=== PATIENT | female | born 1945 | race Caucasian/White ===

== ENCOUNTER 2017-07-16 16:47 | Inpatient (IN) | payer OTHER ==
[2017-07-16 17:22] LABS: Absolute Lymphocytes (CBC) 2.7 K/uL (0.7-4.9); Basophils % 0.7 % (0-1.3); Eosinophils % 1.6 % (0-4.4); Hematocrit 31.4 % (36.0-45.0); Lymphocytes % 20.8 % (15.3-44.8); MCH 28.9 pg (27.0-35.0); MCV 90.3 fL (80-100); MPV 7.4 fL (7.6-11.3); Monocytes % 7.5 % (3.3-12.3); RBC Red Blood Cell Count 3.47 M/uL (3.86-4.86)
[2017-07-16 17:35] LABS: Magnesium 1.7 mg/dL (1.8-2.5)
[2017-07-16] MEDS ORDERED: NA CHLORIDE 0.9% 1,000 ML ONE ×2 (18:00→22:27)
[2017-07-16 18:15] LABS: Thyroid Stimulating Hormone 12.31 uIU/mL (0.34-5.60)
[2017-07-16] MEDS ORDERED: FENTANYL CITR 100 MCG/2 ML ONE (18:49)
[2017-07-16] MEDS ORDERED: MAGNESIUM SULFATE 1 gm IVPB 1 GM/100 ML BAG IV ONE (20:19)
--- NOTE | 2017-07-16 21:29 | ER ---
Nurse's Notes [facility] Name: Valentina Raphael Age: 72 yrs Sex: Female : 1945 Arrival Date: 07/16/2017 Time: 16:56 Bed 28 Private MD: Diagnosis: Dehydration;Orthostatic hypotension;Hypercalcemia;Hypothyroidism, unspecified Presentation: 07/16 17:00 Presenting complaint: EMS states: pt stood up and fell backwards after getting up and tl3 feeling dizzy. Transition of care: patient was not received from another setting of care. Onset of symptoms was July 16, 2017. Care prior to arrival: None. 17:00 Method Of Arrival: EMS: [facility] tl3 17:00 Acuity: ZEYNEP 3 tl3 Triage Assessment: 17:00 General: Appears uncomfortable, slender, well groomed, well developed, Behavior is tl3 calm, cooperative, appropriate for age. Pain: Complains of pain in back. Musculoskeletal: pt able to move slowly, but has frequent muscle spasms in back. Historical: - Home Meds: 17:32 ibuprofen 600 mg Oral tab 1 tab every 6 hours for Pain [Active]; trazodone 50 mg Oral tl3 tab 2 tabs once a day [Active]; amitriptyline 25 mg Oral tab 1 tab once daily [Active]; levothyroxine 50 mcg tab 1 tab once daily [Active]; cyclobenzaprine 5 mg Oral tab 1 tab daily [Active]; pravastatin 20 mg Oral tab 1 tab once daily [Active]; stool softener [Active]; - Immunization history:: Adult Immunizations up to date. - Social history:: Smoking status: Patient/guardian denies using tobacco, never smoked. Screenin:59 Abuse screen: Denies threats or abuse. Nutritional screening: No deficits noted. tl3 Tuberculosis screening: No symptoms or risk factors identified. Fall Risk None identified. Assessment: 17:59 General: Appears uncomfortable, slender, well groomed, well developed, Behavior is tl3 calm, cooperative, appropriate for age. Pain: Complains of pain in back. Neuro: Level of Consciousness is awake, alert, obeys commands, Oriented to person, place, time, situation, Appropriate for age. Cardiovascular: Heart tones S1 S2 present Capillary refill < 3 seconds in bilateral fingers. Respiratory: Airway is patent Breath sounds are clear bilaterally. GI: No signs and/or symptoms were reported involving the gastrointestinal system. GI: Bowel sounds present X 4 quads. Reports lower abdominal pain, upper abdominal pain, intermittent pain and swelling to abdomen. : No signs and/or symptoms were reported regarding the genitourinary system. EENT: No signs and/or symptoms were reported regarding the EENT system. Derm: No signs and/or symptoms reported regarding the dermatologic system. Musculoskeletal: No signs and/or symptoms reported regarding the musculoskeletal system. 19:21 Reassessment: Patient appears in no apparent distress at this time. No changes from tl3 previously documented assessment. Patient and/or family updated on plan of care and expected duration. Pain level reassessed. Patient is alert, oriented x 3, equal unlabored respirations, skin warm/dry/pink. pt resting quietly, IV infusing without difficulty. 20:30 Reassessment: No changes from previously documented assessment. Patient and/or family tl3 updated on plan of care and expected duration. Pain level reassessed. Patient is alert, oriented x 3, equal unlabored respirations, skin warm/dry/pink. family at bedside. Vital Signs: 17:00 BP 135 / 89 Supine; Pulse 104; Resp 16; Pulse Ox 98% on R/A; tl3 17:00 BP 121 / 96 Sitting; Pulse 104; tl3 17:00 BP 86 / 40 Standing; Pulse 56; tl3 18:18 BP 189 / 107; Pulse 96; Resp 18; Pulse Ox 98% on R/A; tl3 18:40 BP 205 / 102 Supine; Pulse 80; Resp 18; Pulse Ox 96% ; tl3 18:40 BP 176 / 114 Sitting; Pulse 91; Resp 16; Pulse Ox 97% ; tl3 18:40 BP 193 / 119 Standing; Pulse 93; Resp 16; Pulse Ox 100% ; tl3 19:21 BP 177 / 77; Pulse 99; Resp 18; Pulse Ox 98% ; tl3 19:24 Pain 8/10; tl3 21:57 BP 177 / 79; Pulse 115; Resp 18; Pulse Ox 100% ; tl3 ED Course: 16:56 Patient arrived in ED. aj 16:56 Drake Quiñones PA is PHCP. jr8 16:56 Sameer Brewer MD is Attending Physician. jr8 17:00 Arm band placed on right wrist. tl3 17:25 Tiffany Melchor, RN is Primary Nurse. tl3 17:27 Triage completed. tl3 17:59 No apparent distress. Awaiting lab results. tl3 17:59 Patient has correct armband on for positive identification. Bed in low position. Bed in tl3 low position. Call light in reach. Side rails up X2. Pulse ox on. NIBP on. 17:59 No provider procedures requiring assistance completed. Inserted saline lock: 22 gauge tl3 in left ,using aseptic technique. to top of left foot. 21:24 Pth,Intact Sent. tl3 21:28 Chris Moore MD is Hospitalizing Provider. jr8 23:30 Patient admitted, IV remains in place. tl3 07/17 02:28 XRAY Chest (1 view) Sent. tl3 Administered Medications: 04 18:04 Drug: NS 0.9% 1000 ml {Note: left foot.} Route: IV; Rate: 1000 ml; Site: Other; tl3 Delivery: Primary tubing; 19:00 Follow up: IV Status: Completed infusion; IV Intake: 1000ml tl3 18:38 Drug: fentaNYL (PF) 50 mcg Route: IVP; Infused Over: 3 mins; Site: Other; tl3 19:24 Follow up: Pain 8/ Adult tl3 19:24 Follow up: Response: No adverse reaction tl3 20:05 Drug: Magnesium Sulfate 1 grams Route: IVPB; Infused Over: 1 hrs; Site: Other; tl3 Delivery: Primary tubing; 21:23 Follow up: IV Status: Completed infusion; IV Intake: 100ml tl3 22:06 Drug: NS 0.9% 1000 ml Route: IV; Rate: 125 ml/hr; Site: Other; Delivery: Primary tubing;tl3 22:06 Drug: fentaNYL (PF) 50 mcg Route: IVP; Site: Other; tl3 23:15 Follow up: Response: No adverse reaction; Pain is decreased tl3 Intake: 19:00 IV: 1000ml; Total: 1000ml. tl3 21:23 IV: 100ml; Total: 1100ml. tl3 Outcome: 21:29 Decision to Hospitalize by Provider. jr8 23:30 Admitted to Tele accompanied by tech, via stretcher, with chart, Report called to sonam Smith RN 23:30 Condition: stable 07/17 00:15 Demonstrated understanding of reason for admit tl3 00:45 Patient left the ED. tl3 Signatures: Linda Engel RN RN Drake Fay PA PA jr8 Tiffany Melchor RN RN tl3 Corrections: (The following items were deleted from the chart) 07/16 21:58 21:57 Reassessment: Patient appears in no apparent distress at this time. No changes tl3 from previously documented assessment. Patient and/or family updated on plan of care and expected duration. Pain level reassessed. Patient is alert, oriented x 3, equal unlabored respirations, skin warm/dry/pink. Drake at bedside for suturing tl3
--- NOTE | 2017-07-16 21:29 | EDPHYS ---
Physician Documentation [facility] Name: Valentina Raphael Age: 72 yrs Sex: Female : 1945 Arrival Date: 07/16/2017 Time: 16:56 Bed 28 Private MD: ED Physician Sameer Brewer HPI: 07/16 17:07 This 72 yrs old Female presents to ER via Unassigned with complaints of jr8 dizziness. 17:08 The patient presents with dizziness, feeling faint, lightheadedness. Onset: The jr8 symptoms/episode began/occurred acutely, 2 week(s) ago, and became worse and became persistent. Modifying factors: The symptoms are alleviated by lying down, the symptoms are aggravated by standing up. Associated signs and symptoms: The patient has no apparent associated signs or symptoms. Severity of symptoms: At their worst the symptoms were moderate in the emergency department the symptoms are unchanged. Patient's baseline: Neuro: alert and fully oriented, Motor: no deficits, Ambulation: walks without assistance, Speech: normal. The patient has not experienced similar symptoms in the past. The patient has not recently seen a physician. Denies recent change in medications. Denies n/v. Two singe isolated bouts of mild diarrhea. Just finished Bactrim for urinary tract infections . Historical: - Home Meds: 17:32 ibuprofen 600 mg Oral tab 1 tab every 6 hours for Pain [Active]; trazodone 50 mg Oral tl3 tab 2 tabs once a day [Active]; amitriptyline 25 mg Oral tab 1 tab once daily [Active]; levothyroxine 50 mcg tab 1 tab once daily [Active]; cyclobenzaprine 5 mg Oral tab 1 tab daily [Active]; pravastatin 20 mg Oral tab 1 tab once daily [Active]; stool softener [Active]; - Immunization history:: Adult Immunizations up to date. - Social history:: Smoking status: Patient/guardian denies using tobacco, never smoked. ROS: 17:08 Eyes: Negative for injury, pain, redness, and discharge, ENT: Negative for injury, jr8 pain, and discharge, Neck: Negative for injury, pain, and swelling, Cardiovascular: Negative for chest pain, palpitations, and edema, Respiratory: Negative for shortness of breath, cough, wheezing, and pleuritic chest pain, Abdomen/GI: Negative for abdominal pain, nausea, vomiting, diarrhea, and constipation, Back: Negative for injury and pain, MS/Extremity: Negative for injury and deformity, Skin: Negative for injury, rash, and discoloration. 17:08 Neuro: Positive for dizziness, near syncope, Negative for altered mental status, headache, loss of consciousness, numbness, seizure activity, speech changes, syncope, tingling, tinnitus, tremor, visual changes, weakness. Exam: 17:08 Eyes: Pupils equal round and reactive to light, extra-ocular motions intact. Lids and jr8 lashes normal. Conjunctiva and sclera are non-icteric and not injected. Cornea within normal limits. Periorbital areas with no swelling, redness, or edema. ENT: Nares patent. No nasal discharge, no septal abnormalities noted. Tympanic membranes are normal and external auditory canals are clear. Oropharynx with no redness, swelling, or masses, exudates, or evidence of obstruction, uvula midline. Mucous membranes moist. Neck: Trachea midline, no thyromegaly or masses palpated, and no cervical lymphadenopathy. Supple, full range of motion without nuchal rigidity, or vertebral point tenderness. No Meningismus. Cardiovascular: Regular rate and rhythm with a normal S1 and S2. No gallops, murmurs, or rubs. Normal PMI, no JVD. No pulse deficits. Respiratory: Lungs have equal breath sounds bilaterally, clear to auscultation and percussion. No rales, rhonchi or wheezes noted. No increased work of breathing, no retractions or nasal flaring. Abdomen/GI: Soft, non-tender, with normal bowel sounds. No distension or tympany. No guarding or rebound. No evidence of tenderness throughout. Back: No spinal tenderness. No costovertebral tenderness. Full range of motion. Skin: Warm, dry with normal turgor. Normal color with no rashes, no lesions, and no evidence of cellulitis. MS/ Extremity: Pulses equal, no cyanosis. Neurovascular intact. Full, normal range of motion. Neuro: Awake and alert, GCS 15, oriented to person, place, time, and situation. Cranial nerves II-XII grossly intact. Motor strength 5/5 in all extremities. Sensory grossly intact. Cerebellar exam normal. Normal gait. Vital Signs: 17:00 BP 135 / 89 Supine; Pulse 104; Resp 16; Pulse Ox 98% on R/A; tl3 17:00 BP 121 / 96 Sitting; Pulse 104; tl3 17:00 BP 86 / 40 Standing; Pulse 56; tl3 18:18 BP 189 / 107; Pulse 96; Resp 18; Pulse Ox 98% on R/A; tl3 18:40 BP 205 / 102 Supine; Pulse 80; Resp 18; Pulse Ox 96% ; tl3 18:40 BP 176 / 114 Sitting; Pulse 91; Resp 16; Pulse Ox 97% ; tl3 18:40 BP 193 / 119 Standing; Pulse 93; Resp 16; Pulse Ox 100% ; tl3 19:21 BP 177 / 77; Pulse 99; Resp 18; Pulse Ox 98% ; tl3 19:24 Pain 8/10; tl3 21:57 BP 177 / 79; Pulse 115; Resp 18; Pulse Ox 100% ; tl3 MDM: 16:56 Patient medically screened. [facility] 21:28 Data reviewed: vital signs, nurses notes, lab test result(s), EKG, radiologic studies, [facility] plain films, and as a result, I will admit patient. Data interpreted: Pulse oximetry: on room air is 98 %. Interpretation: normal. Counseling: I had a detailed discussion with the patient and/or guardian regarding: the historical points, exam findings, and any diagnostic results supporting the discharge/admit diagnosis, lab results, radiology results, the need for further work-up and treatment in the hospital. Physician consultation: Chris Moore MD was called at 21:28, was contacted at 21:28, regarding admission, to the medical/surgical unit. consult, patient's condition, and will see patient. 07/16 16:56 Order name: CBC with Diff; Complete Time: 17:28 07/16 16:56 Order name: Basic Metabolic Panel; Complete Time: 18:17 07/16 16:56 Order name: TSH; Complete Time: 18:17 07/16 16:56 Order name: T4 Free; Complete Time: 18:17 07/16 16:57 Order name: Magnesium; Complete Time: 18:17 07/16 19:20 Order name: Pth,Intact 07/16 16:57 Order name: EKG; Complete Time: 16:57 07/16 21:31 Order name: XRAY Chest (1 view) [facility] 07/16 23:34 Order name: Troponin I; Complete Time: 23:35 [facility] 07/16 16:56 Order name: Orthostatics; Complete Time: 16:57 [facility] 07/16 16:57 Order name: IV; Complete Time: 21:24 [facility] 07/16 16:57 Order name: EKG - Nurse/Tech; Complete Time: 17:28 [facility] Administered Medications: 18:04 Drug: NS 0.9% 1000 ml {Note: left foot.} Route: IV; Rate: 1000 ml; Site: Other; tl3 Delivery: Primary tubing; 19:00 Follow up: IV Status: Completed infusion; IV Intake: 1000ml tl3 18:38 Drug: fentaNYL (PF) 50 mcg Route: IVP; Infused Over: 3 mins; Site: Other; tl3 19:24 Follow up: Pain 11/24 Adult tl3 19:24 Follow up: Response: No adverse reaction tl3 20:05 Drug: Magnesium Sulfate 1 grams Route: IVPB; Infused Over: 1 hrs; Site: Other; tl3 Delivery: Primary tubing; 21:23 Follow up: IV Status: Completed infusion; IV Intake: 100ml tl3 22:06 Drug: NS 0.9% 1000 ml Route: IV; Rate: 125 ml/hr; Site: Other; Delivery: Primary tubing;tl3 22:06 Drug: fentaNYL (PF) 50 mcg Route: IVP; Site: Other; tl3 23:15 Follow up: Response: No adverse reaction; Pain is decreased tl3 Disposition: 07/16/17 21:29 Hospitalization ordered by Chris Moore for Observation. Preliminary diagnosis are Dehydration, Orthostatic hypotension, Hypercalcemia, Hypothyroidism, unspecified. - Bed requested for Telemetry/MedSurg (observation). - Status is Observation. tl3 - Condition is Stable. - Problem is new. - Symptoms have improved. UTI on Admission? No Addendum: 08/19/2017 19:42 Co-signature as Attending Physician, Sameer Brewer MD I agree with the assessment and k dr plan of care. Signatures: Dispatcher [employer] [facility] Adele Snowden RN RN kl Rittger, Kevin, MD MD [facility] Drake Quiñones PA PA [facility] Tiffany Melchor RN RN tl3 Corrections: (The following items were deleted from the chart) 07/16 22:30 21:29 Hospitalization Ordered by Chris Moore MD for Observation. Preliminary kl diagnosis is Dehydration; Orthostatic hypotension; Hypercalcemia; Hypothyroidism, unspecified. Bed requested for Telemetry/MedSurg (observation). Status is Observation. Condition is Stable. Problem is new. Symptoms have improved. UTI on Admission? No. jr8 07/17 00:45 07/16 22:30 07/16/2017 21:29 Hospitalization Ordered by Chris Moore MD for tl3 Observation. Preliminary diagnosis is Dehydration; Orthostatic hypotension; Hypercalcemia; Hypothyroidism, unspecified. Bed requested for Telemetry/MedSurg (observation). Status is Observation. Condition is Stable. Problem is new. Symptoms have improved. UTI on Admission? No. kl
[2017-07-16] MEDS ORDERED: ACETAMINOPHEN 500 MG TAB PO PRN (21:53)
[2017-07-16] MEDS ORDERED: ONDANSETRON 4 MG/2 ML VIAL IV PRN (21:53)
[2017-07-16] MEDS: NA CHLORIDE 0.9% 1,000 ML IV SCH (22:00)
[2017-07-17 02:24] LABS: Absolute Monocytes 0.7 K/uL (0.1-1.3); Absolute Neutrophil 8.2 K/uL (1.8-8.0); Basophils % 0.5 % (0-1.3); Eosinophils % 0.6 % (0-4.4); Hematocrit 28.3 % (36.0-45.0); MCH 30.4 pg (27.0-35.0); MCV 89.3 fL (80-100); MPV 7.1 fL (7.6-11.3); Monocytes % 6.4 % (3.3-12.3); RBC Red Blood Cell Count 3.17 M/uL (3.86-4.86)
[2017-07-17] MEDS: MORPHINE 2 MG/ML SYR IV PRN ×3 (02:51→17:14)
[2017-07-17] MEDS ORDERED: METOPROLOL TARTRATE 5 MG/5 ML INJ IV STA ×2 (02:51→07:53)
[2017-07-17] MEDS ORDERED: HYDRALAZINE HCL 20 MG/ML VIAL IV PRN (02:51)
[2017-07-17 03:16] LABS: Albumin 3.5 g/dL (3.2-5.5); Bilirubin Total 0.4 mg/dL (0.3-1.2); Potassium 4.3 mEq/L (3.6-5.0); Protein, Total 6.5 g/dL (6.0-8.3)
[2017-07-17] MEDS ORDERED: DEXAMETHASONE 10 MG/ML VIAL IV ONE (06:30)
[2017-07-17 06:32] LABS: Absolute Monocytes 0.7 K/uL (0.1-1.3); Absolute Neutrophil 6.8 K/uL (1.8-8.0); Basophils % 0.5 % (0-1.3); Eosinophils % 0.9 % (0-4.4); Hematocrit 28.8 % (36.0-45.0); Lymphocytes % 20.4 % (15.3-44.8); MCH 29.8 pg (27.0-35.0); MCV 89.7 fL (80-100); MPV 7.6 fL (7.6-11.3); Monocytes % 7.5 % (3.3-12.3); RBC Red Blood Cell Count 3.21 M/uL (3.86-4.86)
[2017-07-17] MEDS: NA CHLORIDE 0.9% 1,000 ML IV SCH ×3 (06:40→17:12)
[2017-07-17] MEDS: LEVOTHYROXINE SOD 0.05 MG TABLET PO SCH (06:41)
[2017-07-17] MEDS ORDERED: DEXAMETHASONE 4 MG/ML VIAL ONE (06:54)
--- NOTE | 2017-07-17 07:08 | EKG ---
Test Date: 2017-07-16 Test Time: 17:09:08 Microstrategy Developer: [employer] MEASUREMENT RESULTS: Intervals: Rate: 102 SC: 166 QRSD: 82 QT: 334 QTc: 435 [place]: P: 75 SC: 166 QRS: 61 T: 86 INTERPRETIVE STATEMENTS: Sinus tachycardia Otherwise normal ECG Compared to ECG 05/31/2017 17:10:11 Sinus rhythm no longer present Left ventricular hypertrophy no longer present Electronically Signed On 07-17-17 07:07:32 CDT by Clement Orozco
[2017-07-17 07:10] LABS: Albumin 3.4 g/dL (3.2-5.5); Bilirubin Total 0.3 mg/dL (0.3-1.2); Magnesium 1.7 mg/dL (1.8-2.5); Potassium 4.3 mEq/L (3.6-5.0); Protein, Total 6.3 g/dL (6.0-8.3); Thyroid Stimulating Hormone 2.29 uIU/mL (0.34-5.60)
--- NOTE | 2017-07-17 07:34 | RAD REPORT ---
EXAM DESCRIPTION: RAD - Chest Single View - 07/16/2017 10:52 pm CLINICAL HISTORY: Dyspnea COMPARISON: May 31 TECHNIQUE: AP portable chest image was obtained 2239 hours . FINDINGS: No mass, consolidation or failure finding. Trachea is midline. Lung markings are similar t o the prior study. No new mediastinal or hilar finding. Heart and vasculature are normal. No measurab le pleural effusion and no pneumothorax. No gross bony abnormality seen. No acute aortic findings robb pected. Neurostimulator device has been removed since prior imaging. IMPRESSION: No acute cardiopulmonary process. No suspicious change from prior imaging.
[2017-07-17] MEDS ORDERED: TRAZODONE 50 MG TABLET PO PRN (07:53)
[2017-07-17] MEDS ORDERED: CYCLOBENZAPRINE 10 MG TAB PO PRN (07:53)
--- NOTE | 2017-07-17 07:59 | P.HP ---
Certification for Inpatient Patient admitted to: Observation With expected LOS: <2 Midnights Patient will require the following post-hospital care: None Practitioner: I am a practitioner with admitting privileges, knowledge of patient current condition, hospital course, and medical plan of care. Services: Services provided to patient in accordance with Admission requirements found in Title 42 Section 412.3 of the Code of Federal Regulations Patient History Date of Service: 07/16/17 Reason for admission: Syncope History of Present Illness: Patient is a 72-year-old female who has a history of chronic back pain. She states she has had a couple procedures were they have placed concrete in her vertebrae. I believe she has had kyphoplasties. I am not sure why she has had recurrent issues with this. According the patient, she was in her normal state of health until yesterday when she started feeling dizzy. She suddenly became lightheaded. Patient passed out. She is not sure exactly how long she was down. She came into the emergency room for further evaluation. In the emergency room she has had multiple testing which reveal she had some electrolyte abnormalities as well is a leukocytosis. She had hyponatremia along with hypercalcemia. She has been taking supplemental calcium with vitamin-D. Will need to stop this. Patient was also orthostatic in the emergency room. Will hydrate her as she has some renal insufficiency and will recheck her labs in the morning. Will also do x-rays of her spine she is complaining of back pain. For her syncope workup, will also order echocardiogram and carotid Doppler. Physical therapy evaluation in the morning as well. We will manage her chronic pain with her home medications. Allergies No Known Allergies Allergy (Verified 07/17/17 04:21) Home Medications: Docusate Sodium [Stool Softener] 100 mg PO DAILY 10/05/16 Levothyroxine [Synthroid] 50 mcg PO [id number] 10/05/16 Pravastatin Sodium [Pravachol] 20 mg PO BEDTIME 10/05/16 Amitriptyline [Elavil] 25 mg PO BEDTIME 07/17/17 Cyclobenzaprine HCl [Flexeril] 5 mg PO BID PRN 07/17/17 Loratadine [Claritin] 10 mg PO DAILY 07/17/17 Trazodone [Desyrel] 50 mg PO PRN PRN 07/17/17 - Past Medical/Surgical History Has patient received pneumonia vaccine in the past: No Diabetic: No -: pneumothorax -: colostomy -: spinal meningitis -: GERD -: Hysterectomy -: back sx x4 -: colostomy - Family History Father Medical History: Cancer Notes: cancer of the liver - Social History Smoking Status: Never smoker Alcohol use: No CD- Drugs: No Caffeine use: No Place of Residence: Home Review of Systems 10-point ROS is otherwise unremarkable Physical Examination - Vital Signs Temperature: 98.6 F Blood Pressure: 173/81 Pulse: 92 Respirations: 14 Pulse Ox (%): 97 - Physical Exam General: Alert, In no apparent distress, Oriented x3 HEENT: Atraumatic, PERRLA, Mucous membr. moist/pink, EOMI, Sclerae nonicteric Neck: Supple, 2+ carotid pulse no bruit, No LAD, Without JVD or thyroid abnormality Respiratory: Clear to auscultation bilaterally, Normal air movement Cardiovascular: Regular rate/rhythm, Normal S1 S2, Systolic murmur Gastrointestinal: Normal bowel sounds, Soft and benign, Non-distended, No tenderness Musculoskeletal: No clubbing, No swelling, Tenderness (Of the spine) Integumentary: No rashes, Tenderness/swelling Neurological: Normal gait, Normal speech, Normal tone, Sensation intact, Cranial nerves 3-12 intact, Normal affect, Abnormal strength Lymphatics: No axilla or inguinal lymphadenopathy - Studies Laboratory Data (last 24 hrs) 07/16/17 17:15: Sodium 128 L, Potassium 5.0, BUN 28 H, Creatinine 1.36 H, Glucose 111, Magnesium 1.7 L D 07/16/17 17:15: WBC 12.9 H, Hgb 10.0 L, Hct 31.4 L, Plt Count 396 Assessment & Plan - Problems (Diagnosis) (1) Syncope Current Visit: Yes Status: Acute (2) Chronic pain syndrome Current Visit: Yes Status: Acute (3) History of kyphoplasty Current Visit: Yes Status: Acute (4) History of colostomy reversal Current Visit: Yes Status: Acute (5) Orthostatic hypotension Current Visit: Yes Status: Acute (6) Malignant hypertension Current Visit: Yes Status: Acute - Plan Plan: 1. Carotid Doppler and echocardiogram 2. IV hydration 3. Recheck orthostatics in the morning 4. Spine x-ray per patient's request 5. Medication for chronic pain 6. Recheck calcium level in sodium level in the morning 7. GI and DVT prophylaxis - Advance Directives Does patient have a Living Will: No Does patient have a Durable POA for Healthcare: Yes - Code Status/Comfort Care Code Status Assessed: Yes Code Status: Full Code Critical Care: No Time Spent Managing PTS Care (In Minutes): 50
[2017-07-17] MEDS ORDERED: PNEUMOCOCCAL VACCINE 0.5 ML IMVAC ONE (08:00)
[2017-07-17] MEDS ORDERED: TRAMADOL HCL 50 MG TAB PO PRN (08:01)
--- NOTE | 2017-07-17 08:04 | RAD REPORT ---
EXAM DESCRIPTION: RAD - C Spine Ap/Lat - 07/17/2017 7:24 am CLINICAL HISTORY: Neck pain, back pain COMPARISON: None. FINDINGS: Cervical bodies are normal in height and alignment. No fracture or acute bony process seen . No disc space narrowing. Bones do appear osteopenic for age. Degenerative changes seen at the dens anterior arch C1 level. Facet joint degenerative change is mild. There is no prevertebral soft tissue thickening or other suspicious soft tissue finding. Dense carotid bulb calcifications are present left greater than right. IMPRESSION: Osteopenic and mild degenerative changes. No acute finding.
--- NOTE | 2017-07-17 08:14 | RAD REPORT ---
EXAM DESCRIPTION: RAD - Thoracic Spine Ap/Lat - 07/17/2017 7:25 am CLINICAL HISTORY: Back pain, history of spinal fusions COMPARISON: Two-view chest examination May 26, 2017, thoracic spine examination January 2017 FINDINGS: AP & lateral views of the thoracic spine were obtained. T7 60% compression fracture deform ity. Sclerotic changes are present within this vertebral body. Finding has not changed since May 26 chest film. Partial compression of the T12 body is noted with height loss and concavity to the sup erior endplate. Posterior wall height does appear to be preserved. This may have progressed slightly from the chest examination. Remaining thoracic vertebrae are normal in height. Vertebroplasty changes are present in the L1 body. No paraspinal masses are identified. No significant disc space narrowing. Neurostimulator device has been removed since the May [address] film IMPRESSION: Compression fracture of T7 not appearing significantly different from a May 26 chest examination. T12 compression fracture may have progressed minimally since the available comparison. No other new thoracic vertebral finding. No paraspinal mass. Patient's neurostimulator device has been removed since prior imaging. MR imaging is now all likely p ossible for this patient if there is concern for an occult thoracic process.
--- NOTE | 2017-07-17 08:17 | RAD REPORT ---
EXAM DESCRIPTION: RAD - Lumbar Spine 3 Views - 07/17/2017 7:25 am CLINICAL HISTORY: Back pain, history of multiple spinal fractures COMPARISON: May 06 FINDINGS: A three-view lumbar spine examination was performed. Underlying osteopenic changes are pre sent. The L1 and L5 compression fractures seen on the April examination have now been treated with vertebroplasty procedure. Height of L5 appears stable. Bone cement is more anteriorly positioned in L 1. There is questionable further loss in height of the L1. Patient was unable to be optimally positioned for the examination. This puts clothing or bedding kimberly fact over the posterior wall and posterior elements. Concave contour to the superior endplate L4 has developed since the April lumbar spine examination. Anterior and posterior wall heights are preserved. Minimal concavity to the superior endplate L2 not ed. Posterior wall height is preserved. No new or progressive disc space narrowing since prior imagin g. No paraspinal soft tissue mass. No pars defects identified. IMPRESSION: Since April imaging the partial compression of L1 has been treated with vertebroplasty . There appears to have been some progression in the compression fracture since the prior imaging. It is unknown if the progression of the L1 compression occurred prior to or subsequent to the vertebrop lasty procedure. Vertebroplasty treated L5 body shows no change in height since April imaging. Partial compression of the L2 and L4 bodies seen as concavity to the superior endplates. Peripheral v ertebral body wall height appears preserved. Underlying degenerative and osteopenic change. Bending or clothing artifact precludes accurate assess ment of the posterior elements.
[2017-07-17] MEDS: FLUOXETINE 20 MG CAP PO SCH (08:18)
[2017-07-17] MEDS: GABAPENTIN 300 MG CAP PO SCH ×4 (08:18→21:47)
[2017-07-17] MEDS: DOCUSATE NA 100 MG CAP PO SCH (08:18)
--- NOTE | 2017-07-17 08:18 | RAD REPORT ---
EXAM DESCRIPTION: FLAVIA - SUSSY - 07/17/2017 7:39 am CLINICAL HISTORY: Syncope COMPARISON: None. TECHNIQUE: Real-time sonographic evaluation of both carotid systems was performed. Doppler interroga tion was performed with waveform tracing bilaterally. FINDINGS: Normal high resistance waveforms are noted in both external carotid arteries. The common c arotid arteries and internal carotid arteries show normal low resistance waveforms. Bilateral carotid bulb calcified and noncalcified plaquing changes are present. On visual inspection this does not significantly narrow a vessel lumen. Peak systolic and end diastolic velocity values an d the ICA/CCA ratios are in the non-hemodynamically significant range. Antegrade flow seen in both vertebral arteries. Velocity values and ratios were recorded and are retained in the patient's imaging records. IMPRESSION: Bilateral carotid bulb plaquing changes. No hemodynamically significant stenosis.
[2017-07-17] MEDS ORDERED: CARVEDILOL 12.5 MG TAB PO SCH (09:00)
--- NOTE | 2017-07-17 10:31 | P.PN ---
Subjective Date of Service: 07/17/17 Primary Care Provider: Gillian Stock NP; Pain management-Dr. Rushing Chief Complaint: Syncope Subjective: Other (Patient still with back pain but stable with medication. Still somewhat dizzy when standing.) Physical Examination - Vital Signs Temperature: 98.6 F Blood Pressure: 122/58 Pulse: 99 Respirations: 14 Pulse Ox (%): 97 - Physical Exam General: Alert, In no apparent distress, Oriented x3, Cooperative HEENT: Atraumatic Neck: Supple Respiratory: Clear to auscultation bilaterally, Normal air movement Cardiovascular: Normal pulses, Regular rate/rhythm Gastrointestinal: Normal bowel sounds, Soft and benign, Non-distended Musculoskeletal: No warmth, Tenderness (Pain to the thoracic and lumbar region with palpation.) Integumentary: No tenderness/swelling, No erythema, No warmth, No cyanosis Neurological: Normal speech, Normal strength at 5/5 x4 extr, Normal tone, Normal affect Other Physical/Emotional Findings: Patient had positive orthostatics changes this morning with physical therapy. - Studies Laboratory Data (last 24 hrs) 07/16/17 17:15: Sodium 128 L, Potassium 5.0, BUN 28 H, Creatinine 1.36 H, Glucose 111, Magnesium 1.7 L D 07/16/17 17:15: WBC 12.9 H, Hgb 10.0 L, Hct 31.4 L, Plt Count 396 Medications List Reviewed: Yes Assessment & Plan - Problems (Diagnosis) (1) Hypertension Current Visit: Yes Status: Chronic Plan: Patient had positive orthostatics changes this morning with physical therapy. Will need to adjust blood pressure medication. Patient likely dehydrated. Will continue with IV fluids. Will correct sodium and potassium. Encourage oral intake. Will monitor and adjust appropriately. Patient not safe to go home at this time. Will continue to work with physical therapy over the next day. Will check MRI of the thoracic/lumbar spine. Qualifiers: Hypertension type: essential hypertension Qualified Code(s): I10 - Essential (primary) hypertension (2) History of vertebroplasty Current Visit: Yes Status: Chronic Plan: Patient with history of vertebroplasty in the past. Patient seen by pain management. Will check MRI of the thoracic and lumbar region to further assess. Will continue to work with physical therapy. Anticipate home in the next 1-2 days as the patient is still unsafe to go home with positive orthostatics changes. Patient high risk for fall and worsening back problem. (3) Compression fracture of thoracic spine, non-traumatic Current Visit: Yes Status: Chronic Plan: Patient with T7 compression fracture. No significant change since last evaluation. T12 showed mild increase compression injury. Will check MRI of the thoracic spine to further evaluate. Will continue to work with physical therapy. Patient still high risk for fall due to positive orthostatics changes. Will continue with IV fluid hydration. Will monitor and adjust appropriately. Anticipate possible discharge in the next 1-2 days. Patient is seen by pain management as an outpatient. Pain management will need to further address and treat. Qualifiers: Encounter type: subsequent encounter Thoracic vertebra fracture level: T7 Fracture healing: with routine healing Qualified Code(s): M48.54XD - Collapsed vertebra, not elsewhere classified, thoracic region, subsequent encounter for fracture with routine healing (4) Compression fx, lumbar spine Current Visit: Yes Status: Chronic Plan: Patient with multiple compression fractures to the L1, L2 and L4. Will continue with above plan of care. Will check MRI to further evaluate. Continue to work with physical therapy. Patient seen by pain management as an outpatient. Patient may require further evaluation and treatment by pain management. Qualifiers: Encounter type: subsequent encounter Lumbar vertebra fracture level: L1 (5) Chronic pain syndrome Onset Date: 07/17/17 Current Visit: Yes Status: Chronic Plan: Will continue with pain control medication. Patient is seen by pain management. Patient had stimulator in the past. She reports the pain management plans to put in a new stimulator. (6) Orthostatic hypotension Onset Date: 07/17/17 Current Visit: Yes Status: Acute Plan: Patient with orthostatic hypotension likely from dehydration. Will continue with IV fluid hydration. Will monitor closely. May need to hold her blood pressure medication until blood pressure is more stable. (7) Syncope Onset Date: 07/17/17 Current Visit: Yes Status: Acute Plan: This is likely from orthostatics changes. Will continue with above plan of care. Qualifiers: Syncope type: unspecified Qualified Code(s): R55 - Syncope and collapse Discharge Plan: Home Plan to discharge in: 24 Hours Time Spent Managing Pts Care (In Minutes): 55
--- NOTE | 2017-07-17 12:56 | ECHO ---
HEIGHT: 5 ft 3 in WEIGHT: 119 lb 3.2 oz DATE OF STUDY: 07/17/[address]: Chris Moore MD 2-DIMENSIONAL: YES M.MODE: YES DOPPLER: YES COLOR FLOW: YES TDS: PORTABLE: DEFINITY: BUBBLE STUDY: DIAGNOSIS: SYNCOPE CARDIAC HISTORY: CATHERIZATION: NO SURGERY: NO PROSTHETIC VALVE: NO PACEMAKER: NO MEASUREMENTS (cm) DIASTOLIC (NORMALS) SYSTOLIC (NORMALS) IVSd 1.0 (0.6-1.2) LA Diam 3.2 (1.9-4.0) LVEF 71% LVIDd 4.3 (3.5-5.7) LVIDs 2.6 (2.0-3.5) %FS 40% LVPWd 1.1 (0.6-1.2) Ao Diam 2.7 (2.0-3.7) 2 DIMENSIONAL ASSESSMENT: RIGHT ATRIUM: NORMAL LEFT ATRIUM: NORMAL RIGHT VENTRICLE: NORMAL LEFT VENTRICLE: NORMAL TRICUSPID VALVE: NORMAL MITRAL VALVE: NORMAL PULMONIC VALVE: NORMAL AORTIC VALVE: NORMAL PERICARDIAL EFFUSION: NONE AORTIC ROOT: NORMAL LEFT VENTRICULAR WALL MOTION: NORMAL DOPPLER/COLOR FLOW: MILD MITRAL AND TRICUSPID REGURGITATION. NORMAL RIGHT VENTRICULAR SYSTOLIC PRESSURE. COMMENTS: NORMAL 2-DIMENSIONAL ECHOCARDIOGRAM. MILD MITRAL AND TRICUSPID REGURGITATION. TECHNOLOGIST: ARTURO LEONG
[2017-07-17] MEDS: HYDROCODONE/APAP 10/325 TAB PO PRN (15:34)
[2017-07-17] MEDS: ENOXAPARIN 40 MG/0.4 ML SQ SCH (17:12)
[2017-07-17] MEDS ORDERED: MAGNESIUM SULFATE 1 gm IVPB 1 GM/100 ML BAG IV ONE (17:42)
[2017-07-17] MEDS: CARVEDILOL 25 MG TAB PO SCH (18:41)
[2017-07-17] MEDS ORDERED: LORazepam 2 MG/ML VIAL IV ONE (20:19)
[2017-07-17] MEDS ORDERED: LISINOPRIL 20 MG TAB PO SCH (21:00)
--- NOTE | 2017-07-17 21:38 | RAD REPORT ---
EXAM DESCRIPTION: MRI - Thoracic Spine Wo Contr - 07/17/2017 9:20 pm CLINICAL HISTORY: History of fall with severe back pain. COMPARISON: Plain radiograph 07/17/2017 and more remote studies. FINDINGS: MR thoracic and MRI lumbar spine was performed without contrast. Increased T2/IR signal is present with diminished T1 signal abnormality within the T7 and T10 vertebr al bodies. The findings are compatible with acute or subacute osteoporotic wedge compression fracture s. The T7 fracture is more severe with evidence of significant vertebral body height loss estimated at 8 0%. A posterior disc bulges also present at T7-8 related to this resulting in mild central canal narr owing. The T10 fracture is mild to moderate in severity with estimated vertebral body height loss of 20-25%. No canal compromise seen at this level. No thoracic cord signal abnormality. Chronic compression deformities are present in the T12, L1, L3 and L5 vertebral bodies. The L1, L3 an d L4 vertebral bodies demonstrate vertebroplasty cement in place. Central canal stenosis to 6-7 mm is noted at L2-3 mild central canal stenosis to 9 mm is present L3-4. No cauda equina abnormality is seen. No significant paraspinal fluid collections. IMPRESSION: Acute to subacute compression fractures as detailed affecting T7 and T10 level. Several chronic compression fractures are present as described. 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
[2017-07-17] MEDS: AMITRIPTYLINE 25 MG TAB PO SCH (21:47)
[2017-07-17] MEDS: ATORVASTATIN 10 MG TAB PO SCH (21:47)
[2017-07-18] MEDS: LEVOTHYROXINE SOD 0.05 MG TABLET PO SCH (05:26)
[2017-07-18] MEDS: NA CHLORIDE 0.9% 1,000 ML IV SCH ×3 (05:26→20:13)
[2017-07-18 06:33] LABS: Absolute Lymphocytes (CBC) 1.9 K/uL (0.7-4.9); Absolute Monocytes 0.7 K/uL (0.1-1.3); Absolute Neutrophil 3.6 K/uL (1.8-8.0); Basophils % 0.7 % (0-1.3); Eosinophils % 2.7 % (0-4.4); Lymphocytes % 30.4 % (15.3-44.8); MCH 29.8 pg (27.0-35.0); MCV 90.4 fL (80-100); Monocytes % 10.4 % (3.3-12.3); RBC Red Blood Cell Count 2.54 M/uL (3.86-4.86)
[2017-07-18 06:35] VITALS: BMI 21.6
[2017-07-18] MEDS: MORPHINE 2 MG/ML SYR IV PRN ×3 (06:40→22:42)
[2017-07-18 06:43] LABS: BUN Blood Urea Nitrogen 10 mg/dL (6-20); Bicarbonate 21 mEq/L (21-31); Glomerular Filtration Rate > 90 mL/min (=/>90); Glucose Level 97 mg/dL (65-120); Potassium 3.9 mEq/L (3.6-5.0); Sodium Level 135 mEq/L (135-145)
[2017-07-18 08:08] LABS: Hematocrit 23.7 % (36.0-45.0)
[2017-07-18] MEDS: CARVEDILOL 25 MG TAB PO SCH ×2 (08:31→20:13)
[2017-07-18] MEDS: GABAPENTIN 300 MG CAP PO SCH ×4 (08:31→20:14)
[2017-07-18] MEDS: FLUOXETINE 20 MG CAP PO SCH (08:31)
[2017-07-18] MEDS: DOCUSATE NA 100 MG CAP PO SCH (08:32)
[2017-07-18 08:36] LABS: Ferritin 51.7 ng/ml (11.0-306.8)
[2017-07-18] MEDS ORDERED: POTASSIUM CL SA 10 MEQ TAB PO ONE (09:00)
[2017-07-18] MEDS: HYDROCODONE/APAP 10/325 TAB PO PRN (13:56)
[2017-07-18] MEDS: ENOXAPARIN 40 MG/0.4 ML SQ SCH (16:18)
[2017-07-18 16:37] LABS: Hematocrit 22.8 % (36.0-45.0)
--- NOTE | 2017-07-18 17:05 | P.PN ---
Subjective Date of Service: 07/18/17 Primary Care Provider: Gillian Stock NP; Pain management-Dr. Rushing Chief Complaint: Syncope Subjective: Doing well (no more diarrhea. Pain improved.) Physical Examination - Vital Signs Temperature: 99.0 F Blood Pressure: 159/87 Pulse: 87 Respirations: 17 Pulse Ox (%): 93 - Physical Exam General: Alert, In no apparent distress, Cooperative HEENT: Atraumatic Neck: Supple Respiratory: Clear to auscultation bilaterally, Normal air movement Cardiovascular: Normal pulses, Regular rate/rhythm Gastrointestinal: Normal bowel sounds, Soft and benign, Non-distended Musculoskeletal: No erythema, No tenderness, No warmth Integumentary: No tenderness/swelling, No erythema, No warmth, No cyanosis Neurological: Normal speech, Normal strength at 5/5 x4 extr, Normal tone, Normal affect Lymphatics: No axilla or inguinal lymphadenopathy - Studies Medications List Reviewed: Yes Assessment & Plan - Problems (Diagnosis) (1) Hypertension Current Visit: Yes Status: Chronic Plan: Will continue to have patient work with physical therapy. Patient hemoglobin has dropped. Suspect GI bleed. Patient with positive guaiacs. Will consult GI to further evaluate. Patient may require EGD. Will monitor hemoglobin. Patient may require transfusion if hemoglobin drops below 7. Qualifiers: Hypertension type: essential hypertension Qualified Code(s): I10 - Essential (primary) hypertension (2) History of vertebroplasty Current Visit: Yes Status: Chronic Plan: MRI reviewed. Compression fractures noted. Spinal stenosis also noted. Will continue to have patient work with physical therapy. Patient will need a follow up with pain management as an outpatient. (3) Compression fracture of thoracic spine, non-traumatic Current Visit: Yes Status: Chronic Plan: Continue as above. Qualifiers: Encounter type: subsequent encounter Thoracic vertebra fracture level: T7 Fracture healing: with routine healing Qualified Code(s): M48.54XD - Collapsed vertebra, not elsewhere classified, thoracic region, subsequent encounter for fracture with routine healing (4) Compression fx, lumbar spine Current Visit: Yes Status: Chronic Plan: Patient with multiple compression fractures to the L1, L2 and L4. Will continue with above plan of care. Qualifiers: Encounter type: subsequent encounter Lumbar vertebra fracture level: L1 (5) Chronic pain syndrome Onset Date: 07/17/17 Current Visit: Yes Status: Chronic Plan: Will continue with pain control medication. Patient is seen by pain management. Patient had stimulator in the past. She reports the pain management plans to put in a new stimulator. (6) Orthostatic hypotension Onset Date: 07/17/17 Current Visit: Yes Status: Acute Plan: Will continue with IV fluids. Will monitor blood pressure. Continue as above. (7) Syncope Onset Date: 07/17/17 Current Visit: Yes Status: Acute Plan: This may be related to underlying anemia. GI consulted. Continue with above plan of care. Qualifiers: Syncope type: unspecified Qualified Code(s): R55 - Syncope and collapse (8) Anemia Current Visit: Yes Status: Acute Plan: Anemia noted. Guaiac also positive. GI consulted. Will monitor hemoglobin. Patient may need transfusion if hemoglobin below 7.0. Will discuss with GI about the possibility of EGD. Qualifiers: Anemia type: other cause (9) GI bleed Current Visit: Yes Status: Suspected Plan: Suspect upper GI bleed. Will discuss with GI about the possibility for EGD. Discharge Plan: Home Plan to discharge in: 48 Hours Time Spent Managing Pts Care (In Minutes): 55
[2017-07-18] MEDS: ATORVASTATIN 10 MG TAB PO SCH (20:14)
[2017-07-18] MEDS: AMITRIPTYLINE 25 MG TAB PO SCH (20:14)
[2017-07-18 22:51] LABS: Hematocrit 24.3 % (36.0-45.0)
[2017-07-19] MEDS: MORPHINE 2 MG/ML SYR IV PRN ×3 (02:36→11:47)
[2017-07-19] MEDS: LEVOTHYROXINE SOD 0.05 MG TABLET PO SCH (05:45)
[2017-07-19] MEDS: NA CHLORIDE 0.9% 1,000 ML IV SCH ×3 (05:50→11:50)
[2017-07-19 06:13] LABS: Absolute Lymphocytes (CBC) 1.6 K/uL (0.7-4.9); Absolute Monocytes 0.5 K/uL (0.1-1.3); Absolute Neutrophil 4.8 K/uL (1.8-8.0); Basophils % 0.6 % (0-1.3); Eosinophils % 1.5 % (0-4.4); Hematocrit 26.7 % (36.0-45.0); Lymphocytes % 23.2 % (15.3-44.8); MCH 29.7 pg (27.0-35.0); MCV 90.9 fL (80-100); MPV 7.1 fL (7.6-11.3); Monocytes % 7.5 % (3.3-12.3); RBC Red Blood Cell Count 2.93 M/uL (3.86-4.86)
[2017-07-19 06:24] LABS: BUN Blood Urea Nitrogen 7 mg/dL (6-20); Bicarbonate 20 mEq/L (21-31); Glomerular Filtration Rate > 90 mL/min (=/>90); Glucose Level 95 mg/dL (65-120); Potassium 3.7 mEq/L (3.6-5.0); Sodium Level 135 mEq/L (135-145)
[2017-07-19] MEDS ORDERED: KCL 20 MEQ/100 mL IVPB 20 MEQ/100 ML BAG IV SCH (08:00)
[2017-07-19] MEDS: DOCUSATE NA 100 MG CAP PO SCH (08:27)
[2017-07-19] MEDS: CARVEDILOL 25 MG TAB PO SCH (08:35)
[2017-07-19] MEDS ORDERED: LIDOCAINE 1% MPF 5 ML VIAL ONE (10:58)
[2017-07-19] MEDS ORDERED: PROPOFOL 200 MG/20 ML VIAL IV ONE (10:58)
--- NOTE | 2017-07-19 11:03 | ENDO RPT ---
[address], [address] EGD PROCEDURE REPORT EXAM DATE: 07/19/2017 PATIENT NAME: Valentina Raphael MR#: [id number] BIRTHDATE: 1945 ATTENDING: Tom [address] STATUS: inpatient - [facility] SPINDLE TESTER: Ximena Mckeon and Ileana Noland RN INDICATIONS: The patient is a 72 yr old Female here for an EGD due to anemia PROCEDURE PERFORMED: EGD with biopsy MEDICATIONS: Per Anesthesia. TOPICAL ANESTHETIC: none CONSENT: The patient understands the risks and benefits of the procedure and understands that these risks include, but are not limited to: sedation, allergic reaction, infection, perforation and/or bleeding. Alternative means of evaluation and treatment include, among others: physical exam, x-rays, and/or surgical intervention. The patient elects to proceed with this endoscopic procedure. DESCRIPTION OF PROCEDURE: During intra-op preparation period all mechanical medical equipment was checked for proper function. Hand hygiene and appropriate measures for infection prevention was taken. Procedure, possible complications, and alternatives including but not limited to the possibility of bleeding, perforation, tear, infection, sepsis, need for surgery, need for blood transfusion, and anesthesia related complications were explained to the patient. After the risks, benefits and alternatives of the procedure were thoroughly explained, Informed consent was verified, confirmed and timeout was successfully executed by the treatment team. The patient was placed in the left lateral position. The patient was anesthetized with topical anesthesia. Through the anesthetized oropharyngeal area, the scope was passed without any difficulty. The [id number] ([id number]) endoscope was introduced through the mouth and advanced to the bulb of duodenum. Retroflexed views revealed a large hiatal hernia. The gastroscope was then slowly withdrawn and removed. Multiple ulcers were found in the lower esophagus. Spasm was found at the gastroesophageal junction. A large hiatal hernia was found Duodenitis was found in the bulb of the duodenum. A stricture was found in the bulb of the duodenum. An ulcer was found in the bulb of the duodenum. ADVERSE EVENTS: There were no complications. IMPRESSIONS: 1. Multiple (2) shallow 6-8 mm clean-based ulcerations in the lower esophagus 2. Spasm at the gastroesophageal junction 3. Large hiatal hernia (5 cm, GEJ at 32 cm, DI at 37 cm from the gums) 4. Duodenitis in the bulb of the duodenum 5. Severe stricture in the apexa of bulb of the duodenum 6. 1 cm clean-based ulcer in the bulb of the duodenum RECOMMENDATIONS: 1. await biopsy results 2. acid suppression therapy REPEAT EXAM: Tom Johnson Dr eSigned: Tom Johnson Dr 07/19/2017 11:02 AM cc: Luis Alberto Wagoner CPT CODES: ICD9 CODES: PATIENT NAME: Valentina Raphael MR#: [id number]
[2017-07-19] MEDS ORDERED: SODIUM CHLORIDE 0.9% 10ML INJ IV PRN (11:23)
[2017-07-19] MEDS: GABAPENTIN 300 MG CAP PO SCH ×2 (11:51→12:06)
[2017-07-19] MEDS: FLUOXETINE 20 MG CAP PO SCH (11:51)
[2017-07-19 12:13] VITALS: TEMP 98.2
--- NOTE | 2017-07-19 12:22 | P.DS ---
Admission Date: 07/17/17 Discharge Date: 07/19/17 Primary Care Provider: Gillian Stock NP; Pain management-Dr. Rushing Disposition: ROUTINE DISCHARGE Discharge Condition: GOOD Reason for Admission: Syncope Consultations: GI-Dr. Johnson Procedures: EGD: Multiple-to shallow 6-8 mm clean based ulcerations in the lower esophagus noted. Spasm at the GE junction noted. Large hiatal hernia noted. Duodenitis in the bulb of the duodenum. Severe stricture in the apex of the bulb of the duodenum noted. 1 cm clean based ulcer in the bulb of of the duodenum noted. - Problems (1) Hypertension Current Visit: Yes Status: Chronic Qualifiers: Hypertension type: essential hypertension Qualified Code(s): I10 - Essential (primary) hypertension (2) History of vertebroplasty Current Visit: Yes Status: Chronic (3) Compression fracture of thoracic spine, non-traumatic Current Visit: Yes Status: Chronic Qualifiers: Encounter type: subsequent encounter Thoracic vertebra fracture level: T7 Fracture healing: with routine healing Qualified Code(s): M48.54XD - Collapsed vertebra, not elsewhere classified, thoracic region, subsequent encounter for fracture with routine healing (4) Compression fx, lumbar spine Current Visit: Yes Status: Chronic Qualifiers: Encounter type: subsequent encounter Lumbar vertebra fracture level: L1 (5) Chronic pain syndrome Onset Date: 07/17/17 Current Visit: Yes Status: Chronic (6) Orthostatic hypotension Onset Date: 07/17/17 Current Visit: Yes Status: Acute (7) Syncope Onset Date: 07/17/17 Current Visit: Yes Status: Acute Qualifiers: Syncope type: unspecified Qualified Code(s): R55 - Syncope and collapse (8) Anemia Current Visit: Yes Status: Acute Qualifiers: Anemia type: other cause (9) GI bleed Current Visit: Yes Status: Suspected Qualifiers: GI bleed type/associated pathology: duodenal ulcer Qualified Code(s): K26.4 - Chronic or unspecified duodenal ulcer with hemorrhage (10) Duodenal ulcer Current Visit: Yes Status: Acute (11) Duodenitis Current Visit: Yes Status: Acute (12) Hiatal hernia Current Visit: Yes Status: Acute (13) Duodenal stricture Current Visit: Yes Status: Acute Brief History of Present Illness: 72-year-old female presented to emergency room with syncopal episode. Patient with history of chronic pain. Patient was admitted for further evaluation and treatment. Patient appeared slightly dehydrated. She was also found to be anemic. She was also complaining of back pain. Hospital Course: Patient presented with syncope. This was likely multifactorial-dehydration and anemia. She was hydrated with IV fluids. She was found to have anemia. She was evaluated by GI. Patient did not require blood transfusion. Patient found to have duodenitis, duodenal ulcer with stricture and hiatal hernia. Patient was placed on Protonix twice daily. No melena or rectal bleeding was noted. Her syncope resolved. Echocardiogram and carotid Doppler were unremarkable. At discharge she was found to be B12 deficient. At discharge, GI recommends to continue with Protonix 40 mg 1 pill twice daily. Patient will continue with B12 supplementation along with multi vitamin daily. This may be followed as outpatient. Recommendation is to recheck CBC in 1-2 weeks to monitor progress for her Anemia. Recommendation is for the patient to follow up with GI in 2-4 weeks to monitor progress. Patient may require repeat EGD with dilation in the future. She may require outpatient transfusion if needed. Patient with hypertension. Medication adjusted in her stay. Coreg was increased to 25 mg one pill BID. She will continue with Lisinopril 20 mg one pill BID. Recommendation is to maintain blood pressures less 150/80. Further adjustment can be done by her PCP. Patient has hyperlipidemia. She will continue with her medication. Patient has hypothyroidism. She will continue with her medication. Patient has chronic pain with compression fractures to the lumbar and thoracic spine. This was assessed in detail with MRI. She will continue with her pain medication. Patient is seen by pain management. Patient will continue with pain management in the future. Vital Signs/Physical Exam: Temp Pulse Resp BP Pulse Ox 98.2 F 82 16 194/96 H 98 07/19/17 12:00 07/19/17 12:00 07/19/17 12:00 07/19/17 12:07/19/17 12:00 General: Alert, In no apparent distress, Oriented x3, Cooperative HEENT: Atraumatic Neck: Supple Respiratory: Clear to auscultation bilaterally, Normal air movement Cardiovascular: Normal pulses, Regular rate/rhythm Gastrointestinal: Normal bowel sounds, Soft and benign, Non-distended, No masses , No rebound, No guarding Musculoskeletal: No tenderness, No warmth, Other (Pain to the back that is chronic) Integumentary: No tenderness/swelling, No erythema, No warmth, No cyanosis Neurological: Normal speech, Normal strength at 5/5 x4 extr, Normal tone, Normal affect Laboratory Data at Discharge: WBC 7.1 K/uL (4.3-10.9) 07/19/17 05:26 Hgb 8.7 g/dL (12.0-15.0) L 07/19/17 05:26 Hct 26.7 % (36.0-45.0) L 07/19/17 05:26 Plt Count 340 K/uL (152-406) D 07/19/17 05:26 Sodium 135 mEq/L (135-145) 07/19/17 05:26 Potassium 3.7 mEq/L (3.6-5.0) 07/19/17 05:26 BUN 7 mg/dL (6-20) 07/19/17 05:26 Creatinine 0.56 mg/dL (0.44-1.00) 07/19/17 05:26 Glucose 95 mg/dL (65-120) 07/19/17 05:26 Magnesium 2.0 mg/dL (1.8-2.5) 07/19/17 05:26 Total Bilirubin 0.3 mg/dL (0.3-1.2) 07/17/17 05:26 AST 21 IU/L (10-42) 07/17/17 05:26 ALT 10 IU/L (10-60) 07/17/17 05:26 Alkaline Phosphatase 44 IU/L (42-121) 07/17/17 05:26 Troponin I < 0.03 ng/mL (<0.03) 07/17/17 02:05 Home Medications: Docusate Sodium [Stool Softener] 100 mg PO DAILY 10/05/16 Levothyroxine [Synthroid] 50 mcg PO [id number] 10/05/16 Pravastatin Sodium [Pravachol] 20 mg PO BEDTIME 10/05/16 Amitriptyline [Elavil] 25 mg PO BEDTIME 07/17/17 Carvedilol [Coreg] 12.5 mg PO BID 07/17/17 Cyclobenzaprine HCl [Flexeril] 5 mg PO BID PRN 07/17/17 Lisinopril [Prinivil] 20 mg PO BID 07/17/17 Loratadine [Claritin] 10 mg PO DAILY 07/17/17 Trazodone [Desyrel] 50 mg PO PRN PRN 07/17/17 Patient Discharge Instructions: 1. Patient will need a follow up with a PCP in 1 week to follow up this hospitalization. 2. Patient presented with syncope likely related to dehydration, anemia. Anemia was evaluated by GI. Patient found to have duodenitis, duodenal ulcer with stricture and hiatal hernia. Patient did not require transfusion. Syncopal episode may have been related to this. Echocardiogram and carotid Doppler were unremarkable. She was also found to be B12 deficient. At discharge, GI recommends to start Protonix 40 mg 1 pill twice daily. Patient will continue with B12 supplementation along with multi vitamin one pill daily. Recommendation is to recheck CBC in 1-2 weeks to monitor progress. Recommendation is for the patient to follow up with GI in 2- 4 weeks to monitor progress and further address. Patient may require repeat EGD with dilation in the future. B12 may be followed up by her PCP. 3. Patient with hypertension. Medication was adjusted. She will continue with Lisinopril 20 mg one pill twice daily. Coreg was increased to 25 mg one pill twice daily. Recommendation is to maintain blood pressures less 150/80. Further adjustment can be done by her PCP. 4. Patient has hyperlipidemia. She will continue with her medication. 5. Patient has hypothyroidism. She will continue with her medication. 6. Patient has chronic pain with compression fractures to the lumbar and thoracic spine. MRI was done in the hospital showing compression fractures. Patient is seen by pain management. Patient will continue with her pain medication and follow up with pain management in the future to further address. Diet: AHA Activity: Fall precautions Time spent managing pt's care (in minutes): 55
[2017-07-19 14:21] VITALS: O2SAT 100
[2017-07-19] MEDS ORDERED: LISINOPRIL 20 MG TAB PO SCH ×2 (14:40→21:00)
[2017-07-19 14:42] VITALS: BP 182/90
[2017-07-19] MEDS: HYDROCODONE/APAP 10/325 TAB PO PRN (14:42)
[2017-07-19] MEDS ORDERED: PANTOPRAZOLE 40 MG INJ IVP SCH (21:00)
[2017-07-20] MEDS ORDERED: MULTIVITAMIN TAB PO SCH (09:00)
[2017-07-20] MEDS ORDERED: CYANOCOBALAMIN 1,000 MCG TAB PO SCH (09:00)
--- NOTE | 2017-07-23 16:54 | CON ---
Date of Consultation: 07/18/2017 Reason For Consultation: Anemia, probably iron deficiency anemia, syncope. History Of Present Illness: The patient is a 72-year-old white female with history of chronic back p ain, peptic ulcer disease, colostomy reversal 2012, hypertension, hypothyroid, hyperlipidemia, back s urgeries. The patient is brought to the hospital due to a syncopal episode, history of chronic back pain. She had a procedure kyphoplasty. She become dizzy yesterday, suddenly became light headed and passed out. She was brought to the emergency room for further evaluation. Hemoglobin is n oted to be 9.6 and then drifted down to 7.6. She noticed some hematochezia recently, that has been m inimal. She has been heme-positive stool in the hospital. Her iron numbers apparently have been low with the apparent iron deficiency anemia noted. She had a colonoscopy, EGD in 2012, which was negat genevieve by her report. She does report peptic ulcer disease in 2002 with EGD at that time. Past Medical History: Significant for colostomy reversal after 3 months in 2012, peptic ulcer diseas e, gastric reflux disease, pneumothorax, spinal meningitis, hypertension, hypothyroidism, hyperlipide celestino, back surgery x4 and hysterectomy. Allergies: NKDA. Home Medications: Include Colace, Synthroid, pravastatin, Elavil, Flexeril, Claritin, and trazodone. Social History: She is , 3 children. No tobacco. No alcohol. Lives with sister. Family History: Father of pancreatic cancer. Mother of stroke. Review of Systems: The patient also reports anemia with recent minimal hematochezia, heme-positive stool in hospital, sy ncope prior to admission. No chest pain or shortness of breath. She did have some diarrhea that was foul smelling 3 days before admission but it seems that the diarrhea stopped since in the hospital. She denies any melena, hematemesis, coffee-grounds emesis, hemoptysis, hematuria, dysuria, polydipsi a, chest pain, short of breath or seizures. She has had syncope. No depression or anxiety noted. Physical Examination: Vital Signs: The patient is 5 feet 3 inches, 121 pounds. BMI of 21 kg/m2. She has a temperature of 98.6, pulse 70, respirations 16, blood pressure 109/55, O2 saturation 92%. Blood pressure was 189/82 . General: She is a well-nourished, well-developed elderly female, lying in bed, in no acute distress. HEENT: Normocephalic, atraumatic. Anicteric. Pupils equal, round, and reactive to light. Extraocu lar movements are intact. Oropharynx is clear. Neck: Supple. No masses. Respirations: Clear to auscultation bilaterally. Cardiac: Regular rate and rhythm. Gastrointestinal: Positive bowel sounds. Soft, nontender, nondis tended. No hepatosplenomegaly. Extremities: No clubbing or cyanosis. No edema. 2+ pulses. Neuro: Alert and oriented x3. Grossly nonfocal. 5/5 motor strength to light touch. Laboratory Data: The patient on admission, hemoglobin of 10.0 and went down to 7.6 today with a whit e count of 6.4, hematocrit 23, MCV of 90, platelet count 283, polys of 56%, lymphocytes 30%, monocyte s 10%, and eosinophils 3%. The patient has a sodium 135, potassium 3.9, chloride 108, bicarb 21, BUN of 10, creatinine of 0.6, glucose 97, calcium 8.2, magnesium 2.0. Iron saturation 9.4%, ferritin no rmal at 52, total bilirubin 2.3, AST of 21, ALT of 10, alkaline phosphatase 44, troponin less than 0. 03. Total protein 6.3, albumin 3.4, globulin 2.9. Vitamin B12 normal at 179. TSH 2.3, cortisol 9.6 . Chest x-ray negative. Impression: 1.Anemia with hemoglobin of 9.6 down to 7.9 with iron deficiency anemia. Iron saturation 9.4% with minimal hematochezia. Recent heme-positive stool in hospital. Colonoscopy and EGD in 2013 was negat genevieve. Peptic ulcer in 2002 with EGD then. 2.Syncope before admission, possibly due to gastrointestinal bleed. 3.Diarrhea foul smelling 3 days before admission. 4.History of colostomy for 3 months, reversed in 2013, peptic ulcer disease, gastric ulcer disease. 5.Spinal meningitis. 6.Hypertension. 7.Hyperlipidemia. 8.Hypothyroidism. 9.Back surgery x4. 10.Hysterectomy. Recommendation: 1.Await stool studies. 2.EGD colonoscopy. 3.Serial H and H and transfuse p.r.n. 4.H2 damon therapy. JP/TISHA Voice ID: [id number] Report ID: [id number]
== END 2017-07-19 15:26 | disposition home or self-care (01) | DRG 811 ==
LOC: ER 16:47 → ERHOLD 21:30 → 4TH 22:52 → OBSVTOIN 07-17 15:06
PROVIDERS: ADMIT Hospitalist; ATTEND Family Medicine
PROC: 0DB68ZX Excision of Stomach, Via Natural or Artificial Opening Endoscopic, Diagnostic (ICD-10-PCS; principal; 2017-07-19 11:30)
DX: D64.9 Anemia, unspecified (principal); K26.4 Chronic or unspecified duodenal ulcer with hemorrhage; K22.10 Ulcer of esophagus without bleeding; K31.5 Obstruction of duodenum; I95.1 Orthostatic hypotension; E86.0 Dehydration; K21.9 Gastro-esophageal reflux disease without esophagitis; G89.4 Chronic pain syndrome; I10 Essential (primary) hypertension; M48.54XD Collapsed vertebra, not elsewhere classified, thoracic region, subsequent encounter for fracture with routine healing; K44.9 Diaphragmatic hernia without obstruction or gangrene; K29.80 Duodenitis without bleeding; K26.9 Duodenal ulcer, unspecified as acute or chronic, without hemorrhage or perforation; E53.8 Deficiency of other specified B group vitamins
CPT/HCPCS: 36415; 71045; 72040; 72070; 72100; 72146; 72148; 80048; 80053; 82274; 82533; 82607; 82728; 83540; 83735; 83970; 84439; 84443; 84466; 84484; 85014; 85018; 85025; 87493; 88305; 88312; 93005; 93306; 93880; 96361; 96365; 96375; 97163; 99285; G0378; J0360; J1100; J1650; J2270; J3010; J3475; J7030

== ENCOUNTER 2017-09-28 18:01 | Inpatient (IN) | payer OTHER ==
[2017-09-28 20:25] LABS: Urine Bacteria 20-50 /HPF (<20)
[2017-09-28 20:26] LABS: Urine Blood TRACE (NEG); Urine Glucose NEGATIVE (NEG); Urine Protein TRACE (NEG); Urine Specific Gravity 1.025 (1.005-1.030)
[2017-09-28 20:26] LABS: Urine Culture Reflex Order REFLEXED
[2017-09-28 20:41] LABS: Potassium 4.4 mEq/L (3.6-5.0)
[2017-09-28 20:47] LABS: Albumin 4.2 g/dL (3.2-5.5); Bilirubin Direct 0.1 mg/dL (0-0.2); Bilirubin Total 1.1 mg/dL (0.3-1.2); Protein, Total 8.1 g/dL (6.0-8.3)
--- NOTE | 2017-09-28 20:47 | ER ---
Nurse's Notes [facility] Name: Valentina Raphael Age: 72 yrs Sex: Female : 1945 Arrival Date: 09/28/2017 Time: 18:04 Bed 25 Private MD: Diagnosis: Abdominal tenderness;Vomiting;Cystitis;Weakness;Volume depletion;Unspecified kidney failure;Hypo-osmolality and hyponatremia Presentation: 09/28 18:46 Presenting complaint: Patient states: vomiting, abdominal pain for the past week. aj1 Transition of care: patient was not received from another setting of care. Onset of symptoms was September 21, 2017. Risk Assessment: Do you want to hurt yourself or someone else? Patient reports no desire to harm self or others. Initial Sepsis Screen: Does the patient meet any 2 criteria? No. Patient's initial sepsis screen is negative. Does the patient have a suspected source of infection? No. Patient's initial sepsis screen is negative. Care prior to arrival: None. 18:46 Method Of Arrival: Wheelchair aj1 18:46 Acuity: ZEYNEP 3 aj1 Triage Assessment: 18:52 General: Appears in no apparent distress. uncomfortable, Behavior is calm, cooperative, aj1 appropriate for age. Pain: Complains of pain in right upper quadrant and left upper quadrant Pain does not radiate. Pain currently is 8 out of 10 on a pain scale. Quality of pain is described as aching, throbbing. GI: Reports upper abdominal pain, nausea, vomiting. Historical: - Allergies: 18:52 No Known Allergies; aj1 - Home Meds: 18:52 amitriptyline 25 mg Oral tab 1 tab once daily [Active]; cyclobenzaprine 5 mg Oral tab 1 aj1 tab daily [Active]; ibuprofen 600 mg Oral tab 1 tab every 6 hours for Pain [Active]; levothyroxine 50 mcg tab 1 tab once daily [Active]; pravastatin 20 mg Oral tab 1 tab once daily [Active]; stool softener [Active]; trazodone 50 mg Oral tab 2 tabs once a day [Active]; - PMHx: 18:52 spinal menengitis; Hypothyroidism; Hyperlipidemia; Hypertension; aj1 - PSHx: 18:52 multiple back surgeries; Hysterectomy; aj1 - Immunization history:: Adult Immunizations up to date. - Social history:: Smoking status: Patient/guardian denies using tobacco. - Ebola Screening: : Patient denies travel to an Ebola-affected area in the 21 days before illness onset. Screenin:58 Abuse screen: Denies threats or abuse. Nutritional screening: No deficits noted. rk2 Tuberculosis screening: No symptoms or risk factors identified. Fall Risk Ambulatory Aid- Gait- Weak (10 pts.). Assessment: 19:59 General: Appears in no apparent distress. uncomfortable, slender. General: Behavior is rk2 calm, cooperative. Neuro: Level of Consciousness is alert, obeys commands, Oriented to person, place, time, situation. Cardiovascular: Capillary refill < 3 seconds. Respiratory: Airway is patent Respiratory effort is even, unlabored, Respiratory pattern is regular, symmetrical. GI: Abdomen is flat, Reports upper abdominal pain. Derm: Skin is pink, warm \T\ dry. 21:00 Reassessment: Patient appears in no apparent distress at this time. No changes from 2 previously documented assessment. Patient and/or family updated on plan of care and expected duration. Pain level reassessed. Patient is alert, oriented x 3, equal unlabored respirations, skin warm/dry/pink. 22:00 Reassessment: Patient appears in no apparent distress at this time. No changes from 2 previously documented assessment. Patient and/or family updated on plan of care and expected duration. Pain level reassessed. Patient is alert, oriented x 3, equal unlabored respirations, skin warm/dry/pink. 22:50 Reassessment: Pt. taken to CT. rk2 Vital Signs: 18:52 BP 116 / 85; Pulse 113; Resp 20; Temp 97.5(O); Pulse Ox 98% on R/A; Weight 53.98 kg aj1 (R); Height 5 ft. 3 in. (160.02 cm); Pain 8/10; 21:00 BP 145 / 83; Pulse 90; Resp 18; Pulse Ox 98% on R/A; rk2 21:45 BP 171 / 88; Pulse 83; Resp 17; Pulse Ox 97% on R/A; rk2 18:52 Body Mass Index 21.08 (53.98 kg, 160.02 cm) aj ED Course: 18:04 Patient arrived in ED. mr 18:49 Triage completed. aj1 18:52 Arm band placed on. aj1 19:18 [place], Melanie, TAHIR is Primary Nurse. rk2 19:26 Benny Montoya MD is Attending Physician. la 19:57 Urine Microscopic Only Sent. rk2 19:58 Patient has correct armband on for positive identification. Bed in low position. Call rk2 light in reach. 20:10 Initial lab(s) drawn, by ED staff, sent to lab. Inserted saline lock: 18 gauge in left bb EJ, using aseptic technique. ,using aseptic technique. by Dr Montoya Blood collected. 20:44 X-ray completed. Portable x-ray completed in exam room. Patient tolerated procedure bb2 well. 20:44 XRAY Chest (1 view) In Process Unspecified. EDMS 20:44 Seth Friend MD is Hospitalizing Provider. la 21:38 BNP Sent. rk2 22:[address] via stretcher. vm2 22:54 CT completed. Patient tolerated procedure well. Patient moved back from CT. vm2 22:58 CT Abd/Pelvis - Without Cont: oral only Sent. rk2 22:58 Urine Sodium Random Sent. rk2 22:58 Urine Osmolality Sent. rk2 22:58 Osmolality, Serum Sent. rk2 23:12 No provider procedures requiring assistance completed. Patient admitted, IV remains in rk2 place. Administered Medications: 21:04 Drug: Rocephin - (cefTRIAXone) 1 grams Route: IVPB; Infused Over: 30 mins; Site: Other; rk2 21:47 Follow up: Response: No adverse reaction; IV Status: Completed infusion rk2 21:05 Drug: ProTONIX 40 mg Route: IVP; Site: Other; rk2 21:48 Follow up: Response: No adverse reaction rk2 21:05 Drug: Zofran 4 mg Route: IVP; Site: Other; rk2 21:47 Follow up: Response: No adverse reaction rk2 21:05 Drug: fentaNYL (PF) 25 mcg Route: IVP; Site: Other; rk2 21:47 Follow up: Response: No adverse reaction rk2 21:06 Drug: NS 0.9% 1000 ml Route: IV; Rate: 1 bolus; Site: Other; rk2 22:00 Follow up: Response: No adverse reaction; IV Status: Completed infusion rk2 21:06 Drug: NS 0.9% 1000 ml Route: IV; Rate: 125 ml/hr; Site: Other; rk2 23:11 Follow up: Response: No adverse reaction; IV Status: Completed infusion rk2 Outcome: 20:47 Decision to Hospitalize by Provider. la 23:12 Admitted to Tele rk2 23:12 Admitted to Tele accompanied by tech, via stretcher. 23:12 Condition: good 23:12 Condition: good 23:12 Instructed on the need for admit. 23:13 Patient left the ED. rk2 Signatures: Dispatcher [employer] EDTea Perez RN RN ajBenny Ramirez MD MD cha Rivera, Maria mr Ballard, Brenda, RN RN bb Jessica Mendoza [facility] Avis Willard 2 Melanie Anaya RN RN rk2 Corrections: (The following items were deleted from the chart) 21:46 21:45 BP 171 / ???; Pulse 88bpm; Resp 17bpm; Pulse Ox 97% RA; rk2 rk2
--- NOTE | 2017-09-28 20:47 | EDPHYS ---
Physician Documentation [facility] Name: Valentina Raphael Age: 72 yrs Sex: Female : 1945 Arrival Date: 09/28/2017 Time: 18:04 Bed 25 Private MD: ED Physician Benny Montoya HPI: 09/28 20:36 This 72 yrs old Female presents to ER via Wheelchair with complaints of la Vomiting. 20:36 The patient presents to the emergency department with nausea, vomiting, abdominal pain, la of the right upper quadrant, left upper quadrant, right lower quadrant and left lower quadrant. Onset: The symptoms/episode began/occurred 3 week(s) ago. Possible causes: unknown. The symptoms are aggravated by movement, food , The symptoms are alleviated by nothing. remaining still. Associated signs and symptoms: Pertinent positives: abdominal pain, nausea, vomiting. Severity of symptoms: At their worst the symptoms were moderate in the emergency department the symptoms are unchanged. The patient has not experienced similar symptoms in the past. Historical: - Allergies: 18:52 No Known Allergies; aj1 - Home Meds: 18:52 amitriptyline 25 mg Oral tab 1 tab once daily [Active]; cyclobenzaprine 5 mg Oral tab 1 aj1 tab daily [Active]; ibuprofen 600 mg Oral tab 1 tab every 6 hours for Pain [Active]; levothyroxine 50 mcg tab 1 tab once daily [Active]; pravastatin 20 mg Oral tab 1 tab once daily [Active]; stool softener [Active]; trazodone 50 mg Oral tab 2 tabs once a day [Active]; - PMHx: 18:52 spinal menengitis; Hypothyroidism; Hyperlipidemia; Hypertension; aj1 - PSHx: 18:52 multiple back surgeries; Hysterectomy; aj1 - Immunization history:: Adult Immunizations up to date. - Social history:: Smoking status: Patient/guardian denies using tobacco. - Ebola Screening: : Patient denies travel to an Ebola-affected area in the 21 days before illness onset. ROS: 20:37 Constitutional: Negative for fever, chills, and weight loss, Eyes: Negative for injury, la pain, redness, and discharge, ENT: Negative for injury, pain, and discharge, Neck: Negative for injury, pain, and swelling, Cardiovascular: Negative for chest pain, palpitations, and edema, Respiratory: Negative for shortness of breath, cough, wheezing, and pleuritic chest pain, Back: Negative for injury and pain, : Negative for injury, bleeding, discharge, and swelling, MS/Extremity: Negative for injury and deformity, Skin: Negative for injury, rash, and discoloration, Psych: Negative for depression, anxiety, suicide ideation, homicidal ideation, and hallucinations, Allergy/Immunology: Negative for hives, rash, and allergies, Endocrine: Negative for neck swelling, polydipsia, polyuria, polyphagia, and marked weight changes. 20:37 Abdomen/GI: Positive for abdominal pain, nausea, vomiting, abdominal cramps, abdominal distension, of the right upper quadrant, left upper quadrant, right lower quadrant and left lower quadrant. Exam: 20:37 Constitutional: This is a well developed, well nourished patient who is awake, alert, la and in no acute distress. Head/Face: Normocephalic, atraumatic. Eyes: Pupils equal round and reactive to light, extra-ocular motions intact. Lids and lashes normal. Conjunctiva and sclera are non-icteric and not injected. Cornea within normal limits. Periorbital areas with no swelling, redness, or edema. ENT: Nares patent. No nasal discharge, no septal abnormalities noted. Tympanic membranes are normal and external auditory canals are clear. Oropharynx with no redness, swelling, or masses, exudates, or evidence of obstruction, uvula midline. Mucous membranes moist. Neck: Trachea midline, no thyromegaly or masses palpated, and no cervical lymphadenopathy. Supple, full range of motion without nuchal rigidity, or vertebral point tenderness. No Meningismus. Chest/axilla: Normal chest wall appearance and motion. Nontender with no deformity. No lesions are appreciated. Respiratory: Lungs have equal breath sounds bilaterally, clear to auscultation and percussion. No rales, rhonchi or wheezes noted. No increased work of breathing, no retractions or nasal flaring. Back: No spinal tenderness. No costovertebral tenderness. Full range of motion. Female : Normal external genitalia. Skin: Warm, dry with normal turgor. Normal color with no rashes, no lesions, and no evidence of cellulitis. MS/ Extremity: Pulses equal, no cyanosis. Neurovascular intact. Full, normal range of motion. Neuro: Awake and alert, GCS 15, oriented to person, place, time, and situation. Cranial nerves II-XII grossly intact. Motor strength 5/5 in all extremities. Sensory grossly intact. Cerebellar exam normal. Normal gait. Psych: Awake, alert, with orientation to person, place and time. Behavior, mood, and affect are within normal limits. 20:37 Cardiovascular: Rate: normal, Rhythm: regular, Heart sounds: normal, JVD: is not appreciated. 20:37 Respiratory: the patient does not display signs of respiratory distress, Respirations: normal, Breath sounds: are clear throughout. 20:37 Abdomen/GI: Inspection: abdomen appears normal, Bowel sounds: active, Palpation: mild abdominal tenderness, in all quadrants, Liver: no appreciated palpable abnormalities, Hernia: not appreciated. Vital Signs: 18:52 BP 116 / 85; Pulse 113; Resp 20; Temp 97.5(O); Pulse Ox 98% on R/A; Weight 53.98 kg 1 (R); Height 5 ft. 3 in. (160.02 cm); Pain 8/10; 21:00 BP 145 / 83; Pulse 90; Resp 18; Pulse Ox 98% on R/A; rk2 21:45 BP 171 / 88; Pulse 83; Resp 17; Pulse Ox 97% on R/A; rk2 18:52 Body Mass Index 21.08 (53.98 kg, 160.02 cm) [facility] MDM: 19:26 Patient medically screened. [facility] [place] 20:37 Data reviewed: vital signs, nurses notes, lab test result(s), EKG, radiologic studies, [facility] [place] CT scan, plain films. 09/28 19:40 Order name: Amylase, Serum; Complete Time: 20:59 [facility] 09/28 19:40 Order name: Basic Metabolic Panel; Complete Time: 20:59 [facility] 09/28 19:40 Order name: CBC with Diff; Complete Time: 21:54 [facility] 09/28 19:40 Order name: Creatinine for Radiology; Complete Time: 20:59 [facility] 09/28 19:40 Order name: Hepatic Function; Complete Time: 20:59 [facility] 09/28 19:40 Order name: Lipase; Complete Time: 20:59 [facility] 09/28 19:40 Order name: Urine Microscopic Only; Complete Time: 20:31 [facility] 09/28 19:42 Order name: Urine Dipstick--Ancillary (enter results); Complete Time: 20:31 [facility] 09/28 20:28 Order name: Urine Culture [facility] 09/28 20:31 Order name: BNP [facility] [place] 09/28 20:31 Order name: Ckmb; Complete Time: 21:54 [facility] [place] 09/28 20:31 Order name: CPK; Complete Time: 21:54 [facility] [place] 09/28 20:31 Order name: Magnesium; Complete Time: 21:54 [facility] [place] 09/28 20:31 Order name: PT-INR; Complete Time: 21:54 [facility] [place] 09/28 20:31 Order name: Ptt, Activated; Complete Time: 21:54 [facility] [place] 09/28 20:31 Order name: Troponin (emerg Dept Use Only); Complete Time: 21:54 [facility] [place] 09/28 20:31 Order name: XRAY Chest (1 view) [facility] 09/28 20:31 Order name: CT Abd/Pelvis - Without Cont: oral only [facility] [place] 09/28 20:32 Order name: BNP B-Type Natriuretic Peptide; Complete Time: 21:54 [facility] 09/28 20:36 Order name: Urine Culture [facility] 09/28 21:01 Order name: Osmolality, Serum [facility] 09/28 21:01 Order name: Urine Osmolality [facility] 09/28 21:01 Order name: Urine Sodium Random [facility] 09/28 22:47 Order name: UR NA RANDOM [facility] 09/28 19:40 Order name: IV Saline Lock; Complete Time: 20:30 [facility] 09/28 19:40 Order name: Labs collected and sent; Complete Time: 20:30 [facility] 09/28 19:40 Order name: Urine Dipstick-Ancillary (obtain specimen); Complete Time: 19:57 [facility] 09/28 20:31 Order name: EKG; Complete Time: 20:32 [facility] [place] 09/28 20:31 Order name: Cardiac monitoring; Complete Time: 21:37 [facility] 09/28 20:31 Order name: EKG - Nurse/Tech; Complete Time: 21:38 [facility] [place] 09/28 20:31 Order name: O2 Per Protocol; Complete Time: 21:06 [facility] [place] 09/28 20:31 Order name: O2 Sat Monitoring; Complete Time: 21:06 [facility] [place] 09/28 20:51 Order name: CONS Physician Consult ED[facility] Administered Medications: 21:04 Drug: Rocephin - (cefTRIAXone) 1 grams Route: IVPB; Infused Over: 30 mins; Site: Other; rk2 21:47 Follow up: Response: No adverse reaction; IV Status: Completed infusion rk2 21:05 Drug: ProTONIX 40 mg Route: IVP; Site: Other; rk2 21:48 Follow up: Response: No adverse reaction rk2 21:05 Drug: Zofran 4 mg Route: IVP; Site: Other; rk2 21:47 Follow up: Response: No adverse reaction rk2 21:05 Drug: fentaNYL (PF) 25 mcg Route: IVP; Site: Other; rk2 21:47 Follow up: Response: No adverse reaction rk2 21:06 Drug: NS 0.9% 1000 ml Route: IV; Rate: 1 bolus; Site: Other; rk2 22:00 Follow up: Response: No adverse reaction; IV Status: Completed infusion rk2 21:06 Drug: NS 0.9% 1000 ml Route: IV; Rate: 125 ml/hr; Site: Other; rk2 23:11 Follow up: Response: No adverse reaction; IV Status: Completed infusion rk2 Disposition: 09/28/17 20:47 Hospitalization ordered by Seth Friend for Inpatient Admission. Preliminary diagnosis are Abdominal tenderness, Vomiting, Cystitis, Weakness, Volume depletion, Unspecified kidney failure, Hypo-osmolality and hyponatremia. - Bed requested for Telemetry/MedSurg (Inpatient). - Status is Inpatient Admission. rk2 - Condition is Stable. - Problem is new. - Symptoms have improved. UTI on Admission? Yes Signatures: Dispatcher [employer] [facility] Tea Dubois RN RN aj1 Adele Snowden RN RN kl Anderson, Corey, MD MD cha Kidder, Rhonda, RN RN rk2 Corrections: (The following items were deleted from the chart) 20:51 20:47 Hospitalization Ordered by Seth Friend MD for Inpatient Admission. Preliminary la diagnosis is Abdominal tenderness; Vomiting; Cystitis; Weakness. Bed requested for Telemetry/MedSurg (Inpatient). Status is Inpatient Admission. Condition is Stable. Problem is new. Symptoms have improved. UTI on Admission? Yes. la 21:00 20:51 09/28/2017 20:47 Hospitalization Ordered by Seth Friend MD for Inpatient la Admission. Preliminary diagnosis is Abdominal tenderness; Vomiting; Cystitis; Weakness; Volume depletion; Unspecified kidney failure. Bed requested for Telemetry/MedSurg (Inpatient). Status is Inpatient Admission. Condition is Stable. Problem is new. Symptoms have improved. UTI on Admission? Yes. [facility] 21:50 21:00 09/28/2017 20:47 Hospitalization Ordered by Seth Friend MD for Inpatient kl Admission. Preliminary diagnosis is Abdominal tenderness; Vomiting; Cystitis; Weakness; Volume depletion; Unspecified kidney failure; Hypo-osmolality and hyponatremia. Bed requested for Telemetry/MedSurg (Inpatient). Status is Inpatient Admission. Condition is Stable. Problem is new. Symptoms have improved. UTI on Admission? Yes. [facility] 23:13 21:50 09/28/2017 20:47 Hospitalization Ordered by Seth Friend MD for Inpatient rk2 Admission. Preliminary diagnosis is Abdominal tenderness; Vomiting; Cystitis; Weakness; Volume depletion; Unspecified kidney failure; Hypo-osmolality and hyponatremia. Bed requested for Telemetry/MedSurg (Inpatient). Status is Inpatient Admission. Condition is Stable. Problem is new. Symptoms have improved. UTI on Admission? Yes. kl
[2017-09-28] MEDS ORDERED: FENTANYL CITR 100 MCG/2 ML ONE (20:53)
[2017-09-28] MEDS ORDERED: PANTOPRAZOLE 40 MG INJ ONE (20:54)
[2017-09-28] MEDS ORDERED: CEFTRIAXONE/SWI 1gm 1 GM/10 ML SYR ONE (20:54)
[2017-09-28] MEDS ORDERED: NA CHLORIDE 0.9% 2,000 ML ONE (20:54)
[2017-09-28] MEDS ORDERED: ONDANSETRON 4 MG/2 ML VIAL ONE (20:54)
[2017-09-28 21:08] LABS: Absolute Lymphocytes (CBC) 1.8 K/uL (0.7-4.9); Absolute Monocytes 0.8 K/uL (0.1-1.3); Absolute Neutrophil 10.4 K/uL (1.8-8.0); Basophils % 0.2 % (0-1.3); Eosinophils % 1.4 % (0-4.4); Hematocrit 38.9 % (36.0-45.0); Lymphocytes % 13.4 % (15.3-44.8); MCH 30.2 pg (27.0-35.0); MCV 90.7 fL (80-100); MPV 7.6 fL (7.6-11.3); RBC Red Blood Cell Count 4.29 M/uL (3.86-4.86)
[2017-09-28 21:25] LABS: Magnesium 2.4 mg/dL (1.8-2.5); Protime INR 1.09
[2017-09-28 21:48] LABS: CKMB Creatine Kinase MB 12.4 ng/ml (0.3-4.0)
--- NOTE | 2017-09-28 21:58 | P.HP ---
Certification for Inpatient Patient admitted to: Inpatient With expected LOS: >2 Midnights Practitioner: I am a practitioner with admitting privileges, knowledge of patient current condition, hospital course, and medical plan of care. Services: Services provided to patient in accordance with Admission requirements found in Title 42 Section 412.3 of the Code of Federal Regulations Patient History Date of Service: 09/28/17 Reason for admission: intractable N/V, dehydration History of Present Illness: Ms Raphael is a 72 years old woman with history of HTN, dyslipidemia, Hypothyroidism, reversal colostomy, spinal stimulator placement, EGD done in [facility] for clean-base duodenal ulcer, hiatal hernia and multiple duodenal strictures. She was recently diagnosed with UTI, about 1 week ago she was started on oral antibiotics. Then she has had recurrent nausea and vomiting for the last week. She was not able to tolerate food or significant amount of fluids. Gradually become weak. She was also complaining of diffuse abdominal pain, mostly on upper abdomen, 7/10 of intensity. No fever, chills, chest pain or SOB associated. She denied diarrhea as well. Last bowel movement was about 2 days ago. Lab work remakable for hyponatremia and increasing creatinine consistent with volume depletion. Trop I is mildly elevated, no EKG ST-T abnormalities noted. Allergies No Known Allergies Allergy (Verified 07/17/17 04:21) Home Medications: Docusate Sodium [Stool Softener] 100 mg PO DAILY 10/05/16 Levothyroxine [Synthroid*] 50 mcg PO [id number] 10/05/16 Pravastatin Sodium [Pravachol] 20 mg PO BEDTIME 10/05/16 Amitriptyline [Elavil*] 25 mg PO BEDTIME 07/17/17 Cyclobenzaprine HCl [Flexeril] 5 mg PO BID PRN 07/17/17 Lisinopril [Prinivil*] 20 mg PO BID 07/17/17 Loratadine [Claritin*] 10 mg PO DAILY 07/17/17 Trazodone [Desyrel*] 50 mg PO PRN PRN 07/17/17 Carvedilol [Coreg*] 25 mg PO BID #60 tab 07/19/17 Cyanocobalamin [Vitamin B-12*] 1,000 mcg PO DAILY #90 tab 07/19/17 Multivit,Ther Iron,Ca,FA & Min [Centrum Tablet*] 1 tab PO DAILY #90 tab Pantoprazole [Protonix Tab] 40 mg PO BID #60 tab 07/19/17 - Past Medical/Surgical History Diabetic: No -: pneumothorax -: colostomy -: spinal meningitis -: GERD -: Hysterectomy -: back sx x4 -: colostomy - Family History Father -: Cancer Notes: cancer of the liver - Social History Smoking Status: Never smoker Alcohol use: No CD- Drugs: No Caffeine use: No Place of Residence: Home Review of Systems 10-point ROS is otherwise unremarkable Physical Examination - Physical Exam General: Alert, In no apparent distress HEENT: Atraumatic, PERRLA, Mucous membr. moist/pink, EOMI, Sclerae nonicteric Neck: Supple, 2+ carotid pulse no bruit, No LAD, Without JVD or thyroid abnormality Respiratory: Clear to auscultation bilaterally, Normal air movement Cardiovascular: Regular rate/rhythm, Normal S1 S2 Gastrointestinal: Hypoactive, Tenderness (upper abdomen tender to palpation.) Musculoskeletal: No tenderness Integumentary: No rashes Neurological: Normal speech, Normal strength at 5/5 x4 extr, Normal tone, Normal affect Lymphatics: No axilla or inguinal lymphadenopathy - Studies Laboratory Data (last 24 hrs) 09/28/17 20:10: PT 12.9 H, INR 1.09, APTT 27.0 09/28/17 20:10: Magnesium 2.4 09/28/17 20:10: B-Natriuretic Peptide 114 H 09/28/17 20:10: Creatinine 1.76 H 09/28/17 20:10: WBC 13.2 H, Hgb 12.9, Hct 38.9, Plt Count 397 09/28/17 20:10: Sodium 125 L, Potassium 4.4, BUN 52 H, Creatinine 1.73 H, Glucose 85, Total Bilirubin 1.1, AST 29, ALT 16, Alkaline Phosphatase 75, Amylase 102 H, Lipase 41 Assessment and Plan - Problems (Diagnosis) (1) Acute renal injury Current Visit: Yes Status: Acute (2) Hyponatremia Current Visit: Yes Status: Acute (3) Nausea and vomiting Current Visit: Yes Status: Acute Qualifiers: Vomiting type: psychogenic vomiting Qualified Code(s): F50.89 - Other specified eating disorder (4) Dehydration Current Visit: Yes Status: Acute (5) Duodenal stricture Current Visit: No Status: Acute (6) History of colostomy reversal Current Visit: No Status: Acute (7) History of kyphoplasty Current Visit: No Status: Acute (8) Hypertension Current Visit: No Status: Chronic Qualifiers: Hypertension type: essential hypertension Qualified Code(s): I10 - Essential (primary) hypertension - Plan The patient will be admitted to the hospital due to acute renal injury and hyponatremia secondary to volume depletion due to intractable nausea and vomiting associated with abdominal pain. No clear etiology yet. Still pending a CT abd/pelvis. WBC slighly elevated, no fever. Will continue with aggressive volume repletion and symptomatic medication. - Advance Directives Does patient have a Living Will: No Does patient have a Durable POA for Healthcare: Yes - Code Status/Comfort Care Code Status Assessed: Yes Code Status: Full Code
--- NOTE | 2017-09-28 22:00 | RAD REPORT ---
EXAM DESCRIPTION: Nahomy Single View09/28/2017 8:46 pm CLINICAL HISTORY: abd pain COMPARISON: July 2017 FINDINGS: The lungs appear clear of acute infiltrate. The heart is normal size. A small to moderate hiatal hernia is present. A neurostimulator device is in place IMPRESSION: No acute abnormalities displayed
[2017-09-28] MEDS ORDERED: SODIUM CHLORIDE 0.9% 10ML INJ IV PRN (22:35)
[2017-09-28] MEDS: NA CHLORIDE 0.9% 1,000 ML IV SCH (22:35)
[2017-09-28] MEDS ORDERED: HYDRALAZINE HCL 20 MG/ML VIAL IV PRN (23:36)
[2017-09-29] MEDS: ACETAMINOPHEN 500 MG TAB PO PRN (00:09)
[2017-09-29] MEDS ORDERED: FENTANYL CITR 100 MCG/2 ML IV PRN (01:05)
[2017-09-29] MEDS ORDERED: ACETAMINOPHEN 650MG/RECT SUPP PR PRN (01:05)
[2017-09-29] MEDS: METRONIDAZOLE 500mg IVPB 500 MG/100 ML BAG IV SCH ×3 (01:53→17:49)
[2017-09-29 02:26] VITALS: BMI 21.0
[2017-09-29] MEDS: NA CHLORIDE 0.9% 1,000 ML IV SCH ×3 (05:45→20:10)
[2017-09-29 05:49] LABS: Albumin 3.6 g/dL (3.2-5.5); Bilirubin Total 1.1 mg/dL (0.3-1.2); Potassium 4.3 mEq/L (3.6-5.0); Protein, Total 6.8 g/dL (6.0-8.3)
[2017-09-29 05:54] LABS: Absolute Lymphocytes (CBC) 1.6 K/uL (0.7-4.9); Absolute Neutrophil 10.4 K/uL (1.8-8.0); Basophils % 0.3 % (0-1.3); Eosinophils % 1.4 % (0-4.4); Hematocrit 33.9 % (36.0-45.0); Lymphocytes % 12.3 % (15.3-44.8); MCH 31.1 pg (27.0-35.0); MCV 89.7 fL (80-100); MPV 8.1 fL (7.6-11.3); Monocytes % 7.8 % (3.3-12.3); RBC Red Blood Cell Count 3.77 M/uL (3.86-4.86)
--- NOTE | 2017-09-29 06:14 | EKG ---
Test Date: 2017-09-28 Test Time: 21:33:29 Runner Out: SEBASTIÁN MEASUREMENT RESULTS: Intervals: Rate: 84 CA: 138 QRSD: 76 QT: 426 QTc: 503 [place]: P: 58 CA: 138 QRS: 50 T: 90 INTERPRETIVE STATEMENTS: Excessive 60 cycle artifact Normal sinus rhythm Normal ECG Compared to ECG 07/16/2017 17:09:08 Sinus tachycardia no longer present Electronically Signed On 09-29-17 06:13:41 CDT by Clement Orozco
[2017-09-29] MEDS: ONDANSETRON 4 MG/2 ML VIAL IV PRN (07:45)
--- NOTE | 2017-09-29 08:22 | RAD REPORT ---
EXAM DESCRIPTION: CT - Abdomen Pelvis Wo Contrast - 09/29/2017 5:13 am CLINICAL HISTORY: Abdominal pain with vomiting COMPARISON: 2015 TECHNIQUE: Computed axial tomography of the abdomen and pelvis was obtained. IV was not requested. O ral contrast was given. Coronal reconstructions performed.A preliminary report was generated by raudel pascual and reviewed prior to this dictation All CT scans are performed using dose optimization technique as appropriate and may include automated exposure control or mA/KV adjustment according to patient size. FINDINGS: The evaluation of solid organs and vessels is limited secondary to the lack of contrast a dministration. The liver, spleen, pancreas, adrenals and kidneys appear grossly normal. A moderate hiatal hernia is present which contains oral contrast. The stomach is distended. The jejun um is moderately dilated. Most of the ileum is decompressed. Free air is not seen. A neurostimulator device is in place IMPRESSION: Mechanical small bowel obstruction
[2017-09-29] MEDS ORDERED: CEFTRIAXONE 1 GM/NS 50 ML 1 GM/50 ML BAG IV SCH (09:00)
[2017-09-29] MEDS ORDERED: CEFTRIAXONE/SWI 1gm 1 GM/10 ML SYR IV SCH (09:00)
[2017-09-29] MEDS ORDERED: CIPROFLOXACIN 400mg IV 200 ML IV SCH (09:00)
[2017-09-29] MEDS: PANTOPRAZOLE 40 MG INJ IVP SCH (09:22)
[2017-09-29] MEDS: ENOXAPARIN 30 MG/0.3 ML SQ SCH (09:22)
[2017-09-29] MEDS: CIPROFLOXACIN 400mg IV 400 MG/200 ML BAG IV SCH (09:22)
--- NOTE | 2017-09-29 10:05 | RAD REPORT ---
EXAM DESCRIPTION: RAD - Abdomen 1 View (KUB) - 09/29/2017 8:03 am CLINICAL HISTORY: Device placement nasogastric tube placement FINDINGS: A nasogastric tube is not visualized within the abdomen or very lower chest. Chest x-ray is recommended for localization Paul from the second floor was notified
[2017-09-29] MEDS ORDERED: CARVEDILOL 25 MG TAB PO PRN (13:00)
--- NOTE | 2017-09-29 13:00 | P.PN ---
Subjective Date of Service: 09/29/17 Chief Complaint: intractable N/V, dehydration Pt seen and examined at bedside. Chart reviewed. Case DW with Surgery. Currently Pt has no c/o overnight. nausea is improved after zofran. No BM or flatulence noted. Review of Systems General: As per HPI Physical Examination - Vital Signs Temperature: 96.5 F Blood Pressure: 169/84 Pulse: 97 Respirations: 18 Pulse Ox (%): 98 - Physical Exam General: Alert, In no apparent distress HEENT: Atraumatic Neck: Supple, Other (NG tube in place ) Respiratory: Clear to auscultation bilaterally, Normal air movement Cardiovascular: Regular rate/rhythm, Normal S1 S2 Gastrointestinal: Normal bowel sounds, Tenderness Musculoskeletal: No tenderness Integumentary: No rashes Neurological: Normal speech, Normal tone, Normal affect Lymphatics: No axilla or inguinal lymphadenopathy - Studies Laboratory Data (last 24 hrs) 09/28/17 20:10: PT 12.9 H, INR 1.09, APTT 27.0 09/28/17 20:10: Magnesium 2.4 09/28/17 20:10: B-Natriuretic Peptide 114 H 09/28/17 20:10: Creatinine 1.76 H 09/28/17 20:10: WBC 13.2 H, Hgb 12.9, Hct 38.9, Plt Count 397 09/28/17 20:10: Sodium 125 L, Potassium 4.4, BUN 52 H, Creatinine 1.73 H, Glucose 85, Total Bilirubin 1.1, AST 29, ALT 16, Alkaline Phosphatase 75, Amylase 102 H, Lipase 41 Medications List Reviewed: Yes Assessment & Plan - Problems (Diagnosis) (1) SBO (small bowel obstruction) Current Visit: Yes Status: Acute Plan: mechanical SBO due to surgery in the past -NPO, IV fluids and NG tube for now -Surgery Consulted. Awaiting Reccs (2) Nausea and vomiting Onset Date: 09/29/17 Current Visit: Yes Status: Acute Plan: N/V with Electrolyte disturbance. -IV zofran for now -NPO for now -NG tube in place -IV fluids for Electrolyte replacement Qualifiers: Vomiting type: psychogenic vomiting Qualified Code(s): F50.89 - Other specified eating disorder (3) Hypertension Onset Date: 09/29/17 Current Visit: Yes Status: Chronic Qualifiers: Hypertension type: essential hypertension Qualified Code(s): I10 - Essential (primary) hypertension (4) History of colostomy reversal Current Visit: No Status: Chronic (5) History of kyphoplasty Current Visit: No Status: Chronic (6) History of vertebroplasty Current Visit: No Status: Chronic (7) Chronic pain syndrome Onset Date: 07/17/17 Current Visit: No Status: Chronic Discharge Plan: Home Plan to discharge in: 48 Hours - Code Status/Comfort Care Code Status Assessed: Yes Critical Care: No
--- NOTE | 2017-09-29 14:13 | P.CNS ---
Date of Consult: 09/29/17 PC: This 72-year-old female presents emergency room with severe abdominal pain nausea vomiting for diagnosis and treatment. HPC: Patient has been experiencing some upper abdominal pain for the last few days. Pain increased in intensity. Started having nausea and vomiting. Recently started on antibiotic for a possible urinary tract infection. PMH: History of hypertension, PSHx: Previous colostomy with colostomy takedown as well as a hysterectomy in the past SOC: No known allergies SYS REVIEW: States he has been in relatively good health until just recently. Good exercise tolerance, no chest pain. Was diagnosed with an ulcer O/E awake alert uncomfortable at the moment, NG tube in left nostril HEENT: Negative Chest: Chest movement equal bilateral ABD: Mildly distended, no guarding or rebound LOCO: Intact DATA: Elevated white cell count, CT scan suggests possible small bowel mechanical obstruction. NG tube is not in the stomach at the moment. IMPRESSION: Possible small-bowel obstruction, on IV fluids and NG tube at the moment. PLAN: Patient does not require surgical intervention right now. Will continue with nasogastric tube in IV fluids. Nasogastric tube needs to be repositioned. Chest x-ray confirming position has been ordered. Will follow with you.
[2017-09-29] MEDS: MORPHINE 4 MG/ML SYR IV PRN ×2 (14:14→20:11)
[2017-09-29] MEDS ORDERED: DIAZEPAM 5 MG TABLET PO ONE (15:00)
--- NOTE | 2017-09-29 15:04 | RAD REPORT ---
EXAM DESCRIPTION: RAD - Abdomen 1 View (KUB) - 09/29/2017 2:19 pm CLINICAL HISTORY: Device placement nasogastric tube placement FINDINGS: The tip of a nasogastric tube lies within the proximal stomach.
[2017-09-29] MEDS: LISINOPRIL 20 MG TAB PO SCH (20:11)
[2017-09-29] MEDS: AMITRIPTYLINE 25 MG TAB PO SCH (20:11)
[2017-09-29 23:41] VITALS: O2SAT 100
[2017-09-30] MEDS: PHENOL 1.4% ORAL SPRAY 180ML MM PRN ×3 (00:20→20:29)
[2017-09-30] MEDS: METRONIDAZOLE 500mg IVPB 500 MG/100 ML BAG IV SCH ×3 (00:21→17:22)
[2017-09-30] MEDS: MORPHINE 4 MG/ML SYR IV PRN ×2 (00:21→05:06)
[2017-09-30] MEDS: ONDANSETRON 4 MG/2 ML VIAL IV PRN ×2 (05:29→23:33)
[2017-09-30] MEDS ORDERED: MINERAL OIL 30 ML UCUP FT ONE (06:00)
[2017-09-30] MEDS ORDERED: LEVOTHYROXINE SOD 0.05 MG TABLET PO SCH (06:00)
[2017-09-30] MEDS: LISINOPRIL 20 MG TAB PO SCH ×2 (09:07→20:30)
[2017-09-30] MEDS: CIPROFLOXACIN 400mg IV 400 MG/200 ML BAG IV SCH (09:09)
[2017-09-30] MEDS: PANTOPRAZOLE 40 MG INJ IVP SCH (09:09)
[2017-09-30] MEDS: ENOXAPARIN 30 MG/0.3 ML SQ SCH (09:09)
[2017-09-30] MEDS: NA CHLORIDE 0.9% 1,000 ML IV SCH ×3 (09:09→23:00)
[2017-09-30 10:18] LABS: Absolute Lymphocytes (CBC) 0.9 K/uL (0.7-4.9); Absolute Monocytes 0.5 K/uL (0.1-1.3); Absolute Neutrophil 4.2 K/uL (1.8-8.0); Basophils % 0.6 % (0-1.3); Eosinophils % 1.9 % (0-4.4); Hematocrit 31.7 % (36.0-45.0); Lymphocytes % 15.7 % (15.3-44.8); MCH 31.1 pg (27.0-35.0); MCV 91.5 fL (80-100); MPV 6.9 fL (7.6-11.3); Monocytes % 8.2 % (3.3-12.3); RBC Red Blood Cell Count 3.46 M/uL (3.86-4.86)
[2017-09-30 10:36] LABS: ALT/SGPT 11 IU/L (10-60); AST/SGOT 20 IU/L (10-42); Albumin 3.4 g/dL (3.2-5.5); Alkaline Phosphatase 55 IU/L (42-121); BUN Blood Urea Nitrogen 15 mg/dL (6-20); Bicarbonate 16 mEq/L (21-31); Bilirubin Total 0.6 mg/dL (0.3-1.2); Glucose Level 84 mg/dL (65-120); Potassium 3.8 mEq/L (3.6-5.0); Protein, Total 6.2 g/dL (6.0-8.3); Sodium Level 133 mEq/L (135-145)
[2017-09-30 10:48] LABS: Blood Morphology Comment NOT SEEN (NOT SEEN); Platelet Estimate ADEQ
[2017-09-30] MEDS: ACETAMINOPHEN 500 MG TAB PO PRN (11:19)
--- NOTE | 2017-09-30 11:45 | P.PN ---
Subjective Date of Service: 09/30/17 Chief Complaint: intractable N/V, dehydration Pt seen and examined at bedside. Chart reviewed. Case DW with Surgery. Currently Pt has no c/o overnight. nausea is improved after zofran. No BM or flatulence noted. NG tube draining bilious liquid. Review of Systems General: As per HPI Physical Examination - Vital Signs Temperature: 97.6 F Blood Pressure: 130/64 Pulse: 88 Respirations: 18 Pulse Ox (%): 100 - Physical Exam General: Alert, In no apparent distress HEENT: Atraumatic, PERRLA, EOMI Neck: Supple, JVD not distended, Other (NG tube in place ) Respiratory: Clear to auscultation bilaterally, Normal air movement Cardiovascular: Regular rate/rhythm, Normal S1 S2 Gastrointestinal: Normal bowel sounds, Soft and benign, Non-distended, Tenderness Musculoskeletal: No tenderness Integumentary: No rashes Neurological: Normal speech, Normal tone, Normal affect Lymphatics: No axilla or inguinal lymphadenopathy - Studies Medications List Reviewed: Yes Assessment & Plan - Problems (Diagnosis) (1) SBO (small bowel obstruction) Current Visit: Yes Status: Acute Plan: mechanical SBO due to surgery in the past -NPO, IV fluids and NG tube for now -Surgery Consulted. Reccs Appreciated (2) Nausea and vomiting Onset Date: 09/29/17 Current Visit: Yes Status: Acute Plan: N/V with Electrolyte disturbance. -IV zofran for now -NPO for now -NG tube in place -IV fluids for Electrolyte replacement Qualifiers: Vomiting type: psychogenic vomiting Qualified Code(s): F50.89 - Other specified eating disorder (3) Hypertension Onset Date: 09/29/17 Current Visit: Yes Status: Chronic Qualifiers: Hypertension type: essential hypertension Qualified Code(s): I10 - Essential (primary) hypertension (4) History of colostomy reversal Current Visit: No Status: Chronic (5) History of kyphoplasty Current Visit: No Status: Chronic (6) History of vertebroplasty Current Visit: No Status: Chronic (7) Chronic pain syndrome Onset Date: 07/17/17 Current Visit: No Status: Chronic Discharge Plan: Home Plan to discharge in: 24 Hours - Code Status/Comfort Care Code Status Assessed: Yes Critical Care: No
[2017-09-30] MEDS: AMITRIPTYLINE 25 MG TAB PO SCH (20:30)
[2017-09-30] MEDS ORDERED: MINERAL OIL 30 ML UCUP PO ONE (22:07)
--- NOTE | 2017-09-30 22:07 | P.PN ---
Date of Service: 09/30/17 S: Patient did well today. Abdominal pain appears to have subsided. Has had 3 -4 bowel movements. O: Minimal out through nasogastric tube today, abdomen is soft, nontender, no masses palpable. A: Obstruction appears to be resolving P: I will give her some mineral oil tonight as well as some Valium p.o.. Most likely will Dc the NG tube in a.m.. We will then start clear liquids, advanced as tolerated.
[2017-09-30] MEDS ORDERED: DIAZEPAM 5 MG TABLET PO PRN ×2 (22:08→23:40)
--- NOTE | 2017-09-30 22:09 | P.PN ---
Date of Service: 09/30/17
[2017-09-30] MEDS ORDERED: CIPROFLOXACIN 400mg IV 400 MG/200 ML BAG IV SCH (23:00)
[2017-09-30] MEDS ORDERED: ONDANSETRON 4 MG/2 ML VIAL IV PRN (23:28)
[2017-09-30] MEDS ORDERED: ACETAMINOPHEN 500 MG TAB PO PRN (23:31)
[2017-09-30] MEDS ORDERED: CARVEDILOL 25 MG TAB PO PRN (23:36)
[2017-09-30] MEDS ORDERED: HYDRALAZINE HCL 20 MG/ML VIAL IV PRN (23:41)
[2017-09-30] MEDS ORDERED: MORPHINE 4 MG/ML SYR IV PRN (23:43)
[2017-09-30] MEDS ORDERED: SODIUM CHLORIDE 0.9% 10ML INJ IV PRN (23:45)
[2017-09-30] MEDS ORDERED: PHENOL 1.4% ORAL SPRAY 180ML MM PRN (23:46)
[2017-10-01] MEDS: METRONIDAZOLE 500mg IVPB 500 MG/100 ML BAG IV SCH ×3 (00:15→16:59)
[2017-10-01] MEDS: LEVOTHYROXINE SOD 0.05 MG TABLET PO SCH (07:15)
[2017-10-01] MEDS: NA CHLORIDE 0.9% 1,000 ML IV SCH ×2 (08:48→18:03)
[2017-10-01] MEDS: CIPROFLOXACIN 400mg IV 400 MG/200 ML BAG IV SCH (08:48)
[2017-10-01] MEDS: ENOXAPARIN 30 MG/0.3 ML SQ SCH (08:49)
[2017-10-01] MEDS: LISINOPRIL 20 MG TAB PO SCH ×2 (08:49→20:37)
[2017-10-01] MEDS: PANTOPRAZOLE 40 MG INJ IVP SCH (08:50)
--- NOTE | 2017-10-01 11:15 | P.PN ---
Subjective Date of Service: 10/01/17 Chief Complaint: intractable N/V, dehydration Pt seen and examined at bedside. Chart reviewed. Case DW with Surgery. Currently Pt has no c/o overnight. nausea is improved after zofran. No BM or flatulence noted. NG tube draining bilious liquid 350ml over last 24hrs Review of Systems General: As per HPI Physical Examination - Vital Signs Temperature: 98.2 F Blood Pressure: 170/77 Pulse: 88 Respirations: 18 Pulse Ox (%): 100 - Physical Exam General: Alert, In no apparent distress HEENT: Atraumatic, PERRLA, EOMI Neck: Supple, JVD not distended Respiratory: Clear to auscultation bilaterally, Normal air movement Cardiovascular: Regular rate/rhythm, Normal S1 S2 Gastrointestinal: Normal bowel sounds, No tenderness Musculoskeletal: No tenderness Integumentary: No rashes Neurological: Normal speech, Normal tone, Normal affect Lymphatics: No axilla or inguinal lymphadenopathy - Studies Microbiology Data (last 24 hrs): 09/28/17 19:37 Clean Catch Urine Sidney Count - Final BETWEEN 10,000 & 100,000 CFU/ML 09/28/17 19:37 Clean Catch Urine - Final Medications List Reviewed: Yes Assessment & Plan - Problems (Diagnosis) (1) SBO (small bowel obstruction) Current Visit: Yes Status: Acute Plan: mechanical SBO due to surgery in the past -NPO, IV fluids and NG tube for now -Surgery Consulted. Reccs Appreciated -possible clamping of NG tube today if outpt low (2) Nausea and vomiting Onset Date: 09/29/17 Current Visit: Yes Status: Resolved Plan: N/V with Electrolyte disturbance. Resolved -IV zofran for now -NPO for now -NG tube in place -IV fluids for Electrolyte replacement Qualifiers: Vomiting type: psychogenic vomiting Qualified Code(s): F50.89 - Other specified eating disorder (3) Hypertension Onset Date: 09/29/17 Current Visit: Yes Status: Chronic Qualifiers: Hypertension type: essential hypertension Qualified Code(s): I10 - Essential (primary) hypertension (4) History of colostomy reversal Current Visit: No Status: Chronic (5) History of kyphoplasty Current Visit: No Status: Chronic (6) History of vertebroplasty Current Visit: No Status: Chronic (7) Chronic pain syndrome Onset Date: 07/17/17 Current Visit: No Status: Chronic Discharge Plan: Home Plan to discharge in: 24 Hours - Code Status/Comfort Care Code Status Assessed: Yes Critical Care: No
[2017-10-01] MEDS ORDERED: AMITRIPTYLINE 25 MG TAB PO SCH (21:00)
[2017-10-02] MEDS: METRONIDAZOLE 500mg IVPB 500 MG/100 ML BAG IV SCH ×3 (00:21→17:00)
[2017-10-02] MEDS: NA CHLORIDE 0.9% 1,000 ML IV SCH (04:29)
[2017-10-02 05:08] LABS: Glucose Level 110 mg/dL (65-120)
[2017-10-02 05:35] LABS: BUN Blood Urea Nitrogen < 5 mg/dL (6-20); Bicarbonate 18 mEq/L (21-31); Sodium Level 136 mEq/L (135-145)
[2017-10-02 05:36] LABS: Potassium 2.9 mEq/L (3.6-5.0)
[2017-10-02] MEDS: LEVOTHYROXINE SOD 0.05 MG TABLET PO SCH (05:57)
[2017-10-02] MEDS: CIPROFLOXACIN 400mg IV 400 MG/200 ML BAG IV SCH (09:34)
[2017-10-02] MEDS: KCL 20 MEQ/100 mL IVPB 20 MEQ/100 ML BAG IV SCH ×3 (09:34→12:00)
[2017-10-02] MEDS: PANTOPRAZOLE 40 MG INJ IVP SCH (09:36)
[2017-10-02] MEDS: LISINOPRIL 20 MG TAB PO SCH (09:36)
[2017-10-02] MEDS: ENOXAPARIN 30 MG/0.3 ML SQ SCH (09:36)
--- NOTE | 2017-10-02 14:10 | P.DS ---
Admission Date: 09/28/17 Discharge Date: 10/02/17 Disposition: ROUTINE DISCHARGE Discharge Condition: GOOD Reason for Admission: intractable N/V, dehydration Consultations: Dr Forrester - Problems (1) SBO (small bowel obstruction) Current Visit: Yes Status: Acute (2) Nausea and vomiting Onset Date: 09/29/17 Current Visit: Yes Status: Resolved Qualifiers: Vomiting type: psychogenic vomiting Qualified Code(s): F50.89 - Other specified eating disorder (3) Hypertension Onset Date: 09/29/17 Current Visit: Yes Status: Chronic Qualifiers: Hypertension type: essential hypertension Qualified Code(s): I10 - Essential (primary) hypertension (4) History of colostomy reversal Current Visit: No Status: Chronic (5) History of kyphoplasty Current Visit: No Status: Chronic (6) History of vertebroplasty Current Visit: No Status: Chronic (7) Chronic pain syndrome Onset Date: 07/17/17 Current Visit: No Status: Chronic Brief History of Present Illness: Ms Raphael is a 72 years old woman with history of HTN, dyslipidemia, Hypothyroidism, reversal colostomy, spinal stimulator placement, EGD done in [facility] for clean-base duodenal ulcer, hiatal hernia and multiple duodenal strictures. She was recently diagnosed with UTI, about 1 week ago she was started on oral antibiotics. Then she has had recurrent nausea and vomiting for the last week. She was not able to tolerate food or significant amount of fluids. Gradually become weak. She was also complaining of diffuse abdominal pain, mostly on upper abdomen, 7/10 of intensity. No fever, chills, chest pain or SOB associated. She denied diarrhea as well. Last bowel movement was about 2 days ago. Lab work remakable for hyponatremia and increasing creatinine consistent with volume depletion. Trop I is mildly elevated, no EKG ST-T abnormalities noted. Hospital Course: Overall during the hospital stay patient remained stable Patient who was admitted to the hospital for small bowel obstruction. Patient was experiencing intractable nausea vomiting and abdominal pain. Patient was initially placed on NG tube and IV fluids. Pt had marked improvement in the symptoms. NG tube was removed and pt had CLD. Pt tolerated diet well and thus was discharged home under stable condition. Vital Signs/Physical Exam: Temp Pulse Resp BP Pulse Ox 99.4 F 102 H 24 H 177/91 H 100 10/02/17 12:00 10/02/17 12:00 10/02/17 12:00 10/02/17 12:00 10/02/17 12:00 General: Alert, In no apparent distress HEENT: Atraumatic, PERRLA, EOMI Neck: Supple, JVD not distended Respiratory: Clear to auscultation bilaterally, Normal air movement Cardiovascular: Regular rate/rhythm, Normal S1 S2 Gastrointestinal: Normal bowel sounds, No tenderness Musculoskeletal: No tenderness Integumentary: No rashes Neurological: Normal speech, Normal tone, Normal affect Lymphatics: No axilla or inguinal lymphadenopathy Laboratory Data at Discharge: WBC 5.7 K/uL (4.3-10.9) D 09/30/17 10:07 Hgb 10.7 g/dL (12.0-15.0) L 09/30/17 10:07 Hct 31.7 % (36.0-45.0) L 09/30/17 10:07 Plt Count 271 K/uL (152-406) 09/30/17 10:07 PT 12.9 SECONDS (9.5-12.5) H 09/28/17 20:10 INR 1.09 09/28/17 20:10 APTT 27.0 SECONDS (24.3-36.9) 09/28/17 20:10 Sodium 136 mEq/L (135-145) 10/02/17 04:34 Potassium 2.9 mEq/L (3.6-5.0) L* 10/02/17 04:34 BUN < 5 mg/dL (6-20) L 10/02/17 04:34 Creatinine 0.56 mg/dL (0.44-1.00) 10/02/17 04:34 Glucose 110 mg/dL (65-120) 10/02/17 04:34 Magnesium 2.4 mg/dL (1.8-2.5) 09/28/17 20:10 Total Bilirubin 0.6 mg/dL (0.3-1.2) 09/30/17 10:07 AST 20 IU/L (10-42) 09/30/17 10:07 ALT 11 IU/L (10-60) 09/30/17 10:07 Alkaline Phosphatase 55 IU/L (42-121) 09/30/17 10:07 Troponin I 0.03 ng/mL (<0.03) 09/29/17 14:38 B-Natriuretic Peptide 114 pg/ml (<=100) H 09/28/17 20:10 Amylase 102 U/L (28-100) H 09/28/17 20:10 Lipase 41 U/L (22-51) 09/28/17 20:10 Home Medications: Docusate Sodium [Stool Softener] 100 mg PO DAILY 10/05/16 Levothyroxine [Synthroid*] 50 mcg PO [id number] 10/05/16 Pravastatin Sodium [Pravachol] 1 tab PO BEDTIME 10/05/16 Amitriptyline [Elavil*] 1 mg PO BEDTIME 07/17/17 Cyclobenzaprine HCl [Flexeril] 1 tab PO BID PRN 07/17/17 Lisinopril [Prinivil*] 1 tab PO BID 07/17/17 Trazodone [Desyrel*] 2 tab PO BEDTIME 07/17/17 Cyanocobalamin [Vitamin B-12*] 1,000 mcg PO DAILY #90 tab 07/19/17 Multivit,Ther Iron,Ca,FA & Min [Centrum Tablet*] 1 tab PO DAILY #90 tab Carvedilol [Coreg*] 25 mg PO BID PRN 09/28/17 Pantoprazole [Protonix Tab*] 1 tab PO BID 09/28/17 Diet: Regular Activity: Ad carla Followup: Michael Forrester MD [ACTIVE - CAN ADMIT] - (can follow up if needed ) KAT DOMINGUEZ [OUTSIDE PHYSICIAN] - 1-2 Weeks
[2017-10-02] MEDS ORDERED: POTASSIUM CL SA 10 MEQ TAB PO ONE (15:00)
[2017-10-02 16:22] VITALS: BP 179/86; TEMP 98.2
== END 2017-10-02 18:16 | disposition home or self-care (01) | DRG 389 ==
LOC: ER 18:01 → ERHOLD 20:49 → 2ND 21:58 → UNDODISIN 09-30 20:37
PROVIDERS: ADMIT Internal Medicine; ATTEND Family Medicine
DX: K56.609 Unspecified intestinal obstruction, unspecified as to partial versus complete obstruction (principal); E87.1 Hypo-osmolality and hyponatremia; N17.9 Acute kidney failure, unspecified; I10 Essential (primary) hypertension; G89.4 Chronic pain syndrome; E86.0 Dehydration; E78.5 Hyperlipidemia, unspecified; E03.9 Hypothyroidism, unspecified; Z87.11 Personal history of peptic ulcer disease; Z98.890 Other specified postprocedural states
CPT/HCPCS: 36415; 71045; 74018; 74176; 80048; 80053; 80076; 81003; 81015; 82150; 82550; 82553; 83690; 83735; 83880; 83930; 83935; 84300; 84484; 85025; 85610; 85730; 87086; 87088; 93005; 96361; 96365; 96375; 99285; C9113; J0360; J0696; J0744; J1650; J2405; J3010; J7030

== ENCOUNTER 2018-10-17 19:51 | Inpatient (IN) | payer OTHER ==
--- OUTSIDE RECORDS SUMMARY | 2018-10-17 19:55 | XMS REPORT | Continuity of Care Document ---
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 [facility] HTN (Confirmed) Resolved Problem 02/16/2016 [facility] Hypothyroidism Resolved Problem 02/16/2016 [facility] Medications Medication Details Route Status Patient Ordering Order Source Instructions Provider Date Thyroxine 50 microgram, 1 No Longer [facility] tab, Route: PO, Active 2015 Medical Drug form: TAB, Center Daily, Dosing Weight 56.818, kg, Start date: 02/14/16 9:00:00 CDT, Duration: 30 day, Stop date: 03/14/16 9:00:00 CSTNotes: Take 1 hour before or 2 hours after meal; Enteral feeds may interefere with the absorption of this medication.(Jesus e as:Levothroid, Synthroid) Amitriptyline 25 mg, 1 tab, Inactive [facility] Route: PO, Drug 2015 Medical form: TAB, Center Bedtime, Dosing Weight 56.818, kg, Start date: 02/13/16 21:00:00 CDT, Duration: 30 day, Stop date: 03/13/16 21:00:00 CSTNotes: (Same as: Elavil) carvedilol 12.5 mg, 1 tab, Inactive [facility] Route: PO, Drug 2015 Medical form: TAB, BID, Center Dosing Weight 56.818, kg, Start date: 02/13/16 17:00:00 CDT, Duration: 30 day, Stop date: 03/14/16 9:00:00 CSTNotes: Give with food. (Same As: Coreg) Acetaminophen 1 tab, PO, Q6H, Active 02/12[facility] [place] 300 MG / PRN Pain, X 5 2016 Medical Codeine day, # 20 tab, Center Phosphate 30 MG 0 Refill(s) Oral Tablet [Tylenol with Codeine #3] tramadol 100 mg=2 tab, No Longer [place] hydrochloride PO, Q6Hnow, X 2 Active 2016 Medical 50 MG Oral day, # 16 tab, Center Tablet 0 Refill(s) naproxen 500 mg 500 mg=1 tab, Active [place] oral tablet PO, [id number], X 2016 Medical 5 day, # 10 Center tab, 0 Refill(s) methocarbamol 1,000 mg=2 tab, Active [place] 500 mg oral PO, Q8H, PRN 2016 Medical tablet Muscle Spasms, Center X 7 day, # 42 tab, 0 Refill(s) gabapentin 300 300 mg=1 cap, Active [place] MG Oral Capsule PO, Q8Hnow, # 2016 Medical 42 cap, 0 Center Refill(s) Docusate Sodium 100 mg=1 cap, Active [place] 100 MG Oral PO, BID, # 14 2016 Medical Capsule cap, 0 Center Refill(s) amitriptyline 25 mg, PO, Active [place] 25 mg oral Bedtime, 0 2016 Medical tablet Refill(s) [place] carvedilol 12.5 12.5 mg=1 tab, Active [place] mg oral tablet PO, BID, 0 2016 Medical Refill(s) [place] Non-Formulary See Inactive [facility] Home Medication Instructions, 2016 [facility] COLESTEROL [place] SODIUM 1 TAB BY MOUTH EVERYDAY, Refill(s) 0 amitriptyline 25 mg=1 tab, Inactive [place] 25 mg oral PO, Bedtime, # 2016 Medical tablet 30 tab, 1 Center Refill(s) levothyroxine 75 microgram=1 Inactive [place] 75 mcg (0.075 tab, PO, Daily, 2016 Medical mg) oral tablet # 30 tab, 0 Center Refill(s) levothyroxine 50 microgram=1 Active [place] 50 mcg (0.05 tab, PO, Daily, 2016 Medical mg) oral tablet # 30 tab, 0 Center Refill(s) Amlodipine 5 mg, 1 tab, Inactive [facility] Route: PO, Drug 2016 Medical form: TAB, Center Daily, Dosing Weight 56.818, kg, Start date: 02/13/16 9:00:00 CDT, Duration: 30 day, Stop date: 03/13/16 9:00:00 CSTNotes: (Same as: Norvasc) Lopressor 50 mg, 1 tab, Inactive [place] Route: PO, Drug 2015 Medical form: TAB, Center Q12H, Dosing Weight 56.818, kg, Start date: 02/13/16 9:00:00 CDT, Duration: 30 day, Stop date: 03/13/16 21:00:00 CSTNotes: (Same as: Lopressor) Streptococcus 0.5 mL, Route: Inactive [place] pneumoniae IM, Drug Form: 2016 Medical serotype 1 INJ, Daily, Center capsular Start date: antigen 02/13/16 diphtheria 9:00:00 CDT, [id number] protein Duration: 1 conjugate doses or times, vaccine / Stop date: Streptococcus 02/13/16 pneumoniae 9:00:00 serotype 14 CDTNotes: capsular Lightly roll antigen vial (DO NOT diphtheria SHAKE) before [id number] protein administration. conjugate (Same as: vaccine / Prevnar 13) Streptococcus pneumoniae serotype 18C capsular antigen d Hydralazine 25 mg, Route: No Longer [place] Hydrochloride PO, Drug form: Active 2016 Medical 25 MG Oral TAB, Q8H, Center Tablet Dosing Weight 56.818, kg, Start date: 02/13/16 0:00:00 CDT, Duration: 30 day, Stop date: 03/13/16 16:00:00 MEDICAL TECHNOLOGIST GENERALIST sennosides, MCC 17.2 mg, 2 tab, No Longer [place] Route: PO, Drug Active 2015 Medical Form: TAB, Center Dosing Weight 56.818, kg, Bedtime, Start date: 02/12/16 21:00:00 CDT, Duration: 30 day, Stop date: 03/12/16 21:00:00 CSTNotes: (Same as: Senokot) Docusate 100 mg, 1 cap, No Longer [place] Route: PO, Drug Active 2015 Medical form: CAP, BID, Center Dosing Weight 56.818, kg, Start date: 02/12/16 9:00:00 CDT, Duration: 30 day, Stop date: 03/12/16 17:00:00 CSTNotes: (Same as: Colace) (Do Not Crush) potassium 20 mEq, 1 tab, Inactive [place] chloride Route: PO, Drug 2015 Medical form: ERTAB, Center ONCE, Dosing Weight 56.818, kg, Start date: 02/12/16 7:55:00 CDT, Stop date: 02/12/16 7:55:00 CDTNotes: (Same as: K-Dur 20) "Do Not Crush" With food and full glass of water Ativan 1 mg, 0.5 mL, Inactive [place] Route: IVP, 2015 Medical Drug form: INJ, Center PRN, Dosing Weight 56.818, kg, PRN Anxiety, for 2 doses while in MRI, Start date: 02/12/16 7:38:00 CDT, Duration: 2 doses or times, Stop date: 02/13/16 0:00:00 CDTNotes: (Same as: Ativan) Tramadol 100 mg, 2 tab, No Longer [place] Route: PO, Drug Active 2015 Medical form: TAB, Center Q6Hnow, Dosing Weight 56.818, kg, Start date: 02/12/16 7:00:00 CDT, Duration: 30 day, Stop date: 03/13/16 1:00:00 CSTNotes: Not to exceed 400mg/day. (Same As: Ultram) gabapentin 300 mg, 1 cap, No Longer [place] Route: PO, Drug Active 2015 Medical form: CAP, Center Q8Hnow, Dosing Weight 56.818, kg, Start date: 02/12/16 7:00:00 CDT, Duration: 30 day, Stop date: 03/12/16 23:00:00 CSTNotes: (Same as: Neurontin) Acetaminophen 1,000 mg, 100 No Longer [place] mL, Route: Active 2015 Medical IVPB, Drug Center form: INJ, Q6Hnow, Dosing Weight 56.818, kg, Start date: 02/12/16 7:00:00 CDT, Duration: 30 day, Stop date: 03/13/16 1:00:00 CSTNotes: Infuse over 15 minutes Do not exceed 4gm/day of acetaminophen MEDICATION WASTE Product Size: 1000 mg Product Wasted: ___ mg Naproxen 500 mg, 1 tab, No Longer [place] Route: PO, Drug Active 2015 Medical form: TAB, Center [id number], Dosing Weight 56.818, kg, Start date: 02/12/16 7:00:00 CDT, Duration: 30 day, Stop date: 03/12/16 19:00:00 CSTNotes: (Same as: Naprosyn) Take with food. Enoxaparin 30 mg, 0.3 mL, Inactive [place] Route: SUB-Q, 2015 Medical Drug form: INJ, Center [id number], Dosing Weight 56.818, kg, Start date: 02/12/16 7:00:00 CDT, Duration: 30 day, Stop date: 03/12/16 19:00:00 CSTNotes: (Same as: Lovenox) Hydralazine 20 mg, 1 mL, No Longer [place] Route: IVP, Active 2015 Medical Drug form: INJ, Center Q4H, Dosing Weight 56.818, kg, PRN Other -See Comment, SBP> 160 mmHg, Start date: 02/12/16 6:55:00 CDT, Duration: 30 day, Stop date: 03/13/16 6:54:00 MEDICAL TECHNOLOGIST GENERALIST, BPNotes: (Same as: Apresoline) Push over 5 minutes potassium 40 mEq, 2 tab, Inactive [place] chloride Route: PO, Drug 2015 Medical form: ERTAB, Center ONCE, Dosing Weight 56.818, kg, Start date: 02/12/16 6:47:00 CDT, Stop date: 02/12/16 6:47:00 CDTNotes: (Same as: K-Dur 20) "Do Not Crush" With food and full glass of water Oxycodone 5 mg, 1 tab, No Longer [place] Hydrochloride 5 Route: PO, Drug Active 2016 Medical MG Oral Tablet form: TAB, Q4H, Center Dosing Weight 56.818, kg, PRN Pain Score 4-6, Start date: 02/12/16 6:02:00 CDT, Duration: 30 day, Stop date: 03/13/16 6:01:00 CSTNotes: (Same as: Roxicodone) Ondansetron 4 mg, 2 mL, No Longer [facility] Route: IVP, Active 2015 Medical Drug form: INJ, Center Q8H, Dosing Weight 56.818, kg, PRN Nausea & Vomiting, Start date: 02/12/16 6:02:00 CDT, Duration: 30 day, Stop date: 03/13/16 6:01:00 CSTNotes: (Same as: Zofran) MEDICATION WASTE Product Size: 4 mg Product Wasted: ___ mg Methocarbamol 1,000 mg, 2 No Longer [facility] tab, Route: PO, Active 2015 Medical Drug form: TAB, Center Q8H, Dosing Weight 56.818, kg, PRN Muscle Spasms, Start date: 02/12/16 6:02:00 CDT, Duration: 30 day, Stop date: 03/13/16 6:01:00 CSTNotes: (Same as:Robaxin) Acetaminophen 1 tab, Route: Inactive [facility] 325 MG / PO, Drug Form: 2015 Medical Hydrocodone TAB, Dosing Center Bitartrate 5 MG Weight 56.818, Oral Tablet kg, ONCE, STAT, Start date: 02/12/16 5:53:00 CDT, Stop date: 02/12/16 5:53:00 CDT Fentanyl 25 microgram, Inactive [facility] Route: IVP, 2015 Medical ONCE, Dosing Center Weight 56.818, kg, Priority: STAT, Start date: 02/12/16 5:49:00 CDT, Stop date: 02/12/16 5:49:00 CDT Morphine 4 mg, Route: Inactive [facility] IVP, ONCE, 2016 Medical Dosing Weight Center 56.818, kg, Priority: STAT, Start date: 02/12/16 3:55:00 CDT, Stop date: 02/12/16 3:55:00 CDT Allergies, Adverse Reactions, Alerts No Known Medication Allergies Immunizations Immunization Date Given Site Status Last Comments Source Updated pneumococcal 02/13/2016 Right dino [facility] 13-valent vaccine deltoid [facility] Center Results Order Name Results Value Reference Date Interpretation Comments Source Range ELECTROLYTES AGAP 15.6 10.0 - 02/12 [facility] 20.0 [facility] ELECTROLYTES eGFR 88 02/12 Result Comment: The Medical eGFR is Center calculated using the CKD-EPI formula. In most young, healthy individuals the eGFR will be >90 mL/min/1.73m2 . The eGFR declines with age. An eGFR of 60-89 may be normal in some populations, particularly the elderly, for whom the CKD-EPI formula has not been extensively validated. Use of the eGFR is not recommended in the following populations:< br/>
Odalys viduals with unstable creatinine concentration s, including patients and those with serious co-morbid conditions.<b r/>
Patie nts with extremes in muscle mass or diet.

The data above are obtained from the National Kidney Disease Education Program (NKDEP) which additionally recommends that when the eGFR is used in patients with extremes of body mass index for purposes of drug dosing, the eGFR should be multiplied by the estimated BMI. ELECTROLYTES Calcium Lvl 9.2 8.5 - 10.5 02/12 [facility] ELECTROLYTES CO2 22 24 - 32 02/12 2015 [facility] ELECTROLYTES Chloride Lvl 100 95 - 109 02/12 [facility] ELECTROLYTES Potassium Lvl 3.6 3.5 - 5.1 02/12 [facility] ELECTROLYTES Sodium Lvl 134 135 - 145 02/12 [facility] ELECTROLYTES Creatinine 0.67 0.50 - 02/12 [facility] Lvl 1. [facility] ELECTROLYTES BUN 15 7 - 22 02/12 [facility] ELECTROLYTES Glucose Lvl 108 70 - 99 02/12 [facility] HEMATOLOGY RDW 13.5 11.5 - 02/12 [facility] 14.5 [facility] HEMATOLOGY MPV 7.1 7.4 - 10.4 02/12 [facility] HEMATOLOGY Platelet 239 133 - 450 02/12 [facility] HEMATOLOGY Hgb 10.9 12.0 - 02/12 [facility] 16.0 [facility] HEMATOLOGY RBC 3.52 4.20 - 02/12 [facility] 5.40 [facility] HEMATOLOGY WBC 5.4 3.7 - 10.4 02/12 [facility] HEMATOLOGY Hct 32.3 36.0 - 02/12 [place] 48.0 [facility] HEMATOLOGY MCH 31.0 27.0 - 02/12 31.0 [facility] HEMATOLOGY MCV 91.7 80.0 - 02/12 98.0 [facility] HEMATOLOGY MCHC 33.8 32.0 - 02/12 [place] 36.0 [facility] ELECTROLYTES AGAP 15.4 10.0 - 02/11 [facility] 20.0 [facility] ELECTROLYTES eGFR 72 02/11 [facility] Comment: The [facility] eGFR is Center calculated using the CKD-EPI formula. In most young, healthy individuals the eGFR will be >90 mL/min/1.73m2 . The eGFR declines with age. An eGFR of 60-89 may be normal in some populations, particularly the elderly, for whom the CKD-EPI formula has not been extensively validated. Use of the eGFR is not recommended in the following populations:< br/>
Odalys viduals with unstable creatinine concentration s, including patients and those with serious co-morbid conditions.<b r/>
Patie nts with extremes in muscle mass or diet.

The data above are obtained from the National Kidney Disease Education Program (NKDEP) which additionally recommends that when the eGFR is used in patients with extremes of body mass index for purposes of drug dosing, the eGFR should be multiplied by the estimated BMI. ELECTROLYTES Glucose Lvl 99 70 - 99 02/11 [facility] ELECTROLYTES Sodium Lvl 134 135 - 145 02/11 [facility] ELECTROLYTES Creatinine 0.82 0.50 - 02/11 [facility] Lvl 1.40 [facility] ELECTROLYTES BUN 17 7 - 22 02/11 2015 [facility] ELECTROLYTES Chloride Lvl 99 95 - 109 02/11 2015 [facility] ELECTROLYTES Potassium Lvl 3.4 3.5 - 5.1 02/11 [facility] ELECTROLYTES Calcium Lvl 8.4 8.5 - 10.5 02/11 [facility] ELECTROLYTES CO2 23 24 - 32 02/11 [facility] HEMATOLOGY Max Amplitude 74 52 - 71 02/11 [facility] HEMATOLOGY G-value Rapid 14.3 5.0 - 11.6 02/11 [facility] HEMATOLOGY Estimated % 0.4 0.0 - 7.5 02/11 [facility] Lysis [facility] HEMATOLOGY K-time Rapid 0.8 0.6 - 2.3 02/11 [facility] HEMATOLOGY Angle Rapid 81 64 - 80 02/11 [facility] HEMATOLOGY ACT (TEG) 97 86 - 118 02/11 [facility] HEMATOLOGY [place] 0.4 02/11 [facility] HEMATOLOGY R-time Rapid 0.5 0.4 - 0.7 02/11 [facility] HEMATOLOGY PTT 31.5 22.9 - 02/11 [place] 35.8 /2015 [facility] HEMATOLOGY PT 13.9 12.0 - 02/11 [place] 14.7 [facility] HEMATOLOGY INR 1.05 0.85 - 02/11 [place] 1.17 [facility] HEMATOLOGY Hgb 10.9 12.0 - 02/11 [place] 16.0 [facility] HEMATOLOGY RBC 3.51 4.20 - 02/11 [place] 5.40 [facility] HEMATOLOGY Hct 32.1 36.0 - 02/11 [place] 48.0 [facility] HEMATOLOGY MCHC 33.9 32.0 - 02/11 [place] 36.0 /2015 [facility] HEMATOLOGY MCH 31.0 27.0 - 02/11 [place] 31.0 [facility] HEMATOLOGY MCV 91.4 80.0 - 02/11 [place] 98.0 /2015 [facility] HEMATOLOGY WBC 8.3 3.7 - 10.4 02/11 [facility] HEMATOLOGY MPV 7.0 7.4 - 10.4 02/11 [facility] HEMATOLOGY Platelet 264 133 - 450 02/11 [facility] HEMATOLOGY RDW 13.4 11.5 - 02/11 [place] 14.5 [facility] HEMATOLOGY Basophils # 0.1 0.0 - 0.2 02/11 [facility] HEMATOLOGY Lymphocytes 24.5 20.0 - 02/11 [place] 40.0 2016 [facility] HEMATOLOGY Segs 63.6 45.0 - 02/11 [place] 75.0 /2016 [facility] HEMATOLOGY Monocytes 9.2 2.0 - 12.0 02/11 [facility] HEMATOLOGY Lymphocytes # 2.0 1.0 - 5.5 02/11 [facility]2015 [facility] HEMATOLOGY Segs-Bands # 5.3 1.5 - 8.1 02/11 [facility]2015 [facility] HEMATOLOGY Eosinophils 1.9 0.0 - 4.0 02/11 [facility]2015 [facility] HEMATOLOGY Basophils 0.8 0.0 - 1.0 02/11 [facility]2015 [facility] HEMATOLOGY Eosinophils # 0.2 0.0 - 0.5 02/11 [facility]2015 [facility] HEMATOLOGY Monocytes # 0.8 0.0 - 0.8 02/[address] Pathology Reports No Data Provided for This Section Diagnostic Reports Report Value Date Source Spine lumbar 2 or 3 EXAM: XR LUMBAR SPINE 2 VIEWS 02/12/2016 [facility] views DX DATE: 02/12/2016 at 1720 hours Center INDICATION: Fracture, upright radiographs in TLSO brace COMPARISON: Lumbar spine MRI of 02/12/2016 TECHNIQUE: AP and lateral radiographs of the lumbar spine FINDINGS: 5 lumbar type, non-rib bearing vertebral bodies are present. An L3 compression fracture is again identified with approximately 30-40% central vertebral body height loss, without significant an terior vertebral body height loss, not significantly changed from the MR examination of the same day. Fracture extends to the posterior cortex without measurable retropulsion radiographically. Posterior element fusion at L4-5 is not evident radiographically. IMPRESSION: No significant interval change in height or alignment of the L3 compression fracture upright in brace. Spine lumbar wo EXAM: MRI LUMBAR SPINE WITHOUT CONTRAST 02/12/2016 [facility] contrast MRI DATE: 02/04/2016 at 0812 hours. Center INDICATION: Fracture COMPARISON: Contemporaneous CT lumbar spine. TECHNIQUE: Sagittal T1, sagittal T2, sagittal STIR, axial T1, and axial T2- weighted images of the lumbar spine are obtained without contrast. Suboptimal quality Images were obtained due to artifacts generated from at persistent patient motion. DISCUSSION: Normal lumbar segmentation is assumed with the lowest fully formed intervertebral disc space labeled as L5-S1 for the purpose of this examination. The curvature of lumbar spine and alignment of the vertebrae appear normal. There is compression fracture of the L3 vertebral body with 40% reduction in the mid vertebral height. Focal disruption of the superior endplate is seen. Some endplate marrow edematous changes are noted . Small left-sided epidural hemorrhage extending up to the mid L2 vertebral level is noted with no evidence of canal comprise or cauda equina compression. Posterior element fusion is noted at L4-L5. The conus medullaris terminates at the L1 vertebral level. It has a normal contour and normal signal characteristics. No intradural pathology is identified. Disc spaces, spinal canal and neural foramina are as follows: T11-T12 to L1-L2 : Normal disc signal with preservation of disc height. No evidence of spinal canal stenosis. No significant facet hypertrophy. No significant neural foramina stenosis. L2-L3: Normal disc signal with preservation of disc height. Mild canal narrowing noted due to bilateral ligamentum flavum thickening. No neural foraminal compromise. No cauda equina compression. The facet joints appear normal. L3-L4: Normal disc signal with preservation of disc height. Right canal narrowing noted due to bilateral ligamentum flavum thickening. No neural foraminal comprise. No cauda equina compression. Facet joints are normal. L4-L5: Disc desiccation and reduction in disc height. Focal intradiscal calcification noted. Posterior interfacetal effusion seen. No evidence of canal or neural foraminal comprise. No evidence of sp inal canal stenosis. No significant facet hypertrophy. No significant neural foramina stenosis. L5-S1: Disc desiccation with preservation of disc height. Right subarticular zone protrusion indenting the descending right S1 nerve root. No evidence of spinal canal stenosis of neural foraminal comprise. Bilateral facet joint arthropathy. Both SI joints appear unremarkable. No significant abnormality within the visualized paraspinous musculature. There is no evidence of hydronephrosis bilaterally. IMPRESSION: 1. Compression fracture of the L3 vertebral body with 40% reduction in the mid vertebral height, likely insufficiency. 2. Mild left-sided epidural hemorrhage at L2-L3 with no cauda equina compression. 3. Mild secondary canal stenosis at L2-L3 and L3-L4 level due to bilateral ligamentum flavum thickening. 4. Interfacetal fusion at L4-L5. Spine thoracic wo EXAM: CT THORACIC SPINE WITHOUT CONTRAST 02/12/2016 [facility] contrast CT DATE: 02/12/2016 0524 hours CDT Center INDICATION: Fracture ADDITIONAL INFORMATION: 'Transfer from [facility] for L3 fx.' COMPARISON: None TECHNIQUE: Volumetric acquisition of the thoracic spine without contrast. Axial, sagittal and coronal reconstructions. IV contrast: None. DLP: 657 mGy-cm FINDINGS: No fracture, malalignment or other acute bony abnormality is identified. Vertebral body heights and disc spaces are overall maintained. There is diffuse osteopenia. There is biapical scarring of the lungs. Coronary artery and aortic atherosclerotic calcifications partially visualized. Small hiatal hernia. IMPRESSION: 1. No acute abnormality is identified. Spine cervical wo EXAM: CT CERVICAL SPINE WITHOUT CONTRAST 02/12/2016 [facility] contrast CT DATE: 02/12/2016 0523 hours CDT Center INDICATION: Fracture ADDITIONAL INFORMATION: 'Transfer from [facility] for L3 fx.' COMPARISON: None TECHNIQUE: Volumetric acquisition of the cervical spine without contrast. Axial, sagittal and coronal reconstructions. IV contrast: None. DLP: 443 mGy-cm DISCUSSION: The spine is imaged from the skull base to the level of T2. The cervical spine is well aligned. No acute fracture or malalignment is identified. Mild multilevel degenerative changes with small anterior osteophytes and a small posterior discoligamentous complex calcification at C6-C7. Bilateral carotid bulb calcifications are noted. Opacification of the right sphenoid sinus with surrounding sclerosis, suggesting chronic etiology. There is biapical parenchymal scarring. IMPRESSION: No acute abnormality of the cervical spine. Spine-Outside Consult EXAM: CT LUMBAR SPINE WITHOUT CONTRAST, SECOND READ [facility] CT DATE: 02/12/2016 4:02 AM CDT Exam performed 02/11/2016 at 2341 hours. Center INDICATION: Pain ADDITIONAL INFORMATION: 'Transfer from [facility] for L3 fx.' COMPARISON: None TECHNIQUE: SECOND READ from [facility]. Volumetric acquisition of the lumbar spine without contrast. Axial, sagittal and coronal reconstructions. IV contrast: None. DLP: 1587 mGy-cm DISCUSSION: The spine is imaged from the sacrum to the level of T12. The spine is well aligned. There is an L3 vertebral body compression fracture with approximately 30% height loss in the mid vertebr al body in comparison to the adjacent vertebral bodies. No significant retropulsion or spinal canal narrowing at this level. No additional fracture is identified. Diffuse osteopenia. Multilevel degenerative changes of the spine most prominent at L4-L5. There is fusion of the L4-L5 facet joints. The soft tissues are unremarkable. There are scattered aortic artery calcifications. IMPRESSION: 1. L3 vertebral body compression fracture with approximately 30% height loss in the mid vertebral body. No retropulsion or spinal canal narrowing. Consultation Notes No Data Provided for This Section Discharge Summaries No Data Provided for This Section History and Physicals No Data Provided for This Section Vital Signs Vital Sign Value Date Comments Source Heart Rate 77 02/13/2016 [facility] Diastolic (mm Hg) 56 02/13/2016 [facility] Systolic (mm Hg) 114 02/13/2016 [facility] Respitory Rate 26 02/13/2016 [facility] Temperature Oral (F) 97.1 F 02/13/2016 [facility] Systolic (mm Hg) 109 02/13/2016 [facility] Diastolic (mm Hg) 60 02/13/2016 [facility] Systolic (mm Hg) 157 02/13/2016 [facility] Diastolic (mm Hg) 74 02/13/2016 [facility] Temperature Oral (F) 97.1 F 02/13/2016 [facility] Heart Rate 98 02/13/2016 [facility] Respitory Rate 20 02/13/2016 [facility] Respitory Rate 18 02/13/2016 [facility] Temperature Oral (F) 97.6 F 02/13/2016 [facility] Heart Rate 92 02/13/2016 [facility] Height 160.02 cm 02/12/2016 [facility] BMI Calculated 22.19 02/12/2016 [facility] Weight 56.818 02/12/2016 [facility] Encounters Location Location Encounter Encounter Reason Attending ADM DC Status Source Details Type Number For Provider Date Date Visit [facility] [id number] [place] 02/11 02/12 [facility] [place] /2015 [facility] Procedures Procedure Code Date Perfomer Comments Source Laminectomy [id number] [facility] Ostomy monitoring [id number] [facility] Assessment and Plan Assessment and Plan Date Source Extracted from:Title: ORS Spine Progress Note 02/13/2016 [facility] Author: Maxim Walker MD Date: 02/13/16 ORS Spine Progress Note S: Patient is doing better today. She denies any new numbness or weakness. She has her TLSO and is doing better with it. O: Vitals Tmp(F) Tmp(C) Ttype BP MAP Pulse RR SpO2 FIO2 ETCO2 02/12 04:39 ---- ---- ---- 171/90 --- --- -- --- -- - --- 02/12 04:34 97.6 36.44 oral 179/86 124 92 18 96 --- --- 02/11 23:21 96.6 35.89 oral 174/82 121 100 18 96 -- - --- 02/11 20:08 96.5 35.83 oral 146/73 102 104 18 97 -- - --- 02/11 18:14 ---- ---- ---- 151/72 --- --- -- --- -- - --- 24 Hr Tmax: 97.6F (36.44c) at 02/12 04:34 24 Hr Tmin: 96.1F (35.61c) at 15:16 36 Hr Tmax: 97.6F (36.44c) at 02/12 04:34 36 Hr Tmin: 96.1F (35.61c) at 15:16 Vital Signs are the last 5 in the past 48 hours. Weights are the last 5 in 60 days, plus initial. Gen: awake, alert, follow commands Motor C5 C6 C7 C8 T1 L2 L3 L4 L5 S1 R 5/5 5/5 5/5 5/5 5/5 4/5 5/5 5/5 5/5 5/5 L 5/5 5/5 5/5 5/5 5/5 4/5 5/5 3/5 4/5 3/5 SENSORY: SILT BUE C5-T1 and BLE L2-S1 Patient reports decreased sensation L2--> S1 on the LLE but she does have sensation to light touch. Assessment: 70 yo F with an L3 compression fx. Plan: - Ok for patient to be out of bed with TLSO - UR Xrays stable - MRI - minimal amout of bleeding around fx, no compression of nerve roots - T and C spine Ct negative - diet per primary - hold chemical dvt ppx for 48 hours - Patient clear for discharge when cleared by PT - FU with Dr. Fang in 3 weeks after discharge. - ORS spine will continue to follow. Please page [phone] with any question or call [phone] for emergencies. Brian Walker, PGY3 pager [phone] Extracted from:Title: Hospitalist History and Physical Author: Erica Norris MD Date: 02/12/16 Assessment/Plan 70 yo female with PMH of HTN, HLD, hypothyroidism presented with c/o pain in the lower back after she was helping to lift a person found to have L 3 compression fracture 1.Compression fracture of L3 lumbar vertebra - evaluated by ORS spine - awaiting final recs after CT spine is done - Likely conservative mgmt with brace - pain meds ordered 2.Hypertension - BP better controlled after pain was managed 3.Hyperlipidemia - on statin at home 4.Hypothyroidism - On Synthroid, dose not available at this time 5.Hypokalemia - will supplement - poor intake 6.Anemia - normocytic anemia, no s/o active bleeding - monitor H/H Orders: acetaminophen, 1,000 mg, Route: IVPB, Q6Hnow, Dosing Weight 56.818, kg, Start date: 02/12/16 7:00:00 CDT, Duration: 30 day, Stop date: 03/13/16 1:00:00 [employer]ICAL [employer]CHNOLOGIST GENERALIST docusate, 100 mg, Route: PO, BID, Dosing Weight 56.818, kg, Start date: 9:00:00 CDT, Duration: 30 day, Stop date: 03/12/16 17:00:00 MEDICAL TECHNOLOGIST GENERALIST enoxaparin, 30 mg, Route: SUB-Q, Drug form: INJ, [id number], Dosing Weight 56.818, kg, Start date: 02/12/16 7:00:00 CDT, Duration: 30 day, Stop date: 03/12 19:00:00 MEDICAL TECHNOLOGIST GENERALIST gabapentin, 300 mg, Route: PO, Q8Hnow, Dosing Weight 56.818, kg, Start date : 02/12/16 7:00:00 CDT, Duration: 30 day, Stop date: 03/12/16 23:00:00 MEDICAL TECHNOLOGIST GENERALIST methocarbamol, 1,000 mg, Route: PO, Drug form: TAB, Q8H, Dosing Weight 56.818, kg, PRN Muscle Spasms, Start date: 02/12/16 6:02:00 CDT, Duration: 30 day, Stop date: 03/13/16 6:01:00 MEDICAL TECHNOLOGIST GENERALIST naproxen, 500 mg, Route: PO, [id number], Dosing Weight 56.818, kg, Start date: 02/12/16 7:00:00 CDT, Duration: 30 day, Stop date: 03/12/16 19:00:00 MEDICAL TECHNOLOGIST GENERALIST ondansetron, 4 mg, Route: IVP, Q8H, Dosing Weight 56.818, kg, PRN Nausea and Vomiting, Start date: 02/12/16 6:02:00 CDT, Duration: 30 day, Stop date: 6:01:00 MEDICAL TECHNOLOGIST GENERALIST oxyCODONE 5 mg immediate release, 5 mg, Route: PO, Drug form: TAB, Q4H, Dosing Weight 56.818, kg, PRN Pain Score 4-6, Start date: 02/12/16 6:02:00 CDT, Duration: 30 day, Stop date: 03/13/16 6:01:00 MEDICAL TECHNOLOGIST GENERALIST oxyCODONE 5 mg immediate release, 10 mg, Route: PO, Drug form: TAB, Q4H, Dosing Weight 56.818, kg, PRN Pain Score 7-10, Start date: 02/12/16 6:02:00 CDT , Duration: 30 day, Stop date: 03/13/16 6:01:00 MEDICAL TECHNOLOGIST GENERALIST senna, 2 tab, Route: PO, Dosing Weight 56.818, kg, Bedtime, Start date: 21:00:00 CDT, Duration: 30 day, Stop date: 03/12/16 21:00:00 MEDICAL TECHNOLOGIST GENERALIST tramadol, 100 mg, Route: PO, Drug form: TAB, Q6Hnow, Dosing Weight 56.818, kg, Start date: 02/12/16 7:00:00 CDT, Duration: 30 day, Stop date: 03/13/16 1:00 :00 MEDICAL TECHNOLOGIST GENERALIST Bedding Order Up ad carla CDM Acute Pain/Anxiolytic Orders CDM Admission Acute Care Direct Admit Diet Adult Regular Graduated Compression Stockings Notify MD Notify MD Notify MD Patient Education AC4 Provide Education AC4 Resuscitation (Code) Status SCD Application Vital Signs Prophylaxis Lovenox Disposition Pending Ortho recs - patient does not remember the dose of her medications, frustrated because of the pain - please obtain home meds. [facility] is primary. Please page Dr. Hercules at [phone] questions Plan of Care No Data Provided for This Section Social History Social History Date Source Social History TypeResponse 02/12/2016 [facility] Smoking Status Never smoker; Ready to change: No; Concerns about tobacco use in household: No ; Exposure to Tobacco Smoke None; Cigarette Smoking Last 365 Days No; Reg Smoking Cessation Counseling No Family History No Data Provided for This Section Advance Directives No Data Provided for This Section Functional Status No Data Provided for This Section
--- OUTSIDE RECORDS SUMMARY | 2018-10-17 19:55 | XMS REPORT | Summary of Care ---
:1945 Author Organization [facility] Address [address] [place] [id number] Encounter HQ Kd_clarence(FIN) [phone] Date(s): 02/12/16 - 02/13/[address] Professional Services provided by [facility] [address]- Discharge Disposition: Home or Self Care Attending Physician: Chandler Hercules MD Admitting Physician: Chandler Hercules MD Referring Physician: Carlos Borges MD Vital Signs Most recent to oldest 1 2 3 [Reference Range]: Height 160.02 cm (02/12/16 3:23 AM) Temperature Oral [96.4-99.1 97.1 DegF 97.1 DegF 97.6 DegF DegF] (02/13/16 1:02 PM) (02/13/16 7:52 AM) (02/13/16 4:34 AM) Blood Pressure [90-140/60-90 109/60 mmHg 157/74 mmHg mmHg] (02/13/16 1:02 PM) *HI* (02/13/16 7:52 AM) Systolic Blood Pressure 114 mmHg [90-140 mmHg] (02/13/16 2:47 PM) Diastolic Blood Pressure 56 mmHg [60-90 mmHg] *LOW* (02/13/16 2:47 PM) Respiratory Rate [14-20 26 BRMIN 20 BRMIN 18 BRMIN BRMIN] *HI* (02/13/16 7:52 AM) (02/13/16 4:34 AM) (02/13/16 1:02 PM) Peripheral Pulse Rate 77 bpm 98 bpm 92 bpm [60-100 bpm] (02/13/16 2:47 PM) (02/13/16 7:52 AM) (02/13/16 4:34 AM) Weight 56.818 kg (02/12/16 3:23 AM) Body Mass Index 22.19 m2 (02/12/16 3:23 AM) Problem List Condition Effective Dates Status Health Status Informant HDL deficiency(Confirmed) Resolved HTN (hypertension)(Confirmed) Resolved Hypothyroidism(Confirmed) Resolved Allergies, Adverse Reactions, Alerts Substance Reaction Severity Status NKDA Active Medications acetaminophen 1,000 mg, 100 mL, Route: IVPB, Drug form: INJ, Q6Hnow, Dosing Weight 56.818, kg , Start date: 02/12/16 7:00:00 CDT, Duration: 30 day, Stop date: 03/13/16 1:00: 00 ANALYTICAL RESEARCH CHEMIST Notes: Infuse over 15 minutesDo not exceed 4gm/day of acetaminophen MEDICATION WASTE ProductSize: 1000 mgProduct Wasted: ___ mg Start Date: 02/12/16 Stop Date: 02/13/16 Status: Discontinuedacetaminophen-hydrocodone 325 mg-5 mg oral tablet 1 tab, Route: PO, Drug Form: TAB, Dosing Weight 56.818, kg, ONCE, STAT, Start date: 02/12/16 5:53:00CDT, Stop date: 02/12/16 5:53:00 CDT Start Date: 02/12/16 Stop Date: 02/12/16 Status: Completedamitriptyline 25 mg, 1 tab, Route: PO, Drug form: TAB, Bedtime, Dosing Weight 56.818, kg, Start date: 02/13/16 21:00:00 CDT, Duration: 30 day, Stop date: 03/13/16 21:00: 00 ANALYTICAL RESEARCH CHEMIST Notes: (Same as: Elavil) Start Date: 02/13/16 Stop Date: 02/13/16 Status: Canceledamitriptyline 25 mg oral tablet 25 mg, PO, Bedtime, 0 Refill(s) Start Date: 02/13/16 Status: Orderedamitriptyline 25 mg oral tablet 25 mg=1 tab, PO, Bedtime, # 30 tab, 1 Refill(s) Start Date: 02/13/16 Stop Date: 02/13/16 Status: DiscontinuedamLODIPine 5 mg, 1 tab, Route: PO, Drug form: TAB, Daily, Dosing Weight 56.818, kg, Start date: 02/13/16 9:00:00 CDT, Duration: 30 day, Stop date: 03/13/16 9:00:00 ANALYTICAL RESEARCH CHEMIST Notes: (Same as: Norvasc) Start Date: 02/13/16 Stop Date: 02/13/16 Status: DiscontinuedAtivan 1 mg, 0.5 mL, Route: IVP, Drug form: INJ, PRN, Dosing Weight 56.818, kg, PRN Anxiety, for 2 doses while in MRI, Start date: 02/12/16 7:38:00 CDT, Duration: 2 doses or times, Stop date: 02/13/16 0:00:00CDT Notes: (Same as: Ativan) Start Date: 02/12/16 Stop Date: 02/12/16 Status: Completedcarvedilol 12.5 mg, 1 tab, Route: PO, Drug form: TAB, BID, Dosing Weight 56.818, kg, Start date: 02/13/16 17:00:00 CDT, Duration: 30 day, Stop date: 03/14/16 9:00:00 ANALYTICAL RESEARCH CHEMIST Notes: Give with food. (Same As: Coreg) Start Date: 02/13/16 Stop Date: 02/13/16 Status: Canceledcarvedilol 12.5 mg oral tablet 12.5 mg=1 tab, PO, BID, 0 Refill(s) Start Date: 02/13/16 Status: Ordereddocusate 100 mg, 1 cap, Route: PO, Drug form: CAP, BID, Dosing Weight 56.818, kg, Start date: 02/12/16 9:00:00 CDT, Duration: 30 day, Stop date: 03/12/16 17:00:00 ANALYTICAL RESEARCH CHEMIST Notes: (Same as: Colace) (Do Not Crush) Start Date: 02/12/16 Stop Date: 02/13/16 Status: Discontinueddocusate sodium 100 mg oral capsule 100 mg=1 cap, PO, BID, # 14 cap, 0 Refill(s) Start Date: 02/13/16 Stop Date: 02/20/16 Status: Orderedenoxaparin 30 mg, 0.3 mL, Route: SUB-Q, Drug form: INJ, [id number], Dosing Weight 56.818, kg , Start date: 02/12/16 7:00:00 CDT, Duration: 30 day, Stop date: 03/12/16 19:00: 00 ANALYTICAL RESEARCH CHEMIST Notes: (Same as: Lovenox) Start Date: 02/12/16 Stop Date: 02/12/16 Status: DiscontinuedfentaNYL 25 microgram, Route: IVP, ONCE, Dosing Weight 56.818, kg, Priority: STAT, Start date: 02/12/16 5:49:00 CDT, Stop date: 02/12/16 5:49:00 CDT Start Date: 02/12/16 Stop Date: 02/12/16 Status: Discontinuedgabapentin 300 mg, 1 cap, Route: PO, Drug form: CAP, Q8Hnow, Dosing Weight 56.818, kg, Start date: 02/12/16 7:00:00 CDT, Duration: 30 day, Stop date: 03/12/16 23:00: 00 ANALYTICAL RESEARCH CHEMIST Notes: (Same as: Neurontin) Start Date: 02/12/16 Stop Date: 02/13/16 Status: Discontinuedgabapentin 300 mg oral capsule 300 mg=1 cap, PO, Q8Hnow, # 42 cap, 0 Refill(s) Start Date: 02/13/16 Stop Date: 02/27/16 Status: OrderedhydrALAZINE 20 mg, 1 mL, Route: IVP, Drug form: INJ, Q4H, Dosing Weight 56.818, kg, PRN Other -See Comment, SBP> 160 mmHg, Start date: 02/12/16 6:55:00 CDT, Duration: 30 day, Stop date: 03/13/16 6:54:00 ANALYTICAL RESEARCH CHEMIST, BP Notes: (Same as: Apresoline)Push over 5 minutes Start Date: 02/12/16 Stop Date: 02/13/16 Status: DiscontinuedhydrALAZINE 25 mg oral tablet 25 mg, Route: PO, Drug form: TAB, Q8H, Dosing Weight 56.818, kg, Start date: 0:00:00 CDT, Duration: 30 day, Stop date: 03/13/16 16:00:00 ANALYTICAL RESEARCH CHEMIST Start Date: 02/13/16 Stop Date: 02/12/16 Status: Canceledlevothyroxine 50 microgram, 1 tab, Route: PO, Drug form: TAB, Daily, Dosing Weight 56.818, kg , Start date: 02/14/16 9:00:00 CDT, Duration: 30 day, Stop date: 03/14/16 9:00: 00 ANALYTICAL RESEARCH CHEMIST Notes: Take 1 hour before or 2 hours after meal; Enteral feeds may interefere with the absorption ofthis medication.(Same as:Levothroid, Synthroid) Start Date: 02/14/16 Stop Date: 02/13/16 Status: Canceledlevothyroxine 50 mcg (0.05 mg) oral tablet 50 microgram=1 tab, PO, Daily, # 30 tab, 0 Refill(s) Start Date: 02/13/16 Status: Orderedlevothyroxine 75 mcg (0.075 mg) oral tablet 75 microgram=1 tab, PO, Daily, # 30 tab, 0 Refill(s) Start Date: 02/13/16 Stop Date: 02/13/16 Status: DeletedLopressor 50 mg, 1 tab, Route: PO, Drug form: TAB, Q12H, Dosing Weight 56.818, kg, Start date: 02/13/16 9:00:00 CDT, Duration: 30 day, Stop date: 03/13/16 21:00:00 ANALYTICAL RESEARCH CHEMIST Notes: (Same as: Lopressor) Start Date: 02/13/16 Stop Date: 02/13/16 Status: DiscontinuedLopressor 25 mg, 1 tab, Route: PO, Drug form: TAB, Q12H, Dosing Weight 56.818, kg, Start date: 02/13/16 9:00:00 CDT, Duration: 30 day, Stop date: 03/13/16 21:00:00 ANALYTICAL RESEARCH CHEMIST Notes: (Same as: Lopressor) Start Date: 02/13/16 Stop Date: 02/13/16 Status: Canceledmethocarbamol 1,000 mg, 2 tab, Route: PO, Drug form: TAB, Q8H, Dosing Weight 56.818, kg, PRN Muscle Spasms, Start date: 02/12/16 6:02:00 CDT, Duration: 30 day, Stop date: 6:01:00 ANALYTICAL RESEARCH CHEMIST Notes: (Same as:Robaxin) Start Date: 02/12/16 Stop Date: 02/13/16 Status: Discontinuedmethocarbamol 500 mg oral tablet 1,000 mg=2 tab, PO, Q8H, PRN Muscle Spasms, X 7 day, # 42 tab, 0 Refill(s) Start Date: 02/13/16 Stop Date: 02/20/16 Status: Orderedmorphine Sulfate 4 mg, Route: IVP, ONCE, Dosing Weight 56.818, kg, Priority: STAT, Start date: 3:55:00 CDT, Stop date: 02/12/16 3:55:00 CDT Start Date: 02/12/16 Stop Date: 02/12/16 Status: Completednaproxen 500 mg, 1 tab, Route: PO, Drug form: TAB, [id number], Dosing Weight 56.818, kg, Start date: 02/12/16 7:00:00 CDT, Duration: 30 day, Stop date: 03/12/16 19:00: 00 ANALYTICAL RESEARCH CHEMIST Notes: (Same as: Naprosyn) Take with food. Start Date: 02/12/16 Stop Date: 02/13/16 Status: Discontinuednaproxen 500 mg oral tablet 500 mg=1 tab, PO, [id number], X 5 day, # 10 tab, 0 Refill(s) Start Date: 02/13/16 Stop Date: 02/18/16 Status: OrderedNon-Formulary Home Medication See Instructions, COLESTEROL SODIUM 1 TAB BY MOUTH EVERYDAY, Refill(s) 0 Start Date: 02/13/16 Stop Date: 02/13/16 Status: Discontinuedondansetron 4 mg, 2 mL, Route: IVP, Drug form: INJ, Q8H, Dosing Weight 56.818, kg, PRN Nausea & Vomiting, Start date: 02/12/16 6:02:00 CDT, Duration: 30 day, Stop date: 03/13/16 6:01:00 ANALYTICAL RESEARCH CHEMIST Notes: (Same as: Carley) MEDICATION WASTE Product Size: 4 mgProduct Wasted: ___ mg Start Date: 02/12/16 Stop Date: 02/13/16 Status: DiscontinuedoxyCODONE 5 mg immediate release 5 mg, 1 tab, Route: PO, Drug form: TAB, Q4H, Dosing Weight 56.818, kg, PRN Pain Score 4-6, Start date: 02/12/16 6:02:00 CDT, Duration: 30 day, Stop date: 6:01:00 ANALYTICAL RESEARCH CHEMIST Notes: (Same as: Roxicodone) Start Date: 02/12/16 Stop Date: 02/13/16 Status: DiscontinuedoxyCODONE 5 mg immediate release 10 mg, 2 tab, Route: PO, Drug form: TAB, Q4H, Dosing Weight 56.818, kg, PRN Pain Score 7-10, Start date: 02/12/16 6:02:00 CDT, Duration: 30 day, Stop date: 03/13/16 6:01:00 ANALYTICAL RESEARCH CHEMIST Notes: (Same as: Roxicodone) Start Date: 02/12/16 Stop Date: 02/13/16 Status: Discontinuedpneumococcal 13-valent vaccine 0.5 mL, Route: IM, Drug Form: INJ, Daily, Start date: 02/13/16 9:00:00 CDT, Duration: 1 doses or times, Stop date: 02/13/16 9:00:00 CDT Notes: Lightly roll vial (DO NOT SHAKE) before administration. (Same as: Prevnar 13) Start Date: 02/13/16 Stop Date: 02/13/16 Status: Completedpotassium chloride 40 mEq, 2 tab, Route: PO, Drug form: ERTAB, ONCE, Dosing Weight 56.818, kg, Start date: 02/12/16 6:47:00 CDT, Stop date: 02/12/16 6:47:00 CDT Notes: (Same as: K-Dur 20)"Do Not Crush" With food and full glass of water Start Date: 02/12/16 Stop Date: 02/12/16 Status: Completedpotassium chloride 20 mEq, 1 tab, Route: PO, Drug form: ERTAB, ONCE, Dosing Weight 56.818, kg, Start date: 02/12/16 7:55:00 CDT, Stop date: 02/12/16 7:55:00 CDT Notes: (Same as: K-Dur 20)"Do Not Crush" With food and full glass of water Start Date: 02/12/16 Stop Date: 02/12/16 Status: Completedsenna 17.2 mg, 2 tab, Route: PO, Drug Form: TAB, Dosing Weight 56.818, kg, Bedtime, Start date: 02/12/16 21:00:00 CDT, Duration: 30 day, Stop date: 03/12/16 21:00: 00 ANALYTICAL RESEARCH CHEMIST Notes: (Same as: Senokot) Start Date: 02/12/16 Stop Date: 02/13/16 Status: Discontinuedtramadol 100 mg, 2 tab, Route: PO, Drug form: TAB, Q6Hnow, Dosing Weight 56.818, kg, Start date: 02/12/16 7:00:00 CDT, Duration: 30 day, Stop date: 03/13/16 1:00:00 ANALYTICAL RESEARCH CHEMIST Notes: Not to exceed 400mg/day. (Same As: Ultram) Start Date: 02/12/16 Stop Date: 02/13/16 Status: Discontinuedtramadol 50 mg oral tablet 100 mg=2 tab, PO, Q6Hnow, X 2 day, # 16 tab, 0 Refill(s) Start Date: 02/13/16 Stop Date: 02/15/16 Status: CompletedTylenol with Codeine #3 oral tablet 1 tab, PO, Q6H, PRN Pain, X 5 day, # 20 tab, 0 Refill(s) Start Date: 02/13/16 Stop Date: 02/18/16 Status: Ordered Results ELECTROLYTES Most recent to oldest [Reference Range]: 1 2 Sodium Lvl [135-145 mEq/L] 134 mEq/L 134 mEq/L *LOW* *LOW* (02/13/16 4:36 AM) (02/12/16 4:09 AM) Potassium Lvl [3.5-5.1 mEq/L] 3.6 mEq/L 3.4 mEq/L (02/13/16 4:36 AM) *LOW* (02/12/16 4:09 AM) Chloride Lvl [95-109 mEq/L] 100 mEq/L 99 mEq/L (02/13/16 4:36 AM) (02/12/16 4:09 AM) CO2 [24-32 mEq/L] 22 mEq/L 23 mEq/L *LOW* *LOW* (02/13/16 4:36 AM) (02/12/16 4:09 AM) AGAP [10.0-20.0 mEq/L] 15.6 mEq/L 15.4 mEq/L (02/13/16 4:36 AM) (02/12/16 4:09 AM) CHEM PANEL Most recent to oldest [Reference Range]: 1 2 Creatinine Lvl [0.50-1.40 mg/dL] 0.67 mg/dL 0.82 mg/dL (02/13/16 4:36 AM) (02/12/16 4:09 AM) eGFR 88 mL/min/1.73m2 1 72 mL/min/1.73m2 2 *NA* *NA* (02/13/16 4:36 AM) (02/12/16 4:09 AM) BUN [7-22 mg/dL] 15 mg/dL 17 mg/dL (02/13/16 4:36 AM) (02/12/16 4:09 AM) Glucose Lvl [70-99 mg/dL] 108 mg/dL 99 mg/dL *HI* (02/12/16 4:09 AM) (02/13/16 4:36 AM) Calcium Lvl [8.5-10.5 mg/dL] 9.2 mg/dL 8.4 mg/dL (02/13/16 4:36 AM) *LOW* (02/12/16 4:09 AM) 1Result Comment: The eGFR is calculated using the CKD-EPI formula. In most young , healthy individualsthe eGFR will be >90 mL/min/1.73m2. The eGFR declines with age. An eGFR of 60-89 may be normal in some populations, particularly the elderly, for whom the CKD-EPI formula has not been extensively validated. Use of the eGFR is not recommended in the following populations: Individuals with unstable creatinine concentrations, including patients and those with serious co-morbid conditions. Patients with extremes in muscle mass or diet. The data above are obtained from the National Kidney Disease Education Program ( NKDEP) which additionally recommends that when the eGFR is used in patients with extremes of body mass index for purposesof drug dosing, the eGFR should be multiplied by the estimated BMI.2Result Comment: The eGFR is calculated using the CKD-EPI formula. In most young, healthy individualsthe eGFR will be >90 mL/ min/1.73m2. The eGFR declines with age. An eGFR of 60-89 may be normal in some populations, particularly the elderly, for whom the CKD-EPI formula has not been extensively validated. Use of the eGFR is not recommended in the following populations: Individuals with unstable creatinine concentrations, including patients and those with serious co-morbid conditions. Patients with extremes in muscle mass or diet. The data above are obtained from the National Kidney Disease Education Program ( NKDEP) which additionally recommends that when the eGFR is used in patients with extremes of body mass index for purposesof drug dosing, the eGFR should be multiplied by the estimated BMI.HEMATOLOGY Most recent to oldest [Reference Range]: 1 2 WBC [3.7-10.4 K/CMM] 5.4 K/CMM 8.3 K/CMM (02/13/16 4:36 AM) (02/12/16 4:09 AM) RBC [4.20-5.40 M/CMM] 3.52 M/CMM 3.51 M/CMM *LOW* *LOW* (02/13/16 4:36 AM) (02/12/16 4:09 AM) Hgb [12.0-16.0 g/dL] 10.9 g/dL 10.9 g/dL *LOW* *LOW* (02/13/16 4:36 AM) (02/12/16 4:09 AM) Hct [36.0-48.0 %] 32.3 % 32.1 % *LOW* *LOW* (02/13/16 4:36 AM) (02/12/16 4:09 AM) MCV [80.0-98.0 fL] 91.7 fL 91.4 fL (02/13/16 4:36 AM) (02/12/16 4:09 AM) MCH [27.0-31.0 pg] 31.0 pg 31.0 pg (02/13/16 4:36 AM) (02/12/16 4:09 AM) MCHC [32.0-36.0 g/dL] 33.8 g/dL 33.9 g/dL (02/13/16 4:36 AM) (02/12/16 4:09 AM) RDW [11.5-14.5 %] 13.5 % 13.4 % (02/13/16 4:36 AM) (02/12/16 4:09 AM) Platelet [133-450 K/CMM] 239 K/CMM 264 K/CMM (02/13/16 4:36 AM) (02/12/16 4:09 AM) MPV [7.4-10.4 fL] 7.1 fL 7.0 fL *LOW* *LOW* (02/13/16 4:36 AM) (02/12/16 4:09 AM) Segs [45.0-75.0 %] 63.6 % (02/12/16 4:09 AM) Lymphocytes [20.0-40.0 %] 24.5 % (02/12/16 4:09 AM) Monocytes [2.0-12.0 %] 9.2 % (02/12/16 4:09 AM) Eosinophils [0.0-4.0 %] 1.9 % (02/12/16 4:09 AM) Basophils [0.0-1.0 %] 0.8 % (02/12/16 4:09 AM) Segs-Bands # [1.5-8.1 K/CMM] 5.3 K/CMM (02/12/16 4:09 AM) Lymphocytes # [1.0-5.5 K/CMM] 2.0 K/CMM (02/12/16 4:09 AM) Monocytes # [0.0-0.8 K/CMM] 0.8 K/CMM (02/12/16 4:09 AM) Eosinophils # [0.0-0.5 K/CMM] 0.2 K/CMM (02/12/16 4:09 AM) Basophils # [0.0-0.2 K/CMM] 0.1 K/CMM (02/12/16 4:09 AM) PT [12.0-14.7 seconds] 13.9 seconds (02/12/16 4:09 AM) INR [0.85-1.17] 1.05 (02/12/16 4:09 AM) PTT [22.9-35.8 seconds] 31.5 seconds (02/12/16 4:09 AM) ACT (TEG) Rapid [86-118 seconds] 97 seconds (02/12/16 4:09 AM) Split Point Rapid 0.4 minutes *NA* (02/12/16 4:09 AM) R-time Rapid [0.4-0.7 minutes] 0.5 minutes (02/12/16 4:09 AM) K-time Rapid [0.6-2.3 minutes] 0.8 minutes (02/12/16 4:09 AM) Angle Rapid [64-80 degrees] 81 degrees *HI* (02/12/16 4:09 AM) Max Amplitude Rapid [52-71 mm] 74 mm *HI* (02/12/16 4:09 AM) G-value Rapid [5.0-11.6 K d/sc] 14.3 K d/sc *HI* (02/12/16 4:09 AM) Estimated % Lysis Rapid [0.0-7.5 %] 0.4 % (02/12/16 4:09 AM) Immunizations Given and Recorded Vaccine Date Status Refusal Reason pneumococcal 13-valent vaccine 02/13/16 Given Procedures Procedure Date Related Diagnosis Body Site Laminectomy Ostomy monitoring Social History Social History Type Response Smoking Status Never smoker; Ready to change: No; Concerns about tobacco use in household: No; Exposure to Tobacco Smoke None; Cigarette Smoking Last 365 Days No; Reg Smoking Cessation Counseling No Assessment and Plan Extracted from: Title: ORS Spine Progress Note Author: Maxim Walker MD Date: ORS Spine Progress Note S: Patient is doing better today. She denies any new numbness or weakness. She has her TLSO and is doing better with it. O: Vitals Tmp(F) Tmp(C) Ttype BP MAP Pulse RR SpO2 FIO2 ETCO2 02/12 04:39 ---- ---- ---- 171/90 --- --- -- --- --- --- 02/12 04:34 97.6 36.44 oral 179/86 124 92 18 96 --- --- 02/11 23:21 96.6 35.89 oral 174/82 121 100 18 96 --- --- 02/11 20:08 96.5 35.83 oral 146/73 102 104 18 97 --- --- 02/11 18:14 ---- ---- ---- 151/72 --- --- -- --- --- --- 24 Hr Tmax: 97.6F (36.44c) at 02/12 04:34 24 Hr Tmin: 96.1F (35.61c) at 02/11 15:16 36 Hr Tmax: 97.6F (36.44c) at 02/12 04:34 36 Hr Tmin: 96.1F (35.61c) at 02/11 15:16 Vital Signs are the last 5 [...] spine will continue to follow. Please page [phone] with any question or call [phone] for emergencies. Brian Walker, PGY3 pager [phone] Extracted from: Title: Hospitalist History and Physical Author: Erica Norris [...] Duration: 30 day, Stop date: 03/13/16 1:00:00 ANALYTICAL RESEARCH CHEMIST docusate, 100 mg, Route: PO, BID, Dosing Weight 56.818, kg, Start date: 9:00:00 CDT, Duration: 30 day, Stop date: 03/12/16 17:00:00 ANALYTICAL RESEARCH CHEMIST enoxaparin, 30 mg, Route: SUB-Q, Drug form: INJ, [id number], Dosing Weight 56.818, kg, Start date: 02/12/16 7:00:00 CDT, Duration: 30 day, Stop date: 03/12 19:00:00 ANALYTICAL RESEARCH CHEMIST gabapentin, 300 mg, Route: PO, Q8Hnow, Dosing Weight 56.818, kg, Start date : 02/12/16 7:00:00 CDT, Duration: 30 day, Stop date: 03/12/16 23:00:00 ANALYTICAL RESEARCH CHEMIST methocarbamol, 1,000 mg, Route: PO, Drug form: TAB, Q8H, Dosing Weight 56.818, kg, PRN Muscle Spasms, Start date: 02/12/16 6:02:00 CDT, Duration: 30 day, Stop date: 03/13/16 6:01:00 ANALYTICAL RESEARCH CHEMIST naproxen, 500 mg, Route: PO, [id number], Dosing Weight 56.818, kg, Start date: 02/12/16 7:00:00 CDT, Duration: 30 day, Stop date: 03/12/16 19:00:00 ANALYTICAL RESEARCH CHEMIST ondansetron, 4 mg, Route: IVP, Q8H, Dosing Weight 56.818, kg, PRN Nausea & Vomiting, Start date: 02/12/16 6:02:00 CDT, Duration: 30 day, Stop date: 6:01:00 ANALYTICAL RESEARCH CHEMIST oxyCODONE 5 mg immediate release, 5 mg, Route: PO, Drug form: TAB, Q4H, Dosing Weight 56.818, kg, PRN Pain Score 4-6, Start date: 02/12/16 6:02:00 CDT, Duration: 30 day, Stop date: 03/13/16 6:01:00 ANALYTICAL RESEARCH CHEMIST oxyCODONE 5 mg immediate release, 10 mg, Route: PO, Drug form: TAB, Q4H, Dosing Weight 56.818, kg, PRN Pain Score 7-10, Start date: 02/12/16 6:02:00 CDT , Duration: 30 day, Stop date: 03/13/16 6:01:00 ANALYTICAL RESEARCH CHEMIST senna, 2 tab, Route: PO, Dosing Weight 56.818, kg, Bedtime, Start date: 21:00:00 CDT, Duration: 30 day, Stop date: 03/12/16 21:00:00 ANALYTICAL RESEARCH CHEMIST tramadol, 100 mg, Route: PO, Drug form: TAB, Q6Hnow, Dosing Weight 56.818, kg, Start date: 02/12/16 7:00:00 CDT, Duration: 30 day, Stop date: 03/13/16 1:00 :00 ANALYTICAL RESEARCH CHEMIST Bedding Order Up ad carla CDM Acute [...] is primary. Please page Dr. Hercules at [phone] questions
[2018-10-17] MEDS ORDERED: NA CHLORIDE 0.9% 1,000 ML ONE (21:27)
[2018-10-17] MEDS ORDERED: MORPHINE 4 MG/ML SYR ONE (21:27)
[2018-10-17] MEDS ORDERED: ONDANSETRON 4 MG/2 ML VIAL ONE (21:27)
[2018-10-17] MEDS ORDERED: FAMOTIDINE 20 MG/2 ML VIAL IV ONE (21:28)
[2018-10-17 22:05] LABS: Absolute Lymphocytes (CBC) 1.3 K/uL (0.7-4.9); Basophils % 0.2 % (0-1.3); Eosinophils % 0.1 % (0-4.4); Hematocrit 38.2 % (36.0-45.0); MPV 6.9 fL (7.6-11.3); Monocytes % 6.2 % (3.3-12.3); RBC Red Blood Cell Count 4.07 M/uL (3.86-4.86)
[2018-10-17 22:15] LABS: Albumin 4.1 g/dL (3.4-5.0); Bilirubin Direct 0.1 mg/dL (0-0.2); Bilirubin Total 0.5 mg/dL (0.2-1.0); Potassium 4.2 mmol/L (3.5-5.1); Protein, Total 8.3 g/dL (6.4-8.2)
[2018-10-18] MEDS ORDERED: ONDANSETRON 4 MG/2 ML VIAL ONE ×2 (00:16→01:46)
[2018-10-18] MEDS ORDERED: MORPHINE 4 MG/ML SYR ONE ×2 (00:16→01:45)
[2018-10-18] MEDS ORDERED: LIDOCAINE VISCOUS 2% SOLN 15 ML UDC ONE (01:45)
[2018-10-18] MEDS ORDERED: LORazepam 2 MG/ML VIAL ONE (02:53)
--- NOTE | 2018-10-18 03:18 | ER ---
Nurse's Notes [facility] Name: Valentina Raphael Age: 73 yrs Sex: Female : 1945 Arrival Date: 10/17/2018 Time: 19:55 Bed 8 Private MD: Diagnosis: Small bowel obstruction;Nausea and vomiting Presentation: 10/17 20:18 Presenting complaint: Patient states: Pt reports pain in the back and abdomen since ea this AM. Pt reports her BP was elevated before she got here. Transition of care: patient was not received from another setting of care. Onset of symptoms was October 17, 2018. Risk Assessment: Do you want to hurt yourself or someone else? Patient reports no desire to harm self or others. Initial Sepsis Screen: Does the patient meet any 2 criteria? No. Patient's initial sepsis screen is negative. Does the patient have a suspected source of infection? No. Patient's initial sepsis screen is negative. Care prior to arrival: None. 20:18 Method Of Arrival: Wheelchair ea 20:18 Acuity: ZEYNEP 3 ea Triage Assessment: 20:24 General: Appears uncomfortable, Behavior is restless. Pain: Complains of pain in ea abdomen. Neuro: Level of Consciousness is awake, alert, obeys commands, Oriented to person, place, time, situation. Cardiovascular: Patient's skin is warm and dry. Respiratory: Airway is patent Respiratory effort is even, unlabored, Respiratory pattern is regular, symmetrical. GI: Reports nausea, vomiting. 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 - Social history:: Smoking status: Patient/guardian denies using tobacco. - Ebola Screening: : No symptoms or risks identified at this time. Screenin:20 Abuse screen: Denies threats or abuse. Nutritional screening: No deficits noted. ea Tuberculosis screening: No symptoms or risk factors identified. Fall Risk None identified. Assessment: 21:29 General: Appears uncomfortable, Behavior is calm, cooperative. Pain: Complains of pain ea in right upper quadrant, left upper quadrant, right lower quadrant and left lower quadrant. Neuro: Level of Consciousness is awake, alert, obeys commands, Oriented to person, place, time, situation. Cardiovascular: Patient's skin is warm and dry. Respiratory: Airway is patent Respiratory effort is even, unlabored, Respiratory pattern is regular, symmetrical. GI: Abdomen is non-distended, Bowel sounds present X 4 quads. Derm: Skin is pale. 21:53 Reassessment: Patient and/or family updated on plan of care and expected duration. Pain ea level reassessed. Patient is alert, oriented x 3, equal unlabored respirations, skin warm/dry/pink. Pt reports pain has decreased Patient states symptoms have improved. 22:57 Reassessment: Patient and/or family updated on plan of care and expected duration. Pain ea level reassessed. Patient is alert, oriented x 3, equal unlabored respirations, skin warm/dry/pink. 23:35 Reassessment: Patient and/or family updated on plan of care and expected duration. Pain ea level reassessed. Patient is alert, oriented x 3, equal unlabored respirations, skin warm/dry/pink. Pt taken to CT. 23:49 Reassessment: Patient and/or family updated on plan of care and expected duration. Pain ea level reassessed. Patient is alert, oriented x 3, equal unlabored respirations, skin warm/dry/pink. Returned from CT. 10/18 00:08 Reassessment: Patient and/or family updated on plan of care and expected duration. Pain ea level reassessed. Patient is alert, oriented x 3, equal unlabored respirations, skin warm/dry/pink. Pt complaining of nausea and abdominal pain, provider notified, medication order obtained, medication administered, pt tolerated well. 00:34 Reassessment: Patient and/or family updated on plan of care and expected duration. Pain ea level reassessed. Patient is alert, oriented x 3, equal unlabored respirations, skin warm/dry/pink. Patient states symptoms have improved. 01:15 Reassessment: Patient and/or family updated on plan of care and expected duration. Pain ea level reassessed. Patient is alert, oriented x 3, equal unlabored respirations, skin warm/dry/pink. Unsuccessful attempt to place NG tube to left nostril x 2. Provider notified. 01:45 Reassessment: Unsuccessful attempt to place NG tube by provider pt refused NG tube ea placement. 02:35 Reassessment: Patient and/or family updated on plan of care and expected duration. Pain ea level reassessed. Patient is alert, oriented x 3, equal unlabored respirations, skin warm/dry/pink. 03:44 Reassessment: Patient and/or family updated on plan of care and expected duration. Pain ea level reassessed. Patient is alert, oriented x 3, equal unlabored respirations, skin warm/dry/pink. Awaiting on room assignment. 04:10 Reassessment: Patient and/or family updated on plan of care and expected duration. Pain ea level reassessed. Patient is alert, oriented x 3, equal unlabored respirations, skin warm/dry/pink. 05:07 Reassessment: Patient and/or family updated on plan of care and expected duration. Pain ea level reassessed. Patient is alert, oriented x 3, equal unlabored respirations, skin warm/dry/pink. Awaiting technical operations manager back from fourth floor. 05:16 Reassessment: Report called to receiving nurse on fourth floor. ea 05:48 Reassessment: Patient and/or family updated on plan of care and expected duration. Pain ea level reassessed. Patient is alert, oriented x 3, equal unlabored respirations, skin warm/dry/pink. Pt admitted to fourth floor, pt taken via wheelchair per tech. Pt tolerating well. Patient states symptoms have improved. Vital Signs: 10/17 20:25 BP 175 / 112; Pulse 65; Resp 19; Temp 97.5; Pulse Ox 95% on R/A; Weight 53.52 kg; ea Height 5 ft. 3 in. (160.02 cm); Pain 9/10; 21:30 BP 169 / 107; Pulse 110; Resp 18; Pulse Ox 95% on R/A; ea 22:58 BP 151 / 89; Pulse 99; Resp 19; Pulse Ox 95% ; ea 10/18 00:10 BP 159 / 113; Pulse 100; Resp 18; Pulse Ox 96% on R/A; ea 00:34 BP 147 / 99; Pulse 102; Resp 19; Pulse Ox 95% ; ea 02:52 BP 133 / 88; Pulse 99; Resp 18; Pulse Ox 93% on R/A; ea 03:30 BP 149 / 99; Pulse 113; Resp 18; Pulse Ox 95% ; ea 04:00 BP 131 / 78; Pulse 104; Resp 18; Temp 97.4; Pulse Ox 95% on 2 lpm NC; ea 05:08 BP 151 / 83; Pulse 99; Resp 18; Pulse Ox 100% on 2 lpm NC; ea 10/17 20:25 Body Mass Index 20.90 (53.52 kg, 160.02 cm) ea 04:00 pt O2 sats at 85% while sleeping, pt placed on O2 at 2L per NC ea ED Course: 10/17 19:55 Patient arrived in ED. es 20:05 Benny Rios PA is PHCP. cp 20:05 Eloy Shin MD is Attending Physician. cp 20:18 Janette Ontiveros RN is Primary Nurse. ea 20:20 Triage completed. ea 20:20 Arm band placed on right wrist. Patient placed in an exam room, on a stretcher, on ea pulse oximetry. 20:21 Patient has correct armband on for positive identification. Placed in gown. Bed in low ea position. 21:23 Inserted saline lock: 24 gauge in right forearm, using aseptic technique. ea 23:54 CT completed. Patient tolerated procedure well. Patient moved to CT via stretcher. Patient moved back from CT. 10/18 00:04 CT Stone Protocol In Process Unspecified. EDMS 01:20 NGT: attempted insertion of NG tube x 2 unsuccessful. Jorge Alberto ZELAYA notified. bb 03:12 NGT: inserted 12 Fr. via left nare. ea 03:16 Chris Moore MD is Hospitalizing Provider. cp 03:22 X-ray completed. Portable x-ray completed in exam room. Patient tolerated procedure mh1 well. 03:23 XRAY Chest (1 view) In Process Unspecified. EDMS 03:45 No provider procedures requiring assistance completed. Patient admitted, IV remains in ea place. Administered Medications: 10/17 21:20 Drug: Zofran 4 mg Route: IVP; Site: right forearm; ea 21:54 Follow up: Response: No adverse reaction; Nausea is decreased ea 21:23 Drug: morphine 4 mg Route: IVP; Site: right forearm; ea 21:55 Follow up: Response: No adverse reaction; Pain is decreased ea 21:24 Drug: Pepcid 20 mg Route: IVP; Site: right forearm; ea 21:54 Follow up: Response: No adverse reaction ea 21:24 Drug: NS 0.9% 500 ml Route: IV; Rate: 500 ml/hr; Site: right forearm; ea 10/18 00:00 Follow up: Response: No adverse reaction; IV Status: Completed infusion; IV Intake: ea 500ml 10/17 21:24 Drug: NS 0.9% 500 ml Route: IV; Rate: 100 ml/hr; Site: right forearm; ea 10/18 03:35 Follow up: Response: No adverse reaction; IV Status: Completed infusion; IV Intake: ea 500ml 00:07 Drug: Zofran 4 mg Route: IVP; Site: right forearm; ea 00:34 Follow up: Response: No adverse reaction; Marked relief of symptoms; Pain is decreased ea 00:08 Drug: morphine 4 mg Route: IVP; Site: right forearm; ea 00:35 Follow up: Response: No adverse reaction; Marked relief of symptoms; Pain is decreased ea 01:45 Drug: morphine 4 mg Route: IVP; Site: right forearm; ea 02:30 Follow up: Response: No adverse reaction; Pain is decreased ea 01:45 Drug: Zofran 2 mg Route: IVP; Site: right forearm; ea 02:30 Follow up: Response: No adverse reaction; Nausea is decreased ea 02:51 Drug: Ativan 0.5 mg Route: IVP; Site: right forearm; ea 03:11 Follow up: Response: No adverse reaction; Marked relief of symptoms ea Intake: 00:00 IV: 500ml; Total: 500ml. ea 03:35 IV: 500ml; Total: 1000ml. ea Outcome: 03:17 Decision to Hospitalize by Provider. cp 03:30 Instructed on the need for transfer, Demonstrated understanding of instructions. ea 05:15 Condition: stable ea 05:16 Admitted to Med/surg accompanied by tech, room 424, Report called to Receiving nurse ea on fourth floor 05:50 Patient left the ED. ea Signatures: Dispatcher [employer] Jacey Ogden Ervin Bailey [facility] Giovanna Rosa, RN RN Benny Banuelos PA PA cp Antunez, Elena, RN RN ea Corrections: (The following items were deleted from the chart) 05:12 05:08 BP 151 / 83; Pulse 99bpm; Resp 18bpm; Pulse Ox 100%; jase laguna
--- NOTE | 2018-10-18 03:18 | EDPHYS ---
[facility] Name: Valentina Raphael Age: 73 yrs Sex: Female : 1945 Arrival Date: 10/17/2018 Time: 19:55 Bed 8 Private MD: ED Physician Eloy Shin HPI: 10/17 20:36 This 73 yrs old Female presents to ER via Wheelchair with complaints of High cp Blood Pressure, Fever, Vomiting, Flank Pain. 20:40 The patient complains of pain in the left flank. cp 20:40 The pain radiates to the left low back and left mid back. Onset: The symptoms/episode cp began/occurred this morning. Associated signs and symptoms: Pertinent positives: fever, nausea, vomiting, Pertinent negatives: diarrhea, dizziness, dysuria, headache, pain radiating to the lower extremities. Severity of pain: in the emergency department the pain is unchanged despite home interventions. 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 - Social history:: Smoking status: Patient/guardian denies using tobacco. - Ebola Screening: : No symptoms or risks identified at this time. ROS: 21:00 Eyes: Negative for injury, pain, redness, and discharge. cp 21:00 Constitutional: Positive for poor PO intake, Negative for body aches, chills, fever. 21:00 ENT: Negative for drainage from ear(s), ear pain, sore throat, difficulty swallowing, difficulty handling secretions. 21:00 Cardiovascular: Negative for chest pain, edema, palpitations. 21:00 Respiratory: Negative for cough, shortness of breath, wheezing. 21:00 Abdomen/GI: Positive for nausea, vomiting, Negative for diarrhea, constipation, black/tarry stool, rectal bleeding. 21:00 Back: Positive for flank pain, on the left, Negative for injury or acute deformity, decreased range of motion. 21:00 : Negative for urinary symptoms. cp 21:00 Skin: Negative for cellulitis, rash. 21:00 Neuro: Negative for altered mental status, headache, weakness. 21:00 All other systems are negative. Exam: 21:05 Constitutional: The patient appears in no acute distress, alert, awake, cp non-diaphoretic, non-toxic, well developed, well nourished, uncomfortable. 21:05 Head/Face: Normocephalic, atraumatic. cp 21:05 Eyes: Periorbital structures: appear normal, Conjunctiva: normal, no exudate, no injection, Sclera: no appreciated abnormality, Lids and lashes: appear normal, bilaterally. 21:05 ENT: External ear(s): are unremarkable, Nose: is normal, Mouth: Lips: moist, Oral mucosa: pink and intact, moist, Posterior pharynx: is normal, airway is patent, no erythema, no exudate. 21:05 Chest/axilla: Inspection: normal, Palpation: is normal, no crepitus, no tenderness. 21:05 Cardiovascular: Rate: normal, Rhythm: regular, Edema: is not appreciated, JVD: is not appreciated. 21:05 Respiratory: the patient does not display signs of respiratory distress, Respirations: normal, no use of accessory muscles, no retractions, no splinting, no tachypnea, labored breathing, is not present, Breath sounds: are clear throughout, no decreased breath sounds, no stridor, no wheezing. 21:05 Abdomen/GI: Inspection: distension, that is mild, Bowel sounds: active, all quadrants, Palpation: soft, in all quadrants, moderate abdominal tenderness, in the anterior aspect of left lateral abdomen, left upper quadrant and left lower quadrant, rebound tenderness, is not appreciated. 21:05 Back: ROM is normal. 21:05 Neuro: Orientation: to person, place \T\ time. Mentation: is normal, Motor: moves all fours, strength is normal. Vital Signs: 20:25 BP 175 / 112; Pulse 65; Resp 19; Temp 97.5; Pulse Ox 95% on R/A; Weight 53.52 kg; ea Height 5 ft. 3 in. (160.02 cm); Pain 9/10; 21:30 BP 169 / 107; Pulse 110; Resp 18; Pulse Ox 95% on R/A; ea 22:58 BP 151 / 89; Pulse 99; Resp 19; Pulse Ox 95% ; ea 10/18 00:10 BP 159 / 113; Pulse 100; Resp 18; Pulse Ox 96% on R/A; ea 00:34 BP 147 / 99; Pulse 102; Resp 19; Pulse Ox 95% ; ea 02:52 BP 133 / 88; Pulse 99; Resp 18; Pulse Ox 93% on R/A; ea 03:30 BP 149 / 99; Pulse 113; Resp 18; Pulse Ox 95% ; ea 04:00 BP 131 / 78; Pulse 104; Resp 18; Temp 97.4; Pulse Ox 95% on 2 lpm NC; ea 05:08 BP 151 / 83; Pulse 99; Resp 18; Pulse Ox 100% on 2 lpm NC; ea 10/17 20:25 Body Mass Index 20.90 (53.52 kg, 160.02 cm) ea 04:00 pt O2 sats at 85% while sleeping, pt placed on O2 at 2L per NC ea MDM: 10/17 20:05 Patient medically screened. 10/18 00:45 Response to treatment: the patient's symptoms have mildly improved after treatment. 01:00 Data reviewed: vital signs, nurses notes, lab test result(s), radiologic studies, CT cp scan. 01:08 Physician consultation: Sudheer Begum MD was called at 00:55, regarding admission, to the medical/surgical unit. patient's condition, left message on voicemail. 01:39 Physician consultation: Sudheer Begum MD was called at 01:40, regarding admission, patient's condition, left message on voicemail. 02:00 Physician consultation: Chris Moore MD was contacted at 01:55, regarding admission, cp to the medical/surgical unit. patient's condition. 10/17 20:45 Order name: Basic Metabolic Panel cp 10/17 20:45 Order name: CBC with Diff cp 10/17 20:45 Order name: Creatinine for Radiology; Complete Time: 22:29 cp 10/17 20:45 Order name: Hepatic Function; Complete Time: 22:29 cp 10/17 20:45 Order name: Lipase; Complete Time: 22:29 cp 10/17 20:46 Order name: Basic Metabolic Panel; Complete Time: 22:29 EDCA 10/17 22:30 Interpretation: Normal except: NA 131; CL 95; BUN 21; CRE 1.34; GFR 39. cp 10/17 20:46 Order name: CBC with Automated Diff; Complete Time: 22:29 EDCA 10/17 22:33 Order name: CT Stone Protocol 10/18 03:13 Order name: XRAY Chest (1 view) 10/17 20:45 Order name: IV Saline Lock; Complete Time: 21:26 cp 10/17 20:45 Order name: Labs collected and sent; Complete Time: 21:26 10/18 00:46 Order name: NG Tube; Complete Time: 03:12 10/18 04:36 Order name: CONS Physician Consult EDCA 10/18 04:36 Order name: Physical Therapy Consult EDCA 10/18 04:36 Order name: NPO EDMS Administered Medications: 10/17 21:20 Drug: Zofran 4 mg Route: IVP; Site: right forearm; ea 21:54 Follow up: Response: No adverse reaction; Nausea is decreased ea 21:23 Drug: morphine 4 mg Route: IVP; Site: right forearm; ea 21:55 Follow up: Response: No adverse reaction; Pain is decreased ea 21:24 Drug: Pepcid 20 mg Route: IVP; Site: right forearm; ea 21:54 Follow up: Response: No adverse reaction ea 21:24 Drug: NS 0.9% 500 ml Route: IV; Rate: 500 ml/hr; Site: right forearm; ea 10/18 00:00 Follow up: Response: No adverse reaction; IV Status: Completed infusion; IV Intake: ea 500ml 10/17 21:24 Drug: NS 0.9% 500 ml Route: IV; Rate: 100 ml/hr; Site: right forearm; ea 10/18 03:35 Follow up: Response: No adverse reaction; IV Status: Completed infusion; IV Intake: ea 500ml 00:07 Drug: Zofran 4 mg Route: IVP; Site: right forearm; ea 00:34 Follow up: Response: No adverse reaction; Marked relief of symptoms; Pain is decreased ea 00:08 Drug: morphine 4 mg Route: IVP; Site: right forearm; ea 00:35 Follow up: Response: No adverse reaction; Marked relief of symptoms; Pain is decreased ea 01:45 Drug: morphine 4 mg Route: IVP; Site: right forearm; ea 02:30 Follow up: Response: No adverse reaction; Pain is decreased ea 01:45 Drug: Zofran 2 mg Route: IVP; Site: right forearm; ea 02:30 Follow up: Response: No adverse reaction; Nausea is decreased ea 02:51 Drug: Ativan 0.5 mg Route: IVP; Site: right forearm; ea 03:11 Follow up: Response: No adverse reaction; Marked relief of symptoms ea Disposition: 10/18/18 03:17 Hospitalization ordered by Chris Moore for Inpatient Admission. Preliminary diagnosis are Small bowel obstruction, Nausea and vomiting. - Bed requested for Telemetry/MedSurg (Inpatient). - Status is Inpatient Admission. ea - Condition is Stable. - Problem is new. - Symptoms have improved. UTI on Admission? No Addendum: 10/22/2018 19:26 Co-signature as Attending Physician, Eloy Shin MD. g s Signatures: Dispatcher [employer] EDMS Benny Rios PA PA cp Garcia, Cindy, RN RN cg Antunez, Elena, RN RN ea Starr, Gregory, MD MD gs Corrections: (The following items were deleted from the chart) 10/18 04:43 03:17 Hospitalization Ordered by Chris Moore MD for Inpatient Admission. Preliminary cg diagnosis is Small bowel obstruction; Nausea and vomiting. Bed requested for Telemetry/MedSurg (Inpatient). Status is Inpatient Admission. Condition is Stable. Problem is new. Symptoms have improved. UTI on Admission? No. cp 05:50 04:43 10/18/2018 03:17 Hospitalization Ordered by Chris Moore MD for Inpatient ea Admission. Preliminary diagnosis is Small bowel obstruction; Nausea and vomiting. Bed requested for Telemetry/MedSurg (Inpatient). Status is Inpatient Admission. Condition is Stable. Problem is new. Symptoms have improved. UTI on Admission? No. cg
[2018-10-18] MEDS ORDERED: ACETAMINOPHEN 500 MG TAB PO PRN (04:07)
[2018-10-18] MEDS ORDERED: ACETAMINOPHEN 650MG/RECT SUPP RECT PRN (04:07)
[2018-10-18] MEDS ORDERED: HYDROMORPHONE HCL 1 MG/ML INJ IV PRN (04:20)
[2018-10-18] MEDS ORDERED: CEFOXITIN SODIUM 1 GM/VIAL IVPB SCH (06:00)
[2018-10-18] MEDS: NA CHLORIDE 0.9% 1,000 ML IV SCH ×2 (06:34→16:55)
[2018-10-18] MEDS: ONDANSETRON 4 MG/2 ML VIAL IV PRN ×2 (07:07→20:42)
[2018-10-18] MEDS ORDERED: CARVEDILOL 25 MG TAB PO PRN (07:11)
[2018-10-18] MEDS: CEFOXITIN/SWI 1gm 1 GM/10 ML SYR IV SCH ×4 (08:03→23:09)
[2018-10-18] MEDS: ENOXAPARIN 30 MG/0.3 ML SQ SCH (08:03)
[2018-10-18] MEDS: DOCUSATE NA 100 MG CAP PO SCH (08:04)
[2018-10-18] MEDS ORDERED: PNEUMOCOCCAL VACCINE 0.5 ML IMVAC ONE (09:00)
--- NOTE | 2018-10-18 09:32 | RAD REPORT ---
EXAM DESCRIPTION: RAD - Chest Single View - 10/18/2018 3:26 am CLINICAL HISTORY: Device placement nasogastric tube placement IMPRESSION: A nasogastric tube is coiled within the stomach within a hiatal hernia within the lower chest
--- NOTE | 2018-10-18 11:57 | CON ---
Date of Consultation: 10/18/2018 Brief History Of Present Illness: The patient is a 73-year-old female with a history of mu ltiple abdominal surgeries, beginning approximately 5 years ago with an episode of C. diff colitis. She had 4-5 abdominal surgeries and had an open abdomen at that time, ultimately led to a colostomy c reation. She had taken down approximately 3-4 months following that and has had several episodes of bowel obstructions of similar type, all treated nonoperatively in the past. She now presents with 2- 3 days of abdominal pain, bloating, nausea, vomiting, and decreased bowel function. However, since a dmission, she states that she had significant improvement of her symptoms. She had an NG-tube placed , which she states accidentally got removed over the course in the evening. It was placed in the ER and she has had 3-4 bowel movements, loose, large, voluminous bowel movements since admission and fee ls significant improvement. She has no longer any abdominal distention by her report and minimal millie n at this time. Past Medical History: Significant for spinal meningitis, hypothyroidism, hypertension, hyperlipidemi a, pneumothorax, GERD, C. diff colitis. Past Surgical History: She has had a partial colectomy, colostomy creation, colostomy takedown, back surgery x4, hysterectomy, spinal pain, implant placed. Home Medications: Include Colace, Synthroid, Pravachol, Elavil, Flexeril, Prinivil, Claritin, Desyre l, Coreg, vitamin B12, multivitamin, Protonix. Social History: She denies smoking, alcohol, or recreational drug use. Allergies: NO KNOWN DRUG ALLERGIES. Review of Systems: Other than HPI, she complains of back pain, but this is a chronic condition. Physical Examination: Vital Signs: At time of my examination, her BMI is 21.3, blood pressure 108/72, pulse is 99, respira tory rate 16, temperature 97.4. General: She is awake, alert, and oriented. Psychiatric: She is appropriate, conversive. HEENT: She is normocephalic. Sclerae icteric. Mucous is moist. Oropharynx clear. Neck: Supple. No JVD. Chest: Normal expansion and excursion. Cardiovascular: Regular rate and rhythm. Pulmonary: Clear to auscultation bilaterally. Abdomen: Soft, nontender, nondistended. No rebound. No guarding. No focal peritonitis. Well-heal ed surgical scars were evident. Corroborated the above stated findings. Back examination: She has a pain pump implanted to the left of midline in her lower lumbar spine reg ion. Extremities: No clubbing, cyanosis, or edema. Skin: Warm and dry. Laboratory Data: Reveals a white blood count of 8.4, hemoglobin 12.6, hematocrit 38.2, platelet coun t 351, neutrophils are 77%. Her sodium 131, potassium 4.2, chloride 95, carbon dioxide 24, BUN 21, c reatinine 1.3, glucose is 103, total bilirubin 0.5, direct bilirubin 0.8, AST 15, ALT 16, alkaline ph osphatase 68, lipase 213. She had imaging performed, which included a CT of the abdomen and pelvis, officially read as findings consistent with small bowel obstruction with possible transition point in the right lower quadrant. Given the surgical sutures in the colon, adhesions may be the cause of ob struction. Assessment And Plan: This is a 73-year-old female who presents with a recurrent partial small bowel obstruction, now with symptomatic improvement. 1.IV fluid hydration. 2.Electrolyte correction. 3.Serial abdominal exams. 4.Continue medical management per Dr. Valentine. 5.Start clear liquids at this time. 6.I have explained the risks, benefits, and alternatives of the above stated plan. The patient agre es to proceed as indicated. 7.The patient needs a colonoscopy as an outpatient with Dr. Johnson who has been her endoscopist for upper GI issues. Thank you for this interesting consult. DAYA/TISHA Voice ID: [id number] Report ID: [id number]
[2018-10-18] MEDS: HYDROMORPHONE HCL 0.5 MG/0.5 ML INJ IV PRN ×2 (12:21→20:43)
[2018-10-18 16:44] LABS: Urine Appearance CLEAR; Urine Bilirubin NEGATIVE (NEG); Urine Blood NEGATIVE (NEG); Urine Color ORANGE; Urine Glucose NEGATIVE (NEG); Urine Protein NEGATIVE (NEG); Urine Specific Gravity 1.025 (1.005-1.030)
[2018-10-18 17:27] LABS: Urine RBC <5 /HPF (NONE SEEN)
[2018-10-18 17:28] LABS: Urine Bacteria <20 /HPF (<20); Urine Culture Reflex Order REFLEXED
[2018-10-18] MEDS ORDERED: AMITRIPTYLINE 25 MG TAB PO SCH ×2 (21:00)
[2018-10-19] MEDS: NA CHLORIDE 0.9% 1,000 ML IV SCH (02:39)
[2018-10-19] MEDS: HYDROMORPHONE HCL 0.5 MG/0.5 ML INJ IV PRN (05:00)
[2018-10-19] MEDS: CEFOXITIN/SWI 1gm 1 GM/10 ML SYR IV SCH (05:01)
[2018-10-19] MEDS ORDERED: LEVOTHYROXINE SOD 0.05 MG TABLET PO SCH (06:00)
[2018-10-19 06:02] VITALS: BMI 21.0
[2018-10-19 07:35] VITALS: BP 151/77; TEMP 97.4
[2018-10-19 07:43] VITALS: O2SAT 96
[2018-10-19] MEDS: DOCUSATE NA 100 MG CAP PO SCH (08:27)
[2018-10-19] MEDS: ENOXAPARIN 30 MG/0.3 ML SQ SCH (08:27)
--- NOTE | 2018-10-19 08:35 | RAD REPORT ---
EXAM DESCRIPTION: RAD - Abdomen Acute Series - 10/19/2018 8:13 am CLINICAL HISTORY: Abdominal pain FINDINGS: Lungs appear clear of acute infiltrate. Free air is not seen beneath the diaphragm Air-filled dilated loops of small bowel are not seen. However evaluation for small bowel dilatation i s limited as the CT scan demonstrated that the loops were fluid-filled. This makes detection on the x -ray difficult. Air is present throughout the colon. Cement has been placed into lumbar fractures. Neurostimulator device is in place
--- NOTE | 2018-10-19 08:43 | P.HP ---
Certification for Inpatient Patient admitted to: Inpatient With expected LOS: >2 Midnights Patient will require the following post-hospital care: None Practitioner: I am a practitioner with admitting privileges, knowledge of patient current condition, hospital course, and medical plan of care. Services: Services provided to patient in accordance with Admission requirements found in Title 42 Section 412.3 of the Code of Federal Regulations Patient History Date of Service: 10/18/18 Reason for admission: Small-bowel obstruction History of Present Illness: Patient is a 73-year-old female came to the hospital with a small-bowel obstruction. Patient's pain was mainly in the abdominal region. She has had numerous abdominal surgeries in since that time she states she gets partial small-bowel obstructions. Her doctors have related this to adhesions. She comes in once again with intractable nausea and vomiting and abdominal discomfort. CT scan revealed partial small-bowel obstruction. However, she was given a laxative and she has had 2 large bowel movements. She had an NG tube which is removed and will keep it out. Will repeat the abdominal films and get surgery consultation. A likely to need any surgery at this time but she may need further evaluation for her frequent small bowel obstructions. Will admit her to the hospital for inpatient hospitalization. Allergies No Known Allergies Allergy (Verified 07/17/17 04:21) Home Medications: Alendronate Sodium [Fosamax] 70 mg PO DAILY 10/18/18 Amitriptyline [Elavil*] 50 mg PO DAILY 10/18/18 Carvedilol [Coreg*] 12.5 mg PO BID 10/18/18 Cyclobenzaprine [Flexeril*] 5 mg PO BID 10/18/18 Docusate Sodium [Stool Softener] 250 mg PO PRN 10/18/18 Gabapentin 600 mg PO QID 10/18/18 Hydrocodone 10/APAP 325 [[place] 10/325*] 1 tab PO QIDP PRN 10/18/18 Lisinopril [Prinivil*] 20 mg PO BID 10/18/18 Morphine Sulfate [Morphine Sulfate ER] 15 mg PO PRN 10/18/18 Ranitidine HCl [Acid Cheesemaker] 150 mg PO PRN 10/18/18 Sertraline [Zoloft*] 100 mg PO DAILY 10/18/18 Trazodone HCl 100 mg PO BEDTIME 10/18/18 - Past Medical/Surgical History Has patient received pneumonia vaccine in the past: No Diabetic: No -: Pneumothorax -: Colostomy -: Spinal meningitis -: GERD -: Small Bowel Obstruction -: Hypertension -: Hyperlipidemia -: Chronic Back pain -: Hypothyroidism -: Hysterectomy -: back sx x4 -: Colostomy -: Colon resection - Family History Father Medical History: Cancer Notes: cancer of the liver Mother Medical History: Hypertension, Stroke - Social History Smoking Status: Never smoker Alcohol use: No CD- Drugs: No Caffeine use: No Place of Residence: Home Review of Systems 10-point ROS is otherwise unremarkable Physical Examination - Vital Signs Temperature: 97.4 F Blood Pressure: 151/77 Pulse: 83 Respirations: 14 Pulse Ox (%): 96 - Physical Exam General: Alert, In no apparent distress, Oriented x3 HEENT: Atraumatic, PERRLA, Mucous membr. moist/pink, EOMI, Sclerae nonicteric Neck: Supple, 2+ carotid pulse no bruit, No LAD, Without JVD or thyroid abnormality Respiratory: Clear to auscultation bilaterally, Normal air movement Cardiovascular: Regular rate/rhythm, Normal S1 S2, No murmurs Gastrointestinal: Normal bowel sounds, Soft and benign, Non-distended, No tenderness Musculoskeletal: No clubbing, No swelling, No tenderness Integumentary: No rashes Neurological: Normal gait, Normal speech, Normal strength at 5/5 x4 extr, Normal tone, Sensation intact, Cranial nerves 3-12 intact, Normal affect Lymphatics: No axilla or inguinal lymphadenopathy Assessment & Plan - Problems (Diagnosis) (1) Intractable nausea and vomiting Current Visit: Yes Status: Acute (2) Acute renal injury Onset Date: 09/29/17 Current Visit: No Status: Acute (3) SBO (small bowel obstruction) Current Visit: No Status: Acute (4) Chronic pain syndrome Onset Date: 07/17/17 Current Visit: No Status: Chronic (5) History of kyphoplasty Current Visit: No Status: Chronic (6) History of vertebroplasty Current Visit: No Status: Chronic - Plan 1. Continue with IV hydration 2. Continue with IV antibiotics 3. Continue with pain control 4. NPO 5. General surgery consultation; NGT will not be replaced(pt pulled out NGT) as pt had a large BM; repeat abd films to see if obstruction resolved 6. Serial H&H, and we will monitor CBC, BMP, LFTs and lipase along with electrolytes. 7. GI and DVT prophylaxis - Advance Directives Does patient have a Living Will: Yes Does patient have a Durable POA for Healthcare: No - Code Status/Comfort Care Code Status Assessed: Yes Code Status: Full Code Critical Care: No Time Spent Managing PTS Care (In Minutes): 50
--- NOTE | 2018-10-19 09:47 | RAD REPORT ---
EXAM DESCRIPTION: CT - Stone Protocol - 10/18/2018 2:26 am CLINICAL HISTORY: Flank pain. COMPARISON: 09/28/2017 TECHNIQUE: CT scan of the abdomen and pelvis was performed without IV contrast. This exam was perfor med according to our departmental dose-optimization program, which includes automated exposure contro l, adjustment of the mA and/or kV according to patient size and/or use of iterative reconstruction te chnique. FINDINGS: Mild scarring in the right middle lobe and lingula. No pleural or pericardial effusions. M oderate hiatal hernia. The liver, gallbladder, spleen, pancreas, adrenal glands, and kidneys are unremarkable without hydron ephrosis or urinary stones. There has been a prior hysterectomy. There are moderately dilated loops of small bowel measuring up to 4 cm with backflow obstruction of t he duodenum and stomach. There may be a transition point in the right lower quadrant, suggestive of s mall bowel obstruction. Surgical sutures are seen in the distal colon which may represent adhesion as the cause of obstruction. The distal small bowel is decompressed. The appendix is not well visualize d. No intraperitoneal free fluid or free air is seen. The aorta is normal caliber and contains atherosclerotic calcifications. Multiple old compression fra ctures throughout the thoracolumbar spine with prior kyphoplasty at L1, L3, and L5. No body wall melody ia is identified. IMPRESSION: Findings consistent with small bowel obstruction with a possible transition point in the right lower quadrant. Given the surgical sutures in the colon, adhesions may be the cause of obstruc tion. Electronically signed by: Duke Goff MD 10/18/2018 12:12 AM CDT Due to temporary technical issues with the PACS/Fluency reporting system, reports are being signed by the in house radiologist as a courtesy to ensure prompt reporting. The interpreting radiologist is f ully responsible for the content of the report.
--- NOTE | 2018-10-19 09:50 | P.PN ---
Subjective Date of Service: 10/19/18 (Hospitalist) Chief Complaint: Small-bowel obstruction Subjective: Improving (Patient is doing better admitted with possible small bowel obstruction is having some diarrhea complaining of migraine headaches) Review of Systems General: Weakness Gastrointestinal: Nausea, Diarrhea Physical Examination - Vital Signs Temperature: 97.4 F Blood Pressure: 151/77 Pulse: 83 Respirations: 14 Pulse Ox (%): 96 - Physical Exam General: Alert, Oriented x3 HEENT: Atraumatic Neck: Supple Respiratory: Clear to auscultation bilaterally Gastrointestinal: Normal bowel sounds, Soft and benign, Non-distended Assessment & Plan - Problems (Diagnosis) (1) SBO (small bowel obstruction) Current Visit: No Status: Acute Plan: Patient is 73 years of age admitted with small-bowel obstruction seen by general surgery now complaining of a migraine headache will order some labs today white count is normal treat migraine C. difficile pending continue with IV fluids will check with Dr. Lopez regarding IV antibiotics (2) Migraine Current Visit: Yes Status: Acute Plan: Patient complaining of migraine headaches Daniel p.r.n. Qualifiers: Migraine type: without aura Intractability: not intractable
[2018-10-19] MEDS ORDERED: NAPROXEN 250 MG TAB PO PRN (09:54)
[2018-10-19] MEDS ORDERED: ONDANSETRON 4 MG (ODT) TAB PO PRN (09:55)
--- NOTE | 2018-10-20 11:05 | P.DS ---
Admission Date: 10/18/18 Discharge Date: 10/20/18 Disposition: AMA-LEFT AGAINST MEDICAL ADVIC Reason for Admission: Small-bowel obstruction - Problems (1) SBO (small bowel obstruction) Status: Acute (2) Migraine Status: Acute Qualifiers: Migraine type: without aura Intractability: not intractable Brief History of Present Illness: Patient is 73 years of age admitted with small-bowel obstruction Hospital Course: Condition remains stable seen by a on general surgery on October 19 she became distressed Monday complaining of headaches was upset by the care provided in this hospital and left against medical advise Vital Signs/Physical Exam: Temp Pulse Resp BP Pulse Ox 97.4 F 83 14 151/77 H 96 10/19/18 09:56 10/19/18 09:56 10/19/18 09:56 10/19/18 09:56 10/19/18 09:56 Laboratory Data at Discharge: WBC 8.4 K/uL (4.3-10.9) 10/17/18 21:40 Hgb 12.6 g/dL (12.0-15.0) 10/17/18 21:40 Hct 38.2 % (36.0-45.0) 10/17/18 21:40 Plt Count 351 K/uL (152-406) 10/17/18 21:40 PT Cancelled 10/19/18 09:44 INR Cancelled 10/19/18 09:44 APTT Cancelled 10/19/18 09:44 Sodium 131 mmol/L (136-145) L 10/17/18 21:40 Potassium 4.2 mmol/L (3.5-5.1) 10/17/18 21:40 BUN 21 mg/dL (7-18) H 10/17/18 21:40 Creatinine 1.34 mg/dL (0.55-1.3) H 10/17/18 21:40 Glucose 103 mg/dL (74-106) 10/17/18 21:40 Phosphorus Cancelled 10/19/18 09:44 Magnesium Cancelled 10/19/18 09:44 Total Bilirubin 0.5 mg/dL (0.2-1.0) 10/17/18 21:40 AST 15 U/L (15-37) 10/17/18 21:40 ALT 16 U/L (12-78) 10/17/18 21:40 Alkaline Phosphatase 68 U/L (45-117) 10/17/18 21:40 Lipase 213 U/L (73-393) 10/17/18 21:40 Home Medications: Alendronate Sodium [Fosamax] 70 mg PO DAILY 10/18/18 Amitriptyline [Elavil*] 50 mg PO DAILY 10/18/18 Carvedilol [Coreg*] 12.5 mg PO BID 10/18/18 Cyclobenzaprine [Flexeril*] 5 mg PO BID 10/18/18 Docusate Sodium [Stool Softener] 250 mg PO PRN 10/18/18 Gabapentin 600 mg PO QID 10/18/18 Hydrocodone 10/APAP 325 [[place] 10/325*] 1 tab PO QIDP PRN 10/18/18 Lisinopril [Prinivil*] 20 mg PO BID 10/18/18 Morphine Sulfate [Morphine Sulfate ER] 15 mg PO PRN 10/18/18 Ranitidine HCl [Acid Trimming Department Blocker] 150 mg PO PRN 10/18/18 Sertraline [Zoloft*] 100 mg PO DAILY 10/18/18 Trazodone HCl 100 mg PO BEDTIME 10/18/18
== END 2018-10-19 12:00 | disposition left against medical advice (07) | DRG 389 ==
LOC: ER 19:51 → ERHOLD 10-18 05:00 → 4TH 10-18 05:21
PROVIDERS: ADMIT Hospitalist; ATTEND Hospitalist
DX: K56.609 Unspecified intestinal obstruction, unspecified as to partial versus complete obstruction (principal); N17.9 Acute kidney failure, unspecified; G43.909 Migraine, unspecified, not intractable, without status migrainosus; Z53.21 Procedure and treatment not carried out due to patient leaving prior to being seen by health care provider; K21.9 Gastro-esophageal reflux disease without esophagitis; I10 Essential (primary) hypertension; E78.5 Hyperlipidemia, unspecified; E03.9 Hypothyroidism, unspecified; G89.4 Chronic pain syndrome
CPT/HCPCS: 36415; 71045; 74022; 74176; 76377; 80048; 80076; 81001; 83690; 85025; 87086; 87088; 87493; 96361; 96374; 96375; 97116; 97163; 97530; 99285; J0694; J1170; J1650; J2405; J7030

== ENCOUNTER 2021-09-13 14:02 | Observation (INO) | payer OTHER ==
--- OUTSIDE RECORDS SUMMARY | 2021-09-13 14:05 | XMS REPORT | Continuity of Care Document ---
:1945 Author Organization [facility] t Address [address] [place] [address] Care Team Providers Name Role Phone Unavailable Unavailable Unavailable Payers Payer Name Policy Type Policy Number Effective Date Expiration Date S ource Problems This patient has no known problems. Allergies, Adverse Reactions, Alerts Allergy Allergy Status Severity Reaction(s) Onset Inactive Treating Comm ents Source Name Type Date Date Clinician No Known DA Active U 2019-0 [facility] 12[facility]14 [place] [facility] 00:[facility]: [facility] 00 are [place] No Known DA Active U 2019-0 [facility] 12-14 [facility] 00:00: [facility] 00 are [place] Medications This patient has no known medications. Procedures This patient has no known procedures. Encounters Start End Encounter Admission Attending Care Care Encounter Source Date/Time Date/Time Type Type Clinicians Facility Department ID 2019-12-15 Inpatient HCAMI SALLIE [id number] [facility] 01:02:00 [id number] [facility] are [place] Results Test Description Test Time Test Comments Results Result [facility] e Comments - CT ABD PELVIS 2019-12-15 Patient Name: W/CONT 05:16:00 MELISSA SIMPSON Unit No: [id number] EXAMS: CPT CODE: [id number] CT ABD PELVIS W/CONT [id number] Exam: CT abdomen and pelvis with contrast. Location: H 12 History: abd pain Technique: Enhanced spiral slices were taken from the domes of the diaphragm, through the pubic symphysis. Coronal reformations were performed. One or more of the following dose reduction techniques were used: Automated exposure control, adjustment of the mA and/or kV according to patient size, and/or utilization of iterative reconstruction technique. Findings: The liver is of normal, homogeneous density. No mass is seen. The intra-and extrahepatic biliary tree is normal. The hepatic and portal veins are patent. The gallbladder is unremarkable. No pericholecystic fluid or wall thickening is present. The pancreas is normal. The pancreatic duct is normal in caliber. The spleen and adrenal glands are normal in size and shape. The kidneys are unremarkable. No nephrolithiasis, perinephric fluid collections or hydronephrosis is seen. Postoperative changes are noted. The large and small intestine are normal in caliberwith abundant fecal material in the colon. The appendix is nonvisualized. No inflammatory change is identified. A large, fixed hiatal hernia is present. No lymphadenopathy is found in the abdomen or the pelvis. No free fluid is seen. Uterus has been removed. Atherosclerosis, spondylosis and osteoarthritis are noted. A spinal cord stimulator device is in place. lung bases are clear. No incidental findings are noted. Impression: 1. No acute abdominal findings. 2. Postoperative abdomen. 3. Status post hysterectomy. 4. Mild constipation. 5. Hiatal hernia. at 0516 Reported and signed by: Marcos Mendez MD [facility] [place] [address] : 1945 Age: 74 Sex: [place] [id number] Loc: [place].ERS Exam Date: 12/15/2019 Status: REG ER PH: FAX: PAGE 1 Signed Report (CONTINUED) Patient Name: MELISSA SIMPSON Unit No: [id number] EXAMS: CPT CODE: [id number] CT ABD PELVIS W/CONT [id number] <Continued> CC: Self Referred; Jr Romero MD Technologist: Felipe Chung CTDI: DLP: 799.3 Trscr Dt/Tm: 12/15/2019 (0516) by:Fernando Electronic Signature Date/Time: 12/15/2019 (0516)Orig Print D/T: S: 12/15/2019 (0519) Name: MELISSA SIMPSON [facility] [place] Phys: [place] [address] : 1945 Age: 74 Sex: [place] [id number] Loc: [place].ERS Exam Date: 12/15/2019 Status: REG ER PH: FAX: PAGE 2 Signed Report BASIC METABOLIC PANEL 2019-12-15 04:23:00 Test Item Value Reference Range Interpretation Comme nts SODIUM (test code = NA) 136 mmol/L 135-145 N POTASSIUM (test code = K) 4.2 mmol/L 3.5-5.1 N CHLORIDE (test code = CL) 103 mmol/L 98-107 N CARBON DIOXIDE (test code 27 mmol/L 21-32 N = CO2) ANION GAP (test code = 10.2 2.0-16.0 N GAP) GLUCOSE (test code = GLU) 93 mg/dL 65-99 N BLOOD UREA NITROGEN (test 16 mg/dL 4-23 N code = BUN) GLOMERULAR FILTRATION >=60 max estimate >60 T he estimated glomerular RATE (test code = GFR) ml/min filtr ation rate is computed usingp atient race, age (>18) , sex, and serum creatinin e. If anyof the needed data elements are missing the Laboratory cannot compute an estimation of t he glomerular filt ration rate. CREATININE (test code = 0.9 mg/dL 0.6-1.5 N CREAT) BUN/CREATININE RATIO 17.8 12.0-20.0 N (test code = BUN/CREA) CALCIUM (test code = CA) 11.0 mg/dL 8.5-10.1 H LIVER FUNCTION [id number] 04:23:00 Test Item Value Reference Range Interpretation Comments TOTAL PROTEIN 8.5 g/dL 6.4-8.2 H (test code = PROT) ALBUMIN (test code 4.5 g/dL 3.4-5.0 N = ALB) GLOBULIN (test 4.0 g/dL 2.3-3.5 H code = GLOB) BILIRUBIN TOTAL 0.5 mg/dL 0.2-1.2 N Use of this assay is not (test code = BILT) recommend ed for patients undergoingtreat ment with Eltrombopag due to the potential for falselyelevated results. BILIRUBIN DIRECT 0.1 mg/dL 0.0-0.3 N (test code = BILD) BILIRUBIN INDIRECT 0.4 mg/dL 0.0-0.8 N (test code = BILIND) SGOT/AST (test 22 U/L 15-37 N code = AST) SGPT/ALT (test 16 U/L 6-50 N code = ALT) ALKALINE 56 U/L 45-117 N PHOSPHATASE (test code = ALKP) [id number] 04:23:00 Test Item Value Reference Range Interpretation Comments LIPASE (test code = LIP) 69 U/L 73-393 L CBC W/AUTO [id number] 03:05:00 Test Item Value Reference Range Interpretation Comments WHITE BLOOD CELL (test code = 6.9 10 3/uL 4.5-11.0 N WBC) RED BLOOD CELL (test code = 3.96 10 6/uL 3.50-5.50 N RBC) HEMOGLOBIN (test code = HGB) 12.1 g/dL 12.0-16.0 N HEMATOCRIT (test code = HCT) 36.7 % 37.0-55.0 L MEAN CELL VOLUME (test code = 93 fL 81-102 N MCV) MEAN CELL HGB (test code = 30.6 pg 26.0-34.0 N MCH) MEAN CELL HGB CONCENTRATION 33.0 g/dL 31.0-37.0 N (test code = MCHC) RED CELL DISTRIBUTION WIDTH 12.4 % 11.5-14.5 N (test code = RDW) PLATELET COUNT (test code = 272 10 3/uL 150-400 N PLT) MEAN PLATELET VOLUME (test 8.8 fL 9.0-12.6 L code = MPV) NEUTROPHIL % (test code = NT%) 62.1 % 33.0-76.0 N IMMATURE GRANULOCYTE % (test 0.3 % 0.0-1.0 N code = IG%) LYMPHOCYTE % (test code = LY%) 27.9 % 14.0-56.4 N MONOCYTE % (test code = MO%) 8.4 % 0.0-12.9 N EOSINOPHIL % (test code = EO%) 0.4 % 0.0-7.0 N BASOPHIL % (test code = BA%) 0.9 % 0-2.0 N NUCLEATED RBC % (test code = 0.0 % 0-0.2 N NRBC%) NEUTROPHIL # (test code = NT#) 4.29 10 3/uL 1.5-7.0 N IMMATURE GRANULOCYTE # (test 0.020 x10 3/uL 0.000-0.100 N code = IG#) LYMPHOCYTE # (test code = LY#) 1.93 10 3/uL 1.50-4.00 N MONOCYTE # (test code = MO#) 0.58 10 3/uL 0.20-0.80 N EOSINOPHIL # (test code = EO#) 0.03 10 3/uL 0.0-0.5 N BASOPHIL # (test code = BA#) 0.06 10 3/uL 0.0-0.1 N
--- NOTE | 2021-09-13 14:50 | RAD REPORT ---
EXAM DESCRIPTION: CT - [id number] - 09/13/2021 2:34 pm CLINICAL HISTORY: syncope COMPARISON: No comparisons TECHNIQUE: Axial 5 mm thick images of the head were obtained. Axial 2 mm thick images of the cervical spine were obtained with sagittal and coronal reconstruction images generated and reviewed. All CT scans are performed using dose optimization technique as appropriate and may include automated exposure control or mA/KV adjustment according to patient size. FINDINGS: CT HEAD WITHOUT CONTRAST: No acute hemorrhage, hydrocephalus or extra-axial collection is identified.No areas of brain edema or midline shift. Chronic small vessel ischemic changes Opacified right sphenoid sinus which is likely chronic as there is adjacent periosteal thickeningThe calvarium is intact. CT CERVICAL SPINE WITHOUT CONTRAST: No fracture or subluxation.No prevertebral soft tissues swelling is identified. 5 mm right upper lobe pulmonary nodule. Other areas of subpleural thickening and scarring noted. IMPRESSION: No acute intracranial or cervical spine findings. 5 mm right upper lobe pulmonary nodule. If the patient is high risk for lung cancer, recommend 12 mon th follow-up chest CT. If not, 12 month follow-up chest CT is optional.
[2021-09-13 15:11] LABS: Absolute Lymphocytes (CBC) 1.1 K/uL (0.7-4.9); Hematocrit 37.3 % (36.0-45.0); Lymphocytes % 13.8 % (15.3-44.8); MPV 6.6 fL (7.6-11.3); RBC Red Blood Cell Count 4.12 M/uL (3.86-4.86)
[2021-09-13 15:25] LABS: Protime INR 1.09
[2021-09-13 15:29] LABS: Albumin 3.6 g/dL (3.4-5.0); Bilirubin Direct 0.1 mg/dL (0-0.2); Bilirubin Total 0.3 mg/dL (0.2-1.0); CKMB Creatine Kinase MB 1.2 ng/mL (1.0-3.6); Potassium 4.1 mmol/L (3.5-5.1); Protein, Total 7.8 g/dL (6.4-8.2)
[2021-09-13] MEDS ORDERED: LIDOCAINE 1% W/EPI 1:100,000 MDV 20 ML VIAL ONE (15:50)
[2021-09-13] MEDS ORDERED: Ringers Lactate 1,000 ML IV ONE (15:59)
--- NOTE | 2021-09-13 16:23 | EDPHYS ---
Physician Documentation [facility] Name: Valentina Raphael Age: 76 yrs Sex: Female : 1945 Arrival Date: 09/13/2021 Time: 14:07 Bed 8 Private MD: ED Physician Zhen Nieto HPI: 09/13 14:30 This 76 yrs old Female presents to ER via Wheelchair with complaints of Passed Out ms3 Prior To Arrival, Laceration - eyebrow. 14:30 The patient has experienced syncope, became unresponsive, collapsed. Onset: The ms3 symptoms/episode began/occurred acutely, just prior to arrival. Duration: This was a single episode. Context: occurred at home, Just prior to the episode the patient experienced nausea. Associated injury: Head/face: laceration, 3 cm(s). Associated signs and symptoms: The patient has no apparent associated signs or symptoms. Current symptoms: Forehead pain at laceration site. Historical: - Allergies: 14:15 No Known Allergies; ap3 - PMHx: 14:15 Hyperlipidemia; Hypertension; Hypothyroidism; spinal menengitis; ap3 - Immunization history:: Client reports receiving the 2nd dose of the Covid vaccine. - Social history:: Smoking status: Patient denies any tobacco usage or history of. - Immunization history: Last tetanus immunization: unknown. ROS: 14:30 Constitutional: Negative for fever, and chills. Neck: Negative for injury, pain, and ms3 swelling, Cardiovascular: Negative for chest pain, and palpitations. Respiratory: Negative for shortness of breath, cough, wheezing, and pleuritic chest pain, Abdomen/GI: Negative for abdominal pain, nausea, vomiting, diarrhea, and constipation, Back: Negative for injury and pain. 14:30 Skin: Positive for laceration(s). 14:30 All other systems are negative. Exam: 14:30 Constitutional: This is a well developed, well nourished patient who is awake, alert, ms3 and in no acute distress. Neck: Trachea midline, no cervical lymphadenopathy. Supple, full range of motion without nuchal rigidity, or vertebral point tenderness. No Meningismus. Chest/axilla: Normal chest wall appearance and motion. Nontender with no deformity. Cardiovascular: Regular rate and rhythm with a normal S1 and S2. No gallops, murmurs, or rubs. Normal PMI, no JVD. No pulse deficits. Respiratory: Lungs have equal breath sounds bilaterally, clear to auscultation and percussion. No rales, rhonchi or wheezes noted. No increased work of breathing, no retractions or nasal flaring. Abdomen/GI: Soft, non-tender, with normal bowel sounds. No distension or tympany. No guarding or rebound. No evidence of tenderness throughout. Back: No spinal tenderness. No costovertebral tenderness. Full range of motion. Psych: Awake, alert, with orientation to person, place and time. Behavior, mood, and affect are within normal limits. 14:30 Skin: injury, laceration(s), the wound is approximately 3 cm(s), of the middle aspect of right eyebrow. 15:12 ECG was reviewed by the Attending Physician. ms3 Vital Signs: 14:12 BP 98 / 61; Pulse 123; Resp 17; Temp 97.5; Pulse Ox 98% ; Weight 49.9 kg; Height 5 ft. ap3 3 in. (160.02 cm); Pain 8/10; 14:30 BP 117 / 71; Pulse 103; Resp 15; Pulse Ox 100% on R/A; jl7 15:15 BP 105 / 71; Pulse 73; Resp 15; Pulse Ox 100% ; jl7 16:00 BP 151 / 72; Pulse 92; Resp 15; Pulse Ox 100% ; jl7 18:00 BP 156 / 98; Pulse 100; Resp 15; Pulse Ox 100% ; jl7 18:47 BP 138 / 99; Pulse 101; Resp 15; Pulse Ox 100% ; jl7 14:12 Body Mass Index 19.49 (49.90 kg, 160.02 cm) ap3 Arnulfo Coma Score: 14:30 Eye Response: spontaneous(4). Verbal Response: oriented(5). Motor Response: obeys jl7 commands(6). Total: 15. 15:15 Eye Response: spontaneous(4). Verbal Response: oriented(5). Motor Response: obeys jl7 commands(6). Total: 15. 16:00 Eye Response: spontaneous(4). Verbal Response: oriented(5). Motor Response: obeys jl7 commands(6). Total: 15. 18:00 Eye Response: spontaneous(4). Verbal Response: oriented(5). Motor Response: obeys jl7 commands(6). Total: 15. 18:47 Eye Response: spontaneous(4). Verbal Response: oriented(5). Motor Response: obeys jl7 commands(6). Total: 15. Trauma Score (Adult): 14:30 Eye Response: spontaneous(1); Verbal Response: oriented(1); Motor Response: obeys jl7 commands(2); Systolic BP: > 89 mm Hg(4); Respiratory Rate: 10 to 29 per min(4); Arnulfo Score: 15; Trauma Score: 12 Laceration: 16:17 Wound Repair of 3cm ( 1.2in ) subcutaneous laceration to middle aspect of right ms3 eyebrow. Distal neuro/vascular/tendon intact. Anesthesia: Wound infiltrated with 3 mls of 1% lidocaine w/ Epi. Wound prep: Simple cleansing by me. Skin closed with 4 5-0 Prolene using simple sutures and sterile technique. Dressed with 4x4's. Patient tolerated well. MDM: 14:27 Patient medically screened. ms3 14:30 Differential Diagnosis: cardiac arrhythmia, vasovagal episode, Laceration. ms3 16:17 Data reviewed: vital signs, nurses notes, lab test result(s), EKG, radiologic studies. ms3 Data interpreted: marketing content specialist: rate is 75 beats/min, rhythm is normal sinus rhythm, with no ectopy, Interpretation: normal rate, normal rhythm. Test interpretation: by ED physician or midlevel provider: ECG. Counseling: I had a detailed discussion with the patient and/or guardian regarding: the historical points, exam findings, and any diagnostic results supporting the discharge/admit diagnosis, lab results, radiology results, the need for further work-up and treatment in the hospital. ED course: Discuss case with Dr Moore. He accepts patient as observation. All questions answered. Discussed need for admission with patient and she understands/ agrees with plan. Patient remains in stable condition.. 09/13 14: Order name: Basic Metabolic Panel; Complete Time: 15: ms3 09/13 14:28 Order name: CBC with Diff; Complete Time: 15:29 ms3 09/13 14:28 Order name: Ckmb; Complete Time: 15: ms3 09/13 14:28 Order name: Hepatic Function; Complete Time: 15: ms3 09/13 14:28 Order name: Lipase; Complete Time: 15:29 ms3 09/13 14:28 Order name: Magnesium; Complete Time: 15:29 ms3 09/13 14:28 Order name: Protime (+inr); Complete Time: 15:29 ms3 09/13 14:28 Order name: Ptt, Activated; Complete Time: 15:29 ms3 09/13 15:55 Order name: Troponin High Sensitivity; Complete Time: 16:22 ms3 09/13 16:27 Order name: SARS-COV-2 RT PCR (Document "Date of Onset" if Symptomatic) iw 09/13 16:48 Order name: CBC with Automated Diff EDMS 09/13 16:48 Order name: CBC with Automated Diff EDMS 09/13 16:48 Order name: Comprehensive Metabolic Panel EDMS 09/13 16:48 Order name: Comprehensive Metabolic Panel EDMS 09/13 14:28 Order name: CT Head C Spine; Complete Time: 15:13 ms3 09/13 14:28 Order name: EKG; Complete Time: 14:29 ms3 09/13 14:28 Order name: Cardiac monitoring; Complete Time: 15:22 ms3 09/13 16:48 Order name: Heart Healthy EDMS 09/13 16:48 Order name: Echo with Doppler EDMS 09/13 16:48 Order name: Echo with Doppler EDMS 09/13 16:48 Order name: Lipid Profile EDMS 09/13 16:48 Order name: Lipid Profile EDMS 09/13 16:48 Order name: Carotid Artery Bilateral EDMS 09/13 16:48 Order name: Carotid Artery Bilateral EDMS 09/13 14:28 Order name: EKG - Nurse/Tech; Complete Time: 15:23 ms3 09/13 14:28 Order name: IV Saline Lock; Complete Time: 15:04 ms3 09/13 14:28 Order name: Labs collected and sent; Complete Time: 15:04 ms3 09/13 14:28 Order name: NPO; Complete Time: 15:04 ms3 09/13 14:28 Order name: O2 Per Protocol; Complete Time: 15:04 ms3 09/13 14:28 Order name: O2 Sat Monitoring; Complete Time: 15:04 ms3 09/13 16:01 Order name: Gloves, Sterile; Complete Time: 16:02 jl7 09/13 16:01 Order name: Prolene, Sutures; Complete Time: 16:02 jl7 09/13 16:01 Order name: Setup Suture Tray; Complete Time: 16:02 7 EC:12 Rate is 103 beats/min. Rhythm is regular. QRS [place] is Normal. MS interval is normal. ms3 Clinical impression: Sinus tachycardia with non-specific ST and T wave abnormality. Interpreted by me. Administered Medications: 15:50 Drug: Lactated Ringers Solution 1000 ml Route: IV; Rate: 4000 ml/hr; Site: left [facility] antecubital; 16:30 Follow up: Response: No adverse reaction; IV Status: Completed infusion; IV Intake: jl7 1000ml 16:01 Drug: Lidocaine-Epinephrine -1%: (1:100,000) 1 application {Note: administered by Dr. pedrito Nieto.} Volume: 20 ml; Route: Infiltration; 17:42 Follow up: Response: No adverse reaction [facility] 17:41 Not Given (Patient Refused): Tylenol 650 mg PO once jl 17:42 Drug: ProTONIX (pantoprazole) 40 mg Route: IVP; Site: left antecubital; 7 17:42 Follow up: Response: No adverse reaction [facility] 20:32 Drug: hydrALAZINE 10 mg Route: IVP; Site: left antecubital; [facility] 20:49 Drug: morphine 2 mg Route: IVP; Infused Over: 4 mins; Site: left antecubital; ke1 Disposition Summary: 09/13/21 16:22 Hospitalization Ordered Hospitalization Status: Observation ms3 Provider: Chris Moore ms3 Location: Telemetry/MedSurg (observation) ms3 Condition: Stable ms3 Problem: new ms3 Symptoms: are unchanged ms3 Bed/Room Type: Standard ms3 Room Assignment: 208(09/13/21 19:26) Diagnosis - Syncope ms3 - Right eyebrow laceration ms3 - Muscle weakness (generalized) ms3 Forms: - Medication Reconciliation Form ms3 - SBAR form ms3 Signatures: Dispatcher [employer] Torie Barrientos RN RN cg Leal, Jahala, RN RN jl7 Linda Quinn RN RN ap3 Zhen Nieto DO DO ms3 Kamlesh Toussaint RN RN ke1 Brown, Kirsty, PA PA sb3 Corrections: (The following items were deleted from the chart) 19:26 16:22 ms3 cg
--- NOTE | 2021-09-13 16:23 | ER ---
Nurse's Notes [facility] Name: Valentina Raphael Age: 76 yrs Sex: Female : 1945 Arrival Date: 09/13/2021 Time: 14:07 Bed 8 Private MD: Diagnosis: Syncope;Right eyebrow laceration;Muscle weakness (generalized) Presentation: 09/13 14:12 Chief complaint: Patient states: she was at home, when the dog started barking. When ap3 she got up to investigate why the dog was barking, she feels like she stood too fast causing her to loose consciousness, fall, and hit her head on the door frame. Patient presents with a laceration on her right eyebrow. Coronavirus screen: At this time, the client does not indicate any symptoms associated with coronavirus-19. Ebola Screen: No symptoms or risks identified at this time. Initial Sepsis Screen: Does the patient meet any 2 criteria? HR > 90 bpm. Does the patient have a suspected source of infection? No. Patient's initial sepsis screen is negative. Risk Assessment: Do you want to hurt yourself or someone else? Patient reports no desire to harm self or others. Onset of symptoms was September 13, 2021. 14:12 Method Of Arrival: Wheelchair ap3 14:12 Acuity: ZEYNEP 4 ap3 14:30 Complicating Factors: There are no complicating factors for this patient. jl7 14:30 Care prior to arrival: None. Mechanism of Injury: Fall from standing position. Trauma jl7 event details: Injury occurred in the [facility], Injury occurred: at home. Injury occurred: September 13, 2021 Injury occurred at: 13:30. 14:35 Acuity: ZEYNEP 3 jl7 Triage Assessment: 14:16 General: Appears in no apparent distress. Behavior is calm, cooperative. Pain: ap3 Complains of pain in middle aspect of right eyebrow Pain radiates to head Pain began suddenly. Neuro: Level of Consciousness is awake, alert, obeys commands, Oriented to person, place, time, situation, Appropriate for age Speech is normal. Cardiovascular: Patient's skin is warm and dry. Respiratory: Airway is patent Respiratory effort is even, unlabored. Injury Description: Laceration sustained to middle aspect of right eyebrow is was sustained 1-2 hours ago. Historical: - Allergies: 14:15 No Known Allergies; ap3 - PMHx: 14:15 Hyperlipidemia; Hypertension; Hypothyroidism; spinal menengitis; ap3 - Immunization history:: Client reports receiving the 2nd dose of the Covid vaccine. - Social history:: Smoking status: Patient denies any tobacco usage or history of. - Immunization history: Last tetanus immunization: unknown. Screenin:17 Abuse screen: Denies threats or abuse. Nutritional screening: No deficits noted. ap3 Tuberculosis screening: No symptoms or risk factors identified. Fall Risk Fall in past 12 months (25 points). Primary Survey: 14:30 NO uncontrolled hemorrhage observed. Breathing/Chest: Spontaneous respiratory effort, jl7 equal unlabored respirations, breath sounds clear bilaterally, regular pattern, symmetrical chest rise and fall. Circulation: No external hemorrhage present. Regular and strong central pulse, skin warm/dry/normal color. Disability Client is alert. Exposure/Environment: There is no evidence of uncontrolled external bleeding. Obvious injury(ies) are noted at this time: Laceration to right eyebrow A warming method has been applied: A warm blanket has been provided to the patient. 15:00 Reassessment Alertness and Airway: Awake and alert. The airway is patent. Breathing: jl7 Spontaneous respiratory effort, equal unlabored respirations, breath sounds clear bilaterally, regular pattern with symmetrical chest rise and fall. Circulation: No external hemorrhage noted. Regular and strong central pulse, skin warm/dry/normal color. Disability: Alert. Assessment: 14:15 General: See triage. jl7 15:00 Reassessment: Patient appears in no apparent distress at this time. No changes from jl7 previously documented assessment. Patient and/or family updated on plan of care and expected duration. Pain level reassessed. Patient is alert, oriented x 3, equal unlabored respirations, skin warm/dry/pink. 16:00 Reassessment: Patient appears in no apparent distress at this time. No changes from jl7 previously documented assessment. Patient and/or family updated on plan of care and expected duration. Pain level reassessed. Patient is alert, oriented x 3, equal unlabored respirations, skin warm/dry/pink. 17:00 Reassessment: Patient appears in no apparent distress at this time. No changes from jl7 previously documented assessment. Patient and/or family updated on plan of care and expected duration. Pain level reassessed. Patient is alert, oriented x 3, equal unlabored respirations, skin warm/dry/pink. 18:00 Reassessment: Patient appears in no apparent distress at this time. No changes from jl7 previously documented assessment. Patient and/or family updated on plan of care and expected duration. Pain level reassessed. Patient is alert, oriented x 3, equal unlabored respirations, skin warm/dry/pink. Vital Signs: 14:12 BP 98 / 61; Pulse 123; Resp 17; Temp 97.5; Pulse Ox 98% ; Weight 49.9 kg; Height 5 ft. ap3 3 in. (160.02 cm); Pain 8/10; 14:30 BP 117 / 71; Pulse 103; Resp 15; Pulse Ox 100% on R/A; jl7 15:15 BP 105 / 71; Pulse 73; Resp 15; Pulse Ox 100% ; jl7 16:00 BP 151 / 72; Pulse 92; Resp 15; Pulse Ox 100% ; jl7 18:00 BP 156 / 98; Pulse 100; Resp 15; Pulse Ox 100% ; jl7 18:47 BP 138 / 99; Pulse 101; Resp 15; Pulse Ox 100% ; jl7 14:12 Body Mass Index 19.49 (49.90 kg, 160.02 cm) ap3 Arnulfo Coma Score: 14:30 Eye Response: spontaneous(4). Verbal Response: oriented(5). Motor Response: obeys jl7 commands(6). Total: 15. 15:15 Eye Response: spontaneous(4). Verbal Response: oriented(5). Motor Response: obeys jl7 commands(6). Total: 15. 16:00 Eye Response: spontaneous(4). Verbal Response: oriented(5). Motor Response: obeys jl7 commands(6). Total: 15. 18:00 Eye Response: spontaneous(4). Verbal Response: oriented(5). Motor Response: obeys jl7 commands(6). Total: 15. 18:47 Eye Response: spontaneous(4). Verbal Response: oriented(5). Motor Response: obeys jl7 commands(6). Total: 15. Trauma Score (Adult): 14:30 Eye Response: spontaneous(1); Verbal Response: oriented(1); Motor Response: obeys jl7 commands(2); Systolic BP: > 89 mm Hg(4); Respiratory Rate: 10 to 29 per min(4); Arnulfo Score: 15; Trauma Score: 12 ED Course: 14:07 Patient arrived in ED. as 14:15 Triage completed. ap3 14:17 Arm band placed on right wrist. ap3 14:22 Zhen Nieto DO is Attending Physician. ms3 14:30 Patient has correct armband on for positive identification. Bed in low position. Call jl7 light in reach. Side rails up X 1. 14:30 Client placed on continuous cardiac and pulse oximetry monitoring. NIBP monitoring jl7 applied. 14:30 Patient maintains SpO2 saturation greater than 95% on room air. Thermoregulation: warm jl7 blanket given to patient. 14:30 Patient admitted, IV remains in place. intact, No redness/swelling at site. jl7 14:34 CT Head C Spine In Process Unspecified. EDMS 14:35 Ton Steinberg RN is Primary Nurse. jl7 15:00 Initial lab(s) drawn, by me, sent to lab. EKG done, by ED staff, reviewed by Zhen Nieto DO. Inserted saline lock: 20 gauge in left antecubital area, using aseptic technique. Blood collected. 16:00 Assist provider with laceration repair on middle aspect of right eyebrow that was 2.5 jl7 cm. or less using sutures. Set up tray. Performed by Zhen Nieto DO Patient tolerated well. 16:21 Chris Moore MD is Hospitalizing Provider. ms3 19:22 Primary Nurse role handed off by Ton Steinberg RN mw2 20:15 Kamlesh Toussaint RN is Primary Nurse. ke1 Administered Medications: 15:50 Drug: Lactated Ringers Solution 1000 ml Route: IV; Rate: 4000 ml/hr; Site: left jl7 antecubital; 16:30 Follow up: Response: No adverse reaction; IV Status: Completed infusion; IV Intake: jl7 1000ml 16:01 Drug: Lidocaine-Epinephrine -1%: (1:100,000) 1 application {Note: administered by Dr. pedrito Nieto.} Volume: 20 ml; Route: Infiltration; 17:42 Follow up: Response: No adverse reaction jl7 17:41 Not Given (Patient Refused): Tylenol 650 mg PO once jl7 17:42 Drug: ProTONIX (pantoprazole) 40 mg Route: IVP; Site: left antecubital; jl7 17:42 Follow up: Response: No adverse reaction jl7 20:32 Drug: hydrALAZINE 10 mg Route: IVP; Site: left antecubital; ke1 20:49 Drug: morphine 2 mg Route: IVP; Infused Over: 4 mins; Site: left antecubital; ke1 Medication: 18:00 VIS not applicable for this client. jl7 Intake: 16:30 IV: 1000ml; Total: 1000ml. jl7 Outcome: 16:22 Decision to Hospitalize by Provider. ms3 21:26 Patient left the ED. lp1 Signatures: Dispatcher [employer] EDMS Tiffany Harris Laura, RN RN lp1 Ton Steinberg RN RN jl7 Linda Quinn RN RN ap3 Cosme Pacheco mw2 Zhen Nieto DO DO ms3 Kamlesh Toussaint RN RN ke1
[2021-09-13] MEDS ORDERED: ONDANSETRON 4 MG/2 ML VIAL IV PRN (16:44)
[2021-09-13] MEDS ORDERED: ACETAMINOPHEN 500 MG TAB PO PRN (16:44)
[2021-09-13] MEDS ORDERED: ACETAMINOPHEN 325 MG TABLET ONE (17:31)
[2021-09-13] MEDS ORDERED: PANTOPRAZOLE 40 MG INJ ONE (17:44)
--- NOTE | 2021-09-13 20:18 | P.HP ---
Certification for Inpatient Patient admitted to: Observation With expected LOS: >2 Midnights Patient will require the following post-hospital care: None Practitioner: I am a practitioner with admitting privileges, knowledge of patient current condition, hospital course, and medical plan of care. Services: Services provided to patient in accordance with Admission requirements found in Title 42 Section 412.3 of the Code of Federal Regulations Patient History Date of Service: 09/13/21 Reason for admission: Syncope History of Present Illness: Patient 76-year-old female who came to the hospital after syncopal event. Patient hit the corner of her wall in the bedroom. She suffered a laceration above the eyebrow. Patient came into the emergency room for further evaluation. Patient work-up has been unremarkable. She will be admitted for syncope work- up. Allergies No Known Allergies Allergy (Verified 07/17/17 04:21) Home Medications: Amitriptyline [Elavil*] 50 mg PO BEDTIME 10/18/18 Cyclobenzaprine [Flexeril*] 5 mg PO TID 10/18/18 Docusate Sodium [Stool Softener] 250 mg PO PRN 10/18/18 Hydrocodone 10/APAP 325 [[place] 10/325*] 1 tab PO QIDP PRN 10/18/18 Morphine Sulfate [Morphine Sulfate ER] 15 mg PO PRN 10/18/18 Trazodone HCl 100 mg PO BEDTIME 10/18/18 carvediloL [Coreg*] 12.5 mg PO BID 10/18/18 Cefdinir [Omnicef] 300 mg PO BID #14 capsule 09/14/21 Mupirocin Oint [Bactroban 2% Ointment] 8 appl TOP BID #1 tube 09/14/21 - Past Medical/Surgical History Diabetic: No -: Pneumothorax -: Colostomy -: Spinal meningitis -: GERD -: Small Bowel Obstruction -: Hypertension -: Hyperlipidemia -: Chronic Back pain -: Hypothyroidism -: Hysterectomy -: back sx x4 -: Colostomy -: Colon resection - Family History Father Medical History: Cancer Notes: cancer of the liver Mother Medical History: Hypertension, Stroke - Social History Smoking Status: Current every day smoker Alcohol use: No CD- Drugs: No Caffeine use: No Review of Systems 10-point ROS is otherwise unremarkable Physical Examination - Vital Signs Temperature: 98 F Blood Pressure: 140/70 Pulse: 88 Respirations: 18 Pulse Ox (%): 96 - Physical Exam General: Alert, In no apparent distress, Oriented x3 HEENT: Atraumatic, PERRLA, Mucous membr. moist/pink, EOMI, Sclerae nonicteric Neck: Supple, 2+ carotid pulse no bruit, No LAD, Without JVD or thyroid abnormality Respiratory: Clear to auscultation bilaterally, Normal air movement Cardiovascular: Regular rate/rhythm, Normal S1 S2 Gastrointestinal: Normal bowel sounds, No tenderness Musculoskeletal: No tenderness Integumentary: No rashes Neurological: Normal gait, Normal speech, Normal strength at 5/5 x4 extr, Normal tone, Sensation intact, Cranial nerves 3-12 intact, Normal affect Lymphatics: No axilla or inguinal lymphadenopathy - Studies Laboratory Data (last 24 hrs) 09/13/21 15:01: PT 12.0, INR 1.09, APTT 32.3 09/13/21 15:01: WBC 8.3, Hgb 12.2, Hct 37.3, Plt Count 325 09/13/21 15:01: Sodium 131 L, Potassium 4.1, BUN 15, Creatinine 1.26, Glucose 111 H, Magnesium 2.0, Total Bilirubin 0.3, AST 11 L, ALT 12, Alkaline Phosphatase 70, Lipase 48 L Assessment & Plan - Problems (Diagnosis) (1) Syncope Current Visit: Yes Status: Acute (2) Eyebrow laceration Current Visit: Yes Status: Acute (3) History of chronic back pain Current Visit: Yes Status: Acute (4) Hypertension Onset Date: 09/29/17 Current Visit: No Status: Chronic Qualifiers: Hypertension type: essential hypertension Qualified Code(s): I10 - Essential (primary) hypertension - Plan PLAN: 1. Echocardiogram and carotid Doppler 2. Monitor on telemetry 3. Bactroban to the eyebrow 4. Cardiology consultation as an outpatient 5. Neurology consultation as an outpatient 6. Remove sutures in 1 week 7. Outpatient follow-up for chronic back issues Discharge Plan: Home Plan to discharge in: 24 Hours - Advance Directives Does patient have a Living Will: Yes Does patient have a Durable POA for Healthcare: No - Code Status/Comfort Care Code Status Assessed: Yes Code Status: Full Code Critical Care: No Time Spent Managing PTS Care (In Minutes): 45
[2021-09-13] MEDS ORDERED: ACETAMINOPHEN 500 MG TAB ONE (20:35)
[2021-09-13] MEDS ORDERED: HYDRALAZINE HCL 20 MG/ML VIAL ONE (20:36)
[2021-09-13] MEDS ORDERED: MORPHINE 2 MG/ML SYR ONE (20:55)
[2021-09-13] MEDS: NA CHLORIDE 0.9% 1,000 ML IV SCH (21:52)
[2021-09-13 22:36] VITALS: BMI 19.5
[2021-09-13] MEDS ORDERED: TRAZODONE 50 MG TABLET PO SCH (23:23)
[2021-09-13] MEDS ORDERED: DOCUSATE SODIUM 250 MG PO SCH (23:30)
[2021-09-13] MEDS: HYDROCODONE/APAP 10/325 TAB PO PRN (23:42)
[2021-09-13] MEDS ORDERED: MORPHINE 15 MG IR TAB PO SCH (23:45)
[2021-09-14 02:30] LABS: Urine Appearance Clear (Clear); Urine Bilirubin Negative (Negative); Urine Blood Negative (Negative); Urine Color Yellow (Yellow); Urine Glucose Negative (Negative); Urine Protein Negative (Negative); Urine Urobilinogen 0.2 mg/dL (0.2-1.0); Urine pH 6.5 (5.0-7.0)
[2021-09-14 02:31] LABS: Urine Microscopic Reflex ORDER UMIC
[2021-09-14 03:36] LABS: Urine Bacteria >50 /HPF (<20); Urine RBC <5 /HPF (NONE SEEN)
[2021-09-14 03:37] LABS: Urine Mucus 1+ /HPF (NONE SEEN)
[2021-09-14 04:35] LABS: ALT/SGPT < 10 U/L (12-78); AST/SGOT 10 U/L (15-37); Albumin 2.9 g/dL (3.4-5.0); Alkaline Phosphatase 55 U/L (45-117); BUN Blood Urea Nitrogen 14 mg/dL (7-18); Bicarbonate 23 mmol/L (21-32); Bilirubin Total 0.2 mg/dL (0.2-1.0); Glomerular Filtration Rate 64 ml/min (=/>90); Glucose Level 101 mg/dL (74-106); HDL Cholesterol 48 mg/dL (40-60); LDL Cholesterol, Calculated 79 mg/dL (<130); Potassium 3.8 mmol/L (3.5-5.1); Protein, Total 6.3 g/dL (6.4-8.2); Sodium Level 133 mmol/L (136-145)
[2021-09-14 04:56] LABS: Absolute Lymphocytes (CBC) 1.6 K/uL (0.7-4.9); Hematocrit 32.7 % (36.0-45.0); Lymphocytes % 27.2 % (15.3-44.8)
[2021-09-14] MEDS: HYDROCODONE/APAP 10/325 TAB PO PRN (05:46)
[2021-09-14] MEDS ORDERED: DOCUSATE CALCIUM 240 MG CAP PO PRN (05:59)
[2021-09-14] MEDS ORDERED: MORPHINE *EXTENDED RELEASE* 15 MG TAB PO PRN (06:00)
[2021-09-14] MEDS: NA CHLORIDE 0.9% 1,000 ML IV SCH ×2 (06:20→08:56)
--- NOTE | 2021-09-14 07:51 | RAD REPORT ---
EXAM DESCRIPTION: - CP - 09/14/2021 5:41 am CLINICAL HISTORY: syncope COMPARISON: Head C Spine Mpr Wo Con dated 09/13/2021 TECHNIQUE: Real-time sonographic evaluation of both carotid systems was performed. Doppler interroga tion was performed with waveform tracing bilaterally. FINDINGS: Normal high resistance waveforms are noted in both external carotid arteries. The common c arotid arteries and internal carotid arteries show normal low resistance waveforms. Hard and soft plaque is present at the carotid bulbs bilaterally. Peak systolic and end diastolic aiden ocity values and the ICA/CCA ratios are in the non-hemodynamically significant range. Antegrade flow seen in both vertebral arteries. IMPRESSION: Hard and soft plaque at the carotid bulbs. No evidence of a hemodynamically significant stenosis.
[2021-09-14] MEDS ORDERED: carvediloL 12.5 MG TAB PO SCH (08:00)
[2021-09-14] MEDS: CYCLOBENZAPRINE 10 MG TAB PO SCH ×2 (08:56→15:01)
[2021-09-14 11:22] VITALS: O2SAT 100
--- NOTE | 2021-09-14 12:19 | EKG ---
Test Date: 2021-09-13 Test Time: 15:12:29 It Programmer: DICKSON MEASUREMENT RESULTS: Intervals: Rate: 103 OH: 150 QRSD: 76 QT: 336 QTc: 440 [place]: P: 76 OH: 150 QRS: 39 T: 94 INTERPRETIVE STATEMENTS: Sinus tachycardia Possible Left atrial enlargement Nonspecific ST and T wave abnormality Abnormal ECG Compared to ECG 09/28/2017 21:33:29 ST (T wave) deviation now present Sinus rhythm no longer present Electronically Signed On 09-14-21 12:16:40 CDT by Eduardo Alejandra
[2021-09-14 12:37] VITALS: BP 140/70; TEMP 98
--- NOTE | 2021-09-14 12:46 | P.DS ---
Discharge Date: 09/14/21 Disposition: ROUTINE DISCHARGE Discharge Condition: GOOD Reason for Admission: Syncope - Problems (1) Syncope Current Visit: Yes Status: Acute (2) Eyebrow laceration Current Visit: Yes Status: Acute (3) History of chronic back pain Current Visit: Yes Status: Acute (4) Hypertension Onset Date: 09/29/17 Current Visit: No Status: Chronic Qualifiers: Hypertension type: essential hypertension Qualified Code(s): I10 - Essential (primary) hypertension Brief History of Present Illness: Patient 76-year-old female who came to the hospital after syncopal event. Patient hit the corner of her wall in the bedroom. She suffered a laceration above the eyebrow. Patient came into the emergency room for further evaluation. Patient work-up has been unremarkable. She will be admitted for syncope work- up. Hospital Course: Patient is clinically doing well. Echocardiogram and carotid Doppler results were completed. At this time, patient is doing well and stable for discharge home. Vital Signs/Physical Exam: Temp Pulse Resp BP Pulse Ox 98 F 88 18 140/70 96 09/14/21 12:36 09/14/21 12:36 09/14/21 12:36 09/14/21 12:36 09/14/21 12:36 General: Alert, In no apparent distress, Oriented x3 HEENT: Atraumatic Neck: Supple, 2+ carotid pulse no bruit, JVD not distended, No Thyromegaly Respiratory: Clear to auscultation bilaterally, Normal air movement Cardiovascular: Regular rate/rhythm, No murmurs Gastrointestinal: Normal bowel sounds, Soft and benign, Non-distended, No tenderness, No rebound, No guarding Musculoskeletal: No clubbing Integumentary: No rashes Neurological: Normal gait, Normal speech, Normal strength at 5/5 x4 extr, Normal tone, Sensation intact, Cranial nerves 3-12 intact, Normal reflexes 2+ Laboratory Data at Discharge: WBC 5.9 K/uL (4.3-10.9) D 09/14/21 03:51 Hgb 10.6 g/dL (12.0-15.0) L 09/14/21 03:51 Hct 32.7 % (36.0-45.0) L 09/14/21 03:51 Plt Count 281 K/uL (152-406) 09/14/21 03:51 PT 12.0 SECONDS (9.5-12.5) 09/13/21 15:01 INR 1.09 09/13/21 15:01 APTT 32.3 SECONDS (24.3-36.9) 09/13/21 15:01 Sodium 133 mmol/L (136-145) L 09/14/21 03:51 Potassium 3.8 mmol/L (3.5-5.1) 09/14/21 03:51 BUN 14 mg/dL (7-18) 09/14/21 03:51 Creatinine 0.92 mg/dL (0.55-1.3) 09/14/21 03:51 Glucose 101 mg/dL (74-106) 09/14/21 03:51 Magnesium 2.0 mg/dL (1.8-2.4) 09/13/21 15:01 Total Bilirubin 0.2 mg/dL (0.2-1.0) 09/14/21 03:51 AST 10 U/L (15-37) L 09/14/21 03:51 ALT < 10 U/L (12-78) L 09/14/21 03:51 Alkaline Phosphatase 55 U/L (45-117) 09/14/21 03:51 Triglycerides 118 mg/dL (<150) 09/14/21 03:51 Cholesterol 151 mg/dL (<200) 09/14/21 03:51 HDL Cholesterol 48 mg/dL (40-60) 09/14/21 03:51 Cholesterol/HDL Ratio 3.15 09/14/21 03:51 Lipase 48 U/L (73-393) L 09/13/21 15:01 Home Medications: Amitriptyline [Elavil*] 50 mg PO BEDTIME 10/18/18 Cyclobenzaprine [Flexeril*] 5 mg PO TID 10/18/18 Docusate Sodium [Stool Softener] 250 mg PO PRN 10/18/18 Hydrocodone 10/APAP 325 [[place] 10/325*] 1 tab PO QIDP PRN 10/18/18 Morphine Sulfate [Morphine Sulfate ER] 15 mg PO PRN 10/18/18 Trazodone HCl 100 mg PO BEDTIME 10/18/18 carvediloL [Coreg*] 12.5 mg PO BID 10/18/18 Cefdinir [Omnicef] 300 mg PO BID #14 capsule 09/14/21 Mupirocin Oint [Bactroban 2% Ointment] 8 appl TOP BID #1 tube 09/14/21 New Medications: Mupirocin Oint [Bactroban 2% Ointment] 8 appl TOP BID #1 tube Cefdinir [Omnicef] 300 mg PO BID #14 capsule Physician Discharge Instructions: -DC IV and DC home -Follow-up with PCP in 1 to 2 weeks -Follow-up with Cardiology in 1 to 2 weeks -Please call Dr. Moore at [phone] if any questions regarding hospital stay -Please call nursing station at [phone] if any nursing or medication questions -Return to the emergency room if symptoms worsen Diet: AHA Activity: Fall precautions Followup: NONE,NONE [Primary Care Provider] - Time spent managing pt's care (in minutes): 35
--- NOTE | 2021-09-14 12:56 | ECHO ---
HEIGHT: 5 ft 3 in WEIGHT: 110 lb 0 oz DATE OF STUDY: 09/14/[address]: Chris Moore MD 2-DIMENSIONAL: YES M.MODE: YES DOPPLER: YES COLOR FLOW: YES TDS: PORTABLE: YES DEFINITY: BUBBLE STUDY: DIAGNOSIS: SYNCOPE CARDIAC HISTORY: CATHERIZATION: NO SURGERY: NO PROSTHETIC VALVE: NO PACEMAKER: NO MEASUREMENTS (cm) DIASTOLIC (NORMALS) SYSTOLIC (NORMALS) IVSd 1.0 (0.6-1.2) LA Diam 3.3 (1.9-4.0) LVEF 61% LVIDd 3.1 (3.5-5.7) LVIDs 2.1 (2.0-3.5) %FS 32% LVPWd 1.1 (0.6-1.2) Ao Diam 2.0 (2.0-3.7) 2 DIMENSIONAL ASSESSMENT: RIGHT ATRIUM: NORMAL LEFT ATRIUM: NORMAL RIGHT VENTRICLE: NORMAL LEFT VENTRICLE: NORMAL TRICUSPID VALVE: NORMAL MITRAL VALVE: MITRAL ANNULAR CALCIFICATION PULMONIC VALVE: NORMAL AORTIC VALVE: SCLEROSIS PERICARDIAL EFFUSION: NONE AORTIC ROOT: NORMAL LEFT VENTRICULAR WALL MOTION: NORMAL DOPPLER/COLOR FLOW: MILD TRICUSPID REGURGITATION. NORMAL RIGHT VENTRICULAR SYSTOLIC PRESSURE. COMMENTS: AORTIC SCLEROSIS - NO STENOSIS. MILD TRICUSPID REGURGITATION. NORMAL RIGHT VENTRICULAR SYSTOLIC PRESSURE. NORMAL LEFT VENTRICULAR SIZE AND FUNCTION. TECHNOLOGIST: SAM BARNETT
[2021-09-14] MEDS ORDERED: AMITRIPTYLINE 50 MG TAB PO SCH (21:00)
== END 2021-09-14 16:03 | disposition home or self-care (01) ==
LOC: ER 14:02 → ERHOLD 16:44 → 2ND 20:43
PROVIDERS: ADMIT Hospitalist; ATTEND Hospitalist
PROC: 0HQ1XZZ Repair Face Skin, External Approach (ICD-10-PCS; principal; 2021-09-13)
DX: R55 Syncope and collapse (principal); S01.111A Laceration without foreign body of right eyelid and periocular area, initial encounter; W19.XXXA Unspecified fall, initial encounter; Y92.009 Unspecified place in unspecified non-institutional (private) residence as the place of occurrence of the external cause; R53.1 Weakness; M54.9 Dorsalgia, unspecified; G89.29 Other chronic pain; I10 Essential (primary) hypertension; K21.9 Gastro-esophageal reflux disease without esophagitis; E78.5 Hyperlipidemia, unspecified; E03.9 Hypothyroidism, unspecified; F17.200 Nicotine dependence, unspecified, uncomplicated; Z20.822 Contact with and (suspected) exposure to COVID-19; Z79.899 Other long term (current) drug therapy; Z86.61 Personal history of infections of the central nervous system; Z90.710 Acquired absence of both cervix and uterus; Z90.49 Acquired absence of other specified parts of digestive tract; Z82.49 Family history of ischemic heart disease and other diseases of the circulatory system; Z80.0 Family history of malignant neoplasm of digestive organs; Z82.3 Family history of stroke
CPT/HCPCS: 12013; 96361; 93005; 93306; 87088; 85025 ×2; 87086; 80048; 36415; 83735; 85610; 80061; 80076; 85730; 87077 ×2; 87186 ×2; 84484; 82553; 83690; 80053; 70450; 72125; 93880; 96375; 96374; 99284; U0003; J0360; C9113; J2270; J7120; J7030 ×2; G0378 ×3; 81003; 81015

== ENCOUNTER 2021-09-20 13:06 | Emergency (ER) | payer OTHER ==
--- OUTSIDE RECORDS SUMMARY | 2021-09-20 13:08 | XMS REPORT | Continuity of Care Document ---
:1945 Author Organization [facility] t Address [address] [place] [address] Care Team Providers Name Role Phone Unavailable Unavailable Unavailable Payers Payer Name Policy Type Policy Number Effective Date Expiration Date S ource Problems This patient has no known problems. Allergies, Adverse Reactions, Alerts Allergy Allergy Status Severity Reaction(s) Onset Inactive Treating Comm ents Source Name Type Date Date Clinician No Known DA Active U 2019-0 [facility] 12[facility] [place] [facility] 00:[facility]: [facility] 00 are [place] No Known DA Active U 2019-0 [facility] 12[facility]14 [facility] 00:00: [facility] 00 are [place] Medications This patient has no known medications. Procedures This patient has no known procedures. Encounters Start End Encounter Admission Attending Care Care Encounter Source Date/Time Date/Time Type Type Clinicians Facility Department ID 2019-12-15 Inpatient HCAUT SALLIE [id number] [facility] 01:02:00 [id number] [facility] are [place] Results Test Description Test Time Test Comments Results Result [facility] e Comments - CT ABD PELVIS 2019-12-15 Patient Name: W/CONT 05:16:00 MELISSA SIMPSON Unit No: [id number] EXAMS: CPT CODE: [id number] CT ABD PELVIS W/CONT 08789 Exam: CT abdomen and pelvis with contrast. [...] by: Marcos Mendez MD Name: [facility] [place]: [place] [address] : 1945 Age: 74 [place]: [place] [address] Loc: [place].ERS Exam Date: 12/15/2019 Status: REG ER PH: FAX: PAGE 1 Signed Report (CONTINUED) Patient Name: MELISSA SIMPSON Unit No: [id number] EXAMS: CPT CODE: [id number] CT ABD PELVIS W/CONT [address] <Continued> CC: Self Referred; Jr Romero MD Technologist: Felipe Chung CTDI: DLP: 799.3 Trscr Dt/Tm: 12/15/2019 (0516) by:Fernando Electronic Signature Date/Time: 12/15/2019 (0516)Orig Print D/T: S: 12/15/2019 (0519) Name: MELISSA SIMPSON [facility] [place] Phys: [place] [address] : 1945 Age: 74 Sex: [place] [id number] Loc: [place].ERS Exam Date: 12/15/2019 Status: REG [...] CA) 11.0 mg/dL 8.5-10.1 H LIVER FUNCTION [id number] 04:23:00 Test Item Value Reference Range Interpretation [...] 45-117 N PHOSPHATASE (test code = ALKP) [id number] 04:23:00 Test Item Value Reference Range Interpretation Comments LIPASE (test code = LIP) 69 U/L 73-393 L CBC W/AUTO [id number] 03:05:00 Test Item Value Reference Range Interpretation [...]
--- NOTE | 2021-09-20 13:48 | EDPHYS ---
Physician Documentation [facility] Name: Valentina Raphael Age: 76 yrs Sex: Female : 1945 Arrival Date: 09/20/2021 Time: 13:08 Bed DIS1 Private MD: ED Physician Tom Estes HPI: 09/20 13:45 This 76 yrs old Female presents to ER via Ambulatory with complaints of Suture Removal. cp 13:45 The patient has sutures on the above right eye. cp 13:45 Previous treatment: The patient was initially treated on September 13, 2021, the care was cp rendered at [facility], Treatment type: The patient's original treatment included sutures, Outpatient prescription(s): The patient was given prescription(s) for oral antibiotic, Previous recheck: the patient has not been checked since the original treatment. Sutures/ric progress: The patient has no c/o's. The wound is well-healing with no redness, swelling, discharge, or dehiscence reported. facial laceration appears to be healing well. Historical: - Allergies: 13:30 No Known Allergies; ww - PMHx: 13:30 Hyperlipidemia; Hypertension; Hypothyroidism; spinal menengitis; ww - Immunization history:: Adult Immunizations up to date. - Social history:: Smoking status: Patient denies any tobacco usage or history of. ROS: 13:45 Skin: Positive for laceration(s), of the above right eye. cp Exam: 13:45 Constitutional: The patient appears in no acute distress, alert, awake, non-toxic, well cp developed, well nourished. 13:45 Head/face: Noted is a laceration(s), that is deep, that is linear, of the above right cp eye. 13:45 Skin: Wound recheck: Suture laceration closure: the wound is healing well, no drainage, no erythema, no swelling, wound edges still separable. Vital Signs: 13:29 BP 153 / 81; Pulse 97; Resp 18; Temp 97.2; Pulse Ox 99% ; Weight 49.44 kg; Height 5 ft. ww 3 in. (160.02 cm); Pain 0/10; 13:29 Body Mass Index 19.31 (49.44 kg, 160.02 cm) ww MDM: 13:44 Patient medically screened. cp 13:48 Data reviewed: vital signs, nurses notes. cp 13:48 ED course: will leave sutures in place and recommend recheck 5 days. cp Administered Medications: No medications were administered Disposition: 09/21 10:08 Co-signature as Attending Physician, Tom Estes MD. rn Disposition Summary: 09/20/21 13:48 Discharge Ordered Location: Home cp Problem: new cp Symptoms: have improved cp Condition: Stable cp Diagnosis - Encounter for attention to dressings, sutures and drains cp Followup: cp - With: Private Physician - When: 5 - 6 days - Reason: Staple/Suture removal Discharge Instructions: - Discharge Summary Sheet cp - Sutured Wound Care cp Forms: - Medication Reconciliation Form cp - Thank You Letter cp - Antibiotic Education cp - Prescription Opioid Use cp Signatures: Tom Estes MD MD rn Benny Rios PA PA cp Wood, Whitney, RN RN ww
--- NOTE | 2021-09-20 13:48 | ER ---
Nurse's Notes [facility] Name: Valentina Raphael Age: 76 yrs Sex: Female : 1945 Arrival Date: 09/20/2021 Time: 13:08 Bed DIS1 Private MD: Diagnosis: Encounter for attention to dressings, sutures and drains Presentation: 09/20 13:29 Chief complaint: Patient states: Suture removal of right forehead. Patient fell last ww week and hit her head. Coronavirus screen: Vaccine status: Patient reports receiving the 2nd dose of the covid vaccine. Client denies travel out of the [place] in the last 14 days. Ebola Screen: Patient denies travel to an Ebola-affected area in the 21 days before illness onset. Initial Sepsis Screen: Does the patient meet any 2 criteria? No. Patient's initial sepsis screen is negative. Does the patient have a suspected source of infection? No. Patient's initial sepsis screen is negative. Risk Assessment: Do you want to hurt yourself or someone else? Patient reports no desire to harm self or others. Onset of symptoms is unknown. 13:29 Method Of Arrival: Ambulatory ww 13:29 Acuity: ZEYNEP 5 ww Triage Assessment: 13:30 General: Appears in no apparent distress. Behavior is calm, cooperative. Pain: Denies ww pain. Neuro: Level of Consciousness is awake, alert, obeys commands, Oriented to person, place, time, situation, Speech is normal. Cardiovascular: Capillary refill < 3 seconds. Respiratory: Airway is patent Respiratory effort is even, unlabored, Respiratory pattern is regular, symmetrical. Historical: - Allergies: 13:30 No Known Allergies; ww - PMHx: 13:30 Hyperlipidemia; Hypertension; Hypothyroidism; spinal menengitis; ww - Immunization history:: Adult Immunizations up to date. - Social history:: Smoking status: Patient denies any tobacco usage or history of. Screenin:55 Abuse screen: Denies threats or abuse. Denies injuries from another. Nutritional ww screening: No deficits noted. Tuberculosis screening: No symptoms or risk factors identified. Fall Risk None identified. Vital Signs: 13:29 BP 153 / 81; Pulse 97; Resp 18; Temp 97.2; Pulse Ox 99% ; Weight 49.44 kg; Height 5 ft. ww 3 in. (160.02 cm); Pain 0/10; 13:29 Body Mass Index 19.31 (49.44 kg, 160.02 cm) ww ED Course: 13:08 Patient arrived in ED. as 13:15 Benny Rios PA is PHCP. cp 13:15 Tom Estes MD is Attending Physician. cp 13:30 Triage completed. ww 13:30 Arm band placed on. ww 13:55 No provider procedures requiring assistance completed. Patient did not have IV access ww during this emergency room visit. Administered Medications: No medications were administered Outcome: 13:48 Discharge ordered by . cp 13:55 Discharged to home ambulatory, with family. ww 13:55 Condition: stable 13:55 Discharge instructions given to patient, Instructed on discharge instructions, follow up and referral plans. wound care, Demonstrated understanding of instructions, follow-up care, wound care. 13:55 Patient left the ED. ww Signatures: Tiffany Harris as Benny Rios PA PA cp Suzie Mcmanus, RN RN ww
[2021-09-20 14:05] VITALS: BP 153/81; TEMP 97.2; O2SAT 99
== END 2021-09-20 13:55 | disposition home or self-care (01) ==
LOC: ER 13:06
DX: S01.81XD Laceration without foreign body of other part of head, subsequent encounter (principal)
CPT/HCPCS: 99281

== ENCOUNTER 2021-09-25 17:28 | Emergency (ER) | payer OTHER ==
--- OUTSIDE RECORDS SUMMARY | 2021-09-25 17:31 | XMS REPORT | Continuity of Care Document ---
:1945 Author Organization [facility] t Address [address] [place] [address] Care Team Providers Name Role Phone Unavailable Unavailable Unavailable Payers Payer Name Policy Type Policy Number Effective Date Expiration Date S ource Problems This patient has no known problems. Allergies, Adverse Reactions, Alerts Allergy Allergy Status Severity Reaction(s) Onset Inactive Treating Comm ents Source Name Type Date Date Clinician No Known DA Active U 2019-0 [facility] 12[facility]14 [place] s 00:00: [facility] 00 are [place] No Known DA Active U 2019-0 [facility] 12-14 [facility] 00:00: [facility] 00 are [place] Medications This patient has no known medications. Procedures This patient has no known procedures. Encounters Start End Encounter Admission Attending Care Care Encounter Source Date/Time Date/Time Type Type Clinicians Facility Department ID 2019-12-15 Inpatient HCAMA SALLIE [id number] [facility] 01:02:00 [id number] [facility] are [place] Results Test Description Test Time Test Comments Results Result [facility] e Comments - CT ABD PELVIS 2019-12-15 Patient Name: W/CONT 05:16:00 MELISSA SIMPSON Unit No: [id number] EXAMS: CPT CODE: [id number] CT ABD PELVIS W/CONT 37601 Exam: CT abdomen and pelvis with contrast. [...] by: Marcos Mendez MD [facility] [place]: [place] [address] : 1945 Age: 74 Sex: [place] [address] Loc: [place].ERS Exam Date: 12/15/2019 Status: REG ER PH: FAX: PAGE 1 Signed Report (CONTINUED) Patient Name: MELISSA SIMPSON Unit No: [id number] EXAMS: CPT CODE: [id number] CT ABD PELVIS W/CONT 94044 <Continued> CC: Self Referred; Jr Romero MD Technologist: Felipe Chung CTDI: DLP: 799.3 Trscr Dt/Tm: 12/15/2019 (0516) by:Fernando Electronic Signature Date/Time: 12/15/2019 (0516)Orig Print D/T: S: 12/15/2019 (0519) Name: MELISSA SIMPSON [facility] [place] Phys: [place] [address] : 1945 Age: 74 Sex: [place] [address] Loc: [place].ERS Exam Date: 12/15/2019 Status: REG [...] CA) 11.0 mg/dL 8.5-10.1 H LIVER FUNCTION [id number] 04:23:00 Test Item Value Reference Range Interpretation [...] 45-117 N PHOSPHATASE (test code = ALKP) [id number] 04:23:00 Test Item Value Reference Range Interpretation Comments LIPASE (test code = LIP) 69 U/L 73-393 L CBC W/AUTO [id number] 03:05:00 Test Item Value Reference Range Interpretation [...]
--- NOTE | 2021-09-25 17:45 | EDPHYS ---
Physician Documentation [facility] Name: Valentina Raphael Age: 76 yrs Sex: Female : 1945 Arrival Date: 09/25/2021 Time: 17:29 Bed Waiting Private MD: ED Physician Sameer Brewer HPI: 09/25 21:08 This 76 yrs old Female presents to ER via Ambulatory with complaints of Suture Removal. kb 21:08 The patient has sutures on the middle aspect of right eyebrow. Previous treatment: The kb patient was initially treated on September 13, 2021, the care was rendered at [facility]. Sutures/ric progress: The patient has no c/o's. The wound is well-healing with no redness, swelling, discharge, or dehiscence reported. The patient has not experienced similar symptoms in the past. The patient has not recently seen a physician. Historical: - Allergies: 17:38 No Known Allergies; jb4 - PMHx: 17:38 Hyperlipidemia; Hypertension; Hypothyroidism; spinal menengitis; jb4 ROS: 21:08 Constitutional: Negative for fever, chills, and weight loss. kb 21:08 Skin: Positive for of the middle aspect of right eyebrow, sutures in place. 21:08 All other systems are negative. Exam: 21:08 Constitutional: This is a well developed, well nourished patient who is awake, alert, kb and in no acute distress. Head/Face: Normocephalic, atraumatic. ENT: Moist Mucous membranes Respiratory: Respirations even and unlabored. No increased work of breathing. Talking in full sentences MS/ Extremity: Pulses equal, no cyanosis. Neurovascular intact. Full, normal range of motion. Neuro: Awake and alert, GCS 15, oriented to person, place, time, and situation. Moves all extremities. Normal gait. Psych: Awake, alert, with orientation to person, place and time. Behavior, mood, and affect are within normal limits. 21:08 Skin: Wound recheck: Suture laceration closure: the wound is healing well, the edges are well approximated, no evidence of dehiscence, no drainage, no erythema, no swelling. Vital Signs: 17:36 BP 189 / 89; Pulse 92; Resp 18; Temp 97.8(TE); Pulse Ox 96% ; Weight 49.44 kg (R); jb4 Height 5 ft. 3 in. (160.02 cm); Pain 0/10; 17:36 Body Mass Index 19.31 (49.44 kg, 160.02 cm) jb4 Procedures: 17:44 Suture/Staple removal: Removed 4 sutures, from middle aspect of right eyebrow, site kb appears well healed, dressed with steristrips. Patient tolerated well. MDM: 17:44 Patient medically screened. kb 17:44 Data reviewed: vital signs, nurses notes. Data interpreted: Pulse oximetry: on room air kb is 96 %. Interpretation: normal. Counseling: I had a detailed discussion with the patient and/or guardian regarding: the historical points, exam findings, and any diagnostic results supporting the discharge/admit diagnosis, the need for outpatient follow up, a family practitioner, to return to the emergency department if symptoms worsen or persist or if there are any questions or concerns that arise at home. Administered Medications: No medications were administered Disposition: 17:58 Co-signature as Attending Physician, Sameer Brewer MD I agree with the assessment and kdr plan of care. Disposition Summary: 09/25/21 17:45 Discharge Ordered Location: Home kb Condition: Stable kb Diagnosis - Encounter for removal of sutures kb Followup: kb - With: Emergency Department - When: As needed - Reason: Worsening of condition Followup: kb - With: Private Physician - When: 2 - 3 days - Reason: Recheck today's complaints, Continuance of care, Re-evaluation by your physician Discharge Instructions: - Discharge Summary Sheet kb - Suture Removal, Care After kb Forms: - Medication Reconciliation Form kb - Thank You Letter kb - Antibiotic Education kb - Prescription Opioid Use kb Signatures: Martha Diaz, RESIDENTIAL SALES REPRESENTATIVE-C DEANN-Sameer Hawkins MD MD [facility] Michael Ying, RN RN jb4
--- NOTE | 2021-09-25 17:45 | ER ---
Nurse's Notes [facility] Name: Valentina Raphael Age: 76 yrs Sex: Female : 1945 Arrival Date: 09/25/2021 Time: 17:29 Bed Waiting Private MD: Diagnosis: Encounter for removal of sutures Presentation: 09/25 17:36 Chief complaint: Patient states: I am here to have my sutures removed. Coronavirus jb4 screen: At this time, the client does not indicate any symptoms associated with coronavirus-19. Ebola Screen: No symptoms or risks identified at this time. Initial Sepsis Screen: Does the patient meet any 2 criteria? No. Patient's initial sepsis screen is negative. Does the patient have a suspected source of infection? No. Patient's initial sepsis screen is negative. Risk Assessment: Do you want to hurt yourself or someone else? Patient reports no desire to harm self or others. Onset of symptoms was September 25, 2021. Transition of care: patient was not received from another setting of care. 17:36 Method Of Arrival: Ambulatory jb4 17:36 Acuity: ZEYNEP 5 jb4 Historical: - Allergies: 17:38 No Known Allergies; jb4 - PMHx: 17:38 Hyperlipidemia; Hypertension; Hypothyroidism; spinal menengitis; jb4 Screenin:51 Abuse screen: Denies threats or abuse. Nutritional screening: No deficits noted. jb4 Tuberculosis screening: No symptoms or risk factors identified. Fall Risk None identified. Assessment: 17:51 General: Appears in no apparent distress. comfortable, Behavior is calm, cooperative, jb4 appropriate for age. Pain: Denies pain. Neuro: Szymanski Agitation-Sedation Scale (RASS): 0 - Alert and Calm Level of Consciousness is awake, alert, obeys commands, Oriented to person, place, time, situation. Cardiovascular: Patient's skin is warm and dry. Respiratory: Airway is patent Respiratory effort is even, unlabored, Respiratory pattern is regular, symmetrical. Derm: Skin is intact, Skin is pink, warm \T\ dry. Vital Signs: 17:36 BP 189 / 89; Pulse 92; Resp 18; Temp 97.8(TE); Pulse Ox 96% ; Weight 49.44 kg (R); jb4 Height 5 ft. 3 in. (160.02 cm); Pain 0/10; 17:36 Body Mass Index 19.31 (49.44 kg, 160.02 cm) jb4 ED Course: 17:29 Patient arrived in ED. jj6 17:34 Martha Diaz FNP-C is [facility]. kb 17:34 Sameer Brewer MD is Attending Physician. kb 17:38 Triage completed. jb4 17:51 Michael Ying, RN is Primary Nurse. jb4 17:51 Arm band placed on right wrist. jb4 17:51 Patient has correct armband on for positive identification. jb4 17:51 No provider procedures requiring assistance completed. Patient did not have IV access jb4 during this emergency room visit. Administered Medications: No medications were administered Medication: 17:51 VIS not applicable for this client. jb4 Outcome: 17:45 Discharge ordered by . kb 17:51 Discharged to home ambulatory. jb4 17:51 Condition: stable 17:51 Discharge instructions given to patient, Instructed on discharge instructions, follow up and referral plans. Demonstrated understanding of instructions, follow-up care. 17:53 Patient left the ED. jb4 Signatures: Martha Diaz FNP-C INSULATION BOARD CALENDER OPERATOR-Michael Poole, RN RN jb4 Chika Acevedo jj6 Corrections: (The following items were deleted from the chart) 17:38 17:36 Pulse 92bpm; Resp 18bpm; Pulse Ox 96%; Temp 97.8F Temporal; 49.44 kg Reported; jb4 Height 5 ft. 3 in.; BMI: 19.3; Pain 0/10; jb4
[2021-09-25 17:58] VITALS: BP 189/89; TEMP 97.8; O2SAT 96
== END 2021-09-25 17:53 | disposition home or self-care (01) ==
LOC: ER 17:28
DX: Z48.02 Encounter for removal of sutures (principal)
CPT/HCPCS: 99281

== ENCOUNTER 2022-09-10 00:10 | Emergency (ER) | payer OTHER ==
--- OUTSIDE RECORDS SUMMARY | 2022-09-10 01:32 | XMS REPORT | Continuity of Care Document ---
:1945 Author Organization [facility] t Address [address] [place] [address] Care Team Providers Name Role Phone Montrell MAURO, Julissa Cottrell Primary Care Physician [phone] Lewis ROLAND, Chika Patel Attending Clinician [phone] Sandro1 Angel ROLAND, Yuliana Attending Clinician Juaquin Calabrese MD Attending Clinician Kenneth ROLAND, Bull May Attending Clinician Chandler Hercules Attending Clinician JUAUQIN CALABRESE Admitting Clinician Unavailable Chandler Hercules Admitting Clinician Payers Payer Name Policy Type Policy Number Effective Date Expiration Date S ource Problems Condition Condition Condition Status Onset Resolution Last Treating Co mments Source Name Details Category Date Date Treatment Clinician Date Syncope, Syncope, Disease Active Metho di unspecifie unspecifie 6 st d syncope d syncope 00:00: [facility] type type 00 l Chronic Chronic Disease Active Methodi back pain back pain 09-28 00:00: Hospita 00 l Essential Essential Disease Active Met hodi hypertensi hypertensi 6-14 st on on 00:00: Hospita 00 l FX TO L3 FX TO L3 Diagnosis Active 2015-042016-02-12 Memoria Active 0 06:21:00 l 02/12/2016 00:00: Justin n [address] L3 L3 Diagnosis Active 2015-042016-02-18 Mem oria COMPRESSIO COMPRESSIO 0- 22:03:00 l N FX N FX 00:00: Finley Active 00 02/12/2016 [facility] High High Problem Resolve 2016-02-16 Ashok petr density density d 00:36:47 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) (disorder) Resolved Problem 02/16/2016 [facility] Hypertensi Hypertens Problem Resolve 2016-02-16 Memoria ve genevieve d 00:36:47 l disorder, disorder, Herm angelic systemic systemic arterial arterial (disorder) (disorder) Resolved Problem 02/16/2016 [facility] Hypothyroi Hypothyro Problem Resolve 2016-02-16 Memoria dism idism d 00:36:47 l (disorder) (disorder) He rmann Resolved Problem 02/16/2016 [facility] Allergies, Adverse Reactions, Alerts Allergy Allergy Status Severity Reaction(s) Onset Inactive Treating Comm ents Source Name Type Date Date Clinician No Known DA Active U 2019-0 [facility] 12[facility]14 [facility]: [facility] 00 [facility] [place] No Known DA Active U 2020-0 [facility] Allergie 12-14 [facility] 00:[facility]: [facility] 00 are [place] Social History Social Habit Start Date Stop Date Quantity Comments Source Gender identity [facility] History of Social 2021-10-01 2021-10-[address] function 00:00:00 00:00:00 Hospital Tobacco use and 2021-09-28 2021-09-28 Smokeless [facility] exposure 00:00:00 00:00:00 tobacco non-user Hospital Alcohol intake 2021-09-28 2021-09-28 Lifetime [facility] 00:00:00 00:00:00 non-drinker Hospital (finding) Sex Assigned At [birth year] [facility] 00:00:00 00:00:00 Hospital Smoking Status Start Date Stop Date Source Social History [facility] Medications Ordered Filled Start Stop Current Ordering Indication Dosage Frequency Signature Comments Components Source Medication Medication Date Date Medication? Clinician (SIG) Name Name HYDROcodone Yes 1{tbl} Q.25D Take 1 M ethodi -acetaminop 6-[address] hen (NORCO) 14:25: mouth 4 Hos hiro 10-325 mg 01 (four) l per tablet times a day. morPHINE Yes 1{tbl} QD Take 1 Metho di (MS CONTIN) 6-[address] 15 MG 12 hr 14:25: mouth Hospi ta tablet 01 nightly. l amitriptyli Yes 1{tbl} QD Take 1 Me thodi ne (ELAVIL) 6-[address] 50 MG 14:25: mouth Hospita tablet 01 nightly. l cyclobenzap Yes 1.5{tbl Q.5D Take 1.5 Methodi rine 6-18 } tablets by st (FLEXERIL) 14:25: mouth 2 Hosp lynn 5 mg tablet 01 (two) l times a day. aspirin/estela Yes 1{tbl} Q24H Take 1 Me thodi taminophen/ 6-[address] caffeine 14:25: mouth Hospita (EXCEDRIN 01 daily as l MIGRAINE needed ORAL) (migraine) . traZODone Yes 100mg QD Take 100 Met hodi (DESYREL) 6-[address] 100 MG 14:25: mouth Hospita tablet 01 nightly. l tramadol 2021- No 1{tbl} QD Take 1 Meth nidhi HCl 6-18 06-[address] (TRAMADOL 14:25: 00:00 mouth Hospit a ORAL) 01 :00 nightly. l METOPROLOL 2021-2021- No 1{tbl} Q.5D Take 1 Me thodi TARTRATE 6-18 06-[address] ORAL 14:25: 00:00 mouth 2 Hospita 01 :00 (two) l times a day. amLODIPine 2021- No 5mg QD Take 1 Meth nidhi (NORVASC) 5 6-17 07-18 tablet (5 st mg tablet 00:00: 04:59 mg total) Ho spita 00 :00 by mouth l daily for 30 days. rosuvastati 0 2021- No 5mg QD Take 1 Met hodi n (CRESTOR) 10-01-18 tablet (5 st 5 mg tablet 00:00: 04:59 mg total) Hospita 00 :00 by mouth l nightly for 30 days. Thyroxine 2015-04 No Notes: Memori a 0-30 Take 1 l 14:00: hour Finley 00 before or 2 hours after meal; Enteral feeds may interefere with the absorption of this medication .(Same as:Levothr oid, Synthroid) Amitriptyli 2015-04 No Notes: Ashok petr ne 0-30 (Same as: l 02:00: Elavil) Tom 00 carvedilol 2015-04 No Notes: Memor ia 0-29 Give with l 22:00: food. Finley 00 (Same As: Coreg) Acetaminoph 2015-04 Yes 1 tab, PO, Memoria en 300 MG / 0-29 Q6H, PRN l Codeine 19:39: Pain, X 5 [place] nn Phosphate 00 day, # 20 30 MG Oral tab, 0 Tablet Refill(s) [Tylenol with Codeine #3] tramadol 2015-04 No 100 mg = 2 Mem oria hydrochlori 0-29 tab, PO, l de 50 MG 19:39: Q6Hnow, X Herm angelic Oral Tablet 00 2 day, # 16 tab, 0 Refill(s) naproxen 2015-04 Yes 500 mg = 1 Mem oria 500 mg oral 0-29 tab, PO, l tablet 19:39: K23Helk, X [place] nn 00 5 day, # 10 tab, 0 Refill(s) methocarbam 2015-04 Yes 1,000 mg = Memoria ol 500 mg 0-29 2 tab, PO, l oral tablet 19:39: Q8H, PRN He rmann 00 Muscle Spasms, X 7 day, # 42 tab, 0 Refill(s) gabapentin 2015-04 Yes 300 mg = 1 M emoria 300 MG Oral 0-29 cap, PO, l Capsule 19:39: Q8Hnow, # [place] nn 00 42 cap, 0 Refill(s) Docusate 2015-04 Yes 100 mg = 1 Mem oria Sodium 100 0-29 cap, PO, l MG Oral 19:39: BID, # 14 [place] nn Capsule 00 cap, 0 Refill(s) amitriptyli 2015-04 Yes 25 mg, PO, Memoria ne 25 mg 0-29 Bedtime, 0 l oral tablet 19:39: Refill(s) H ermann 00 carvedilol 2015-04 Yes 12.5 mg = Me moria 12.5 mg 0-29 1 tab, PO, l oral tablet 15:20: BID, 0 Herm angelic 00 Refill(s) Non-Formula 2015-04 No See Memori a ry Home 0-29 Instructio l Medication 15:20: ns, Tom 00 COLESTEROL SODIUM 1 TAB BY MOUTH EVERYDAY, Refill(s) 0 amitriptyli 2015-04 No 25 mg = 1 M emoria ne 25 mg 0-29 tab, PO, l oral tablet 15:20: Bedtime, # Finley 00 30 tab, 1 Refill(s) levothyroxi 2015-04 No 75 Memori a ne 75 mcg 0-29 microgram l (0.075 mg) 15:20: = 1 tab, Her [place] oral tablet 00 PO, Daily, # 30 tab, 0 Refill(s) levothyroxi 2015-04 Yes 50 Memori a ne 50 mcg 0-29 microgram l (0.05 mg) 15:20: = 1 tab, Herm angelic oral tablet 00 PO, Daily, # 30 tab, 0 Refill(s) Amlodipine 2015-04 No Notes: Memor ia 0-29 (Same as: l 14:00: Norvasc) Lopressor 2015-04 No Notes: Memori a 0-29 (Same as: l 14:00: Lopressor) Streptococc 2015-04 No Notes: Ashok petr us 0-29 Lightly l pneumoniae 14:00: roll vial He rmann serotype 1 00 (DO NOT capsular SHAKE) antigen before diphtheria administra [id number] tion. protein (Same as: conjugate Prevnar vaccine / 13) Streptococc us pneumoniae serotype 14 capsular antigen diphtheria [id number] protein conjugate vaccine / Streptococc us pneumoniae serotype 18C capsular antigen d Hydralazine 2015-04 No 25 mg, Ashok petr Hydrochlori 029 Route: PO, l de 25 MG 05:00: Drug form: Her [place] Oral Tablet 00 TAB, Q8H, Dosing Weight 56.818, kg, Start date: 02/13/16 0:00:00 CDT, Duration: 30 day, Stop date: 03/13/16 16:00:00 BINGO CALLER sennosides, 2015-04 No Notes: Ashok petr LONGTERM 0-29 (Same as: l 02:00: Senokot) Finley Docusate 2015-04 No Notes: Memoria 0-28 (Same as: l 14:00: Colace) Finley (Do Not Crush) potassium 2015-04 No Notes: Memori a chloride 0-28 (Same as: l 12:55: K-Dur 20) Tom 00 "Do Not Crush" With food and full glass of water Ativan 2015-04 No Notes: Memoria 0-28 (Same as: l 12:38: Ativan) Tom Tramadol 2015-04 No Notes: Not Mem oria 0-28 to exceed l 12:00: 400mg/day. Tom 00 (Same As: Ultram) gabapentin 2015-04 No Notes: Memor ia 0-28 (Same as: l 12:00: Neurontin) Finley 00 Acetaminoph 2015-04 No Notes: Ashok petr en 0-28 Infuse l 12:00: over 15 Tom 00 minutes Do not exceed 4gm/day of acetaminop hen MEDICATION WASTE Product Size: 1000 mg Product Wasted: ___ mg Naproxen 2015-04 No Notes: Memoria 0-28 (Same as: l 12:00: Naprosyn) Finley Take with food. Enoxaparin 2015-04 No Notes: Memor ia 0-28 (Same as: l 12:00: Lovenox) Finley Hydralazine 2015-04 No Notes: Ashok petr 0-28 (Same as: l 11:55: Apresoline Finley 00 ) Push over 5 minutes potassium 2015-04 No Notes: Memori a chloride 0-28 (Same as: l 11:47: K-Dur 20) Finley 00 "Do Not Crush" With food and full glass of water Oxycodone 2015-04 No Notes: Memori a Hydrochlori 0-28 (Same as: l de 5 MG 11:02: Roxicodone Herm angelic Oral Tablet 00 ) Ondansetron 2015-04 No Notes: Ashok petr 0-28 (Same as: l 11:02: Zofran) Finley MEDICATION WASTE Product Size: 4 mg Product Wasted: ___ mg Methocarbam 2015-04 No Notes: Ashok petr ol 0-28 (Same l 11:02: as:Robaxin Finley ) Acetaminoph 2015-04 No 1 tab, Ashok petr en 325 MG / 0-28 Route: PO, l Hydrocodone 10:53: Drug Form: Finley Bitartrate 00 TAB, 5 MG Oral Dosing Tablet Weight 56.818, kg, ONCE, STAT, Start date: 02/12/16 5:53:00 CDT, Stop date: 02/12/16 5:53:00 CDT Fentanyl 2015-04 No 25 Memoria 0-28 microgram, l 10:49: Route: Tom 00 IVP, ONCE, Dosing Weight 56.818, kg, Priority: STAT, Start date: 02/12/16 5:49:00 CDT, Stop date: 02/12/16 5:49:00 CDT Morphine 2015-04 No 4 mg, Memoria 0-28 Route: l 08:55: IVP, ONCE, Dosing Weight 56.818, kg, Priority: STAT, Start date: 02/12/16 3:55:00 CDT, Stop date: 02/12/16 3:55:00 CDT Immunizations Ordered Immunization Filled Immunization Date Status Commen ts Source Name Name pneumococcal 2016-02-13 Completed Memorial 13-valent vaccine 16:52:00 Tom Vital Signs Vital Name Observation Time Observation Value Comments Source Systolic blood 2021-10-01 16:15:27 167 mm[Hg] [facility] pressure Diastolic blood 2021-10-01 16:15:27 79 mm[Hg] [facility] pressure Heart rate 2021-10-01 16:15:27 82 /min [facility] Body temperature 2021-10-01 16:15:27 36.5 Kavita [facility] Respiratory rate 2021-10-01 16:15:27 14 /min [facility] Oxygen saturation in 2021-10-01 16:15:27 97 /min [facility] Arterial blood by Pulse oximetry Body weight 2021-10-01 10:35:00 49.896 kg [facility] BMI 2021-10-01 10:35:00 19.49 kg/m2 [facility] Body height 2021-09-28 20:23:00 160 cm [facility] Heart Rate 2016-02-13 19:47:00 [facility] [place] Diastolic (mm Hg) 2016-02-13 19:47:00 Mem orial Tom Systolic (mm Hg) 2016-02-13 19:47:00 Ashok rial Tom Respitory Rate 2016-02-13 18:02:00 Memori al [place] Temperature Oral (F) 2016-02-13 18:02:00 97.1 F [facility] [place] Systolic (mm Hg) 2016-02-13 18:02:00 Ashok rial Tom Diastolic (mm Hg) 2016-02-13 18:02:00 Mem orial Tom Systolic (mm Hg) 2016-02-13 12:52:00 Ashok rial Finley Diastolic (mm Hg) 2016-02-13 12:52:00 Mem orial Finley Temperature Oral (F) 2016-02-13 12:52:00 97.1 F [facility] [place] Heart Rate 2016-02-13 12:52:00 Memorial Tom Respitory Rate 2016-02-13 12:52:00 Memori al [place] Respitory Rate 2016-02-13 09:34:00 Memori al Tom Temperature Oral (F) 2016-02-13 09:34:00 97.6 F [facility] [place] Heart Rate 2016-02-13 09:34:00 [facility] [place] Height 2016-02-12 08:23:00 160.02 cm [facility] BMI Calculated 2016-02-12 08:23:00 Memori al [place] Weight 2016-02-12 08:23:00 [facility] Procedures Procedure Date / Time Performing Clinician Source Performed EEG AWAKE/DROWSY LESS 2021-09-30 20:54:48 Lorena Barros [facility] THAN 41 MIN SILVANA-19 ANTI-SPIKE IGG 2021-09-30 08:27:00 Ilan Boykin [facility] ANTIBODY TITER Tom SILVANA-Ravinder SEROLOGY 2021-09-30 08:27:00 Ilan Boykin [facility] PATIENT SURVEILLANCE Tom CT ANGIOGRAM HEAD W WO 2021-09-29 23:34:19 Lorena Barros [facility] CONTRAST CT ANGIOGRAM NECK W WO 2021-09-29 23:30:15 Lorena Barros [facility] CONTRAST EEG AWAKE/ASLEEP LESS 2021-09-29 22:20:28 Lorena Barros [facility] THAN 41 MIN CBC WITH PLATELET AND 2021-09-29 09:33:00 Bernadine, [facility] DIFFERENTIAL PROTHROMBIN TIME WITH INR 2021-09-29 09:33:00 Bernadine, [facility] COMPREHENSIVE METABOLIC 2021-09-29 09:33:00 Bernadine, [facility] PANEL THYROID STIMULATING 2021-09-29 09:33:00 Bernadine, [facility] HORMONE ESTIMATED GFR 2021-09-29 09:33:00 Bernadine, [facility] TROPONIN T 2021-09-29 06:20:00 Bernadine, [facility] LACTIC ACID LEVEL, SEPSIS 2021-09-29 03:03:00 Chika Saucedo [facility] - NOW AND REPEAT 2X EVERY [place] 3 HOURS TTE COMPLETE, WO 2021-09-29 02:25:00 Bernadine, [facility] CONTRAST, W DOPPLER ([id number]) COVID-19 QUALITATIVE 2021-09-28 23:48:00 Chika Saucedo [facility] RT-PCR Jorge TROPONIN T 2021-09-28 23:48:00 Chika Saucedo [facility] Jorge LACTIC ACID LEVEL, SEPSIS 2021-09-28 23:48:00 Chika Saucedo [facility] - NOW AND REPEAT 2X EVERY [place] [address] CHEST WO CONTRAST 2021-09-28 22:16:49 Chika Saucedo [facility][1] CT HEAD WO CONTRAST 2021-09-28 22:13:13 Chika Saucedo [facility] URINE CULTURE 2021-09-28 22:13:00 Chika Saucedo francisco Patel US CAROTID DUPLEX 2021-09-28 21:45:00 [facility] Jorge BLOOD CULTURE, AEROBIC & 2021-09-28 21:27:00 Chika Saucedo [facility] ANAEROBIC Jorge CBC WITH PLATELET AND 2021-09-28 21:27:00 [facility] Jorge COMPREHENSIVE METABOLIC 2021-09-28 21:27:00 Chika Saucedo [facility] PANEL Jorge TROPONIN T 2021-09-28 21:27:00 [facility] B NATRIURETIC PEPTIDE 2021-09-28 21:27:00 [facility] Jorge LACTIC ACID LEVEL, SEPSIS 2021-09-28 21:27:00 Chika Saucedo [facility] - NOW AND REPEAT 2X EVERY Jorge 3 HOURS URINALYSIS SCREEN AND 2021-09-28 21:[facility] Jorge TO CULTURE ESTIMATED GFR 2021-09-28 21:27:00 Chika Saucedo francisco Patel BLOOD CULTURE, AEROBIC & 2021-09-28 21:25:00 Chika Saucedo [facility] ANAEROBIC Jorge XR CHEST 1 VW 2021-09-28 21:24:24 Chika Saucedo francisco Patel ECG 12-LEAD 2021-09-28 21:13:13 Chika Saucedo francisco Patel ECG ED PRELIMINARY 2021-09-28 20:39:13 Chika Saucedo [facility] INTERPRETATION Jorge Laminectomy [facility] Ostomy monitoring [facility] Plan of Care Planned Activity Planned Date Details Comments Source Future Scheduled 2022-09-10 Hepatitis C screening [facility] Test 01:19:06 (procedure) [code = 934318278] Future Scheduled 2022-09-10 SHINGLES VACCINES (1 [facility] Test 01:19:06 of 2) [code = SHINGLES VACCINES (1 of 2)] Future Scheduled 2022-09-10 65+ PNEUMOCOCCAL [facility] Test 01:19:06 VACCINE (2 - PPSV23 if available, else PCV20) [code = 65+ PNEUMOCOCCAL VACCINE (2 - PPSV23 if available, else PCV20)] Future Scheduled 2022-09-10 COVID-19 VACCINE (3 - [facility] Test 01:19:06 Booster for Moderna series) [code = COVID-19 VACCINE (3 - Booster for Moderna series)] Future Scheduled 2022-09-10 INFLUENZA VACCINE [facility] Test 01:19:06 [code = INFLUENZA VACCINE] Encounters Start End Encounter Admission Attending Care Care Encounter Source Date/Time Date/Time Type Type Clinicians Facility Department ID 2019-12-15 Inpatient HCANC SALLIE [id number] [facility] 01:02:[address] [facility] 2021-09-28 2021-10-01 Emergency Chika Saucedo Jorge [id number] [id number] Methodi 15:32:00 14:25:00 Angel Yuliana [id number] [id number] .8 2021-09-28 2021-10-01 Outpatient [facility] [id number] [place] 00:00:00 00:00:00 [facility] [address] 2021-09-28 2021-09-28 Travel [id number] Methodi 00:00:00 00:00:[id number] 3.430.2.7 0.2.7.3.698 spita .[id number] 084.8 l .8 2016-02-12 2016-02-13 [facility] [id number] Memrekha 08:19:00 20:50:00 david Santos 02 [facility] 2016-02-12 2016-02-13 Outpatient Delisa [facility] [id number] 03:19:00 15:50:00 Chandler Booker 02 Results Test Description Test Time Test Comments Results Result Comments Source Urine culture 2021-09-30 08:54:00 Test Item Value Reference Range Interpretation Comme nts Urine culture isolate Mixed anish <=10-3 Specimen InformationSpecimen (test code = 58773-7) col/cc Source : UrineSpecimen Site: Clean catch [facility] 12 [id number] 02:45:20 Test Item Value Reference Range Interpretation Comments Ventricular rate (test 80 code = 253) Atrial rate (test code = 80 255) KS interval (test code = 152 266) QRSD interval (test code 80 = 260) QT interval (test code = 402 264) QTC interval (test code 463 = 265) P axis 1 (test code = 28 267) QRS axis 1 (test code = 64 268) T wave axis (test code = 92 270) EKG impression (test Normal sinus code = 273) rhythm-Normal ECG-No previous ECGs available-Electronica lly Signed By Cameron ROLAND, Jaleel Landaverde (2007) on 09/29/2021 9:45:15 [facility], (w Contrast, Strain and 3D if needed)2021-09-29 12:18:52 Test Item Value Reference Interpretation Comments Range Ao Root Diameter 2.88 cm (test code = 3022466664) AoV Area, Vmax (test 2.52 cm2 code = 7374800134) AoV Area, VTI (test 2.58 cm2 code = 0340303382) AoV Mean PG (test 3.02 mmHg code = 3534806646) AoV Peak PG (test 5.33 mmHg code = 1971827837) AoV Vmax (test code 1.15 m/s = 7724772807) AoV VTI (test code = 0.24 m 0386756979) IVS,d (test code = 0.96 cm 0.6-0.9 A 6880854978) IVS/LVPW,2D (test 0.85 code = 9320121688) Left Atrium 3.40 cm Dimension Anterior (test code = 2959970956) LV,d (test code = 3.31 cm 0347826842) LV EF,2D (test code 58.40 % = 8894043724) LV,s (test code = 2.47 cm 4599841230) LVOT area (test code 3.05 cm2 = 4599260110) LVOT Diam,S (test 1.97 cm code = 1089923325) LVOT Vmax (test code 0.97 m/s = 0712204719) LVOT VTI (test code 0.19 m = 2596822071) LVPWD,d (test code = 1.13 cm 0.6-0.9 A 7858423801) PV Pk Grad (test 2.34 mmHg code = 7278031260) PV VMAX (test code = 0.77 m/s 6198213681) RVOT Vmax (test code 0.52 m/s = 8895064709) TR Vpeak (test code 2.47 m/s = 2685744468) MV E A ratio (test 0.76 code = 0153834540) TR pk grad (test 24.5 mmHg code = 2463034128) MR Vmax (test code = 5.58 m/s 2701395080) E wave decelartion 234.74 msec time (test code = 9427271069) MV Peak A Rodríguez (test 1.00 m/s code = 3843796648) MV valve area p 1/2 3.23 cm2 method (test code = 7353574204) MV Peak E Rodríguez (test 0.77 m/s code = 7003711727) MV stenosis pressure 68.08 ms 1/2 time (test code = 2948546400) LVOT stroke volume 0.58 ml (test code = 1666714795) AV LVOT peak 3.64 mmHg gradient (test code = 4379803741) Ao Root Diameter 2.88 cm (test code = 6055772241) MV mean gradient 2.20 mmHg (test code = 0916614836) LV SYS VOL (test 21.71 ml 14-42 code = 9714846380) LV RAPHAEL VOL (test 44.51 ml 46-106 A code = 0513102225) LA area s A4C (test 16.08 cm2 code = 1047891180) LV SV Teich 2D (test 22.80 ml code = 2860686967) LV Vol s Teich PSAX 21.71 ml (test code = 5889467688) MR peak grad (test 5.56 mmHg code = 5194490698) MV Vmax (test code = 1.18 m 0175825350) MV VTI Tips (test 0.24 m code = 7489309178) RVOT pk grad (test 1.09 mmHg code = 2479258827) AoV Vmn (test code = 0.84 m/s 8658427595) LV FS Teich 2D (test 25.35 code = 0265392102) MV AE ratio (test 1.31 code = 3570224317) LV FS Cube 2D (test 25.35 code = 1221797125) LVOT Vmn (test code 0.65 = 7699520559) Aov area Vmn (test 2.42 cm2 code = 0661020121) LVOT mean grad (test 1.86 mmHg code = 5208593985) MAX Pred HR (test 141.59 code = 5124014423) 85 of MPHR (test 120.35 code = 0101125749) Calc MPHR (test code 141.59 bpm = 6727642411) LV SV Cube 2D (test 21.21 ml code = 6600013184) LV vol d cube 2D 36.32 ml (test code = 2098012932) LV vol s cube 2D 15.11 ml (test code = 3036015198) MV Decel slope (test 3.26 m/s2 code = 6135179650) Pred Exer Dur R1 5.91 (test code = 4537447173) Pred METS R1 (test 4.51 code = 2218066374) LA Vol MOD A4C (test 43.14 ml code = 0566982140) E prime sept (test 0.06 code = 9296433439) E prime lat (test 0.10 code = 9673220196) Velocity Ratio 0.84 m/s (V1/V2) (test code = 4689) EF (test code = 51 % 2573150656) E/A ratio (test code 0.77 = 6596996260) LVOT VTI (CM) (test 19.00 cm code = 6502634537) RVSP (test code = 29.50 See_Comment [Automate d 0420101433) message] The system which generated this result transmitted reference range : 40.00 mmHg. The reference range was not used to interpret this result as normal/abnormal . RA pressure (test 5.0 mmHg code = 3811367387) JENNIFER (test code = JENNIFER) Left Ventricle: Normal wall motion. Normal systolic function with a visually estimated EF of 60 - 65%. Mitral Valve: Moderate posterior mitral annular calcification. Normal left ventricular size with preserved systolic and diastolic function and no regionality. Age related changes involving the mitral valve with associated trace mitral regurgitation. Normal right sided chambers. Trace tricuspid regurgitation. Normal pulmonary arterial systolic pressures. Left VentricleLeft ventricle size is normal. Normal wall thickness. Normal wall motion. Normal systolic function with a visually estimated EF of 60 - 65%. Diastolic function is reduced, appropriate for age. Normal left ventricular filling pressure.Right VentricleRight ventricle size is normal. Normal systolic function.Left AtriumLeft atrium size is normal.Right AtriumRight atrium size is normal.Mitral ValveModerate posterior mitral annular calcification. Trace valvular regurgitation. No stenosis.Tricuspid ValveValve structure is normal. Trace valvular regurgitation. No pulmonary hypertension is present. No stenosis.Aortic ValveValve structure is normal. No significant valvular regurgitation. No stenosis.Pulmonic ValveLeaflets were not well visualized. Unable to assess valvular regurgitation. Unable to assess severity of stenosis. Pulmonary artery was not well visualized.Pericardi umThere is no pericardial effusion present.AortaNormal sized aortic root.Study DetailsStudy quality was adequate. A complete 2D, color flow Doppler and spectral Doppler echocardiogram was performed.The apical, parasternal, subcostal and suprasternal views were obtained. Patient exhibited sinus rhythm. Technical difficulties due to lung artifact. Lab Interpretation Abnormal (test code = 07792-3) [facility] [id number]-5 (COVID-19) RNA [Presence] in Respiratory specimen by AMARJIT with probe [id number] 01:23:32 Test Item Value Reference Range Interpretation Comments SARS-CoV-2 (COVID-19) RNA Not detected [Presence] in Respiratory specimen by AMARJIT with probe detection (test code = 97892-9) Whether patient is employed in a Unknown healthcare setting (test code = 46278-4) Whether the patient has symptoms Unknown related to condition of interest (test code = 86992-1) Whether the patient was Unknown hospitalized for condition of interest (test code = 73829-2) Whether the patient was admitted Unknown to intensive care unit (ICU) for condition of interest (test code = 43150-3) Whether patient resides in a Unknown congregate care setting (test code = 91233-9) status (test code = Unknown 48305-0) Date and time of symptom onset Unknown (test code = [id number]) [facility]- CT ABD PELVIS [id number] 05:16:00 Patient Name: MELISSA ISMPSON Unit No: [id number] EXAMS: CPT CODE: [id number] CT ABD PELVIS [id number] Exam: CT abdomen and pelvis with contrast. Location: H 12 History: abd pain Technique: Enhanced spiral slices were taken from the domes of the diaphragm, through the pubic symphysis. Coronal reformations were performed. One or more of the following dose reduction techniques were used: Automatedexposure control, adjustment of the mA and/or kV according to patient size, and/or utilization of iterative reconstruction technique. Findings: The liver is of normal, homogeneous density. No mass is seen. The intra-and extrahepatic biliary tree is normal. The hepatic and portal veins are patent. Thegallbladder is unremarkable. No pericholecystic fluid or wall thickening is present. The pancreas isnormal. The pancreatic duct is normal in caliber. The spleen and adrenal glands are normal in size and shape. The kidneys are unremarkable. No nephrolithiasis, perinephric fluid collections or hydroneph rosis is seen. Postoperative changes are noted. The [...] by: Marcos Mendez MD [facility] [place] [place] [address] : 1945 Age: 74 Sex: [place] [address] Loc: [place] Exam Date: 12/15/2019 Status: REG ER PH: FAX: PAGE 1 Signed Report (CONTINUED) Patient Name: MELISSA SIMPSON Unit No: [id number] EXAMS: CPT CODE: [id number] CT ABD PELVIS W/CONT 10062 (Continued) CC: Self Referred; Jr Romero MD Technologist: Felipe Chung CTDI: DLP: 799.3 Trscr Dt/Tm: 12/15/2019 (515) by:Danish Electronic Signature Date/Time: 12/15/2019 (515)Orig Print D/T: S: 12/15/2019 (518) Name: MELISSA SIMPSON [facility] [place] Phys: [place] [address] : 1945 Age: 74 Sex: [place] [address] Loc: [place] Exam Date: 12/15/2019 Status: REG ER PH: FAX: PAGE 2 Signed ReportBASIC METABOLIC PANEL 2019-12-15 04:23:00 Test Item Value Reference Range Interpretation Comments SODIUM (test code 136 mmol/L 135-145 N = NA) POTASSIUM (test 4.2 mmol/L 3.5-5.1 N code = K) CHLORIDE (test 103 mmol/L 98-107 N code = CL) CARBON DIOXIDE 27 mmol/L 21-32 N (test code = CO2) ANION GAP (test 10.2 2.0-16.0 N code = GAP) GLUCOSE (test code 93 mg/dL 65-99 N = GLU) BLOOD UREA 16 mg/dL 4-23 N NITROGEN (test code = BUN) GLOMERULAR >=60 max >60 The estimated FILTRATION RATE estimate ml/min glomerula r (test code = GFR) filtration rate is computed usingpatient ra ce, age (>18), sex, and serum creatinin e. If anyof the neede d data elements a re missing the Laboratory miky ot compute an estimation of t he glomerular filtration rate . CREATININE (test 0.9 mg/dL 0.6-1.5 N code = CREAT) BUN/CREATININE 17.8 12.0-20.0 N RATIO (test code = BUN/CREA) CALCIUM (test code 11.0 mg/dL 8.5-10.1 H = CA) LIVER FUNCTION [id number] 04:23:00 Test Item Value Reference Range Interpretation [...] 45-117 N PHOSPHATASE (test code = ALKP) [id number] 04:23:00 Test Item Value Reference Range Interpretation Comments LIPASE (test code = LIP) 69 U/L 73-393 L CBC W/AUTO [id number] 03:05:00 Test Item Value Reference Range Interpretation [...] = BA#) 0.06 10 3/uL 0.0-0.1 N [id number] 09:36:00 Test Item Value Reference Range Interpretation Comments eGFR (test code = eGFR) 88 [facility]ArmsypkDGHDZUFCAXVH1628-61-41 09:36:00 Test Item Value Reference Range Interpretation Comments Calcium Lvl (test code = Calcium Lvl) 9.2 8.5-10.5 [facility] HospitalJwjjhhdAGFMJCETHGJY1139-49-42 09:36:00 Test Item Value Reference Range Interpretation Comments CO2 (test code = CO2) 22 24-32 [facility] HospitalUarxdpqTPSRKBGBAOEZ4898-11-46 09:36:00 Test Item Value Reference Range Interpretation Comments Chloride Lvl (test code = Chloride Lvl) 100 95-109 [facility] HospitalBltmywjUHOIJDYCIMDD0232-15-45 09:36:00 Test Item Value Reference Range Interpretation Comments Potassium Lvl (test code = Potassium 3.6 3.5-5.1 Lvl) [facility] HospitalDnoblqhQDMIZQNUVZLW6709-94-60 09:36:00 Test Item Value Reference Range Interpretation Comments Sodium Lvl (test code = Sodium Lvl) 134 135-145 [facility] HospitalGjvbatxDITJPVQHHLXE6064-35-39 09:36:00 Test Item Value Reference Range Interpretation Comments Creatinine Lvl (test code = Creatinine 0.67 0.50-1.40 Lvl) [facility] HospitalBftaprcLTDWHMLHPDHO5367-39-47 09:36:00 Test Item Value Reference Range Interpretation Comments BUN (test code = BUN) 15 7-22 [facility] HospitalLnyttzoDXDOABVMXEAB6249-73-93 09:36:00 Test Item Value Reference Range Interpretation Comments Glucose Lvl (test code = Glucose Lvl) 108 70-99 [facility] SystemOdhrqwnDPCOEVFKEX6749-01-03 09:36:00 Test Item Value Reference Range Interpretation Comments RDW (test code = RDW) 13.5 11.5-14.5 [facility] SystemReamasvZEBSYGMPIV8236-67-06 09:36:00 Test Item Value Reference Range Interpretation Comments MPV (test code = MPV) 7.1 7.4-10.4 [facility] SystemEipwoinFXAOSIWCES0162-65-55 09:36:00 Test Item Value Reference Range Interpretation Comments Platelet (test code = Platelet) 239 133-450 [facility] SystemTpwyjquKLBMJNZAWL7812-72-47 09:36:00 Test Item Value Reference Range Interpretation Comments Hgb (test code = Hgb) 10.9 12.0-16.0 [facility] SystemPemlqewOZVGPCGRTS4601-90-89 09:36:00 Test Item Value Reference Range Interpretation Comments RBC (test code = RBC) 3.52 4.20-5.40 [facility] SystemOessncqUIAIGZJXXV9330-69-82 09:36:00 Test Item Value Reference Range Interpretation Comments WBC (test code = WBC) 5.4 3.7-10.4 [facility] SystemIzhcpeyYCNQNVALES5699-51-05 09:36:00 Test Item Value Reference Range Interpretation Comments Hct (test code = Hct) 32.3 36.0-48.0 [facility] SystemLvbfxsrUZRTRCSVVO2031-52-03 09:36:00 Test Item Value Reference Range Interpretation Comments MCH (test code = MCH) 31.0 pg 27.0-31.0 [facility] SystemVtjiufxZKCZZLSIUK1492-45-75 09:36:00 Test Item Value Reference Range Interpretation Comments MCV (test code = MCV) 91.7 80.0-98.0 [facility] SystemSetgzzgLMBTSSCEZY1535-46-24 09:36:00 Test Item Value Reference Range Interpretation Comments MCHC (test code = MCHC) 33.8 32.0-36.[address] [facility] HospitalYaksacuQFEEPMKLMPCN5874-46-60 09:36:00 Test Item Value Reference Range Interpretation Comments AGAP (test code = AGAP) 15.6 10.0-20.0 [facility] SystemUxaintfOPWKKOEBNB4193-95-81 09:09:00 Test Item Value Reference Range Interpretation Comments Monocytes (test code = Monocytes) 9.2 2.0-12.0 [facility] SystemDuqswqkFGQAQYSCFN9199-15-75 09:09:00 Test Item Value Reference Range Interpretation Comments Lymphocytes # (test code = Lymphocytes 2.0 1.0-5.5 #) [facility] SystemIjrnukkQGXMHGXYGY6451-76-81 09:09:00 Test Item Value Reference Range Interpretation Comments Segs-Bands # (test code = Segs-Bands #) 5.3 1.5-8.1 [facility] SystemAbcadniNTYWNGTDPU7307-69-21 09:09:00 Test Item Value Reference Range Interpretation Comments Eosinophils (test code = 1.9 See_Comment [A utomated message] The Eosinophils) system which ge nerated this result tra nsmitted reference range : <=4.0. The reference r mary was not used to int erpret this result as normal/abnormal . [facility] SystemFoeotiyYNBGNDLGLG9397-33-59 09:09:00 Test Item Value Reference Range Interpretation Comments Basophils (test code = 0.8 See_Comment [Aut omated message] The Basophils) system which ge nerated this result tra nsmitted reference range : <=1.0. The reference r mary was not used to int erpret this result as normal/abnormal . [facility] SystemBmydipbXLUVDGSPAW3659-91-30 09:09:00 Test Item Value Reference Range Interpretation Comments Eosinophils # (test code 0.2 See_Comment [A utomated message] The = Eosinophils #) system whic h generated this result tra nsmitted reference range : <=0.5. The reference r mary was not used to int erpret this result as normal/abnormal . [facility] SystemEuypvphFAKNOYXMDP6303-46-47 09:09:00 Test Item Value Reference Range Interpretation Comments Monocytes # (test code 0.8 See_Comment [Aut omated message] The = Monocytes #) system which generated this result tra nsmitted reference range : <=0.8. The reference r mary was not used to int erpret this result as normal/abnormal . [facility] HospitalGevqiolMFGKUZVAGPFH8537-50-18 09:09:00 Test Item Value Reference Range Interpretation Comments AGAP (test code = AGAP) 15.4 10.0-20.0 [facility] HospitalQulhkpaAZZVQPPQHGGS8118-13-66 09:09:00 Test Item Value Reference Range Interpretation Comments eGFR (test code = eGFR) 72 [facility] HospitalNwteldfQLOMYMUXMSBT9709-44-25 09:09:00 Test Item Value Reference Range Interpretation Comments Glucose Lvl (test code = Glucose Lvl) 99 70-99 [facility] HospitalHlarorrVPINUXJWOZZX0388-09-53 09:09:00 Test Item Value Reference Range Interpretation Comments Sodium Lvl (test code = Sodium Lvl) 134 135-145 [facility] HospitalWmomhglRDYYXJSXZEKA9418-68-35 09:09:00 Test Item Value Reference Range Interpretation Comments Creatinine Lvl (test code = Creatinine 0.82 0.50-1.40 Lvl) [facility] HospitalCoagctdYYCVOANXLEFH5148-13-30 09:09:00 Test Item Value Reference Range Interpretation Comments BUN (test code = BUN) 17 7-22 [facility] HospitalQpmznftFCJJZXOUGQLA9214-68-67 09:09:00 Test Item Value Reference Range Interpretation Comments Chloride Lvl (test code = Chloride Lvl) 99 95-109 [facility] HospitalVeridrrYOXCISXHCUHX1585-28-37 09:09:00 Test Item Value Reference Range Interpretation Comments Potassium Lvl (test code = Potassium 3.4 3.5-5.1 Lvl) [facility] HospitalUsrzphbECVYJYVUHHEW8703-48-53 09:09:00 Test Item Value Reference Range Interpretation Comments Calcium Lvl (test code = Calcium Lvl) 8.4 8.5-10.5 [facility] HospitalGfazjqxFUWCDBDSYRRP7027-89-79 09:09:00 Test Item Value Reference Range Interpretation Comments CO2 (test code = CO2) 23 24-32 [facility] SystemLthanlaLYXDMQEHCA7321-20-86 09:09:00 Test Item Value Reference Range Interpretation Comments Max Amplitude Rapid (test code = Max 74 mm 52-71 Amplitude Rapid) [facility] SystemPxxsfolRSLCADRYKG5781-75-63 09:09:00 Test Item Value Reference Range Interpretation Comments G-value Rapid (test code = G-value 14.3 5.0-11.6 Rapid) [facility] SystemJcmfdbnRRXYZXKGZN0198-03-40 09:09:00 Test Item Value Reference Range Interpretation Comments Estimated % Lysis Rapid 0.4 See_Comment [Au tomated message] The (test code = Estimated syste m which generated % Lysis Rapid) this result t ransmitted reference range : <=7.5. The reference r mary was not used to int erpret this result as normal/abnormal . [facility] SystemVylrekiABZADZKJAJ1313-29-49 09:09:00 Test Item Value Reference Range Interpretation Comments K-time Rapid (test code = K-time 0.8 min 0.6-2.3 Rapid) [facility] SystemYkpuiwzSANDAYTORS4717-00-99 09:09:00 Test Item Value Reference Range Interpretation Comments Angle Rapid (test code = Angle 81 degrees 64-80 Rapid) [facility] SystemTpvxmyhDGYLBOFQOJ1206-25-77 09:09:00 Test Item Value Reference Range Interpretation Comments ACT (TEG) Rapid (test code = ACT (TEG) 97 s 86-118 Rapid) [facility] SystemPtowltpTGQDZSIJOX8115-45-29 09:09:00 Test Item Value Reference Range Interpretation Comments Split Point Rapid (test code = Split 0.4 min Point Rapid) [facility] SystemQqlwyqjOGLEVXUQRR0320-79-33 09:09:00 Test Item Value Reference Range Interpretation Comments R-time Rapid (test code = R-time 0.5 min 0.4-0.7 Rapid) [facility] SystemIzhubliZPRXWSEBXP5149-67-17 09:09:00 Test Item Value Reference Range Interpretation Comments PTT (test code = PTT) 31.5 s 22.9-35.8 [facility] SystemYcnwrftOQZWGNPSXE6500-51-75 09:09:00 Test Item Value Reference Range Interpretation Comments PT (test code = PT) 13.9 s 12.0-14.7 [facility] SystemKvrpkxvLOYYTUIHIL0305-99-37 09:09:00 Test Item Value Reference Range Interpretation Comments INR (test code = INR) 1.05 0.85-1.17 [facility] SystemGeqxnnoMQBLNMXDRE1403-01-37 09:09:00 Test Item Value Reference Range Interpretation Comments Hgb (test code = Hgb) 10.9 12.0-16.0 [place] 624136-10-28 09:09:00 Test Item Value Reference Range Interpretation Comments RBC (test code = RBC) 3.51 4.20-5.40 [facility] SystemVlfrhzhYEEHOJIBFX7215-75-92 09:09:00 Test Item Value Reference Range Interpretation Comments Hct (test code = Hct) 32.1 36.0-48.0 [facility] SystemZgbwmjpSPLBAQIONG6678-99-89 09:09:00 Test Item Value Reference Range Interpretation Comments MCHC (test code = MCHC) 33.9 32.0-36.0 [facility] SystemKqaolmmEMYCQKLNLH7252-85-17 09:09:00 Test Item Value Reference Range Interpretation Comments MCH (test code = MCH) 31.0 pg 27.0-31.0 [facility] SystemDaqqukcPBOKLJCDPL6635-53-61 09:09:00 Test Item Value Reference Range Interpretation Comments MCV (test code = MCV) 91.4 80.0-98.0 [facility] SystemRjhbrbgGJVCPXCDXK1783-25-69 09:09:00 Test Item Value Reference Range Interpretation Comments WBC (test code = WBC) 8.3 3.7-10.4 [facility] SystemIawazsrQYHWRXEODM1899-19-18 09:09:00 Test Item Value Reference Range Interpretation Comments MPV (test code = MPV) 7.0 7.4-10.4 [facility] SystemTkinijwRUATUAFCKV1717-01-03 09:09:00 Test Item Value Reference Range Interpretation Comments Platelet (test code = Platelet) 264 133-450 [facility] SystemXvaejplKAECJANXUW1134-92-89 09:09:00 Test Item Value Reference Range Interpretation Comments RDW (test code = RDW) 13.4 11.5-14.5 [facility] SystemDyudilqXEYKSDKAHD6107-16-76 09:09:00 Test Item Value Reference Range Interpretation Comments Basophils # (test code 0.1 See_Comment [Aut omated message] The = Basophils #) system which generated this result tra nsmitted reference range : <=0.2. The reference r mary was not used to int erpret this result as normal/abnormal . [facility] SystemBzvqtllFYPJGNSNJW2992-63-11 09:09:00 Test Item Value Reference Range Interpretation Comments Lymphocytes (test code = Lymphocytes) 24.5 20.0-40.0 [facility] SystemJczkcdjRJHSZLICNO6008-44-96 09:09:00 Test Item Value Reference Range Interpretation Comments Segs (test code = Segs) 63.6 45.0-75.0 [facility] Notes Date/Time Note Provider Source 2019-12-15 05:22:00-00:00 [facility] EMERGENCY PROVIDER REPORT REPORT#:[id number] REPORT STATUS: Signed DATE:12/15/19 TIME: 521 PATIENT: MELISSA SIMPSON UNIT #: [id number] ROOM: BED: AGE: 74 SEX: F PCP PHYS: Julissa Stock [employer] AUTHOR: Jr Romero MD * ALL edits or amendments must be made on the [employer]/ASYM III document * HPI-Abd Pain F 40 and Over General Initial Greet Date/Time 12/15/19 010 Presentation Chief Complaint Abdominal pain Sudden in Onset? No Onset Occurred Weeks ago, Chronic Symptom Duration Waxes and wanes Progression since Onset Intermittent Caused by No trauma by history Location Diffuse Quality Sharp Radiation No: Does not radiate. Free Text HPI Notes Free Text HPI Notes chronic abd pain sharp diffuse for past couple y ears off and on previous surgeries include bowel resection, lysi s of adhesions assoc n/v no diarrhea constipation sob cp f/c Risk-Abd Pain F 40 and Over )( Abdominal Aortic Aneurysm Risk factors review ed Review of Systems Free Text ROS Notes Free Text ROS Notes Constitutional: no chills, no fever, no fatigue Eyes: no blurry vision, no visual changes ENTM: no sore throat, no ear pain Respiratory: no cough, no shortness of breath Cardiovascular: no chest pain, no palpitations Gastrointestinal: reports ab dominal pain, no diarrhea, reports nausea vomiting, no constipation Genitourinary: no dysuria, no hematuria, no flan k pain Musculoskeletal: no back pain, no extremity swel ling Psychiatric: no anxiety, no depressed thoughts Neurological: no dizziness, no headache Past Medical History - Adult Stated Complaint GI PAIN CONSTIPATION Allergies Coded Allergies: No Known Allergies (12/15/19) Physical Exam Vital Signs Vital Signs First Documented: Result Date Time Pulse Ox 99 12/15 107 B/P 191/106 12/15 107 B/P Mean 134 12/15 107 O2 Delivery Room air 12/15 107 Temp 36.8 12/15 107 Pulse 109 12/14 010 Resp 16 12/15 107 Last Documented: Result Date Time Pulse Ox 100 12/14 542 B/P 183/91 12/14 542 B/P Mean 121 12/14 542 O2 Delivery Room air 12/14 542 Pulse 92 12/14 542 Resp 20 12/14 542 Temp 36.8 12/14 0422 Review of Vital Signs Reviewed Focused PE General/Const General/Const Awake, Alert, No acute di stress, Well appearing, Well developed Resp/Chest Respiratory/Chest Atraumatic, No respiratory di stress, No retractions Cardiovascular Cardiovascular Heart rate NL, Peripheral circul ation NL Abdomen/GI Abdomen/GI Atraumatic, Soft, Non-tender, No gua rding, No rebound MS Back Back Atraumatic, Inspection NL Free Text PE Notes Free Text PE Notes HEENT: normocephalic, atraumatic, EOMI, nonicter ic, moist mucous membranes, normal external ENT inspection Neck: supple, normal inspection, no neck swellin g Neurologic: awake, alert, verbal speaking in ful l sentences, moving all extremities Psychiatric: normal mood, normal affect Skin: normal color, warm/dry Interpretation Diagnostics Lab Results Interpretation Results Laboratory Tests 12/15/19252: [Embedded Image Not Available] 12/15/19354: [Embedded Image Not Available] Laboratory Tests: 12/14 035 Chemistry Sodium (135 - 145 mmol/L) 136 Potassium (3.5 - 5.1 mmol/L) 4.2 Chloride (98 - 107 mmol/L) 103 Carbon Dioxide (21 - 32 mmol/L) 27 Anion Gap (2.0 - 16.0) 10.2 BUN (4 - 23 mg/dL) 16 Creatinine (0.6 - 1.5 mg/dL) 0.9 Glomerular Filtr Rate (>60 ml/min) >=60 max est imate BUN/Creatinine Ratio (12.0 - 20.0) 17.8 Glucose (65 - 99 mg/dL) 93 Calcium (8.5 - 10.1 mg/dL) 11.0 H Total Bilirubin (0.2 - 1.2 mg/dL) 0.5 Direct Bilirubin (0.0 - 0.3 mg/dL) 0.1 Indirect Bilirubin (0.0 - 0.8 mg/dL) 0.4 AST (15 - 37 U/L) 22 ALT (6 - 50 U/L) 16 Total Alk Phosphatase (45 - 117 U/L) 56 Total Protein (6.4 - 8.2 g/dL) 8.5 H Albumin (3.4 - 5.0 g/dL) 4.5 Globulin (2.3 - 3.5 g/dL) 4.0 H Lipase (73 - 393 U/L) 69 L Hematology WBC (4.5 - 11.0 10 3/uL) 6.9 RBC (3.50 - 5.50 10 6/uL) 3.96 Hgb (12.0 - 16.0 g/dL) 12.1 Hct (37.0 - 55.0 %) 36.7 L MCV (81 - 102 fL) 93 MCH (26.0 - 34.0 pg) 30.6 MCHC (31.0 - 37.0 g/dL) 33.0 RDW (11.5 - 14.5 %) 12.4 Plt Count (150 - 400 10 3/uL) 272 MPV (9.0 - 12.6 fL) 8.8 L Neut % (Auto) (33.0 - 76.0 %) 62.1 Lymph % (Auto) (14.0 - 56.4 %) 27.9 Greene % (Auto) (0.0 - 12.9 %) 8.4 Eos % (Auto) (0.0 - 7.0 %) 0.4 Baso % (Auto) (0 - 2.0 %) 0.9 Neut # (Auto) (1.5 - 7.0 10 3/uL) 4.29 Lymph # (Auto) (1.50 - 4.00 10 3/uL) 1.93 Greene # (Auto) (0.20 - 0.80 10 3/uL) 0.58 Eos # (Auto) (0.0 - 0.5 10 3/uL) 0.03 Baso # (Auto) (0.0 - 0.1 10 3/uL) 0.06 Abs Immat Gran (auto) (0.000 - 0.100 x10 3/uL) 0.020 Immature Gran % (0.0 - 1.0 %) 0.3 Nucleated RBC % (0 - 0.2 %) 0.0 Recent Impressions: CAT SCAN - CT ABD PELVIS W/CONT 12/14 0500 Report Impression - Status: SIGNED Entered: 12/15/2019 05 Impression: 1. No acute abdominal findings. 2. Postoperative abdomen. 3. Status post hysterectomy. 4. Mild constipation. 5. Hiatal hernia. Impression By: Danish Mendez MD Lab Imaging Statement Laboratory radiographic studies reviewed and con sidered in the medical decision-making. ECG #1 Interpretation Date 12/15/19 Time 0146 Interpreted by and reviewed by me, ED physician NL ECG Interpretation Normal rate, Normal sinus rhythm, No acute ischemic changes, No STEMI, Normal axis, Normal intervals Rate 101 Re-Evaluation MDM Free Text MDM Notes Free Text MDM Notes abd pain prev abd surgeries assess for sbo abscess other intraabd process labs ct anaglesics reassess )( Re-Evaluation/Progress #1 Text/Dict Note re-evaulatuion feels improved after treatment no new symptoms vital signs stable no acute distress previous charts reviewed ekg as noted imaging results showed no gross acute process, r esults were discussed with patient lab results show no gross significant acute abno rmalities, results were discussed with patient chronic and incidental findings were also convey ed to patient patient and/or family understood appears improved patient felt comfortable being discharged potential diagnoses were discussed with patient treatment plan discussed with patient analgesics stool softeners f/u gi and general surgery medication prescriptions provided and discussed with patient understands return precautions to emergency depa rtment including intractable pain vomiting fever sob cp worsening symptoms or any other concerns otherwise can followup with PCP Time of Re-Eval 05 )( Re-Eval Status Improved Re-Eval Abdomen Soft, Non-tender, No guarding, N o rebound ED Course Medication(s) Ordered Medication(s) Ordered: Central Nervous System Agents Sig/Maite Start time Last Medication Dose Route Stop Time Status Admin Morphine Sulfate 4 MG Q4H PRN PRN 12/14 013 DC D 12/14 IV 12/24 0131 0239 Diagnostic Agents Sig/Maite Start time Last Medication Dose Route Stop Time Status Admin Iopamidol 0 .STK-MED ONE 12/14 0146 DC .ROUTE Electrolytic, Caloric, And Nikko Sig/Maite Start time Last Medication Dose Route Stop Time Status Admin Sodium Chloride 1,000 ML X1ED STA 12/14 0131 DC 12/14 IV 12/14 0132 0238 Gastrointestinal Drugs Sig/Maite Start time Last Medication Dose Route Stop Time Status Admin Ondansetron HCl 4 MG Q4H PRN PRN 12/14 129 DCD 12/14 IV 01/13 013 0238 Differential Diagnosis Differential Diagnosis Abdominal aortic aneurysm , Acute abdominal pain, Acute coronary syndrome, Appendicitis, Cellulitis, Cer vicitis, Cholecystitis, Cholelithiasis, Constipation, Diarrhea, Dyspepsi a, Endometriosis, Gastritis, Gastroenteritis, GERD, Hepat itis, Hernia, Malignancy, Ovarian cyst, Pancreatitis , Peritonitis, Pyelonephritis, Sepsis, Urinary t ract infection, Urolithiasis, Volvulus Patient Discharge Departure Vital Signs/Condition Vital Signs First Documented: Result Date Time Pulse Ox 99 12/14 0108 B/P 191/106 12/14 0108 B/P Mean 134 12/14 0108 O2 Delivery Room air 12/14 0108 Temp 36.8 12/14 0108 Pulse 109 12/14 0108 Resp 16 12/14 0108 Last Documented: Result Date Time Pulse Ox 100 12/14 0543 B/P 183/91 12/14 0543 B/P Mean 121 12/14 0543 O2 Delivery Room air 12/14 0543 Pulse 92 12/14 0543 Resp 20 12/14 0543 Temp 36.8 12/14 0422 All vital signs available at the time of this en try have been reviewed. Clinical Impression Clinical Impression Primary Impression: Abdominal pain Secondary Impressions: Abdominal pain in female, Chronic abdominal pain, Lower abdominal pain Ruled Out Impressions: Chest pain, Diarrhea, Fev er, SOB (shortness of breath) Disposition Decision Discharge )( Discharged to Home Yes )( Time 0532 )( Date 12/15/19 Discharge/Care Plan Counseled Regarding Diagnosi s, Lab results, Imaging studies, Need for follow-up, When to return to ED Referrals Julissa StockP (PCP/Family) Discharge Note I have spoken with the patie nt and/or caregivers. I have explained the patient's condition, diagnoses and sam atment plan based on the information available to me at this time. I have answered the patient's and/ or caregiver's questions and addressed any concerns. The patient and/or careg jacoby have as good an understanding of the patient 's diagnosis, condition and treatment plan as can be expected at this point. The vital signs have bee n stable. The patient's condition is stable and appr opriate for discharge from the emergency department. The patient will pursue further outpatient evalu ation with the primary care physician or other designated or consulting phys ician as outlined in the discharge instructions. The patient and/or caregivers are agreeable to this plan of care and follow-up instructions have been exp lained in detail. The patient and/or caregivers have received these instructio ns in written format and have expressed an understanding of the discharge inst ructions. The patient and/or caregivers are aware that any significant change in condition or worsening of symptoms should prompt an immediate return to [facility] or the closest emergency department or a call to 1. Electronically Signed by Jr Romero MD on 12/14 at 0818 RPT #:[id number] END OF REPORT 2019-12-15 01:46:00-00:00 [id number] [place] [id number] PATIENT NAME: MELISSA SIMPSON ADMIT DATE: 11/17 ACCOUNT NO: [id number] ROOM NO: AGE: 74 REPORT TYPE: eELECTROCARDIOGRAM SEX: F ADMITTING PHYSICIAN: ATTENDING PHYSICIAN: Order: [id number] Test Reason : Test Date/Time Stamp: Terrell Dec 15 2019 01:46:59 Blood Pressure : / mmHG Vent. Rate : 101 BPM Atrial Rate : 101 BPM P-R Int : 150 ms QRS Dur : 096 ms QT Int : 365 ms P-R-T Axes : 037 042 063 degree s QTc Int : 474 ms Sinus tachycardia Confirmed by MD Mode, Lizandro ([id number]) on 12/15/2019 5:04:01 PM Referred By: Self Referred Confirmed by:Ana Coello, at [address] [address] PATIENT NAME: MELISSA SIMPSON [id number]
[2022-09-10 01:35] LABS: Absolute Lymphocytes (CBC) 1.2 K/uL (0.7-4.9); Hematocrit 37.7 % (36.0-45.0); Lymphocytes % 11.6 % (15.3-44.8); MCV 77.9 fL (80-100); MPV 7.8 fL (7.6-11.3); RBC Red Blood Cell Count 4.84 M/uL (3.86-4.86)
[2022-09-10 01:44] LABS: Bilirubin Total 0.5 mg/dL (0.2-1.0)
[2022-09-10 01:45] LABS: Albumin 4.5 g/dL (3.4-5.0); Magnesium 2.5 mg/dL (1.6-2.4); Protein, Total 9.6 g/dL (6.4-8.2)
[2022-09-10] MEDS ORDERED: ONDANSETRON 4 MG/2 ML VIAL ONE ×3 (01:48→07:53)
[2022-09-10] MEDS ORDERED: NA CHLORIDE 0.9% 500 ML ONE ×2 (01:48→07:54)
[2022-09-10] MEDS ORDERED: MORPHINE 4 MG/ML SYR ONE ×2 (01:48→05:31)
[2022-09-10] MEDS ORDERED: FAMOTIDINE 20 MG/2 ML VIAL IV ONE (01:48)
[2022-09-10] MEDS ORDERED: HYDRALAZINE HCL 20 MG/ML VIAL ONE ×2 (02:52→07:53)
--- NOTE | 2022-09-10 07:30 | EDPHYS ---
Physician Documentation [facility] Name: Valentina Raphael Age: 77 yrs Sex: Female : 1945 Arrival Date: 09/10/2022 Time: 00:10 Bed 5 Private MD: ED Physician Benny Montoya HPI: 09/10 00:20 This 77 yrs old Female presents to ER via EMS with complaints of Abdominal Pain. cp 00:20 The patient presents with abdominal pain in the right upper quadrant. cp 00:20 Onset: The symptoms/episode began/occurred yesterday. The symptoms radiate to right cp back. Associated signs and symptoms: Pertinent positives: nausea and vomiting, diarrhea, Pertinent negatives: chest pain, dysuria, fever, hematuria, vomiting blood. The symptoms are described as constant. Severity of pain: in the emergency department the pain is unchanged despite home interventions. 07:14 Modifying factors: The symptoms are alleviated by nothing, the symptoms are aggravated la by food, movement, pressure. The patient has experienced similar episodes in the past, multiple times. Historical: - Allergies: 00:24 No Known Allergies; ha1 - PMHx: 00:24 Hyperlipidemia; Hypertension; Hypothyroidism; spinal menengitis; ha1 - Immunization history:: Adult Immunizations unknown. - Social history:: Smoking status: Patient denies any tobacco usage or history of. - Family history:: not pertinent. ROS: 00:25 Constitutional: Negative for body aches, chills, fever, poor PO intake. cp 00:25 Cardiovascular: Negative for chest pain, edema, palpitations. cp 00:25 Eyes: Negative for injury, pain, redness, and discharge. cp 00:25 Respiratory: Negative for cough, shortness of breath, wheezing. 00:25 Abdomen/GI: Positive for abdominal pain, nausea and vomiting, abdominal distension, Negative for diarrhea, constipation, hematemesis, black/tarry stool, rectal bleeding. 00:25 : Negative for urinary symptoms. 00:25 Neuro: Negative for altered mental status, dizziness, headache, numbness, weakness. 00:25 All other systems are negative. Exam: 00:30 Constitutional: The patient appears in no acute distress, alert, awake, cp non-diaphoretic, non-toxic, well developed, well nourished, uncomfortable. 00:30 Head/Face: Normocephalic, atraumatic. cp 00:30 Eyes: Periorbital structures: appear normal, Conjunctiva: normal, no exudate, no injection, Sclera: no appreciated abnormality, Lids and lashes: appear normal, bilaterally. 00:30 ENT: External ear(s): are unremarkable, Nose: is normal, Mouth: Lips: moist, Oral mucosa: pink and intact, moist, Posterior pharynx: is normal, airway is patent, no erythema, no exudate. 00:30 Chest/axilla: Inspection: normal. 00:30 Cardiovascular: Rate: tachycardic, Edema: is not appreciated, JVD: is not appreciated. 00:30 Respiratory: the patient does not display signs of respiratory distress, Respirations: normal, no use of accessory muscles, no retractions, labored breathing, is not present, Breath sounds: are clear throughout, no decreased breath sounds. 00:30 Abdomen/GI: Inspection: distension, that is mild, Bowel sounds: active, all quadrants, Palpation: soft, in all quadrants, moderate abdominal tenderness, in the right upper quadrant, rebound tenderness, is not appreciated, voluntary guarding, is elicited in the right upper quadrant. 00:30 Back: pain, that is moderate, of the right mid back. 00:30 Skin: no rash present. 00:30 Neuro: Orientation: to person, place \T\ time. Mentation: is normal. 08:32 ECG was reviewed by the Attending Physician. la Vital Signs: 00:15 BP 141 / 92; Pulse 115; Resp 22 S; Temp 97.9(O); Pulse Ox 98% 5 lpm ; Weight 47.63 kg; ha1 Height 5 ft. 3 in. ; 01:15 BP 189 / 114; Pulse 106; Resp 19 S; Pulse Ox 99% on 3 lpm NC; ha1 02:25 BP 180 / 113; Pulse 108; Resp 18 S; Pulse Ox 99% on 3 lpm NC; ha1 02:46 BP 175 / 114; ll3 03:30 BP 168 / 96; Pulse 106; Resp 19 S; Pulse Ox 100% 3 lpm ; ha1 04:40 BP 177 / 126; Pulse 109; Resp 19 S; Pulse Ox 98% on R/A; ha1 05:30 BP 166 / 103; Pulse 108; Resp 18 S; Pulse Ox 98% on 3 lpm NC; ha1 06:00 BP 156 / 115; Pulse 103; Resp 19 S; Pulse Ox 96% on 3 lpm NC; ha1 08:00 BP 178 / 109; Pulse 102; Resp 19; Pulse Ox 98% ; bp 09:00 BP 162 / 65; Pulse 104; Resp 25; Pulse Ox 98% ; bp 10:30 BP 121 / 88; Pulse 98; Resp 18; Pulse Ox 96% ; bp 00:15 Body Mass Index 18.60 (47.63 kg, 160.02 cm) ha1 Procedures: 08:33 Performed ng tube placed to lis. la MDM: 00:18 Patient medically screened. cp 07:02 Transition of care: After a detail discussion of the patient's case, care is ms3 transferred to Benny Montoya MD. 07:24 Differential diagnosis: AAA, bowel obstruction, coronary artery disease, cholecystitis, la Cholelithiasis, diverticulitis, gastritis, gastroesophageal reflux disease, non-specific abd pain, pancreatitis, Peptic Ulcer Disease, Perf. Duodenal Ulcer, Peritonitis, urinary tract infection. Data reviewed: vital signs, nurses notes, EMS record, lab test result(s), EKG, radiologic studies, CT scan, plain films, ultrasound. Consideration of Admission/Observation Escalation of care including admission/observation considered. I considered the following discharge prescriptions or medication management in the emergency department Medications were administered in the Emergency Department. See MAR. Discussion of test interpretation with radiology: I had a discussion with radiology regarding a test interpretation. ct and gb discussed. Test considered but Not performed: MRI: no mrcp done. Care significantly affected by the following chronic conditions: Hypertension, hypothyroid, hyperlipid. Care significantly affected by the following Social Determinants of Health: Poor access to healthcare and/or lack of insurance, Poor access to transportation, Problems related to primary support group. Counseling: I had a detailed discussion with the patient and/or guardian regarding: the historical points, exam findings, and any diagnostic results supporting the discharge/admit diagnosis, lab results, radiology results, the need to transfer to another facility, for higher level of care, [facility] does not immediately have the required specialist. 09/10 00:17 Order name: CBC with Diff; Complete Time: 01:59 cp 09/10 01:59 Interpretation: Normal except: HGB 11.6; MCV 77.9; MCH 24.0; MCHC 30.8; PLT 482; RDW cp 18.1; SIRI% 82.6; LYM% 11.6; NEUT A 8.9. 09/10 00:17 Order name: CMP; Complete Time: 01:59 09/10 01:59 Interpretation: Normal except: NA 132; GLUC 140; BUN 25; CRE 1.45; GFR 37; CA 10.7; TP cp 9.6; GLOB 5.1; A/G 0.9. 09/10 00:17 Order name: Lipase; Complete Time: 01:59 09/10 00:18 Order name: Magnesium; Complete Time: 01:59 09/10 07:23 Order name: Troponin High Sensitivity; Complete Time: 08:33 [facility] 09/10 07:23 Order name: BNP; Complete Time: 08:33 [facility] 09/10 00:17 Order name: CT Abd/Pelvis - IV Contrast Only 09/10 00:18 Order name: XRAY Chest (1 view) 09/10 04:24 Order name: US Abdomen Limited ms3 09/10 07:23 Order name: Abdomen 1 View (KUB) XRAY [facility] 09/10 00:17 Order name: IV Saline Lock; Complete Time: 00:50 09/10 00:17 Order name: Labs collected and sent; Complete Time: 00:50 09/10 02:16 Order name: NPO; Complete Time: 02:20 09/10 07:23 Order name: Nasogastric Tube; Complete Time: 09:02 [facility] 09/10 07:23 Order name: EKG - Nurse/Tech; Complete Time: 08:06 [facility] EC:32 Rate is 113 beats/min. Rhythm is regular. QRS [place] is Normal. [place] interval is normal. [facility] QRS interval is normal. QT interval is normal. No Q waves. T waves are Normal. No ST changes noted. Clinical impression: Sinus tachycardia and No evidence of ischemia. Interpreted by me. Reviewed by me. Administered Medications: 02:03 Drug: Famotidine IVP 20 mg Route: IVP; Site: left antecubital; ll3 02:30 Follow up: Response: No adverse reaction; Nausea is decreased ha1 02:03 Drug: NS 0.9% IV 500 ml Route: IV; Rate: 125 ml/hr; Site: left antecubital; ll3 10:42 Follow up: IV Status: Completed infusion; IV Intake: 500ml bp 02:05 Drug: Ondansetron IVP 4 mg Route: IVP; Site: left antecubital; ll3 02:30 Follow up: Response: No adverse reaction ha1 02:05 Drug: morphine IVP or IV 4 mg Route: IVP; Infused Over: 4 mins; Site: left antecubital; ll3 02:30 Follow up: Response: No adverse reaction; Pain is decreased; RASS: Alert and Calm (0) ha1 02:46 Drug: hydrALAZINE IVP 5 mg Route: IVP; Site: left antecubital; ll3 10:43 Follow up: Response: No adverse reaction bp 05:24 Drug: morphine IVP or IV 4 mg Route: IVP; Infused Over: 4 mins; Site: left upper arm; ha1 05:55 Follow up: Response: No adverse reaction; Pain is decreased; RASS: Alert and Calm (0) ha1 05:25 Drug: Ondansetron IVP 4 mg Route: IVP; Site: left upper arm; ha1 05:55 Follow up: Response: No adverse reaction; Nausea is decreased ha1 07:45 Drug: NS 0.9% IV 500 ml Route: IV; Rate: bolus; Site: left upper arm; bp 10:42 Follow up: IV Status: Completed infusion; IV Intake: 500ml bp 07:45 Drug: Piperacillin-Tazobactam IVPB 3.375 grams Route: IVPB; Infused Over: 60 mins; bp Site: left upper arm; 10:42 Follow up: IV Status: Completed infusion; IV Intake: 100ml bp 07:45 Drug: fentaNYL (PF) IVP 25 mcg Route: IVP; Site: left upper arm; bp 10:42 Follow up: Response: No adverse reaction bp 07:45 Drug: Ondansetron IVP 4 mg Route: IVP; Site: left upper arm; bp 10:42 Follow up: Response: No adverse reaction bp 07:45 Drug: hydrALAZINE IVP 10 mg Route: IVP; Site: left upper arm; bp 10:42 Follow up: Response: No adverse reaction bp 10:00 Drug: fentaNYL (PF) IVP 25 mcg Route: IVP; Site: left upper arm; bp 10:41 Follow up: Response: No adverse reaction bp Disposition: 07:17 Co-signature as Attending Physician, Benny ROLAND I agree with the assessment and la plan of care. Disposition Summary: 09/10/22 07:29 Transfer Ordered Transfer Location: [facility] la Reason: Higher level of care la Condition: Fair la Problem: new la Symptoms: have improved la Accepting Physician: to [facility](09/10/22 11:19) hb Diagnosis - Essential (primary) hypertension la - Other and unspecified intestinal obstruction - small, transition right lower la quadrant - Abdominal tenderness - right upper and lower quadrant la - Abnormal findings on diagnostic imaging of liver and biliary tract - dilated intra la and extrahepaticbile ducts, CBD 1.1 CM Forms: - Medication Reconciliation Form la - SBAR form la Signatures: Dispatcher [employer] EDBenny Sahni MD MD cha Page, Corey, PA PA cp Baxter, Heather, RN RN hb Jin Hanks RN Zhen Fleming DO DO ms3 Nel Rader RN RN 3 Courtney Roa RN RN ha1 Corrections: (The following items were deleted from the chart) 04:49 03:14 Co-signature as Attending Physician, Zhen Nieto DO I was immediately available ms3 on-site in the Emergency Department for consultation in the care of the patient. ms3 11:19 07:29 to [facility] la hb 13:38 07:14 Constitutional: Negative for fever, chills, and weight loss, Eyes: Negative for cp injury, pain, redness, and discharge, ENT: Negative for injury, pain, and discharge, Neck: Negative for injury, pain, and swelling, Cardiovascular: Negative for chest pain, palpitations, and edema, Respiratory: Negative for shortness of breath, cough, wheezing, and pleuritic chest pain, Back: Negative for injury and pain, : Negative for injury, bleeding, discharge, and swelling, MS/Extremity: Negative for injury and deformity, Skin: Negative for injury, rash, and discoloration, Neuro: Negative for headache, weakness, numbness, tingling, and seizure, Psych: Negative for depression, anxiety, suicide ideation, homicidal ideation, and hallucinations, Allergy/Immunology: Negative for hives, rash, and allergies, Endocrine: Negative for neck swelling, polydipsia, polyuria, polyphagia, and marked weight changes, Hematologic/Lymphatic: Negative for swollen nodes, abnormal bleeding, and unusual bruising, [facility] 13:38 07:14 Abdomen/GI: Positive for abdominal pain, [facility] cp
--- NOTE | 2022-09-10 07:30 | ER ---
Nurse's Notes [facility] Name: Valentina Raphael Age: 77 yrs Sex: Female : 1945 Arrival Date: 09/10/2022 Time: 00:10 Bed 5 Private MD: Diagnosis: Essential (primary) hypertension;Other and unspecified intestinal obstruction-small, transition right lower quadrant;Abdominal tenderness-right upper and lower quadrant;Abnormal findings on diagnostic imaging of liver and biliary tract-dilated intra and extrahepaticbile ducts, CBD 1.1 CM Presentation: 09/10 00:15 Chief complaint: EMS states: 77 year old female called us because of elevated blood ha1 pressure, but when we arrived she reported abdominal pain on the right upper quadrant. Nausea for three days. On our arrival she was vomiting green secretions. 4 mg of Zofran were given IM. 00:15 Coronavirus screen: Vaccine status: Patient reports receiving the 2nd dose of the covid ha1 vaccine. Moderna. Ebola Screen: No symptoms or risks identified at this time. Initial Sepsis Screen: Does the patient meet any 2 criteria? No. Patient's initial sepsis screen is negative. Does the patient have a suspected source of infection? No. Patient's initial sepsis screen is negative. Risk Assessment: Do you want to hurt yourself or someone else? Patient reports no desire to harm self or others. Onset of symptoms. 00:15 Method Of Arrival: EMS: [facility] ha1 00:15 Acuity: ZEYNEP 3 ha1 Triage Assessment: 00:15 General: Appears uncomfortable, Behavior is calm, cooperative. Pain: Complains of pain ha1 in right upper quadrant Pain does not radiate. Pain currently is 8 out of 10 on a pain scale. Neuro: Level of Consciousness is awake, alert, obeys commands, Oriented to person, place, time, situation. Cardiovascular: Capillary refill < 3 seconds Patient's skin is warm and dry. Respiratory: Airway is patent Respiratory effort is even, unlabored, Respiratory pattern is regular, symmetrical. GI: Abdomen is flat, non-distended, Bowel sounds present X 4 quads. Reports nausea, vomiting. : No signs and/or symptoms were reported regarding the genitourinary system. Derm: Skin is fragile, Skin is moist, Skin is pale. Musculoskeletal: Circulation, motion, and sensation intact. Range of motion: intact in all extremities. Historical: - Allergies: 00:24 No Known Allergies; ha1 - PMHx: 00:24 Hyperlipidemia; Hypertension; Hypothyroidism; spinal menengitis; ha1 - Immunization history:: Adult Immunizations unknown. - Social history:: Smoking status: Patient denies any tobacco usage or history of. - Family history:: not pertinent. Screenin:24 Abuse screen: Denies threats or abuse. Denies injuries from another. Nutritional ha1 screening: No deficits noted. Tuberculosis screening: No symptoms or risk factors identified. 10:43 [facility] ED Fall Risk Assessment (Adult) History of falling in the last 3 months, bp including since admission No falls in past 3 months (0 pts). Assessment: 00:15 Reassessment: see triage assessment. ha1 01:00 Reassessment: Patient and/or family updated on plan of care and expected duration. Pain ha1 level reassessed. Patient is alert, oriented x 3, equal unlabored respirations, skin warm/dry/pink. 02:00 Reassessment: Patient and/or family updated on plan of care and expected duration. Pain ha1 level reassessed. Patient is alert, oriented x 3, equal unlabored respirations, skin warm/dry/pink. 03:00 Reassessment: No changes from previously documented assessment. Patient is alert, ha1 oriented x 3, equal unlabored respirations, skin warm/dry/pink. 04:00 Reassessment: Patient and/or family updated on plan of care and expected duration. Pain ha1 level reassessed. Patient is alert, oriented x 3, equal unlabored respirations, skin warm/dry/pink. 04:40 Reassessment: Notified Dr. Nieto about elevated blood pressure. ha1 05:15 Reassessment: Patient and/or family updated on plan of care and expected duration. Pain ha1 level reassessed. Patient is alert, oriented x 3, equal unlabored respirations, skin warm/dry/pink. pain 01/24. Notified Dr. Nieto. 06:20 Reassessment: Patient and/or family updated on plan of care and expected duration. Pain ha1 level reassessed. Patient is alert, oriented x 3, equal unlabored respirations, skin warm/dry/pink. 07:17 Reassessment: Patient appears in no apparent distress at this time. No changes from ko1 previously documented assessment. Patient and/or family updated on plan of care and expected duration. Pain level reassessed. Patient is alert, oriented x 3, equal unlabored respirations, skin warm/dry/pink. 08:07 Reassessment: ATTEMPTED TO PASS NGT x2, UNABLE TO PASS. MD NOTIFIED. TRANSFER INITIATED.bp 10:40 Reassessment: REPORT TO LAURA HARO FOR [facility] 739. bp Vital Signs: 00:15 BP 141 / 92; Pulse 115; Resp 22 S; Temp 97.9(O); Pulse Ox 98% 5 lpm ; Weight 47.63 kg; ha1 Height 5 ft. 3 in. ; 01:15 BP 189 / 114; Pulse 106; Resp 19 S; Pulse Ox 99% on 3 lpm NC; ha1 02:25 BP 180 / 113; Pulse 108; Resp 18 S; Pulse Ox 99% on 3 lpm NC; ha1 02:46 BP 175 / 114; ll3 03:30 BP 168 / 96; Pulse 106; Resp 19 S; Pulse Ox 100% 3 lpm ; ha1 04:40 BP 177 / 126; Pulse 109; Resp 19 S; Pulse Ox 98% on R/A; ha1 05:30 BP 166 / 103; Pulse 108; Resp 18 S; Pulse Ox 98% on 3 lpm NC; ha1 06:00 BP 156 / 115; Pulse 103; Resp 19 S; Pulse Ox 96% on 3 lpm NC; ha1 08:00 BP 178 / 109; Pulse 102; Resp 19; Pulse Ox 98% ; bp 09:00 BP 162 / 65; Pulse 104; Resp 25; Pulse Ox 98% ; bp 10:30 BP 121 / 88; Pulse 98; Resp 18; Pulse Ox 96% ; bp 00:15 Body Mass Index 18.60 (47.63 kg, 160.02 cm) ha1 ED Course: 00:15 Patient arrived in ED. ha1 00:15 Arm band placed on right wrist. ha1 00:15 Patient has correct armband on for positive identification. Placed in gown. Bed in low ha1 position. Call light in reach. Side rails up X 1. 00:16 Benny Rios PA is PHCP. cp 00:16 Zhen Nieto DO is Attending Physician. cp 00:23 Triage completed. ha1 00:53 XRAY Chest (1 view) In Process Unspecified. EDMS 03:03 CT Abd/Pelvis - IV Contrast Only In Process Unspecified. EDMS 05:49 US Abdomen Limited In Process Unspecified. EDMS 06:39 Courtney Roa, TAHIR is Primary Nurse. ha1 07:03 Attending Physician role handed off by Zhen Nieto DO ms3 07:03 Benny Montoya MD is Attending Physician. ms3 07:[address] Montoya with Amparo from the [facility]. eb 07:44 BNP Sent. ko1 07:44 Troponin High Sensitivity Sent. ko1 08:34 connected the Hospitalist drafter electronic for [facility] with Dr. Montoya for patient eb transfer consultation. 08:54 hospice administrator approval given by Sunita Cohen Rn/ patient has been accepted to [facility] 7 tower rm 739/ Dr. Fernie Peguero has accepted the patient in transfer/report to be called to [phone]. 08:57 Abdomen 1 View (KUB) XRAY In Process Unspecified. EDMS 09:03 NGT: inserted 16 Fr. via right nare. verified placement of air over stomach, verified bp return of gastric contents, Placement verified by X-ray, to intermittent suction. Returned gastric contents. 10:43 No provider procedures requiring assistance completed. Patient transferred, IV remains bp in place. Administered Medications: 02:03 Drug: Famotidine IVP 20 mg Route: IVP; Site: left antecubital; ll3 02:30 Follow up: Response: No adverse reaction; Nausea is decreased ha1 02:03 Drug: NS 0.9% IV 500 ml Route: IV; Rate: 125 ml/hr; Site: left antecubital; ll3 10:42 Follow up: IV Status: Completed infusion; IV Intake: 500ml bp 02:05 Drug: Ondansetron IVP 4 mg Route: IVP; Site: left antecubital; ll3 02:30 Follow up: Response: No adverse reaction ha1 02:05 Drug: morphine IVP or IV 4 mg Route: IVP; Infused Over: 4 mins; Site: left antecubital; ll3 02:30 Follow up: Response: No adverse reaction; Pain is decreased; RASS: Alert and Calm (0) ha1 02:46 Drug: hydrALAZINE IVP 5 mg Route: IVP; Site: left antecubital; ll3 10:43 Follow up: Response: No adverse reaction bp 05:24 Drug: morphine IVP or IV 4 mg Route: IVP; Infused Over: 4 mins; Site: left upper arm; ha1 05:55 Follow up: Response: No adverse reaction; Pain is decreased; RASS: Alert and Calm (0) ha1 05:25 Drug: Ondansetron IVP 4 mg Route: IVP; Site: left upper arm; ha1 05:55 Follow up: Response: No adverse reaction; Nausea is decreased ha1 07:45 Drug: NS 0.9% IV 500 ml Route: IV; Rate: bolus; Site: left upper arm; bp 10:42 Follow up: IV Status: Completed infusion; IV Intake: 500ml bp 07:45 Drug: Piperacillin-Tazobactam IVPB 3.375 grams Route: IVPB; Infused Over: 60 mins; bp Site: left upper arm; 10:42 Follow up: IV Status: Completed infusion; IV Intake: 100ml bp 07:45 Drug: fentaNYL (PF) IVP 25 mcg Route: IVP; Site: left upper arm; bp 10:42 Follow up: Response: No adverse reaction bp 07:45 Drug: Ondansetron IVP 4 mg Route: IVP; Site: left upper arm; bp 10:42 Follow up: Response: No adverse reaction bp 07:45 Drug: hydrALAZINE IVP 10 mg Route: IVP; Site: left upper arm; bp 10:42 Follow up: Response: No adverse reaction bp 10:00 Drug: fentaNYL (PF) IVP 25 mcg Route: IVP; Site: left upper arm; bp 10:41 Follow up: Response: No adverse reaction bp Intake: 10:42 IV: 500ml; Total: 500ml. bp 10:42 IV: 100ml; Total: 600ml. bp 10:42 IV: 500ml; Total: 1100ml. bp Outcome: 07:29 ER care complete, transfer ordered by . la 10:43 Transferred by [facility] to [facility], Transfer form completed. bp 10:43 Condition: stable 10:43 Instructed on the need for transfer. 11:19 Patient left the ED. hb Signatures: Dispatcher [employer] EDMS Benny Montoya MD MD cha Page, Corey, PA PA cp Baxter, Heather, RN RN Jin Hanks, RN RN Yvonne Deleon Marcus, DO DO ms3 Nel Rader RN RN ll3 Courtney Roa RN RN ha1 Beverly Whittaker RN RN ko1 Corrections: (The following items were deleted from the chart) 06:40 00:15 Chief complaint: EMS states: Reports abdominal pain on the right upper quadrant. ha1 Nausea for three days. On our arrival she was vomiting green secretions. 4 mg of Zofran were given IM. ha1 08:35 07:[address] Montoya with the [facility]. eb
[2022-09-10] MEDS ORDERED: FENTANYL CITR 100 MCG/2 ML ONE ×2 (07:53→10:02)
[2022-09-10] MEDS ORDERED: PIPERACIL/TAZO 3.375 GM VIAL IV ONE (07:54)
[2022-09-10 08:10] LABS: Troponin High Sensitivity 50.3 pg/mL (<58.9)
[2022-09-10] MEDS ORDERED: LIDOCAINE VISCOUS 2% SOLN 15 ML UDC ONE ×2 (08:10→08:19)
--- NOTE | 2022-09-10 10:34 | RAD REPORT ---
EXAM DESCRIPTION: RAD - Abdomen 1 View (KUB) - 09/10/2022 8:55 am CLINICAL HISTORY: ng;Abd pain COMPARISON: Abdomen 1 View (KUB) dated 09/29/2017; Abdomen 1 View (KUB) dated 09/29/2017 TECHNIQUE: Single AP view of the abdomen. FINDINGS: Enteric tube tip projects over the fundus of the stomach. Nonobstructive bowel gas pattern. No air-fluid levels, free air, or pneumatosis. No suspicious calcif ications. No significant bony abnormality. Sequelae of multiple level vertebral augmentation. Spinal stimulato r electrodes in place. IMPRESSION: Satisfactory positioning of enteric tube tip.
[2022-09-10 11:25] VITALS: TEMP 97.9
[2022-09-10 11:37] VITALS: BP 121/88; O2SAT 96
--- NOTE | 2022-09-10 19:22 | RAD REPORT ---
EXAM DESCRIPTION: US - Abdomen Exam Limited - 09/10/2022 5:47 am CLINICAL HISTORY: 77 years, Female, ABD PAIN COMPARISON: Prior CT scan performed 09/10/2022. TECHNIQUE: Utilizing a curved array transducer, real-time ultrasound evaluation of the abdominal vis cera was performed. Color Doppler imaging was used to assess vascular flow. FINDINGS: The liver, pancreas, right kidney and retroperitoneum were not imaged. The gallbladder is mildly distended measuring 8.5 x 4.9 cm. No gallbladder stones were seen. No p ericholecystic fluid and or wall thickening was identified. The common bile duct is distended measu res 8.5 mm. No intrahepatic biliary duct dilatation was identified. Again noted is the presence of a distended structure corresponding to most likely distended stomach a djacent to the gallbladder. IMPRESSION: Distended gallbladder and common bile duct without sonographic evidence of acute cholecy stitis. Distended stomach. Electronically signed by: Rick Alcantar MD 09/10/2022 9:06 PM CDT Due to temporary technical issues with the PACS/Fluency reporting system, reports are being signed by the in house radiologist without review as a courtesy to ensure prompt reporting. The interpreting r adiologist is fully responsible for the content of the report.
--- NOTE | 2022-09-10 20:03 | RAD REPORT ---
EXAM DESCRIPTION: RAD - Chest Single View - 09/10/2022 12:51 am CLINICAL HISTORY: 77 years Female, ABDOMINAL DISTENTION COMPARISON: Chest x-ray report from 10/18/2018. The image was not available for review TECHNIQUE: Single portable x-ray view of the chest performed on 09/10/2022 at 12:47 AM FINDINGS: The lungs are well expanded and are clear. There is no evidence of a pneumothorax. There i s a retrocardiac lucency consistent with a hiatal hernia. There is a vague opacity projecting between the posterior aspects of the left fifth and sixth ribs. The cardiac silhouette is normal in size and configuration. The mediastinal contours are normal. No acute osseous abnormality is identified. There are degenerative changes of the skeletal structures . No acute soft tissue abnormalities are seen. Lines and tubes: Dorsal column stimulators project over the lower thoracic spine region. There are overlying videographer leads. Free air: None IMPRESSION: 1. No evidence of acute intrathoracic disease. 2. Hiatal hernia. 3. Vague opacity projecting between the posterior aspects of the left fifth and sixth ribs. Recom mend an unenhanced CT scan of the chest for confirmation. Electronically signed by: Sayda Humphrey DO 09/10/2022 1:12 AM CDT Due to temporary technical issues with the PACS/Fluency reporting system, reports are being signed by the in house radiologists without review as a courtesy to insure prompt reporting. The interpreting radiologist is fully responsible for the content of the report.
--- NOTE | 2022-09-10 22:21 | RAD REPORT ---
EXAM DESCRIPTION: CT - Abdomen Pelvis W Contrast - 09/10/2022 6:40 am CLINICAL HISTORY: RUQ pain;Nausea / vomiting TECHNIQUE: Contiguous axial images obtained through the abdomen and pelvis following the uneventful administration of IV contrast. Coronal and sagittal reformatted images were provided. This exam was performed according to our departmental dose-optimization program, which includes autom ated exposure control, adjustment of the mA and/or kV according to patient size and/or use of iterati ve reconstruction technique. COMPARISON: None available for comparison. FINDINGS: Lung bases: Clear Liver: Unremarkable Gallbladder and biliary system: Distended gallbladder with no gallstones identified. There is mild intra and extrahepatic bile duct dilatation. The common bile duct measures approximatel y 1.1 cm at the level of the head of the pancreas. Recommend further evaluation with biliary ultrasou nd. Pancreas: Unremarkable Spleen: Unremarkable Adrenals: Unremarkable Kidneys: Normal renal cortical enhancement. No calculi. No hydronephrosis. GI: Large hiatal hernia. Prominent gastric distention with large amount of retained fluid in the stomach which may represent g astroparesis or delayed gastric emptying. Prominent dilatation of multiple segments of small bowel consistent with small bowel obstruction. There is a transition point likely in the right lower quadrant with nondilated segments of small gabe l more distally in the pelvis and right lower quadrant. Appendix: No findings to suggest acute appendicitis. Urinary bladder: Unremarkable Reproductive: Status post hysterectomy. Lymph nodes: No pathologically enlarged lymph nodes. Peritoneum: No focal fluid collection. No free air. Vessels: No abdominal aortic aneurysm. Abdominal wall: Pain management device in the left posterior paraspinal subcutaneous space with epidu ral leads in the lower thoracic spinal canal. Bones: Chronic lower thoracic and lumbar compression deformities status post multiple kyphoplasty. IMPRESSION: 1. Prominent dilatation of multiple segments of small bowel consistent with small gabe l obstruction. Transition point likely in the right lower quadrant with nondilated segments of small bowel more distally in the pelvis and right lower quadrant. 2. Prominent gastric distention with large amount of retained fluid in the stomach which may repres ent gastroparesis or delayed gastric emptying. 3. Distended gallbladder with mild intra and extrahepatic bile duct dilatation. The common bile ritu t measures approximately 1.1 cm at the level of the head of the pancreas. Recommend further evaluatio n with biliary ultrasound. 4. Large hiatal hernia. Electronically signed by: Paul Tejada MD 09/10/2022 4:20 AM CDT Due to temporary technical issues with the PACS/Fluency reporting system, reports are being signed by the in house radiologists without review as a courtesy to insure prompt reporting. The interpreting radiologist is fully responsible for the content of the report.
--- NOTE | 2022-09-14 14:42 | EKG ---
Test Date: 2022-09-10 Test Time: 08:09:36 Passenger Service Agent: RUPERT MEASUREMENT RESULTS: Intervals: Rate: 113 MA: 136 QRSD: 74 QT: 354 QTc: 485 Datil: P: 81 MA: 136 QRS: 40 T: 88 INTERPRETIVE STATEMENTS: Sinus tachycardia ST & T wave abnormality, consider lateral ischemia Abnormal ECG Compared to ECG 09/13/2021 15:12:29 Possible ischemia now present ST (T wave) deviation still present Electronically Signed On 09-14-22 14:39:00 CDT by Rui Gonsales
== END 2022-09-10 11:19 | disposition short-term general hospital (02) ==
LOC: ER 00:10
DX: K56.699 Other intestinal obstruction unspecified as to partial versus complete obstruction (principal); R93.2 Abnormal findings on diagnostic imaging of liver and biliary tract; R10.813 Right lower quadrant abdominal tenderness; I10 Essential (primary) hypertension; R11.2 Nausea with vomiting, unspecified
CPT/HCPCS: 85025; 36415; 83735; 84484; 83690; 80053; 83880; 74177; 74018; 71045; 76705; 99285; Q9967; J0360 ×2; J2543; J3010 ×2; J2405 ×3; J7040 ×2; 93005

== ENCOUNTER 2023-08-02 21:23 | Inpatient (IN) | payer OTHER ==
[2023-08-02] MEDS ORDERED: NA CHLORIDE 0.9% 1,000 ML ONE (22:08)
[2023-08-02] MEDS ORDERED: NA CHLORIDE 0.9% 250 ML ONE (22:08)
[2023-08-02 22:47] LABS: Absolute Basophils 0.1 K/uL (0-0.5); Absolute Eosinophils 0.1 K/uL (0-0.5); Absolute Lymphocytes (CBC) 1.9 K/uL (0.7-4.9); Absolute Monocytes 0.5 K/uL (0.1-1.3); Absolute Neutrophil 10.5 K/uL (1.8-8.0); Basophils % 0.4 % (0-1.3); Eosinophils % 0.7 % (0-4.4); Hematocrit 31.7 % (36.0-45.0); Hemoglobin 10.5 g/dL (12.0-15.0); Lymphocytes % 14.7 % (15.3-44.8); MCH 31.8 pg (27.0-35.0); MCHC 33.1 g/dL (32.0-36.0); MPV 7.5 fL (7.6-11.3); Monocytes % 4.2 % (3.3-12.3); Platelets 336 thou/uL (152-406); RBC Red Blood Cell Count 3.31 M/uL (3.86-4.86); Red Cell Distribution Width 13.2 % (12.1-15.2)
[2023-08-02 22:50] LABS: Albumin 3.2 g/dL (3.4-5.0); Albumin/Globulin Ratio 0.9 (1.1-1.8); Anion Gap 14.2 mEq/L (5.0-15.0); Bilirubin Total 0.3 mg/dL (0.2-1.0); Globulin 3.7 g/dL (2.3-3.5); Magnesium 2.1 mg/dL (1.6-2.4); Potassium 4.2 mEq/L (3.5-5.1); Protein, Total 6.9 g/dL (6.4-8.2); Troponin High Sensitivity 21.3 pg/mL (<58.9)
[2023-08-02] MEDS ORDERED: CEFTRIAXONE 1000 MG/VIAL ONE (23:13)
[2023-08-02] MEDS ORDERED: NA CHLORIDE 0.9% 50 ML ONE (23:13)
[2023-08-02 23:38] LABS: PT Prothrombin Time 12.9 SECONDS (9.5-12.5); PTT, Activated Partial Thromb 23.9 SECONDS (24.3-36.9); Protime INR 1.18
[2023-08-02] MEDS ORDERED: ONDANSETRON 4 MG/2 ML VIAL ONE (23:41)
[2023-08-02] MEDS ORDERED: MORPHINE 2 MG/ML SYR ONE (23:41)
--- NOTE | 2023-08-03 00:12 | EDPHYS ---
Physician Documentation [facility] Name: Valentina Raphael Age: 78 yrs Sex: Female : 1945 Arrival Date: 08/02/2023 Time: 21:23 Bed 15 Private MD: ED Physician Jace Trevino HPI: 08/01 23:22 This 78 yrs old Female presents to ER via EMS with complaints of Dizziness, Diarrhea. 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 Denies n/v, fever. . Historical: - Allergies: 21:30 No Known Allergies; km8 - PMHx: 21:30 Hyperlipidemia; Hypertension; Hypothyroidism; spinal menengitis; km8 - PSHx: 21:30 Appendectomy; Total abdominal hysterectomy; colon surgery; km8 - Immunization history:: Adult Immunizations up to date. - Infectious Disease History:: Denies. - Social history:: Smoking status: Patient denies any tobacco usage or history of. Patient/guardian denies using alcohol, street drugs. ROS: 23:22 Constitutional: As per HPI kb Exam: 23:09 Constitutional: This is a well developed, well nourished patient who is awake, alert, kb and in no acute distress. Head/Face: Normocephalic, atraumatic. ENT: Moist Mucous membranes Cardiovascular: Regular rate Respiratory: Respirations even and unlabored. No increased work of breathing. Talking in full sentences Skin: Warm, dry with normal turgor. Normal color. MS/ Extremity: Pulses equal, no cyanosis. Neurovascular intact. Full, normal range of motion. Neuro: Awake and alert, GCS 15, oriented to person, place, time, and situation. Moves all extremities. Normal gait. 23:09 ECG was reviewed by the Attending Physician. 23:09 Abdomen/GI: Inspection: abdomen appears normal, Bowel sounds: normal, Palpation: soft, in all quadrants, moderate abdominal tenderness, in the left upper quadrant and left lower quadrant, Vital Signs: 21:28 BP 81 / 69; Pulse 119; Resp 18; Temp 97.1(O); Pulse Ox 89% on R/A; Weight 40.37 kg (R); km8 Height 5 ft. 3 in. (R); Pain 8/10; 21:30 BP 102 / 70; Pulse 112; Resp 24 S; Pulse Ox 91% on R/A; jw7 22:00 BP 110 / 75; Pulse 101; Resp 23 S; Pulse Ox 100% on 2 lpm NC; jw7 22:30 BP 129 / 60; Pulse 94; Resp 21 S; Pulse Ox 100% on 2 lpm NC; jw7 23:15 BP 161 / 65; Pulse 96; Resp 21 S; Pulse Ox 97% on 2 lpm NC; jw7 23:30 BP 143 / 79; Pulse 93; Resp 21 S; Pulse Ox 95% on 2 lpm NC; jw7 08/02 00:00 BP 117 / 64; Pulse 100; Resp 20 S; Pulse Ox 98% on 2 lpm NC; jw7 01:00 BP 149 / 83; Pulse 104; Resp 20 S; Pulse Ox 97% on 2 lpm NC; jw7 02:00 BP 140 / 76; Pulse 102; Resp 18 S; Pulse Ox 100% on 2 lpm NC; jw7 02:40 BP 143 / 74; Pulse 103; Resp 17 S; Pulse Ox 99% on 2 lpm NC; jw7 08/01 21:28 Body Mass Index 15.77 (40.37 kg, 160.02 cm) km8 08/01 21:28 Pain Scale: Adult km8 MDM: 08/01 21:28 Patient medically screened. kb 23:02 ED course: Sepsis reevaluation complete. kb 23:23 Differential diagnosis: diverticulitis, uti, pyelonephritis, nonspecific abd pain, kb dehydration. Data reviewed: vital signs, nurses notes. Historians other than the Patient: EMS: [facility]. 08/02 00:11 Consideration of Admission/Observation Patient was admitted/placed on observation. kb Escalation of care including admission/observation considered. Management of patient was discussed with the following: Hospitalist: Dr Victoria accepts pt for admission. Synchronizer: Dr Harris accepts pt for consult. Counseling: I had a detailed discussion with the patient and/or guardian regarding the historical points, exam findings, and any diagnostic results supporting the discharge/admit diagnosis, lab results, radiology results, the need for further work-up and treatment in the hospital. 08/01 21:29 Order name: Blood Culture Adult (2) kb 08/01 21:29 Order name: CBC with Diff; Complete Time: 22:51 kb 08/01 21:29 Order name: CMP; Complete Time: 22:51 kb 08/01 21:29 Order name: Lactate w/ 2H reflex if indic.; Complete Time: 23:02 kb 08/01 21:29 Order name: Protime (+inr); Complete Time: 23:41 kb 08/01 21:29 Order name: Ptt, Activated; Complete Time: 23:41 kb 08/01 21:29 Order name: Urinalysis w/ reflexes kb 08/01 21:29 Order name: Magnesium; Complete Time: 22:51 kb 08/01 21:29 Order name: Troponin High Sensitivity; Complete Time: 22:51 kb 08/01 23:07 Order name: Glucose, Ancillary Testing; Complete Time: 23:08 EDMS 08/02 01:01 Order name: Lactate w/ 2H reflex if indic. EDMS 08/02 01:01 Order name: Urinalysis w/ reflexes EDMS 08/02 01:01 Order name: CBC with Automated Diff EDMS 08/02 01:01 Order name: CBC with Automated Diff EDMS 08/02 01:01 Order name: Comprehensive Metabolic Panel EDMS 08/02 01:01 Order name: Comprehensive Metabolic Panel EDMS 08/02 02:03 Order name: Lactate Sepsis 2 HR Follow-up EDMS 08/01 21:43 Order name: CT Abd/Pelvis - IV Contrast Only kb 08/02 00:04 Order name: Chest Single View XRAY kb 08/01 21:29 Order name: EKG; Complete Time: 21:29 kb 08/02 01:03 Order name: CONS Physician Consult EDMS 08/01 21:29 Order name: Accucheck; Complete Time: 23:00 kb 08/01 21:29 Order name: Cardiac monitoring; Complete Time: 22:14 kb 08/01 21:29 Order name: EKG - Nurse/Tech; Complete Time: 22:53 kb 08/01 21:29 Order name: IV Saline Lock - Large Bore; Complete Time: 22:15 kb 08/01 21:29 Order name: Labs collected and sent; Complete Time: 22:15 kb 08/01 21:29 Order name: O2 Per Protocol; Complete Time: 22:15 kb 08/01 21:29 Order name: O2 Sat Monitoring; Complete Time: 22:15 kb 08/01 21:29 Order name: Vital Signs; Complete Time: 22:15 kb EC/17 23:09 Rate is 98 beats/min. Rhythm is regular. QRS Matthews is Normal. ME interval is normal at kb 174 msec. QRS interval is normal at 86 msec. QT interval is normal at 457 msec. Administered Medications: 22:14 Drug: NS 0.9% IV (30 ml/kg) 30 ml/kg IV at bolus once; Sepsis Protocol Route: IV; Rate: jw7 bolus; Site: right forearm; 08/02 01:56 Follow up: Response: No adverse reaction; IV Status: Completed infusion; IV Intake: jw7 1250ml 08/01 23:20 Drug: Rocephin IV 1 grams IV at calculated rate once; Given slow IV push per pharmacy jw7 instructions Route: IV; Rate: calculated rate; Site: right forearm; 08/02 01:55 Follow up: Response: No adverse reaction; IV Status: Completed infusion; IV Intake: [id number] 08/01 23:53 Drug: morphine IVP or IV 2 mg IVP once over 4 mins Route: IVP; Infused Over: 4 mins; jw7 Site: right forearm; 08/02 01:55 Follow up: Response: No adverse reaction; Marked relief of symptoms; Pain is decreased jw7 08/01 23:53 Drug: Ondansetron IVP 4 mg IVP once; over 2 minutes Route: IVP; Site: right forearm; jw7 08/02 01:55 Follow up: Response: No adverse reaction; Marked relief of symptoms; Nausea is decreasedjw7 Disposition: 01:48 Co-signature as Attending Physician, Jace Trevino MD I agree with the assessment sp4 and plan of care. I reviewed the patient's care provided by Advanced Practice Provider \T\ agree w/ the diagnosis \T\ care plan. I personally saw the pt \T\ performed a substantive portion of the visit, incldng all aspects of the (History/Exam/Medical Decision Making). Disposition Summary: 08/03/23 00:12 Hospitalization Ordered Notes: Hospitalization Status: Inpatient Admission kb Provider: Devon Victoria Location: Telemetry/[facility]Sur (Inpatient) kb Condition: Stable kb Problem: new kb Symptoms: have improved kb Bed/Room Type: Standard Room Assignment: 411(08/03/23 01:06) wm Diagnosis - Small Bowel Obstruction kb - Dehydration kb Forms: - Medication Reconciliation Form kb - SBAR form kb - Leadership Thank You Letter kb Signatures: Dispatcher [employer] Martha Bishop FNP-C DEANN-Sarita Fonseca Jodi, RN RN jw7 Jace Trevino MD MD sp4 Carlotta Mir RN RN km8 Corrections: (The following items were deleted from the chart) 01:06 00:12 kb wm
--- NOTE | 2023-08-03 00:12 | ER ---
Nurse's Notes [facility] Name: Valentina Raphael Age: 78 yrs Sex: Female : 1945 Arrival Date: 08/02/2023 Time: 21:23 Bed 15 Private MD: Diagnosis: Small Bowel Obstruction;Dehydration Presentation: 08/01 21:28 Chief complaint: EMS states: toned out for dizziness, weakness, and diarrhea starting km8 about 1.5 hours ago; hypotensive upon EMS arrival SBP in 80's. Coronavirus screen: Client denies travel out of the [place] in the last 14 days. Ebola Screen: No symptoms or risks identified at this time. Initial Sepsis Screen: Does the patient meet any 2 criteria? Systolic BP < 90 mmHg. HR > 90 bpm. Yes Does the patient have a suspected source of infection? No. Patient's initial sepsis screen is negative. Risk Assessment: Do you want to hurt yourself or someone else? Patient reports no desire to harm self or others. Onset of symptoms was August 02, 2023 at 20:00. 21:28 Method Of Arrival: EMS: [facility] km8 21:28 Acuity: ZEYNEP 2 8 21:28 Care prior to arrival: Glucose check: 223 IV attempts x3, unsuccessful. km8 Triage Assessment: 21:30 General: Appears in no apparent distress. Behavior is cooperative, appropriate for age. km8 Pain: Complains of pain in abdomen Pain does not radiate. Pain currently is 8 out of 10 on a pain scale. Pain began 2 hours ago. EENT: No signs and/or symptoms were reported regarding the EENT system. Neuro: Level of Consciousness is awake, alert, obeys commands, Oriented to person, place, time, situation. Cardiovascular: Denies chest pain, shortness of breath, Patient's skin is warm and dry. Rhythm is sinus tachycardia. Respiratory: Airway is patent Respiratory effort is even, unlabored, Respiratory pattern is regular, symmetrical. GI: Abdomen is non-distended, Reports lower abdominal pain, diarrhea. : No signs and/or symptoms were reported regarding the genitourinary system. Derm: No signs and/or symptoms reported regarding the dermatologic system. Skin is intact, is healthy with good turgor, Skin is dry, Skin is pink, warm \\T\\ dry. normal, Skin temperature is warm. Musculoskeletal: Range of motion: intact in all extremities, Reports weakness in "all over". Historical: - Allergies: 21:30 No Known Allergies; km8 - PMHx: 21:30 Hyperlipidemia; Hypertension; Hypothyroidism; spinal menengitis; km8 - PSHx: 21:30 Appendectomy; Total abdominal hysterectomy; colon surgery; km8 - Immunization history:: Adult Immunizations up to date. - Infectious Disease History:: Denies. - Social history:: Smoking status: Patient denies any tobacco usage or history of. Patient/guardian denies using alcohol, street drugs. Screenin:[facility] ED Fall Risk Assessment (Adult) History of falling in the last 3 months, jw7 including since admission No falls in past 3 months (0 pts) Confusion or Disorientation No (0 pts) Intoxicated or Sedated No (0 pts) Impaired Gait Yes (1 pt) Mobility Assist Device Used No (0 pt) Altered Elimination Yes (1 pt) Score/Fall Risk Level 0 - 2 = Low Risk Oriented to surroundings, Maintained a safe environment, Educated pt \\T\\ family on fall prevention, incl call for assistance when getting out of bed, Provided non-skid footwear. Abuse screen: Denies threats or abuse. Denies injuries from another. Nutritional screening: No deficits noted. Tuberculosis screening: No symptoms or risk factors identified. Assessment: 21:34 Reassessment: Dr. Trevino at bedside to start and EJ on pt. km8 21:40 General: Appears in no apparent distress. uncomfortable, Behavior is calm, cooperative. jw7 Pain: Complains of pain in abdomen Pain does not radiate. Pain currently is 8 out of 10 on a pain scale. Quality of pain is described as aching, crampy, Pain began 2 hours ago. Is continuous. Neuro: Level of Consciousness is awake, alert, obeys commands, Oriented to person, place, time, situation. Cardiovascular: Heart tones S1 S2 present Capillary refill < 3 seconds Clubbing of nail beds is absent JVD is absent Patient's skin is warm and dry. Respiratory: Airway is patent Trachea midline Respiratory effort is even, unlabored, Respiratory pattern is regular, symmetrical, Breath sounds are clear bilaterally. GI: Abdomen is flat, non-distended, Bowel sounds present X 4 quads. Abd is soft X 4 quads Abdomen is tender to palpation in right lower quadrant and left lower quadrant Reports diarrhea. : No deficits noted. No signs and/or symptoms were reported regarding the genitourinary system. EENT: No deficits noted. No signs and/or symptoms were reported regarding the EENT system. Derm: Skin is healthy with good turgor, is fragile, Skin is dry, Skin is normal, Skin temperature is warm. Musculoskeletal: Circulation, motion, and sensation intact. Range of motion: intact in all extremities, Reports weakness in "Generalized weakness". 23:00 Reassessment: Patient appears in no apparent distress at this time. No changes from jw7 previously documented assessment. Patient and/or family updated on plan of care and expected duration. Pain level reassessed. Patient is alert, oriented x 3, equal unlabored respirations, skin warm/dry/pink. 08/02 00:00 Reassessment: Patient appears in no apparent distress at this time. No changes from jw7 previously documented assessment. Patient and/or family updated on plan of care and expected duration. Pain level reassessed. Patient is alert, oriented x 3, equal unlabored respirations, skin warm/dry/pink. 01:00 Reassessment: Patient appears in no apparent distress at this time. No changes from jw7 previously documented assessment. Patient and/or family updated on plan of care and expected duration. Pain level reassessed. Patient is alert, oriented x 3, equal unlabored respirations, skin warm/dry/pink. 02:00 Reassessment: Patient appears in no apparent distress at this time. No changes from jw7 previously documented assessment. Patient and/or family updated on plan of care and expected duration. Pain level reassessed. Patient is alert, oriented x 3, equal unlabored respirations, skin warm/dry/pink. 02:40 Reassessment: Patient appears in no apparent distress at this time. No changes from jw7 previously documented assessment. Patient and/or family updated on plan of care and expected duration. Pain level reassessed. Patient is alert, oriented x 3, equal unlabored respirations, skin warm/dry/pink. Vital Signs: 08/01 21:28 BP 81 / 69; Pulse 119; Resp 18; Temp 97.1(O); Pulse Ox 89% on R/A; Weight 40.37 kg (R); km8 Height 5 ft. 3 in. (R); Pain 8/10; 21:30 BP 102 / 70; Pulse 112; Resp 24 S; Pulse Ox 91% on R/A; jw7 22:00 BP 110 / 75; Pulse 101; Resp 23 S; Pulse Ox 100% on 2 lpm NC; jw7 22:30 BP 129 / 60; Pulse 94; Resp 21 S; Pulse Ox 100% on 2 lpm NC; jw7 23:15 BP 161 / 65; Pulse 96; Resp 21 S; Pulse Ox 97% on 2 lpm NC; jw7 23:30 BP 143 / 79; Pulse 93; Resp 21 S; Pulse Ox 95% on 2 lpm NC; jw7 08/02 00:00 BP 117 / 64; Pulse 100; Resp 20 S; Pulse Ox 98% on 2 lpm NC; jw7 01:00 BP 149 / 83; Pulse 104; Resp 20 S; Pulse Ox 97% on 2 lpm NC; jw7 02:00 BP 140 / 76; Pulse 102; Resp 18 S; Pulse Ox 100% on 2 lpm NC; jw7 02:40 BP 143 / 74; Pulse 103; Resp 17 S; Pulse Ox 99% on 2 lpm NC; jw7 08/01 21:28 Body Mass Index 15.77 (40.37 kg, 160.02 cm) km8 08/01 21:28 Pain Scale: Adult km8 ED Course: 08/01 21:28 Patient arrived in ED. km8 21:28 [facility]C [facility] kb 21:28 Jace Trevino MD is Attending Physician. kb 21:30 Triage completed. km8 21:30 Arm band placed on right wrist. km8 21:32 Client placed on continuous cardiac and pulse oximetry monitoring. NIBP monitoring km8 applied. cardiac monitor technician on. Pulse ox on. NIBP on. 21:40 IV Insertion of 20G to Left EJ, using aseptic technique by Dr. Trevino. jw7 21:50 Patient has correct armband on for positive identification. Placed in gown. Bed in low jw7 position. Call light in reach. Side rails up X2. Provided Education on: Use of Call Light. 21:50 Inserted saline lock: 20 gauge in right forearm, using aseptic technique. Blood jw7 collected. 21:50 Initial lab(s) drawn, by ky, sent to lab. First set of blood cultures drawn by me. jw7 22:05 Second set of blood cultures drawn by me. jw7 22:14 Stephy Knapp, RN is Primary Nurse. jw7 23:13 CT Abd/Pelvis - IV Contrast Only In Process Unspecified. EDMS 08/02 00:12 Devon Victoria MD is Hospitalizing Provider. kb 00:23 Chest Single View XRAY In Process Unspecified. EDMS 02:40 Patient admitted, IV remains in place. jw7 Administered Medications: 08/01 22:14 Drug: NS 0.9% IV (30 ml/kg) 30 ml/kg IV at bolus once; Sepsis Protocol Route: IV; Rate: jw7 bolus; Site: right forearm; 08/02 01:56 Follow up: Response: No adverse reaction; IV Status: Completed infusion; IV Intake: jw7 1250ml 08/01 23:20 Drug: Rocephin IV 1 grams IV at calculated rate once; Given slow IV push per pharmacy jw7 instructions Route: IV; Rate: calculated rate; Site: right forearm; 08/02 01:55 Follow up: Response: No adverse reaction; IV Status: Completed infusion; IV Intake: [id number] 23:53 Drug: morphine IVP or IV 2 mg IVP once over 4 mins Route: IVP; Infused Over: 4 mins; jw7 Site: right forearm; 08/02 01:55 Follow up: Response: No adverse reaction; Marked relief of symptoms; Pain is decreased jw7 08/01 23:53 Drug: Ondansetron IVP 4 mg IVP once; over 2 minutes Route: IVP; Site: right forearm; jw7 08/02 01:55 Follow up: Response: No adverse reaction; Marked relief of symptoms; Nausea is decreasedjw7 Medication: 02:40 VIS not applicable for this client. jw7 Intake: 01:55 IV: 50ml; Total: 50ml. jw7 01:56 IV: 1250ml; Total: 1300ml. jw7 Outcome: 00:12 Decision to Hospitalize by Provider. kb 02:40 Admitted to Tele accompanied by tech, via stretcher, with oxygen, jw7 02:40 Condition: stable 02:40 Instructed on the need for admit, Demonstrated understanding of instructions, 02:40 Patient left the ED. jw7 Signatures: Dispatcher [employer] EDMS Martha Diaz, PRESSING MACHINE OPERATOR-C PRESSING MACHINE OPERATOR-Stephy Garza RN RN jw7 Carlotta Mir, RN RN km8 Corrections: (The following items were deleted from the chart) 08/01 23:03 23:02 IV Insertion of 20G to Left EJ, using aseptic technique by Dr. Trevino. jw7 jw7 08/02 03:08 03:07 Patient left the ED. jw7 jw7
[2023-08-03] MEDS ORDERED: ONDANSETRON 4 MG/2 ML VIAL IV PRN (00:56)
[2023-08-03] MEDS ORDERED: ACETAMINOPHEN 325 MG TABLET PO PRN (00:56)
[2023-08-03] MEDS ORDERED: SODIUM CHLORIDE 0.9% 10ML INJ IV PRN (01:01)
--- NOTE | 2023-08-03 01:03 | P.HP ---
Certification for Inpatient Patient admitted to: Inpatient With expected LOS: >2 Midnights Practitioner: I am a practitioner with admitting privileges, knowledge of patient current condition, hospital course, and medical plan of care. Services: Services provided to patient in accordance with Admission requirements found in Title 42 Section 412.3 of the Code of Federal Regulations Patient History Date of Service: 08/03/23 Reason for admission: Abdominal Pain History of Present Illness: 78 yrs old Female with past medical history of hypertension, hyperlipidemia, hypothyroidism, history of meningitis, history of small bowel obstruction, status post surgery, started having generalized weakness and dizziness and abdominal pain and diarrhea which has been going on for the last 2 days. Denies any fever or chills. Started insidiously as generalized abdominal pain, dull aching, 5 out of 10 in severity, diffuse, nonradiating, associated with nausea but no vomiting, denies any fever or chills. No chest pain or shortness of breath. Patient complains of few episodes of diarrhea as well. Patient states that the pain is similar to bowel obstruction which she had previously. Patient was assessed in the ER and was admitted for possible small bowel obstruction and for surgical consult Allergies No Known Allergies Allergy (Verified 08/03/23 03:10) Home medications list reviewed: Yes Home Medications: Cyclobenzaprine [Flexeril*] 5 mg PO TID 10/18/18 Docusate Sodium [Stool Softener] 250 mg PO PRN PRN 10/18/18 Hydrocodone 10/APAP 325 [[place] 10/325*] 1 tab PO QIDP PRN 10/18/18 Morphine Sulfate [Morphine Sulfate ER] 15 mg PO BEDTIME PRN 10/18/18 Trazodone HCl 100 mg PO BEDTIME 10/18/18 carvediloL [Coreg*] 25 mg PO BID 10/18/18 Aiondronate 70 mg PO EVERY 7TH DAY 12/31/22 Atorvastatin Calcium [Lipitor*] 20 mg PO DAILY 12/31/22 Sertraline [Zoloft*] 100 mg PO DAILY 12/31/22 - Past Medical/Surgical History Diabetic: No Past Medical History: Reviewed- Non-Contributory -: Pneumothorax -: Colostomy -: Spinal meningitis -: GERD -: Small Bowel Obstruction -: Hypertension -: Hyperlipidemia -: Chronic Back pain -: Hypothyroidism Past Surgical History: Reviewed- Non-Contributory -: Hysterectomy -: back sx x4 -: Colostomy -: Colon resection -: Spinal implant-2018 - Family History Family History: Reviewed- Non-Contributory - Family History Father -: Cancer Notes: cancer of the liver Mother -: Hypertension, Stroke - Social History Smoking Status: Never smoker Alcohol use: No CD- Drugs: No Caffeine use: No Review of Systems 10-point ROS is otherwise unremarkable Physical Examination - Vital Signs Temperature: 98.4 F Blood Pressure: 126/74 Pulse: 78 Respirations: 18 Pulse Ox (%): 96 - Physical Exam General: Alert, In no apparent distress, Oriented x3 HEENT: Atraumatic, Normocephalic Neck: Supple Respiratory: Clear to auscultation bilaterally, Normal air movement Cardiovascular: Normal pulses, Regular rate/rhythm, Normal S1 S2 Capillary refill: <2 Seconds Gastrointestinal: Soft and benign, W/out hepatosplenomegaly, No masses, No rebound, No guarding, Tenderness Musculoskeletal: No clubbing, No swelling Integumentary: No rashes, No breakdown Neurological: Normal speech, Normal strength at 5/5 x4 extr, Cranial nerves 3-12 intact Lymphatics: No axilla or inguinal lymphadenopathy - Studies Laboratory Data (last 24 hrs) 08/02/23 08/02/23 08/02/23 21:50 21:50 21:50 WBC 13.10 H Hgb 10.5 L Hct 31.7 L Plt Count 336 PT 12.9 H INR 1.18 APTT 23.9 L Sodium 138 Potassium 4.2 BUN 36 H Creatinine 1.35 H Glucose 161 H Magnesium 2.1 Total Bilirubin 0.3 AST 12 L ALT 16 Alkaline Phosphatase 74 Assessment and Plan - Problems (Diagnosis) (1) SBO (small bowel obstruction) Current Visit: No Status: Acute Plan: Small bowel obstruction Pain control Started on IV hydration Will keep n.p.o. for now Surgical consult CT abdomen pelvis ordered final report is pending Appreciate help from Dr. Harris Acute kidney injury IV hydration Monitor renal parameters Lactic acidosis IV hydration Will start on IV antibiotic To rule out ischemic bowel Will trend lactic acid levels Awaiting CT report Hypertension Continue home medications and titrate as needed GI/DVT prophylaxis Advanced directive full code - Advance Directives Does patient have a Living Will: Yes Does patient have a Durable POA for Healthcare: No - Code Status/Comfort Care Code Status: Full Code Time Spent Managing Pts Care (In Minutes): 48
[2023-08-03 01:19] LABS: Specific Gravity > 1.030 (1.005-1.030); Sqamous Epithelial <5 /HPF (None Seen); Urine Bacteria None Seen /HPF (<20); Urine Bilirubin NEGATIVE (Negative); Urine Blood Negative (Negative); Urine Clarity Clear (Clear); Urine Color Light-Yellow (Yellow); Urine Culture Reflex Order NOT NEEDED; Urine Glucose NEGATIVE (Negative); Urine Ketones NEGATIVE (Negative); Urine Microscopic Reflex YN ORDER UMIC; Urine Mucus Slight /HPF (None Seen); Urine Nitrite 1+ (Negative); Urine Protein NEGATIVE (Negative); Urine Urobilinogen Normal (Normal); Urine WBC <5 /HPF (<5); Urine pH 6.5 (5.0-7.0)
[2023-08-03] MEDS: NA CHLORIDE 0.9% 1,000 ML IV SCH (03:08)
[2023-08-03] MEDS: PIPER TAZO 3.375 GM in NA CHLORIDE 0.9% 100 ML IV SCH (03:09)
[2023-08-03] MEDS ORDERED: HYDROCODONE/APAP 10/325 TAB PO PRN (04:00)
[2023-08-03] MEDS ORDERED: DOCUSATE NA 100 MG CAP PO PRN (04:28)
[2023-08-03] MEDS: MORPHINE 2 MG/ML SYR IV PRN (04:45)
[2023-08-03] MEDS: SERTRALINE HCL 100 MG TAB PO SCH (09:00)
[2023-08-03] MEDS: CYCLOBENZAPRINE 10 MG TAB PO SCH (09:00)
[2023-08-03] MEDS: ATORVASTATIN 20 MG TAB PO SCH (09:00)
[2023-08-03] MEDS: carvediloL 12.5 MG TAB PO SCH (09:00)
[2023-08-03] MEDS: ENOXAPARIN 30 MG/0.3 ML SQ SCH (10:57)
[2023-08-03] MEDS: PANTOPRAZOLE 40 MG INJ IVP SCH (10:57)
--- NOTE | 2023-08-03 12:40 | P.PN ---
Date of Service: 08/03/23 Patient seen and examined. She is complaining of abdominal pain. Lactic acidosis resolved. On examination, abdomen looks benign, mild tenderness to palpation. Normal bowel sounds. Diagnosis Ileus versus partial bowel obstruction ELISA Plan Case discussed with surgery Dr. Harris Continue medical management Keep n.p.o. today IV hydration May need small bowel series in a few days. Monitor and optimize electrolytes.
[2023-08-03] MEDS: METOPROLOL TARTRATE 5 MG/5 ML INJ IV STA (14:01)
[2023-08-03] MEDS: MAGNESIUM SULFATE 1 gm IVPB 1 GM/100 ML BAG IV ONE (14:19)
--- NOTE | 2023-08-03 16:12 | RAD REPORT ---
EXAM DESCRIPTION: RAD - Abdomen W Erect - 08/03/2023 4:01 pm CLINICAL HISTORY: Abdominal pain FINDINGS: Air is not seen beneath the diaphragm. Air is present within nondilated small bowel and the colon nonspecific fashion. Neurostimulator device is in place. Cement has placed into several old vertebral body fractures
[2023-08-03] MEDS: FENTANYL CITR 100 MCG/2 ML IV ONE (18:10)
[2023-08-03] MEDS: NA CHLORIDE 0.9% 250 ML IV ONE (18:10)
--- NOTE | 2023-08-03 19:37 | RAD REPORT ---
EXAM DESCRIPTION: RAD - Chest Single View - 08/03/2023 12:22 am CLINICAL HISTORY: 78 years Female, FEVER COMPARISON: Chest radiograph dated 12/23/2022 IMPRESSION: Chronic lung changes. No focal consolidation. No pleural effusion. No pneumothorax. Cardiomediastinal silhouette is within normal limits. No acute osseous abnormality. Osteopenia. Hiatal hernia. Electronically signed by: Roman Doyle DO 08/03/2023 12:46 AM CDT Due to temporary technical issues with the PACS/Fluency reporting system, reports are being signed by the in house radiologists without review as a courtesy to insure prompt reporting. The interpreting radiologist is fully responsible for the content of the report.
[2023-08-03] MEDS: ALBUMIN HUMAN 25% 100 ML IV ONE (19:39)
[2023-08-03] MEDS: NA CHLORIDE 0.9% 1,000 ML IV ONE (19:43)
--- NOTE | 2023-08-03 20:06 | RAD REPORT ---
EXAM DESCRIPTION: CT - Abdomen Pelvis W Contrast - 08/03/2023 6:42 am CLINICAL HISTORY: ABD PAIN TECHNIQUE: Axial computed tomography images of the abdomen and pelvis with intravenous contrast. S agittal and coronal reformatted images were created and reviewed. This CT exam was performed using one or more of the following dose reduction techniques: automated exposure control, adjustment of t he mA and/or kV according to patient size, and/or use of iterative reconstruction technique. COMPARISON: CT Abdomen Pelvis dated 12/25/2022 FINDINGS: Lung bases: Unremarkable. No mass. No consolidation. Mediastinum: Moderate hiatal hernia. ABDOMEN: Liver: Intrahepatic and extrahepatic biliary dilatation similar to the prior. The common duct measu res 11 mm in maximum diameter. Gallbladder and bile ducts: Contracted gallbladder. Pancreas: Unremarkable. No mass. No ductal dilation. Spleen: Unremarkable. No splenomegaly. Adrenals: Unremarkable. No mass. Kidneys and ureters: Unremarkable. No solid mass. No hydronephrosis. Stomach and bowel: Moderate gastric distention. Borderline prominent fluid-filled small bowel loo ps in the upper to mid abdomen. Left abdominal small bowel anastomosis. The distal small bowel is dec ompressed. A discrete transition is not clearly delineated. Moderate stool within the distal large bowel. PELVIS: Appendix: The appendix is not definitively visualized. No findings to suggest acute appendicitis. Bladder: The urinary bladder is partially decompressed. Reproductive: There has been a hysterectomy. No adnexal cysts or masses are identified. ABDOMEN and PELVIS: Intraperitoneal space: Unremarkable. No free air. No significant fluid collection. Bones/joints: Multilevel spondylosis. Remote T12, L1, L3 and L5 compression fractures with prior L1 , L3 and L5 vertebroplasty. No dislocation. Soft tissues: Unremarkable. Vasculature: Mild to moderate atherosclerotic disease. No abdominal aortic aneurysm. Lymph nodes: Unremarkable. No enlarged lymph nodes. IMPRESSION: 1. Moderate gastric distention. Borderline prominent fluid-filled small bowel loops in the upper to mid abdomen. The distal small bowel is decompressed. A discrete transition is not clear ly delineated. Early/partial small bowel obstruction is not excluded. 2. Other findings as above. Electronically signed by: Shady Smalls MD 08/02/2023 11:58 PM CDT Due to temporary technical issues with the PACS/Fluency reporting system, reports are being signed by the in house radiologists without review as a courtesy to insure prompt reporting. The interpreting radiologist is fully responsible for the content of the report.
[2023-08-03 20:39] LABS: Absolute Lymphocytes (CBC) 1.6 K/uL (0.7-4.9); Absolute Monocytes 0.4 K/uL (0.1-1.3); Absolute Neutrophil 10.6 K/uL (1.8-8.0); Basophils % 0.2 % (0-1.3); Hematocrit 14.9 % (36.0-45.0); Lymphocytes % 12.5 % (15.3-44.8); MCH 31.4 pg (27.0-35.0); MCV 97.9 fL (80-100); MPV 8.3 fL (7.6-11.3); Monocytes % 2.8 % (3.3-12.3); Neutrophils % 84.5 % (41.7-73.7); Nucleated Red Blood Cells % 0.1 % (0-0); Platelets 210 thou/uL (152-406); RBC Red Blood Cell Count 1.52 M/uL (3.86-4.86); Red Cell Distribution Width 13.5 % (12.1-15.2)
--- NOTE | 2023-08-03 20:51 | RAD REPORT ---
EXAM DESCRIPTION: CT - Abdomen Pelvis W Contrast - 08/03/2023 8:22 pm CLINICAL HISTORY: Abdominal pain COMPARISON: August 02, 2023 TECHNIQUE: Computed axial tomography of the abdomen pelvis was obtained. 100 cc Isovue-300 was admin istered intravenously. Oral contrast was not requested which limits evaluation of bowel and appendix All CT scans are performed using dose optimization technique as appropriate and may include automated exposure control or mA/KV adjustment according to patient size. FINDINGS: The gallbladder is distended. Mild dilatation of the intra and extrahepatic biliary tree. Spleen, pancreas, adrenals and kidneys are unremarkable. Moderate hiatal hernia. The stomach has decreased size since the prior exam. A loop of jejunum is mildly to moderately dilated at the anastomotic site within the left abdomen. Th e remainder of the small bowel caliber is within normal limits. Colon is normal caliber. No evidence of diverticulitis. Cement has been placed into lumbar vertebral body fractures. IMPRESSION: Small bowel dilatation has decreased since the prior CAT scan. There is only 1 loop of d ilated small bowel within the left abdomen. This is present at the anastomotic site. This could be an atonic loop or stricture Gallbladder distention. Mild dilatation of the intra and extrahepatic biliary tree. MRCP may be helpf ul for further evaluation
[2023-08-03 20:53] LABS: Hemoglobin 4.8 g/dL (12.0-15.0)
[2023-08-03] MEDS: carvediloL 25 MG TAB PO SCH (21:00)
[2023-08-03 21:53] LABS: Anion Gap 11.2 mEq/L (5.0-15.0); C-Reactive Protein 3.9 mg/L (<3.00); Potassium 4.2 mEq/L (3.5-5.1)
[2023-08-03] MEDS ORDERED: NA CHLORIDE 0.9% 250 ML IV SCH (23:00)
[2023-08-04 02:37] VITALS: BMI 15.7
[2023-08-04 06:41] LABS: Absolute Lymphocytes (CBC) 1.5 K/uL (0.7-4.9); Absolute Monocytes 0.6 K/uL (0.1-1.3); Absolute Neutrophil 5.7 K/uL (1.8-8.0); Basophils % 0.4 % (0-1.3); Hematocrit 16.3 % (36.0-45.0); Lymphocytes % 19.1 % (15.3-44.8); MCH 32.1 pg (27.0-35.0); MCHC 33.9 g/dL (32.0-36.0); MCV 94.7 fL (80-100); MPV 7.5 fL (7.6-11.3); Neutrophils % 72.5 % (41.7-73.7); Nucleated Red Blood Cells % 0.2 % (0-0); Platelets 131 thou/uL (152-406); RBC Red Blood Cell Count 1.72 M/uL (3.86-4.86); Red Cell Distribution Width 13.8 % (12.1-15.2)
[2023-08-04 06:46] LABS: Hemoglobin 5.5 g/dL (12.0-15.0)
[2023-08-04 08:41] VITALS: O2SAT 100
[2023-08-04 10:32] LABS: Albumin 3.1 g/dL (3.4-5.0); Albumin/Globulin Ratio 1.3 (1.1-1.8); Anion Gap 7.7 mEq/L (5.0-15.0); Bilirubin Total 0.2 mg/dL (0.2-1.0); Globulin 2.4 g/dL (2.3-3.5); Potassium 3.7 mEq/L (3.5-5.1); Protein, Total 5.5 g/dL (6.4-8.2)
[2023-08-04] MEDS: PANTOPRAZOLE INJ 80 MG in NA CHLORIDE 0.9% 250 ML IV SCH (14:15)
[2023-08-04] MEDS: OCTREOTIDE 500 MCG in NA CHLORIDE 0.9% 500 ML IV SCH (14:15)
--- NOTE | 2023-08-04 16:26 | P.PN ---
Subjective Date of Service: 08/04/23 Chief Complaint: Abdominal Pain Patient reports improvement in her abdominal pain. She reports small melena. She states that she is passing flatus. No nausea or vomiting. Patient hemoglobin dropped significantly from 10.5 to 4.8 last night. Patient given 1 unit PRBC overnight, 2 more units pending. Physical Examination - Vital Signs Temperature: 98.4 F Blood Pressure: 164/79 Pulse: 88 Respirations: 16 Pulse Ox (%): 97 Assessment And Plan - Plan Physical examination General: Alert and oriented x3, NAD, cachectic. HEENT: Conjunctiva not pale, anicteric sclera Neck: Supple, no elevated JVD Heart: Heart sounds 1 and 2 normal, regular rhythm, normal rate, no pedal edema Lungs: Clear to auscultation bilaterally, adequate breath sounds bilaterally, no rhonchi or crackles. Abdomen: Soft, nondistended, nontender, normal bowel sounds. Extremities: No tenderness, no deformity Skin: Normal skin turgor, no rash, no nodules or ulcers. Neuro: No focal motor deficit. Normal speech. Psychiatry: Normal mood, no agitation. Diagnosis Acute blood loss anemia Acute GI bleed Partial small bowel obstruction Gastroparesis with gastric distention History of duodenal ulcer Hypertension Hypernatremia Plan: Acute blood loss anemia Acute GI bleed History of duodenal ulcer 3 unit PRBC transfusion ordered. Patient started on IV Protonix and IV octreotide IV hydration Monitor H&H every 6 hours after blood transfusion. Keep n.p.o. Transfer to [facility] for GI evaluation and possible endoscopy initiated, waiting for bed availability. Partial small bowel obstruction Surgery Dr. Harris input appreciated. Dr. Harris recommended conservative management. N.p.o., IV hydration. Serial abdominal examination Monitor and optimize electrolytes. History of gastroparesis with gastric distention Patient has a gastric pacer in place. Essential hypertension Hold oral medications Hydralazine IV as needed for BP spikes. Hypernatremia Change IV NS to D5 half NS. DVT prophylaxis: SCD Advanced directive: Full code.
--- NOTE | 2023-08-04 16:33 | PN ---
Date of Progress Note: 08/04/2023 Reason For Service: Low hemoglobin, rule out GI bleed. Subjective: This is the case of an 78-year-old patient consulted by us yesterday due to an episode i n the last 2-3 days of cramps in the abdomen and got better. At that moment, she had some diarrhea. No melena. We noticed that hemoglobin dropped significantly overnight. We checked once again the b owel stools, this time we had some melena present and hemoglobin dropped from 10 to 4.8 to 5.5 and en blood transfusion was initiated by the primary doctor. She has been keeping the blood pressure. Amazingly she has no major abdominal pain. The abdomen is flat and has no pain at this moment, but s he remembered in the past she has history of gastric ulcers, now that we mentioned to her that she ma y have some GI bleed. Objective: Chest: Clear. Abdomen: Soft and depressible. No guarding or rebound. Extremities: Good capillary refill. Assessment And Plan: Blood work shows hemoglobin of 5.5. She has been transfused . We discussed case with Dr. Willams. They already initiated transfer to higher level of care since we have no GI coverage in this institution for EGD and colonoscopy. At the same time may need a bleeding scan or a ngio that we do not provide in this institution at this moment. Right now she is stable hemodynamica lly. She is oriented x3. She is not in any distress, but I believe the transfer should be done as s oon as possible. SAURAV/TISHA Voice ID: [id number] Report ID: [id number]
--- NOTE | 2023-08-04 18:56 | CON ---
Date of Consultation: 08/03/2023 Reason For Service: Abdominal pain. History Of Present Illness: This is the case of an 78-year-old patient who comes to us with abdomina l pain. She is not new to that. She has multiple surgeries in the past, one by us about a year ago. She has multiple bowel resections for multiple conditions in other institutions. She is not new to pain, but she has been okay since the last surgery about a year ago and then developed this pain for the last several days. Today, it has been a little bit more colicky in nature. She denies any dysu petr, hematuria, hematochezia, or melena. Denies any shortness of breath, any chest pain. She still has some loose stools. She has been eating. Her pain is minimal now, but she says that before comin g here she had this intense pain in her abdomen. No recent traveling out of the country. No family member sick at home. Review of Systems: 10 points otherwise unremarkable. When she came to the ER initially she had one episode of hypertension followed by hypotension, good r esponse to fluids. The patient was admitted to the hospital to continue workup for her condition. S urgical consult was obtained, did a CAT scan that shows fluid levels and they cannot rule out any obs truction, although I did not see any transition point and because she has multiple surgeries in the p ast and multiple bowel obstructions. Allergies: NONE. Medications: Reviewed including Chase, Coreg, Lipitor, Zoloft, morphine. Past Medical History: Include pneumothorax, small bowel obstruction multiple, bowel resections multi ple times, GERD, chronic back pain, hypothyroidism, hypertension, hyperlipidemia. Past Surgical History: Include bowel resection, colostomies, reversal of colostomies, colon resectio n, spinal implant, hysterectomy, back surgery. Family History: Includes cancer of the liver and stroke. Social History: She does not smoke. She does not drink alcohol. Physical Examination: Vital Signs: Stable at this moment, although initially the blood pressure was low I heard by the ER staff, but that was quickly corrected with IV hydration as per staff. At this moment, blood pressure s in the systolic 120s and diastolic in the 70s. General: The patient is awake, alert. She is not in any distress at this moment. Oriented x3. HEENT: Pupils are equal, reactive, anicteric. Neck: Supple. Abdomen: Soft and benign. No guarding or rebound. Mild generalized tenderness. She always has vanda t, but there is no distention present. Rectal: Deferred. Breasts: Deferred. Extremities: Good capillary refill. Laboratory Data: Blood work shows WBC count of 13, hemoglobin is 10.5, and platelets are 336. INR i s 1.1. Potassium is 4.2, bicarb is 23, creatinine is 1.35. CAT scan of the abdomen and pelvis inter preted by Dr. Suarez as distended stomach, borderline prominent fluid-filled small loops, no transit ion point, cannot rule out early bowel obstruction. Assessment: This is a female with history of multiple surgeries, multiple bowel obstruction. At thi s time she has been okay since last time she had her surgery. She developed some pain 2 days ago, go t better, got these cramps and they got better. The bowel does not look compromised or pneumatosis a t this moment. There is no transition point in the bowel obstruction, but I believe it merits observ ation. With history of her bowel and gastrointestinal problems, I believe observation will let us on ce again find out the reason for her pain or at least have an attempt for that. Right now, her abdom en is benign, but she claimed that it does not happen all the time, so we are going to keep her in ob servation. She understood the option for surgeries if we found any obstruction. If we find that garay s not improve, we may have to do a small bowel eventually. At this moment, the abdomen is benign. SAURAV/TISHA Voice ID: [id number] Report ID: [id number]
[2023-08-04] MEDS: D5.45NS W/KCL 20MEQ 20 MEQ/1,000 ML BAG IV SCH (21:03)
[2023-08-04 22:45] LABS: Hematocrit 24.7 % (36.0-45.0); Hemoglobin 8.2 g/dL (12.0-15.0)
[2023-08-05] MEDS: HYDROCODONE/APAP 7.5/325 MG TAB PO PRN (00:54)
[2023-08-05] MEDS: HYDRALAZINE HCL 20 MG/ML VIAL IV PRN (05:37)
[2023-08-05 07:37] LABS: Hematocrit 27.8 % (36.0-45.0); Hemoglobin 9.5 g/dL (12.0-15.0)
[2023-08-05 08:09] LABS: Albumin 3.3 g/dL (3.4-5.0); Anion Gap 5.3 mEq/L (5.0-15.0); Potassium 3.3 mEq/L (3.5-5.1)
[2023-08-05 08:18] LABS: Phosphorus 1.4 mg/dL (2.5-4.9)
[2023-08-05] MEDS ORDERED: MORPHINE 15 MG IR TAB PO PRN (11:15)
[2023-08-05] MEDS: POTASSIUM PHOS IN 0.9 % NACL 15 MMOL/250 ML BAG IV ONE (11:33)
[2023-08-05 13:11] VITALS: BP 179/78; TEMP 97.3
--- NOTE | 2023-08-05 13:23 | PN ---
Date of Progress Note: 08/05/2023 Reason For Service: History of abdominal pain, partial small bowel obstruction, GI bleed. The patie nt is doing better. She is still having some melena. Hemoglobin is more stable. Her abdomen is mike ign. She does not know exactly where this bleeding is coming from. She claims she has history of ga stric ulcers. Objective: Chest: Clear. Abdomen: Soft and depressible. No guarding or rebound. Extremities: Good capillary refill. Laboratory Data: Blood work shows hemoglobin of 9.5, hematocrit 27.8, after what I understood was 3 units of blood. Plan: She has been accepted in [place]. For followup on endoscopies and GI bleeding workup. Is pen ding bed. In the meantime, at least at this moment, she looks stable. SAURAV/TISHA Voice ID: [id number] Report ID: [id number]
[2023-08-05 13:59] LABS: Hematocrit 26.3 % (36.0-45.0); Hemoglobin 8.8 g/dL (12.0-15.0)
--- NOTE | 2023-08-05 16:00 | P.PN ---
Subjective Date of Service: 08/05/23 Chief Complaint: Abdominal Pain Patient with mild abdominal pain, was seen located in the left lower quadrant. She states that she is passing flatus. No nausea or vomiting. Hemoglobin is stable after blood transfusion. Status post 3 units PRBC transfusion. Physical Examination - Vital Signs Temperature: 97.3 F Blood Pressure: 179/78 Pulse: 76 Respirations: 16 Pulse Ox (%): 97 Assessment And Plan - Plan Physical examination General: Alert and oriented x3, NAD, cachectic. HEENT: Conjunctiva not pale, anicteric sclera Neck: Supple, no elevated JVD Heart: Heart sounds 1 and 2 normal, regular rhythm, normal rate, no pedal edema Lungs: Clear to auscultation bilaterally, adequate breath sounds bilaterally, no rhonchi or crackles. Abdomen: Soft, nondistended, nontender, normal bowel sounds. Extremities: No tenderness, no deformity Skin: Normal skin turgor, no rash, no nodules or ulcers. Neuro: No focal motor deficit. Normal speech. Psychiatry: Normal mood, no agitation. Diagnosis Acute blood loss anemia Acute GI bleed Partial small bowel obstruction Gastroparesis with gastric distention History of duodenal ulcer Hypertension Hypernatremia Plan: Acute blood loss anemia Acute GI bleed History of duodenal ulcer 3 unit PRBC transfused Continue IV Protonix and IV octreotide IV hydration Monitor H&H every 6 hours after blood transfusion. Ice chips today Transfer to [facility] for GI evaluation and possible endoscopy initiated, waiting for bed availability. Partial small bowel obstruction Surgery Dr. Harris input appreciated. Dr. Harris recommended conservative management. IV hydration. Serial abdominal examination Monitor and optimize electrolytes. History of gastroparesis with gastric distention Patient has a gastric pacer in place. Essential hypertension Resume oral medications. Hydralazine IV as needed for BP spikes. Hypernatremia/hypokalemia/hypophosphatemia Continue D5 half NS. Replete potassium and phosphate IV. DVT prophylaxis: SCD Advanced directive: Full code.
[2023-08-05] MEDS ORDERED: HOME MED 1 EA UNK (Trazodone Hcl [Trazodone Hcl] 100 MG Tablet) PO SCH (21:00)
--- NOTE | 2023-08-10 17:18 | EKG ---
Test Date: 2023-08-03 Test Time: 12:56:13 Health Care Law Specialist: PAULETTE MEASUREMENT RESULTS: Intervals: Rate: 118 SD: 124 QRSD: 72 QT: 330 QTc: 462 [place]: P: 73 SD: 124 QRS: 67 T: 80 INTERPRETIVE STATEMENTS: Sinus tachycardia Otherwise normal ECG Compared to ECG 08/02/2023 22:46:02 Sinus rhythm no longer present Electronically Signed On 08-10-23 16:51:34 CDT by Rui Gonsales
--- NOTE | 2023-08-10 17:21 | EKG ---
Test Date: 2023-08-02 Test Time: 22:46:02 Split Leather Mosser: VIJAY MEASUREMENT RESULTS: Intervals: Rate: 98 MS: 174 QRSD: 86 QT: 358 QTc: 457 [place]: P: 82 MS: 174 QRS: 67 T: 89 INTERPRETIVE STATEMENTS: Normal sinus rhythm Normal ECG Compared to ECG 09/10/2022 08:09:36 Sinus tachycardia no longer present ST (T wave) deviation no longer present Possible ischemia no longer present Electronically Signed On 08-10-23 16:52:34 CDT by Rui Gonsales
--- NOTE | 2023-08-20 17:08 | P.DS ---
Admission Date: 08/03/23 Discharge Date: 08/06/23 Disposition: TRANSFER TO [facility] Reason for Admission: Abdominal Pain Brief History of Present Illness: 78 yrs old Female with past medical history of hypertension, hyperlipidemia, hypothyroidism, history of meningitis, history of small bowel obstruction, status post surgery, started having generalized weakness and dizziness and abdominal pain and diarrhea. Started insidiously as generalized abdominal pain, dull aching, 5 out of 10 in severity, diffuse, nonradiating, associated with nausea but no vomiting, denies any fever or chills. No chest pain or shortness of breath. Patient complains of few episodes of diarrhea as well. Patient states that the pain was similar to bowel obstruction which she had previously. Patient was assessed in the ER and was admitted for possible small bowel obstruction and for surgical consult Hospital Course: Diagnosis Acute blood loss anemia Acute GI bleed Partial small bowel obstruction Gastroparesis with gastric distention History of duodenal ulcer Hypertension Hypernatremia Plan: Acute blood loss anemia Acute GI bleed History of duodenal ulcer 3 unit PRBC transfused Treated with IV Protonix and IV octreotide Also treated with IV hydration Transfer to [facility] for GI evaluation and endoscopy. Patient accepted for transfer. She is clinically stable for transfer. Partial small bowel obstruction Seen by general surgery Dr. Harris. Dr. Harris recommended conservative management. History of gastroparesis with gastric distention Patient has a gastric pacer in place. Essential hypertension Resumed oral medications. Hypernatremia/hypokalemia/hypophosphatemia Treated with D5 half NS and repleted potassium and phosphate IV. Vital Signs/Physical Exam: Temp Pulse Resp BP Pulse Ox 97.3 F 76 16 179/78 H 97 08/05/23 16:00 08/05/23 16:00 08/05/23 16:00 08/05/23 16:00 08/05/23 16:00 Laboratory Data at Discharge: WBC 7.80 thou/uL (4.3-10.9) 08/04/23 06:20 Hgb Cancelled 08/05/23 21:15 Hct Cancelled 08/05/23 21:15 Plt Count 131 thou/uL (152-406) L D 08/04/23 06:20 PT 12.9 SECONDS (9.5-12.5) H 08/02/23 21:50 INR 1.18 08/02/23 21:50 APTT 23.9 SECONDS (24.3-36.9) L 08/02/23 21:50 Sodium 146 mEq/L (136-145) H 08/05/23 07:20 Potassium 3.3 mEq/L (3.5-5.1) L 08/05/23 07:20 BUN 29 mg/dL (7-18) H 08/05/23 07:20 Creatinine 0.69 mg/dL (0.55-1.02) 08/05/23 07:20 Glucose 127 mg/dL (74-106) H 08/05/23 07:20 Phosphorus 1.4 mg/dL (2.5-4.9) L* 08/05/23 07:20 Magnesium 2.1 mg/dL (1.6-2.4) 08/02/23 21:50 Total Bilirubin 0.2 mg/dL (0.2-1.0) 08/04/23 09:47 AST 20 U/L (15-37) 08/04/23 09:47 ALT 16 U/L (13-56) 08/04/23 09:47 Alkaline Phosphatase 27 U/L (45-117) L 08/04/23 09:47 Home Medications: Cyclobenzaprine [Flexeril*] 5 mg PO TID 10/18/18 Docusate Sodium [Stool Softener] 250 mg PO PRN PRN 10/18/18 Hydrocodone 10/APAP 325 [[place] 10/325*] 1 tab PO QIDP PRN 10/18/18 Morphine Sulfate [Morphine Sulfate ER] 15 mg PO BEDTIME PRN 10/18/18 Trazodone HCl 100 mg PO BEDTIME 10/18/18 carvediloL [Coreg*] 25 mg PO BID 10/18/18 Aiondronate 70 mg PO EVERY 7TH DAY 12/31/22 Atorvastatin Calcium [Lipitor*] 20 mg PO DAILY 12/31/22 Sertraline [Zoloft*] 100 mg PO DAILY 12/31/22 Followup: KAT DOMINGUEZ [Primary Care Provider] -
== END 2023-08-05 16:15 | disposition short-term general hospital (02) | DRG 388 ==
LOC: ER 21:23 → ERHOLD 08-03 00:56 → 4TH 08-03 01:59
PROVIDERS: ADMIT Family Medicine; ATTEND Internal Medicine
PROC: 30233N1 Transfusion of Nonautologous Red Blood Cells into Peripheral Vein, Percutaneous Approach (ICD-10-PCS; principal; 2023-08-04)
DX: K56.600 Partial intestinal obstruction, unspecified as to cause (principal); E43 Unspecified severe protein-calorie malnutrition; R65.11 Systemic inflammatory response syndrome (SIRS) of non-infectious origin with acute organ dysfunction; N17.9 Acute kidney failure, unspecified; Z68.1 Body mass index [BMI] 19.9 or less, adult; E87.20 Acidosis, unspecified; K92.1 Melena; R64 Cachexia; D62 Acute posthemorrhagic anemia; E87.0 Hyperosmolality and hypernatremia; E78.5 Hyperlipidemia, unspecified; I10 Essential (primary) hypertension; E87.6 Hypokalemia; E86.0 Dehydration; E83.39 Other disorders of phosphorus metabolism; K31.84 Gastroparesis; E03.9 Hypothyroidism, unspecified; G89.29 Other chronic pain; K21.9 Gastro-esophageal reflux disease without esophagitis; M54.9 Dorsalgia, unspecified; Z79.02 Long term (current) use of antithrombotics/antiplatelets; Z90.49 Acquired absence of other specified parts of digestive tract; Z79.899 Other long term (current) drug therapy; Z90.710 Acquired absence of both cervix and uterus
CPT/HCPCS: 36415; 36430; 71045; 74019; 74177; 80048; 80053; 80069; 81001; 82947; 83605; 83735; 84484; 85014; 85018; 85025; 85610; 85730; 86140; 86850; 86900; 86901; 86920; 87040; 93005; 94760; 96365; 96366; 96375; 99285; C9113; J0360; J0696; J1650; J2270; J2354; J2405; J2543; J3010; J3475; J7030; J7040; J7050; P9016; P9047; Q9967

== ENCOUNTER 2023-10-21 22:42 | Emergency (ER) | payer OTHER ==
[2023-10-21 23:18] LABS: Absolute Eosinophils 0.2 K/uL (0-0.5); Absolute Lymphocytes (CBC) 1.6 K/uL (0.7-4.9); Absolute Monocytes 0.5 K/uL (0.1-1.3); Absolute Neutrophil 4.9 K/uL (1.8-8.0); Basophils % 0.4 % (0-1.3); Eosinophils % 3.1 % (0-4.4); Hematocrit 28.1 % (36.0-45.0); Hemoglobin 9.1 g/dL (12.0-15.0); Lymphocytes % 22.1 % (15.3-44.8); MCH 30.1 pg (27.0-35.0); MCHC 32.3 g/dL (32.0-36.0); MCV 93.3 fL (80-100); MPV 7.4 fL (7.6-11.3); Monocytes % 7.3 % (3.3-12.3); Neutrophils % 67.1 % (41.7-73.7); Platelets 260 thou/uL (152-406); RBC Red Blood Cell Count 3.01 M/uL (3.86-4.86); Red Cell Distribution Width 15.7 % (12.1-15.2)
[2023-10-21] MEDS ORDERED: MORPHINE 4 MG/ML SYR ONE (23:28)
[2023-10-21] MEDS ORDERED: ONDANSETRON 4 MG/2 ML VIAL ONE (23:28)
[2023-10-21 23:35] LABS: AST/SGOT 11 U/L (15-37); Albumin 3.4 g/dL (3.4-5.0); Albumin/Globulin Ratio 0.9 (1.1-1.8); Alkaline Phosphatase 60 U/L (45-117); Anion Gap 8.6 mEq/L (5.0-15.0); BUN Blood Urea Nitrogen 36 mg/dL (7-18); Bicarbonate 21 mEq/L (21-32); Globulin 3.8 g/dL (2.3-3.5); Glomerular Filtration Rate 61 ml/min (=/>90); Glucose Level 89 mg/dL (74-106); Lipase 19 U/L (13-75); Potassium 3.6 mEq/L (3.5-5.1); Protein, Total 7.2 g/dL (6.4-8.2); Sodium Level 136 mEq/L (136-145)
[2023-10-21 23:46] LABS: ALT/SGPT < 14 U/L (13-56); Bilirubin Total < 0.2 mg/dL (0.2-1.0)
--- NOTE | 2023-10-22 00:54 | EDPHYS ---
Physician Documentation [facility] Name: Valentina Raphael Age: 78 yrs Sex: Female : 1945 Arrival Date: 10/21/2023 Time: 22:42 Bed 16 Private MD: ED Physician Benny Montoya HPI: 10/20 23:08 This 78 yrs old Female presents to ER via EMS with complaints of Abdominal Pain. sb4 23:08 The patient presents with abdominal pain that is diffuse. Onset: The symptoms/episode sb4 began/occurred today. The symptoms do not radiate. Associated signs and symptoms: Pertinent positives: nausea and vomiting, blood in stools. The patient has experienced a previous episode, last month, and the symptoms today are exactly the same. abdominal pain and dark stools started today with one episode of coffee ground emesis. had GI bleed in August, transferred to [facility], had endoscopy/colonoscopy, stated she had "bleeding vessels" which resolved without further surgical intervention. Historical: - Allergies: 22:52 No Known Allergies; cm10 - PMHx: 22:52 Hyperlipidemia; Hypertension; Hypothyroidism; spinal menengitis; cm10 - PSHx: 22:52 Appendectomy; colon surgery; Total abdominal hysterectomy; cm10 - Immunization history:: Adult Immunizations up to date. - Infectious Disease History:: Denies. - Social history:: Smoking status: Patient denies any tobacco usage or history of. ROS: 23:08 Constitutional: Negative for fever, chills, and weight loss, sb4 23:59 Abdomen/GI: Positive for abdominal pain, nausea and vomiting, black/tarry stool, sb4 23:59 All other systems are negative, Exam: 23:59 Constitutional: This is a well developed, well nourished patient who is awake, alert, sb4 and in no acute distress. Head/Face: Normocephalic, atraumatic. Eyes: Extra-ocular motions intact. Periorbital areas with no swelling, redness, or edema. ENT: Mucous membranes moist. Cardiovascular: Regular rate and rhythm with a normal S1 and S2. Respiratory: Lungs have equal breath sounds bilaterally, clear to auscultation and percussion. No rales, rhonchi or wheezes noted. No increased work of breathing, no retractions or nasal flaring. Skin: Warm, dry with normal turgor. Normal color with no rashes, no lesions, and no evidence of cellulitis. MS/ Extremity: Pulses equal, no cyanosis. Neurovascular intact. Full, normal range of motion. 23:59 Abdomen/GI: Inspection: abdomen appears normal, Bowel sounds: normal, Palpation: soft, mild abdominal tenderness, in all quadrants, 10/21 00:55 Abdomen/GI: Rectal exam: rectal tone normal, Stool: dark brown, hemorrhoid(s), sb4 external, Vital Signs: 10/20 22:50 BP 147 / 95; Pulse 87; Resp 16; Temp 98.1; Pulse Ox 99% on R/A; Weight 36.29 kg; Height cm10 5 ft. 3 in. ; Pain 8/10; 23:30 BP 166 / 86; Pulse 94; Resp 18; Pulse Ox 99% on R/A; cm10 10/21 00:30 BP 111 / 86; Pulse 93; Resp 18; Pulse Ox 99% ; cm10 01:00 BP 126 / 80; Pulse 86; Resp 16; Pulse Ox 95% on R/A; cm10 01:30 BP 109 / 90; Pulse 86; Resp 16; Pulse Ox 99% on R/A; cm10 02:00 BP 115 / 99; Pulse 83; Resp 16; Pulse Ox 94% ; cm10 10/20 22:50 Body Mass Index 14.17 (36.29 kg, 160.02 cm) cm10 10/20 22:50 Pain Scale: Adult cm10 MDM: 10/20 22:54 Patient medically screened. sb4 10/21 00:53 Data reviewed: vital signs, nurses notes, EMS record, lab test result(s), radiologic sb4 studies. Care significantly affected by the following chronic conditions: Hypertension. Counseling: I had a detailed discussion with the patient and/or guardian regarding the historical points, exam findings, and any diagnostic results supporting the discharge/admit diagnosis, lab results, radiology results, the need to transfer to another facility, [facility] does not immediately have the required specialist. 10/20 22:55 Order name: CBC with Diff; Complete Time: 23:26 sb4 10/20 22:55 Order name: CMP; Complete Time: 23:47 sb4 10/20 22:55 Order name: Lipase; Complete Time: 23:47 sb4 10/20 23:06 Order name: Type And Screen; Complete Time: 17:02 sb4 10/20 23:08 Order name: PT-INR; Complete Time: 01:00 sb4 10/20 23:08 Order name: Ptt, Activated; Complete Time: 01:00 sb4 10/20 23:08 Order name: CT Abdomen - Angio sb4 10/20 23:10 Order name: Pelvis Angio CT sb4 10/20 22:55 Order name: IV Saline Lock; Complete Time: 23:00 sb4 10/20 22:55 Order name: Labs collected and sent; Complete Time: 23:00 sb4 Administered Medications: 10/20 23:48 Drug: Ondansetron IVP 4 mg IVP once; over 2 minutes Route: IVP; Site: left forearm; cm10 10/21 00:39 Follow up: Response: No adverse reaction cm10 10/20 23:48 Drug: morphine IVP or IV 4 mg IVP once over 4 mins Route: IVP; Infused Over: 4 mins; cm10 Site: left forearm; 10/21 00:39 Follow up: Response: No adverse reaction cm10 01:17 Drug: Pantoprazole IVP 40 mg IVP once Route: IVP; Site: left forearm; cm10 01:49 Follow up: Response: No adverse reaction cm10 01:17 Drug: fentaNYL (PF) IVP 50 mcg IVP once Route: IVP; Site: left forearm; cm10 01:49 Follow up: Response: No adverse reaction cm10 Disposition: 04:20 Co-signature as Attending Physician, Benny Montoya MD I agree with the assessment and la plan of care. Disposition Summary: 10/22/23 00:54 Transfer Ordered Notes: Transfer Location: [facility] sb4 Reason: Higher level of care sb4 Condition: Fair sb4 Problem: new sb4 Symptoms: are unchanged sb4 Accepting Physician: Dr. Walker(10/22/23 02:45) cm10 Diagnosis - GI Bleed/ Gastrointestinal hemorrhage, unspecified sb4 - Anemia, unspecified sb4 Forms: - Medication Reconciliation Form sb4 - SBAR form sb4 Signatures: Dispatcher [employer] EDBenny Sahni MD MD cha Brown, Sophia PAAvtarC PACarolyn sb4 Steven, Petra, RN RN cm10 Corrections: (The following items were deleted from the chart) 10/20 23:09 23:09 PROTIME (+INR)+COAG.LAB.BRZ ordered. EDMS EDMS 23: 23:09 PTT, ACTIVATED+COAG.LAB.BRZ ordered. EDMS EDMS 23:11 23:11 Pelvis Angio+CT.RAD.BRZ ordered. EDMS EDMS 23:12 22:56 Abdomen Pelvis W Con+CT.RAD.BRZ ordered. EDMS EDMS 10/21 00:59 07 23:08 abdominal pain and dark stools started today. had GI bleed in August, sb4 transferred to [facility], had endoscopy/colonoscopy, stated she had "bleeding vessels" which resolved. sb4 10/21 01:16 07 23:08 abdominal pain and dark stools started today with one episode of coffee sb4 ground emesis. had GI bleed in August, transferred to [facility], had endoscopy/colonoscopy, stated she had "bleeding vessels" which resolved. sb4 10/21 01:35 00:54 GI sb4 sb4 02:45 01:35 Dr. Walker sb4 cm10
--- NOTE | 2023-10-22 00:54 | ER ---
Nurse's Notes [facility] Name: Valentina Raphael Age: 78 yrs Sex: Female : 1945 Arrival Date: 10/21/2023 Time: 22:42 Bed 16 Private MD: Diagnosis: GI Bleed/ Gastrointestinal hemorrhage, unspecified;Anemia, unspecified Presentation: 10/20 22:50 Chief complaint: EMS states: Called to patient's home due to patient having generalized cm10 abdominal pain, vomiting and diarrhea onset today. Pt states that she feels similar to when she had to have a blood transfusion. Coronavirus screen: Client denies travel out of the [place] in the last 14 days. At this time, the client does not indicate any symptoms associated with coronavirus-19. Ebola Screen: Patient denies travel to an Ebola-affected area in the 21 days before illness onset. No symptoms or risks identified at this time. Initial Sepsis Screen: Does the patient meet any 2 criteria? No. Patient's initial sepsis screen is negative. Does the patient have a suspected source of infection? No. Patient's initial sepsis screen is negative. Risk Assessment: Do you want to hurt yourself or someone else? Patient reports no desire to harm self or others. Onset of symptoms was October 21, 2023. 22:50 Method Of Arrival: EMS: [place] [address] 22:50 Acuity: ZEYNEP 3 cm10 Triage Assessment: 22:52 General: Appears in no apparent distress. comfortable, Behavior is calm, cooperative. cm10 Pain: Complains of pain in abdomen. Neuro: No deficits noted. Level of Consciousness is awake, alert, obeys commands, Oriented to person, place, time, situation, Appropriate for age. Respiratory: No deficits noted. Airway is patent Respiratory effort is even, labored, Respiratory pattern is regular, symmetrical. GI: No deficits noted. Abdomen is flat, Reports lower abdominal pain, upper abdominal pain, diarrhea, nausea, vomiting. Derm: No deficits noted. Skin is intact, Skin is pale. Historical: - Allergies: 22:52 No Known Allergies; cm10 - PMHx: 22:52 Hyperlipidemia; Hypertension; Hypothyroidism; spinal menengitis; cm10 - PSHx: 22:52 Appendectomy; colon surgery; Total abdominal hysterectomy; cm10 - Immunization history:: Adult Immunizations up to date. - Infectious Disease History:: Denies. - Social history:: Smoking status: Patient denies any tobacco usage or history of. Screenin:53 [facility] ED Fall Risk Assessment (Adult) History of falling in the last 3 months, cm10 including since admission No falls in past 3 months (0 pts) Confusion or Disorientation No (0 pts) Intoxicated or Sedated No (0 pts) Impaired Gait No (0 pts) Mobility Assist Device Used No (0 pt) Altered Elimination No (0 pt) Score/Fall Risk Level 0 - 2 = Low Risk Oriented to surroundings, Maintained a safe environment, Hourly rounding (assess needs \T\ fall precautionary measures) done. Abuse screen: Denies threats or abuse. Denies injuries from another. Nutritional screening: No deficits noted. Tuberculosis screening: No symptoms or risk factors identified. Assessment: 10/21 00:00 Reassessment: Patient appears in no apparent distress at this time. No changes from cm10 previously documented assessment. Patient and/or family updated on plan of care and expected duration. Pain level reassessed. Patient is alert, oriented x 3, equal unlabored respirations, skin warm/dry/pink. 01:35 General: Pt noted to have episode of diarrhea that was dark in color.. cm10 01:48 Reassessment: Patient appears in no apparent distress at this time. No changes from cm10 previously documented assessment. Patient and/or family updated on plan of care and expected duration. Pain level reassessed. Patient is alert, oriented x 3, equal unlabored respirations, skin warm/dry/pink. 02:29 Reassessment: Patient appears in no apparent distress at this time. No changes from cm10 previously documented assessment. Patient and/or family updated on plan of care and expected duration. Pain level reassessed. Patient is alert, oriented x 3, equal unlabored respirations, skin warm/dry/pink. Vital Signs: 10/20 22:50 BP 147 / 95; Pulse 87; Resp 16; Temp 98.1; Pulse Ox 99% on R/A; Weight 36.29 kg; Height cm10 5 ft. 3 in. ; Pain 8/10; 23:30 BP 166 / 86; Pulse 94; Resp 18; Pulse Ox 99% on R/A; cm10 10/21 00:30 BP 111 / 86; Pulse 93; Resp 18; Pulse Ox 99% ; cm10 01:00 BP 126 / 80; Pulse 86; Resp 16; Pulse Ox 95% on R/A; cm10 01:30 BP 109 / 90; Pulse 86; Resp 16; Pulse Ox 99% on R/A; cm10 02:00 BP 115 / 99; Pulse 83; Resp 16; Pulse Ox 94% ; cm10 10/20 22:50 Body Mass Index 14.17 (36.29 kg, 160.02 cm) cm10 10/20 22:50 Pain Scale: Adult cm10 ED Course: 10/20 22:49 Patient arrived in ED. cm10 22:49 Petra Harris, TAHIR is Primary Nurse. cm10 22:52 Triage completed. cm10 22:53 Arm band placed on Patient placed in an exam room, on a stretcher, on personnel monitor, cm10 on pulse oximetry. 22:53 Patient has correct armband on for positive identification. Bed in low position. Call cm10 light in reach. Side rails up X2. Provided Education on: ER process and procedures.. Client placed on continuous cardiac and pulse oximetry monitoring. NIBP monitoring applied. youth nutritional monitor on. 22:54 Kirsty Walker PA-C is PHCP. sb4 22:54 Benny Montoya MD is Attending Physician. sb4 23:00 Initial lab(s) drawn, by me, sent to lab. Inserted saline lock: 22 gauge in left cm10 forearm, using aseptic technique. Blood collected. 23:30 Assisted to bedside commode. cm10 10/21 00:09 CT Abdomen - Angio In Process Unspecified. EDMS 00:[address] In Process Unspecified. EDMS 01:00 Initiated transfer to [facility] spoke with Bertha Castillo \T\[id number]. af3 01:34 Assisted to bedside commode. cm10 01:49 Inserted saline lock: 18 gauge in right antecubital area, using aseptic technique. cm10 01:57 Report given to TAHIR Birch at [facility]. cm10 01:57 No provider procedures requiring assistance completed. Patient transferred, IV remains cm10 in place. 02:17 Pt has been accepted at [facility] RM 2105 by Amadou Garza \T\[id number]. Number for nurse af3 to nurse report [phone]. [facility] [place] to transfer pt. 02:30 Report given to Latisha with [facility] who assume care of patient. Pt cm10 stable for transfer at this time. Pt leaving A\T\Ox4, respirations even and unlabored. Administered Medications: 10/20 23:48 Drug: Ondansetron IVP 4 mg IVP once; over 2 minutes Route: IVP; Site: left forearm; cm10 10/21 00:39 Follow up: Response: No adverse reaction cm10 10/20 23:48 Drug: morphine IVP or IV 4 mg IVP once over 4 mins Route: IVP; Infused Over: 4 mins; cm10 Site: left forearm; 10/21 00:39 Follow up: Response: No adverse reaction cm10 01:17 Drug: Pantoprazole IVP 40 mg IVP once Route: IVP; Site: left forearm; cm10 01:49 Follow up: Response: No adverse reaction cm10 01:17 Drug: fentaNYL (PF) IVP 50 mcg IVP once Route: IVP; Site: left forearm; cm10 01:49 Follow up: Response: No adverse reaction cm10 Medication: 10/20 22:53 VIS not applicable for this client. cm10 Outcome: 10/21 00:54 ER care complete, transfer ordered by MD. munoz 02:29 Transferred by [facility] [place] to [facility], Transfer form cm10 completed. 02:29 Condition: good 02:29 Instructed on the need for transfer, 02:45 Patient left the ED. cm10 Signatures: Dispatcher [employer] Kirsty Christie PA-C PA-C sb4 Petra Harris RN RN cm10 Sylvester, Camilla stephens3
[2023-10-22 01:00] LABS: PT Prothrombin Time 13.4 SECONDS (9.4-12.5); PTT, Activated Partial Thromb 35.5 SECONDS (24.3-36.9); Protime INR 1.23
[2023-10-22] MEDS ORDERED: PANTOPRAZOLE 40 MG INJ ONE (01:04)
[2023-10-22] MEDS ORDERED: FENTANYL CITR 100 MCG/2 ML ONE (01:04)
[2023-10-22 03:12] VITALS: BP 115/99; TEMP 98.1; O2SAT 94
--- NOTE | 2023-10-24 10:33 | RAD REPORT ---
EXAM DESCRIPTION: CT - Pelvis Angio - 10/22/2023 6:57 am Pelvis Angio 10/22/2023 12:37 AM CDT CLINICAL HISTORY: 78 years, Female, No COMPARISON: None TECHNIQUE: Multiple transaxial tomograms of the abdominal aorta were performed utilizing 3 mm slight thickness at 3 mm interval reconstruction from the lung bases to the ischial tuberosities, after the administration of large bolus of IV contrast for complete opacification of the abdominal aorta and i liac arteries. 2-D and 3-D multiplanar reformats, volume rendering technique and maximum intensity projection images were generated and reviewed. An individualized dose optimization technique, Automated Exposure Control, was utilized for the perfo rmed procedure. Findings: Aorta/iliac arteries: Minimal calcifications in the abdominal aorta without aneurysmal dilatation or evidence of dissection . Bilateral common iliac arteries are patent without significant atherosclerotic disease or stenosis. No dissection or aneurysm appreciated.. The celiac trunk, superior mesenteric and inferior mesenteric artery demonstrate to be patent with no evidence for significant vascular abnormalities. There is no evidence for significant blushing and/o r areas of active bleeding within the GI tract. Minimal plaque formation at the origin of the distal branches although no definitive focal areas of significant stenosis. There are single bilateral renal arteries with the presence of minimal peripheral atheromatous plaque at the origin/proximal aspect with no evidence for significant stenosis. Abdomen and pelvis: Lung bases: The lung bases demonstrate to minimal atelectasis inferior aspect right middle lobe. Ther e is a moderate size hiatal hernia. Liver: The liver demonstrates to be normal, no focal lesions identified. Gallbladder: The gallbladder again demonstrate to be distended with slight prominence of the central intrahepatic biliary system similar to prior study. Adrenal glands: The adrenal glands demonstrate to be normal. Pancreas: The pancreas demonstrate to be normal. Spleen: The spleen demonstrate to be within normal limits. Kidneys: The kidneys demonstrate normal uptake of contrast media. There is no evidence for nephroli thiasis and/or hydronephrosis. . GI: Grossly the unopacified stomach, small bowel and large bowel demonstrate to be within normal limi ts. No evidence for bowel dilatation and/or free air. The appendix was not visualized. There is fluid filled large bowel suggesting the possibility of a diarrheal state. Post surgical changes are seen w ithin the left lower quadrant similar to prior study. No evidence for significant abnormal arterial b lushing. : The urinary bladder demonstrate to be partially distended with no gross abnormalities. Genitalia: The uterus is absent. There are no adnexal masses. Retroperitoneum: There is no retroperitoneal lymphadenopathy. There is no evidence for ascites and/or abnormal fluid collections. Bones: There is diffuse bony osteopenia. There is status post vertebroplasty at L1 L3 and L5. There i s a small superior plate compression deformity at T12 and L4. There is a battery reservoir of a epidu ral neurostimulator left paraspinal aspect entering at the level of the interspinous process of L1/L2 and T12/L1. Soft tissues: The soft tissues demonstrate to be unremarkable. IMPRESSION: No evidence of significant atherosclerotic disease or dissection involving the aorta or its branches. No evidence for significant abnormal arterial blush within the GI tract. Moderate size hiatal hernia. Status post hysterectomy. Diffuse bony osteopenia with a small superior plate compression deformity at T12 and L4. Status post vertebroplasty at L1 L3 and L5. Electronically signed by: Rick Alcantar MD 10/22/2023 12:43 AM CDT Due to temporary technical issues with the PACS/Fluency reporting system, reports are being signed by the in house radiologist without review as a courtesy to ensure prompt reporting. The interpreting r adiologist is fully responsible for the content of the report.
--- NOTE | 2023-10-24 10:36 | RAD REPORT ---
EXAM DESCRIPTION: CT - Abdomen Angio - 10/22/2023 6:57 am CLINICAL HISTORY: 78 years, Female, No COMPARISON: None TECHNIQUE: Multiple transaxial tomograms of the abdominal aorta were performed utilizing 3 mm slight thickness at 3 mm interval reconstruction from the lung bases to the ischial tuberosities, after the administration of large bolus of IV contrast for complete opacification of the abdominal aorta and i liac arteries. 2-D and 3-D multiplanar reformats, volume rendering technique and maximum intensity projection images were generated and reviewed. An individualized dose optimization technique, Automated Exposure Control, was utilized for the perfo rmed procedure. FINDINGS: Aorta/iliac arteries: Minimal calcifications in the abdominal aorta without aneurysmal dilatation or evidence of dissection . Bilateral common iliac arteries are patent without significant atherosclerotic disease or stenosis. No dissection or aneurysm appreciated.. The celiac trunk, superior mesenteric and inferior mesenteric artery demonstrate to be patent with no evidence for significant vascular abnormalities. There is no evidence for significant blushing and/o r areas of active bleeding within the GI tract. Minimal plaque formation at the origin of the distal branches although no definitive focal areas of significant stenosis. There are single bilateral renal arteries with the presence of minimal peripheral atheromatous plaque at the origin/proximal aspect with no evidence for significant stenosis. Abdomen and pelvis: Lung bases: The lung bases demonstrate to minimal atelectasis inferior aspect right middle lobe. Ther e is a moderate size hiatal hernia. Liver: The liver demonstrates to be normal, no focal lesions identified. Gallbladder: The gallbladder again demonstrate to be distended with slight prominence of the central intrahepatic biliary system similar to prior study. Adrenal glands: The adrenal glands demonstrate to be normal. Pancreas: The pancreas demonstrate to be normal. Spleen: The spleen demonstrate to be within normal limits. Kidneys: The kidneys demonstrate normal uptake of contrast media. There is no evidence for nephroli thiasis and/or hydronephrosis. . GI: Grossly the unopacified stomach, small bowel and large bowel demonstrate to be within normal limi ts. No evidence for bowel dilatation and/or free air. The appendix was not visualized. There is fluid filled large bowel suggesting the possibility of a diarrheal state. Post surgical changes are seen w ithin the left lower quadrant similar to prior study. No evidence for significant abnormal arterial b lushing. : The urinary bladder demonstrate to be partially distended with no gross abnormalities. Genitalia: The uterus is absent. There are no adnexal masses. Retroperitoneum: There is no retroperitoneal lymphadenopathy. There is no evidence for ascites and/or abnormal fluid collections. Bones: There is diffuse bony osteopenia. There is status post vertebroplasty at L1 L3 and L5. There i s a small superior plate compression deformity at T12 and L4. There is a battery reservoir of a epidu ral neurostimulator left paraspinal aspect entering at the level of the interspinous process of L1/L2 and T12/L1. Soft tissues: The soft tissues demonstrate to be unremarkable. IMPRESSION: No evidence of significant atherosclerotic disease or dissection involving the aorta or its branches. No evidence for significant abnormal arterial blush within the GI tract. Moderate size hiatal hernia. Status post hysterectomy. Diffuse bony osteopenia with a small superior plate compression deformity at T12 and L4. Status post vertebroplasty at L1 L3 and L5. Electronically signed by: Rick Alcantar MD 10/22/2023 12:44 AM CDT RP Due to temporary technical issues with the PACS/Fluency reporting system, reports are being signed by the in house radiologist without review as a courtesy to ensure prompt reporting. The interpreting r adiologist is fully responsible for the content of the report.
== END 2023-10-22 02:45 | disposition short-term general hospital (02) ==
LOC: ER 22:42
DX: D64.9 Anemia, unspecified (principal)
CPT/HCPCS: 85025; 36415; 86900; 86850; 85610; 86901; 85730; 83690; 80053; 72191; 74175; 96375; 96374; 99285; Q9967; C9113; J3010; J2405

== ENCOUNTER 2024-05-19 10:34 | Emergency (ER) | payer OTHER ==
--- NOTE | 2024-05-19 12:06 | RAD REPORT ---
EXAM: Hand Right 3 View HISTORY: injury to ring finger last week;Pain COMPARISON: None FINDINGS: Bones: No acute fracture identified. Alignment:No significant malalignment. Degenerative changes:None significant. Other: n/a IMPRESSION: No evidence of acute osseous abnormality involving the imaged hand.
--- NOTE | 2024-05-19 12:06 | RAD REPORT ---
EXAMINATION: Elbow Left 3 View CLINICAL INDICATION: Female, 79 years old. fall;Pain COMPARISON: No prior exam. VIEWS: Three views FINDINGS: Lucency is present at the olecranon concerning for an olecranon fracture. Findings are equivocal for an elbow effusion. IMPRESSION: Suspected olecranon fracture. Recommend CT for better visualization.
--- NOTE | 2024-05-19 12:25 | EDPHYS ---
Physician Documentation [facility] Name: Valentina Raphael Age: 79 yrs Sex: Female : 1945 Arrival Date: 05/19/2024 Time: 10:34 Bed 12 Private MD: ED Physician Tom Estes HPI: 05/19 10:56 This 79 yrs old Female presents to ER via Ambulatory with complaints of Arm Injury. rn 10:56 The patient or guardian complains of injury, pain. The complaints affect the left rn elbow. Onset: The symptoms/episode began/occurred yesterday. Details of fall: The patient fell from an upright position. Patient reports tripped by her dog's, fell and struck left elbow on the house. Patient reports painful range of motion of the left elbow. Denies injury or pain to the collarbone or humerus on that side. No hip injury. No back pain. Struck head but states hit ponytail and does not have any head pain. No LOC. Does not take blood thinners. Denies any neck or back pain. Also reports an injury last week to the right ring finger and she describes it as a possible dislocation that she reduced herself.. Historical: - Allergies: 10:53 No Known Allergies; hb - PMHx: 10:53 Hyperlipidemia; Hypertension; Hypothyroidism; spinal menengitis; hb - PSHx: 10:53 Appendectomy; colon surgery; Total abdominal hysterectomy; hb - Immunization history:: Adult Immunizations up to date. - Infectious Disease History:: Denies. - Social history:: Smoking status: Patient denies any tobacco usage or history of. - Family history:: not pertinent. - Hospitalizations: : No recent hospitalization is reported. ROS: 10:56 Constitutional: Negative for fever, chills, and weight loss, Neck: Negative for injury, rn pain, and swelling, Cardiovascular: Negative for chest pain, palpitations, and edema, Respiratory: Negative for shortness of breath, cough, wheezing, and pleuritic chest pain, Abdomen/GI: Negative for abdominal pain, nausea, vomiting, diarrhea, and constipation, Back: Negative for injury and pain, : Negative for injury, bleeding, discharge, and swelling, MS/Extremity: Positive for pain to left elbow and right ring finger Neuro: Negative for headache, weakness, numbness, tingling, and seizure, Exam: 10:56 Constitutional: This is a well developed, well nourished patient who is awake, alert, rn and in no acute distress. Head/Face: Normocephalic, atraumatic. Neck: No midline cervical tenderness Cardiovascular: Regular rate and rhythm. No pulse deficits. Respiratory: No increased work of breathing, no retractions or nasal flaring. Abdomen/GI: Soft, nontender Back: No spinal tenderness. MS/ Extremity: Pulses equal, no cyanosis. Neurovascular intact. Full active and passive range of motion of the left elbow with tenderness at the olecranon and abrasion and contusion. No gross deformity. No open wounds. Neuro: Awake and alert, GCS 15 Vital Signs: 10:51 BP 156 / 86; Pulse 89; Resp 16; Temp 97.5(TE); Pulse Ox 100% on R/A; Weight 41.28 kg; hb Height 5 ft. 3 in. ; Pain 9/10; 10:51 Body Mass Index 16.12 (41.28 kg, 160.02 cm) hb 10:51 Pain Scale: Adult hb MDM: 10:41 Medical Screening Exam initiated rn 12:23 Differential diagnosis: closed fracture, contusion. Data reviewed: vital signs, nurses rn notes, radiologic studies, plain films, and as a result, I will discharge patient. Independent interpretation of the following test(s) in the Emergency Department X-Ray: My interpretation is X-ray images left elbow show nondisplaced olecranon fracture per my interpretation.. Counseling: I had a detailed discussion with the patient and/or guardian regarding the historical points, exam findings, and any diagnostic results supporting the discharge/admit diagnosis, radiology results, the need for outpatient follow up, to return to the emergency department if symptoms worsen or persist or if there are any questions or concerns that arise at home. Special discussion: I discussed with the patient/guardian in detail that at this point there is no indication for admission to the hospital. It is understood, however, that if the symptoms persist or worsen the patient needs to return immediately for re-evaluation. Based on the history and exam findings, there is no indication for further emergent testing or inpatient evaluation. I discussed with the patient/guardian the need to see the orthopedic surgeon for further evaluation of the symptoms. 05/19 10:43 Order name: XRAY Elbow LEFT 3 view; Complete Time: 12:09 rn 05/19 10:56 Order name: XRAY Hand RIGHT 3 View; Complete Time: 12:09 rn 05/19 12:09 Order name: Splint - Elbow - Posterior; Complete Time: 12:26 rn 05/19 12:09 Order name: Sling; Complete Time: 12:26 rn Administered Medications: No medications were administered Disposition Summary: 05/19/24 12:25 Discharge Ordered Notes: Location: Home rn Problem: new rn Symptoms: have improved rn Condition: Stable rn Diagnosis - Acute, closed, left olecranon fracture, nondisplaced rn Followup: rn - With: Danis Paris MD - When: As needed - Reason: Recheck today's complaints, Re-evaluation by your physician Discharge Instructions: - Discharge Summary Sheet rn - Cast or Splint Care, Adult rn - Olecranon Fracture rn Forms: - Medication Reconciliation Form rn - Antibiotic barnworker groom - Prescription Opioid Use rn - Patient Portal Instructions rn - Leadership Thank You Letter rn Prescriptions: - Tramadol 50 mg Oral tablet - take 1 tablet ORAL route every 8-12 hours as needed; 12 tablet; Refills: 0, rn Product Selection Permitted Signatures: Dispatcher [employer] Tom Zazueta MD MD rn Baxter, Heather RN RN
--- NOTE | 2024-05-19 12:25 | ER ---
Nurse's Notes [facility] Name: Valentina Raphael Age: 79 yrs Sex: Female : 1945 Arrival Date: 05/19/2024 Time: 10:34 Bed 12 Private MD: Diagnosis: Acute, closed, left olecranon fracture, nondisplaced Presentation: 05/19 10:51 Chief complaint: Walking dog last night and fell into brick wall, c/o left elbow pain hb 9/10. Also c/o right hand pain after mechanical fall from standing 4 days ago. Coronavirus screen: At this time, the client does not indicate any symptoms associated with coronavirus-19. Ebola Screen: No symptoms or risks identified at this time. Initial Sepsis Screen: Does the patient meet any 2 criteria? No. Patient's initial sepsis screen is negative. Does the patient have a suspected source of infection? No. Patient's initial sepsis screen is negative. Risk Assessment: Do you want to hurt yourself or someone else? Patient reports no desire to harm self or others. Onset of symptoms was May 15, 2023. 10:51 Method Of Arrival: Ambulatory hb 10:51 Acuity: ZEYNEP 4 hb Triage Assessment: 10:57 General: Appears in no apparent distress. Behavior is calm, cooperative. Pain: Pain hb currently is 9 out of 10 on a pain scale. Neuro: Level of Consciousness is awake, alert, obeys commands, Oriented to person, place, time, situation. Cardiovascular: Patient's skin is warm and dry. Respiratory: Respiratory effort is even, unlabored, Respiratory pattern is regular, symmetrical. Musculoskeletal: Reports pain in left elbow, right hand. Historical: - Allergies: 10:53 No Known Allergies; hb - PMHx: 10:53 Hyperlipidemia; Hypertension; Hypothyroidism; spinal menengitis; hb - PSHx: 10:53 Appendectomy; colon surgery; Total abdominal hysterectomy; hb - Immunization history:: Adult Immunizations up to date. - Infectious Disease History:: Denies. - Social history:: Smoking status: Patient denies any tobacco usage or history of. - Family history:: not pertinent. - Hospitalizations: : No recent hospitalization is reported. Screenin:57 [facility] ED Fall Risk Assessment (Adult) History of falling in the last 3 months, hb including since admission No falls in past 3 months (0 pts) Confusion or Disorientation No (0 pts) Intoxicated or Sedated No (0 pts) Impaired Gait No (0 pts) Mobility Assist Device Used No (0 pt) Altered Elimination No (0 pt) Score/Fall Risk Level 0 - 2 = Low Risk Oriented to surroundings, Maintained a safe environment, Educated pt \T\ family on fall prevention, incl call for assistance when getting out of bed. Abuse screen: Denies threats or abuse. Denies injuries from another. Nutritional screening: No deficits noted. Tuberculosis screening: No symptoms or risk factors identified. Assessment: 10:57 General: SEE TRIAGE ASSESSMENT. hb 12:00 Reassessment: Patient appears in no apparent distress at this time. Patient and/or hb family updated on plan of care and expected duration. Pain level reassessed. Patient is alert, oriented x 3, equal unlabored respirations, skin warm/dry/pink. Vital Signs: 10:51 BP 156 / 86; Pulse 89; Resp 16; Temp 97.5(TE); Pulse Ox 100% on R/A; Weight 41.28 kg; hb Height 5 ft. 3 in. ; Pain 9/10; 10:51 Body Mass Index 16.12 (41.28 kg, 160.02 cm) hb 10:51 Pain Scale: Adult hb ED Course: 10:37 Patient arrived in ED. ra3 10:41 Tom Estes MD is Attending Physician. rn 10:53 Triage completed. hb 10:53 Arm band placed on. hb 10:56 Renae Clements, RN is Primary Nurse. hb 10:57 Patient has correct armband on for positive identification. Provided Education on: USE hb OF CALL LIGHT, TESTS, RESULT TIME. 10:57 No provider procedures requiring assistance completed. Patient did not have IV access hb during this emergency room visit. 11:53 XRAY Elbow LEFT 3 view In Process Unspecified. EDMS 11:53 XRAY Hand RIGHT 3 View In Process Unspecified. EDMS 12:24 Danis Paris MD is Referral Physician. rn 12:26 Orthoglass splint: posterior long arm splint applied to the left arm. Sling applied to em1 left arm. Administered Medications: No medications were administered Medication: 10:57 VIS not applicable for this client. hb Outcome: 12:25 Discharge ordered by . rn 12:42 Discharged to home ambulatory, hb 12:42 Condition: stable 12:42 Discharge instructions given to patient, Instructed on discharge instructions, follow up and referral plans. medication usage, Demonstrated understanding of instructions, follow-up care, medications, Prescriptions given X 1, 12:45 Patient left the ED. hb Signatures: Dispatcher [employer] EDMS Tom Estes MD MD rn Martinez, Eric em1 Renae Clements RN RN hb Alva, Ruby ra3 Corrections: (The following items were deleted from the chart) 10:57 10:51 Chief complaint: Walking dog last night and fell into brick wall, c/o left elbow hb pain 9/. Also c/o right hand pain after mechanical fall from standing 4 days ago. hb
[2024-05-19 12:50] VITALS: BP 156/86; TEMP 97.5; O2SAT 100
== END 2024-05-19 12:45 | disposition home or self-care (01) ==
LOC: ER 10:34
PROC: 2W3BX1Z Immobilization of Left Upper Arm using Splint (ICD-10-PCS; principal; 2024-05-19)
DX: S52.025A Nondisplaced fracture of olecranon process without intraarticular extension of left ulna, initial encounter for closed fracture (principal); W01.0XXA Fall on same level from slipping, tripping and stumbling without subsequent striking against object, initial encounter
CPT/HCPCS: 99283

== ENCOUNTER 2024-05-23 14:42 | Emergency (ER) | payer OTHER ==
[2024-05-23] MEDS ORDERED: HYDROCODONE/APAP 5/325 MG TAB ONE (15:26)
--- NOTE | 2024-05-23 16:55 | RAD REPORT ---
EXAMINATION: XR LEFT SHOULDER CLINICAL INDICATION: Female, 79 years old. PAIN TECHNIQUE: Internal and external AP view radiograph of the left shoulder were obtained. COMPARISON: No prior exam. FINDINGS: No evidence of fracture or dislocation. Irregularity and underlying sclerosis at the base o f the greater tuberosity. Moderate glenohumeral joint degenerative changes. Soft tissues are unremarkable. IMPRESSION: No acute osseous abnormality. Irregularity and underlying sclerosis at the base of the greater tuberosity, could reflect sequelae o f prior trauma or Hill-Sachs lesion.
--- NOTE | 2024-05-23 17:25 | RAD REPORT ---
EXAMINATION: XR LEFT HUMERUS HISTORY: PAIN TECHNIQUE: Multiple views of the left humerus were obtained. COMPARISON: None FINDINGS: No bone or joint acute abnormality noted. Moderate glenohumeral joint degenerative changes. Irregularity and underlying sclerosis at the base of the greater tuberosity, prior trauma or Hill-Sac hs deformity.
--- NOTE | 2024-05-23 17:28 | EDPHYS ---
Physician Documentation [facility] Name: Valentina Raphael Age: 79 yrs Sex: Female : 1945 Arrival Date: 05/23/2024 Time: 14:42 Bed IW2 Private MD: ED Physician Zhen Nieto HPI: 05/23 15:06 This 79 yrs old Female presents to ER via Ambulatory with complaints of Shoulder Pain. ms3 15:06 79-year-old female past medical history of hyperlipidemia, hypothyroidism, hypertension ms3 presents to the emergency department for left shoulder pain. Patient states she was seen in the emergency department on Monday after a fall and fracturing her left elbow. Patient states her shoulder has been sore since that time and the pain has become worse. Patient rates her discomfort a 9/10. She denies any alleviating factors.. Historical: - Allergies: 15:06 No Known Allergies; me1 - PMHx: 15:06 Hyperlipidemia; Hypertension; Hypothyroidism; spinal menengitis; me1 - PSHx: 15:06 Appendectomy; colon surgery; Total abdominal hysterectomy; me1 - Immunization history:: Adult Immunizations up to date. - Infectious Disease History:: Denies. - Social history:: Smoking status: Patient denies any tobacco usage or history of. ROS: 15:06 Constitutional: Negative for fever, and chills. Cardiovascular: Negative for chest ms3 pain, and palpitations. Respiratory: Negative for shortness of breath, cough, wheezing, and pleuritic chest pain, Abdomen/GI: Negative for abdominal pain, nausea, vomiting, diarrhea, and constipation, Skin: Negative for injury, rash, and discoloration, 15:06 MS/extremity: Positive for pain, tenderness, Exam: 15:06 Constitutional: This is a well developed, well nourished patient who is awake, alert, ms3 and in no acute distress. Cardiovascular: Regular rate and rhythm with a normal S1 and S2. No gallops, murmurs, or rubs. Normal PMI, no JVD. No pulse deficits. Respiratory: Lungs have equal breath sounds bilaterally, clear to auscultation and percussion. No rales, rhonchi or wheezes noted. No increased work of breathing, no retractions or nasal flaring. Abdomen/GI: Soft, non-tender, with normal bowel sounds. No distension or tympany. No guarding or rebound. No evidence of tenderness throughout. Skin: Warm, dry with normal turgor. Normal color with no rashes, no lesions, and no evidence of cellulitis. 15:06 Musculoskeletal/extremity: Extremities: noted in the Left shoulder: pain, tenderness, Vital Signs: 14:59 BP 172 / 81; Pulse 105; Resp 17; Temp 98.2; Pulse Ox 96% ; Weight 41.73 kg; Height 5 me1 ft. 3 in. ; Pain 9/10; 17:43 BP 154 / 76; Pulse 95; Resp 16; Temp 98.2; Pulse Ox 97% ; me1 14:59 Body Mass Index 16.30 (41.73 kg, 160.02 cm) me1 14:59 Pain Scale: Adult me1 MDM: 15:06 Medical Screening Exam initiated ms3 15:06 Differential diagnosis: humeral head fracture, glenoid fracture, Strain/sprain. ms3 20:45 Data reviewed: vital signs, nurses notes, radiologic studies, and as a result, I will ms3 discharge patient. I considered the following discharge prescriptions or medication management in the emergency department Medications were administered in the Emergency Department. See MAR. Independent interpretation of the following test(s) in the Emergency Department X-Ray: My interpretation is Left shoulder x-ray reviewed by me did not reveal fracture. Counseling: I had a detailed discussion with the patient and/or guardian regarding the historical points, exam findings, and any diagnostic results supporting the discharge/admit diagnosis, radiology results, the need for outpatient follow up, to return to the emergency department if symptoms worsen or persist or if there are any questions or concerns that arise at home. Special discussion: I discussed with the patient/guardian in detail that at this point there is no indication for admission to the hospital. It is understood, however, that if the symptoms persist or worsen the patient needs to return immediately for re-evaluation. ED course: Discussed negative radiographs with patient. Patient to follow-up Dr. Paris in 2 to 3 days. Patient understands and agrees with plan. All questions were answered. Return precautions discussed include worsening symptoms, or any other concerns. On reevaluation no signs of compartment syndrome present, patient alert and oriented x 4, no apparent distress, nontoxic-appearing, ambulatory in the emergency department. 02 15:06 Order name: Shoulder Left (2 View) XRAY; Complete Time: 17:19 ms3 05/23 15:06 Order name: Humerus Left XRAY; Complete Time: 17:27 ms3 Administered Medications: 15:33 Drug: HYDROcodone-acetaminophen PO 5 mg-325 mg 1 tabs PO once Route: PO; jl7 17:18 Follow up: Response: No adverse reaction; Pain is decreased me1 Disposition Summary: 05/23/24 17:28 Discharge Ordered Notes: Location: Home ms3 Condition: Stable ms3 Diagnosis - Pain in left shoulder ms3 Followup: ms3 - With: Danis Paris MD - When: 2 - 3 days - Reason: Recheck today's complaints Discharge Instructions: - Discharge Summary Sheet ms3 - Shoulder Pain, [id number] ms3 Forms: - Medication Reconciliation Form ms3 - Antibiotic Education ms3 - Prescription Opioid Use ms3 - Patient Portal Instructions ms3 - Leadership Thank You Letter ms3 Signatures: Dispatcher [employer] Ton Carmichael RN RN jl7 Zhen Nieto DO DO ms3 Linnette Silva RN RN me1
--- NOTE | 2024-05-23 17:28 | ER ---
Nurse's Notes [facility] Name: Valentina Raphael Age: 79 yrs Sex: Female : 1945 Arrival Date: 05/23/2024 Time: 14:42 Bed IW2 Private MD: Diagnosis: Pain in left shoulder Presentation: 05/23 14:59 Chief complaint: Patient states: s/p fall on Monday, was seen here on Monday and dx me1 with a fracture to left elbow. c/o pain to left shoulder and states that no xrays were taken of shoulder and she is concerned about fracture. States pain is keeping her awake. Coronavirus screen: Vaccine status: Patient reports receiving the 2nd dose of the covid vaccine. Ebola Screen: No symptoms or risks identified at this time. Initial Sepsis Screen: Does the patient meet any 2 criteria? No. Patient's initial sepsis screen is negative. Does the patient have a suspected source of infection? No. Patient's initial sepsis screen is negative. Risk Assessment: Do you want to hurt yourself or someone else? Patient reports no desire to harm self or others. Onset of symptoms was May 18, 2024. 14:59 Method Of Arrival: Ambulatory me1 14:59 Acuity: ZEYNEP 4 me1 Historical: - Allergies: 15:06 No Known Allergies; me1 - PMHx: 15:06 Hyperlipidemia; Hypertension; Hypothyroidism; spinal menengitis; me1 - PSHx: 15:06 Appendectomy; colon surgery; Total abdominal hysterectomy; me1 - Immunization history:: Adult Immunizations up to date. - Infectious Disease History:: Denies. - Social history:: Smoking status: Patient denies any tobacco usage or history of. Screenin:15 [facility] ED Fall Risk Assessment (Adult) History of falling in the last 3 months, me1 including since admission Yes- single mechanical fall (1 pt) Confusion or Disorientation No (0 pts) Intoxicated or Sedated No (0 pts) Impaired Gait No (0 pts) Mobility Assist Device Used No (0 pt) Altered Elimination No (0 pt) Score/Fall Risk Level 0 - 2 = Low Risk Maintained a safe environment, Provided non-skid footwear, Hourly rounding (assess needs \T\ fall precautionary measures) done. Abuse screen: Denies threats or abuse. Nutritional screening: No deficits noted. Tuberculosis screening: No symptoms or risk factors identified. Assessment: 15:15 General: Appears uncomfortable, slender, Behavior is calm, cooperative, appropriate for me1 age, Reports s/p fall on Monday, was seen here on Monday and with a fracture to left elbow. c/o pain to left shoulder and states that no xrays were taken of shoulder and she is concerned about fracture. States pain is keeping her awake. Pain: Complains of pain in anterior aspect of left shoulder Pain does not radiate. Pain currently is 8 out of 10 on a pain scale. Quality of pain is described as aching, Pain began 2-3 days ago. Is continuous. Neuro: Level of Consciousness is awake, alert, obeys commands, Oriented to person, place, time, situation, Appropriate for age. Cardiovascular: Patient's skin is warm and dry. Respiratory: Airway is patent Respiratory effort is even, unlabored, Respiratory pattern is regular, symmetrical. GI: No signs and/or symptoms were reported involving the gastrointestinal system. : No signs and/or symptoms were reported regarding the genitourinary system. EENT: No signs and/or symptoms were reported regarding the EENT system. Derm: Skin is intact, is healthy with good turgor, Skin is pink, warm \T\ dry. Musculoskeletal: Reports pain in anterior aspect of left shoulder since Monday. Injury Description: s/p fall on Monday, was seen here on Monday and with a fracture to left elbow. c/o pain to left shoulder and states that no xrays were taken of shoulder and she is concerned about fracture. States pain is keeping her awake. Vital Signs: 14:59 BP 172 / 81; Pulse 105; Resp 17; Temp 98.2; Pulse Ox 96% ; Weight 41.73 kg; Height 5 me1 ft. 3 in. ; Pain 9/10; 17:43 BP 154 / 76; Pulse 95; Resp 16; Temp 98.2; Pulse Ox 97% ; me1 14:59 Body Mass Index 16.30 (41.73 kg, 160.02 cm) me1 14:59 Pain Scale: Adult ga1 ED Course: 14:46 Patient arrived in ED. al6 14:58 Zhen Nieto DO is Attending Physician. ms3 15:06 Triage completed. me1 15:06 Arm band placed on Patient placed in waiting room. me1 15:15 Patient has correct armband on for positive identification. Provided Education on: POC. me1 Verbalized understanding.. 15:15 No provider procedures requiring assistance completed. Patient did not have IV access me1 during this emergency room visit. 15:52 Shoulder Left (2 View) XRAY In Process Unspecified. EDMS 15:52 Humerus Left XRAY In Process Unspecified. EDMS 17:27 Danis Paris MD is Referral Physician. ms3 17:41 Linnette Silva, RN is Primary Nurse. me1 Administered Medications: 15:33 Drug: HYDROcodone-acetaminophen PO 5 mg-325 mg 1 tabs PO once Route: PO; jl7 17:18 Follow up: Response: No adverse reaction; Pain is decreased me1 Medication: 15:15 VIS not applicable for this client. me1 Outcome: 17:28 Discharge ordered by MD. ms3 17:44 Discharged to home ambulatory, me1 17:44 Condition: stable 17:44 Discharge instructions given to patient, Instructed on discharge instructions, follow up and referral plans. Demonstrated understanding of instructions, follow-up care, 17:44 Patient left the ED. me1 Signatures: Dispatcher [employer] Ton Carmichael RN RN jl7 Zhen Nieto DO DO ms3 Linnette Silva, RN RN me1 Katie Jackson al6 Corrections: (The following items were deleted from the chart) 17:19 14:59 Chief complaint: Patient states: s/p fall on Monday, was seen here on Monday me1 and dx with a fracture to left elbow. c/o pain to left shoulder and states that no xrays were taken of shoulder and she is concerned about fracture. States pain is keeping her awake me1
[2024-05-23 17:48] VITALS: TEMP 98.2
[2024-05-23 17:50] VITALS: BP 154/76; O2SAT 97
== END 2024-05-23 17:44 | disposition home or self-care (01) ==
LOC: ER 14:42
DX: M25.512 Pain in left shoulder (principal)
CPT/HCPCS: 99283

== ENCOUNTER 2024-09-02 23:01 | Emergency (ER) | payer OTHER ==
[2024-09-02] MEDS ORDERED: MORPHINE 2 MG/ML SYR ONE (23:49)
[2024-09-02] MEDS ORDERED: BUPIVACAINE 0.5% PF 10 ML VIAL ONE (23:49)
[2024-09-02] MEDS ORDERED: ONDANSETRON 4 MG/2 ML VIAL ONE (23:49)
[2024-09-02] MEDS ORDERED: CEFTRIAXONE 1000 MG/VIAL ONE (23:49)
[2024-09-02] MEDS ORDERED: droPERidol 5 MG/2 ML VIAL ONE (23:49)
[2024-09-02] MEDS ORDERED: FAMOTIDINE 20 MG/2 ML VIAL IV ONE (23:50)
[2024-09-02] MEDS ORDERED: NA CHLORIDE 0.9% 50 ML ONE (23:50)
[2024-09-02] MEDS ORDERED: KETOROLAC 30 MG/ML INJ ONE (23:50)
[2024-09-03 00:18] LABS: Absolute Basophils 0.1 K/uL (0-0.5); Absolute Eosinophils 0.3 K/uL (0-0.5); Absolute Lymphocytes (CBC) 1.4 K/uL (0.7-4.9); Absolute Monocytes 0.7 K/uL (0.1-1.3); Absolute Neutrophil 6.5 K/uL (1.8-8.0); Basophils % 0.9 % (0-1.3); Eosinophils % 3.2 % (0-4.4); Hematocrit 30.2 % (36.0-45.0); Hemoglobin 10.3 g/dL (12.0-15.0); Lymphocytes % 15.3 % (15.3-44.8); MCH 32.1 pg (27.0-35.0); MCV 94.6 fL (80-100); MPV 7.7 fL (7.6-11.3); Monocytes % 7.9 % (3.3-12.3); Neutrophils % 72.7 % (41.7-73.7); Platelets 236 thou/uL (152-406); RBC Red Blood Cell Count 3.19 M/uL (3.86-4.86); Red Cell Distribution Width 13.3 % (12.1-15.2)
[2024-09-03 00:28] LABS: AST/SGOT 14 U/L (15-37); Albumin 3.2 g/dL (3.4-5.0); Albumin/Globulin Ratio 0.9 (1.1-1.8); Alkaline Phosphatase 56 U/L (45-117); Anion Gap 8.9 mEq/L (5.0-15.0); BUN Blood Urea Nitrogen 23 mg/dL (7-18); Bicarbonate 24 mEq/L (21-32); Bilirubin Total 0.2 mg/dL (0.2-1.0); Globulin 3.4 g/dL (2.3-3.5); Glomerular Filtration Rate 66 ml/min (=/>90); Glucose Level 117 mg/dL (74-106); Potassium 3.9 mEq/L (3.5-5.1); Protein, Total 6.6 g/dL (6.4-8.2); Sodium Level 135 mEq/L (136-145)
[2024-09-03 00:30] LABS: ALT/SGPT < 14 U/L (13-56)
[2024-09-03] MEDS ORDERED: HYDROCODONE/APAP 5/325 MG TAB ONE (01:49)
[2024-09-03] MEDS ORDERED: cloNIDine HCL 0.1 MG TAB ONE (01:54)
--- NOTE | 2024-09-03 03:08 | EDPHYS ---
Physician Documentation [facility] Name: Valentina Raphael Age: 79 yrs Sex: Female : 1945 Arrival Date: 09/02/2024 Time: 23:01 Bed 4 Private MD: ED Physician Jace Trevino HPI: 09/02 23:31 This 79 yrs old Female presents to ER via Unassigned with complaints of sp4 elevated blood pressure and dental pain . 09/03 19:40 79-year-old female presents with acute onset of moderate to severe left lower dental sp4 pain associated with left lower facial swelling associated with elevated blood pressure. Patient arrives with EMS EMS reported blood pressure in excess of 200 systolic.. Historical: - Allergies: 09/02 23:30 No Known Allergies; rg5 - PMHx: 23:30 Hyperlipidemia; Hypothyroidism; Hypertension; spinal menengitis; rg5 - PSHx: 23:30 Appendectomy; colon surgery; Total abdominal hysterectomy; rg5 - Immunization history:: Adult Immunizations up to date. - Infectious Disease History:: Denies. - Social history:: Smoking status: Patient denies any tobacco usage or history of. - Family history:: not pertinent. ROS: 09/03 19:40 Constitutional: Negative for fever, chills, and weight loss, positive for left lower sp4 dental pain, positive for moderate to severe dental decay, positive for elevated blood pressure, positive for left lower dental pain. All other systems are negative, Exam: 19:40 Constitutional: This is a well developed, well nourished patient who is awake, alert, sp4 and in no acute distress. Head/Face: Normocephalic, atraumatic. Eyes: Pupils equal round and reactive to light, extra-ocular motions intact. Lids and lashes normal. Conjunctiva and sclera are not injected. Cornea within normal limits. Periorbital areas with no swelling, redness, or edema. ENT: Nares patent. No nasal discharge, no septal abnormalities noted. Tympanic membranes are normal and external auditory canals are clear. Oropharynx with no redness, swelling, or masses, exudates, or evidence of obstruction, uvula midline. Mucous membranes moist. Patient by exam has chronic extensive periodontal disease, very extensive chronic appearing severe dental decay, decay essentially creating destructive changes with dental degradation to the gumline. Mild swelling of the left lower gingiva with signs of forming gingival abscess. Poor oral hygiene. Neck: Trachea midline, no thyromegaly or masses palpated, and no cervical lymphadenopathy. Supple, full range of motion without nuchal rigidity, or vertebral point tenderness. Chest/axilla: Normal chest wall appearance and motion. Nontender with no deformity. No lesions are appreciated. Cardiovascular: Regular rate and rhythm with a normal S1 and S2. No gallops, murmurs, or rubs. Normal PMI, no JVD. No pulse deficits. Respiratory: Lungs have equal breath sounds bilaterally, clear to auscultation and percussion. No rales, rhonchi or wheezes noted. No increased work of breathing, no retractions or nasal flaring. Abdomen/GI: Soft, with normal bowel sounds. No distension or tympany. No guarding or rebound. No evidence of tenderness throughout. Back: No spinal tenderness. No costovertebral tenderness. Skin: Warm, dry with normal turgor. Normal color with no rashes, no lesions, and no evidence of cellulitis. MS/ Extremity: Pulses equal, no cyanosis. Neurovascular intact. Full, normal range of motion. Neuro: Awake and alert, GCS 15, oriented to person, place, time, and situation. Cranial nerves II-XII grossly intact. Motor strength 5/5 in all extremities. Sensory grossly intact. Psych: Awake, alert, with orientation to person, place and time. Behavior, mood, and affect are within normal limits Vital Signs: 09/02 23:30 BP 211 / 109; Pulse 94; Resp 18; Temp 98.3; Pulse Ox 98% on R/A; Weight 42.91 kg; rg5 Height 5 ft. 3 in. ; Pain 9/10; 09/03 00:08 BP 181 / 135; Pulse 91; Resp 18; Pulse Ox 98% ; rg5 00:45 BP 160 / 92; Pulse 86; Resp 18; Pulse Ox 99% on R/A; Pain 6/10; rg5 01:59 BP 171 / 88; Pulse 85; Resp 16; Pulse Ox 100% on R/A; jb4 03:00 BP 150 / 77; Pulse 85; Resp 16; Pulse Ox 95% on R/A; jb4 09/02 23:30 Body Mass Index 16.76 (42.91 kg, 160.02 cm) rg5 09/02 23:30 Pain Scale: Adult rg5 00:45 Pain Scale: Adult rg5 [place] Coma Score: 19:40 Eye Response: spontaneous(4). Motor Response: obeys commands(6). Verbal Response: sp4 oriented(5). Total: 15. Procedures: 19:40 Performed Left lower inferior alveolar dental block , exploration of gingival swelling. sp4 Small incision of the gingiva in the next to teeth #18 and 19. . Left lower inferior alveolar dental block performed with lidocaine 10 mL total.. Small incision made at the site of the gingival swelling without significant pus. No signs of significant purulent debris. Patient then irrigated and gauze applied to contain the bleeding.. MDM: 09/02 23:33 Medical Screening Exam initiated sp4 09/03 19:40 Differential diagnosis: dental caries, gingivitis, dental abscess, aphthous ulcers, sp4 gingivostomatitis. Data reviewed: vital signs, nurses notes, EMS record, old medical records, lab test result(s). Consideration of Admission/Observation Escalation of care including admission/observation considered. ED course: Blood pressure has significantly improved after pain control. Patient administered pain medication and IV Rocephin for acute appearing left lower gingival infection. After exploration no significant signs of pus pocket found. Patient at this time advised clear liquid diet for the next 24 hours. Also visit with oral surgeon for full mouth extraction. This time we do not see any salvageable dental structures. Thus patient would warrant full mouth extraction and fitting for dentures.. 09/02 23:32 Order name: CBC with Diff; Complete Time: : [facility] 09/02 23:32 Order name: CMP; Complete Time: 4 09/02 23:32 Order name: IV Saline Lock; Complete Time: 00:07 [facility] 09/02 23:32 Order name: Labs collected and sent; Complete Time: 00:07 [facility] Administered Medications: 00:00 Drug: Famotidine IVP 20 mg IVP once; dilute with 10 mL 0.9% NaCl; give over 2 minutes rg5 Route: IVP; Site: left antecubital; 00:30 Follow up: Response: No adverse reaction rg5 00:00 Drug: Ondansetron IVP 4 mg IVP once; over 2 minutes Route: IVP; Site: left antecubital; rg5 00:40 Follow up: Response: No adverse reaction rg5 00:02 Drug: TORadol - Ketorolac IVP 15 mg IVP once Route: IVP; Site: left antecubital; rg5 00:30 Follow up: Response: No adverse reaction; Pain is decreased rg5 00:03 Drug: morphine IVP or IV 4 mg IVP once over 4 mins Route: IVP; Infused Over: 4 mins; rg5 Site: left antecubital; 00:30 Follow up: Response: No adverse reaction; Pain is decreased rg5 00:05 Drug: Rocephin - Rocephin (cefTRIAXone) IVPB 1 grams IVPB once over 30 mins; (mix in 50 rg5 mL NS) Route: IVPB; Infused Over: 30 mins; Site: left antecubital; 00:45 Follow up: IV Status: Completed infusion; IV Intake: 100ml rg5 00:05 Drug: Droperidol IVP 1.25 mg IVP once Route: IVP; Site: left antecubital; rg5 00:45 Follow up: Response: No adverse reaction; Pain is decreased rg5 01:30 Drug: Bupivacaine Infiltration (0.5 %) 10 ml 10 ml Infiltration once {Note: jb4 administered by ER physician..} Volume: 10 ml; Route: Infiltration; 01:57 Drug: cloNIDine PO 0.1 mg PO once Route: PO; jb4 03:00 Follow up: Response: No adverse reaction; Blood pressure is lowered rg5 01:57 Drug: HYDROcodone-acetaminophen PO 5 mg-325 mg 2 tabs PO once Route: PO; jb4 03:30 Follow up: Response: No adverse reaction; Pain is decreased rg5 Disposition Summary: 09/03/24 03:08 Discharge Ordered Notes: Location: Home sp4 Problem: new sp4 Symptoms: have improved sp4 Condition: Stable sp4 Diagnosis - Acute left lower dental infection, Dental infection tooth number 19, 20 , sp4 Hypertensive Urgency Followup: sp4 - With: Johnny Flores DDS - When: 7 - 10 days - Reason: Recheck today's complaints Discharge Instructions: - Discharge Summary Sheet sp4 - Dental Caries, Adult, [id number] sp4 Forms: - Patient Portal Instructions sp4 Prescriptions: - naproxen 250 mg Oral tablet - take 1 tablet ORAL route 2 times per day PRN pain; 50 tablet; Refills: 0, sp4 Product Selection Permitted - Cephalexin 500 mg Oral Capsule - take 1 capsule ORAL route every 6 hours for 10 days; 40 capsule; Refills: 0, sp4 Product Selection Permitted - Tramadol 50 mg Oral tablet - take 1 tablet ORAL route every 8 hours as needed; 20 tablet; Refills: 0, sp4 Product Selection Permitted Signatures: Dispatcher [employer] Michael Mckeon, RN RN jb4 Jace Trevino MD MD sp4 Dago Giraldo RN RN rg5
--- NOTE | 2024-09-03 03:08 | ER ---
Nurse's Notes [facility] Name: Valentina Raphael Age: 79 yrs Sex: Female : 1945 Arrival Date: 09/02/2024 Time: 23:01 Bed 4 Private MD: Diagnosis: Acute left lower dental infection, Dental infection tooth number 19, 20 , Hypertensive Urgency Presentation: 09/02 23:30 Chief complaint: EMS states: patient called because her blood pressure is high and she rg5 is also having toothache. 23:30 Coronavirus screen: Client denies travel out of the [place] in the last 14 days. Ebola rg5 Screen: Patient negative for fever greater than or equal to 101.5 degrees Fahrenheit, and additional compatible Ebola Virus Disease symptoms Patient denies exposure to infectious person. Patient denies travel to an Ebola-affected area in the 21 days before illness onset. Initial Sepsis Screen: Does the patient meet any 2 criteria? No. Patient's initial sepsis screen is negative. Does the patient have a suspected source of infection? No. Patient's initial sepsis screen is negative. Risk Assessment: Do you want to hurt yourself or someone else? Patient reports no desire to harm self or others. Onset of symptoms was September 02, 2024. Care prior to arrival: Medication(s) given: Tylenol, 1000 mg, IV IV initiated. 20 GA, in the left antecubital area, Oxygen administered. via nasal cannula, 2L. 23:30 Method Of Arrival: EMS: [facility] rg5 23:30 Acuity: ZENYEP 3 rg5 Triage Assessment: 23:30 General: Appears in no apparent distress. uncomfortable, Behavior is calm, cooperative, rg5 appropriate for age. Pain: Complains of pain in left buccal mucosa Pain currently is 9 out of 10 on a pain scale. Quality of pain is described as aching. EENT: Reports pain in left buccal mucosa. Neuro: Level of Consciousness is awake, alert, obeys commands. Cardiovascular: Denies chest pain. Respiratory: Airway is patent Trachea midline Respiratory effort is even, unlabored, Respiratory pattern is regular, symmetrical. GI: Abdomen is flat, non-distended, Reports constipation. : No signs and/or symptoms were reported regarding the genitourinary system. Derm: Skin is intact, Skin is dry, Skin is normal. Musculoskeletal: Circulation, motion, and sensation intact. Range of motion: intact in all extremities. Historical: - Allergies: 23:30 No Known Allergies; rg5 - PMHx: 23:30 Hyperlipidemia; Hypothyroidism; Hypertension; spinal menengitis; rg5 - PSHx: 23:30 Appendectomy; colon surgery; Total abdominal hysterectomy; rg5 - Immunization history:: Adult Immunizations up to date. - Infectious Disease History:: Denies. - Social history:: Smoking status: Patient denies any tobacco usage or history of. - Family history:: not pertinent. Screenin:30 [facility] ED Fall Risk Assessment (Adult) History of falling in the last 3 months, rg5 including since admission No falls in past 3 months (0 pts) Confusion or Disorientation No (0 pts) Intoxicated or Sedated No (0 pts) Impaired Gait Yes (1 pt) Mobility Assist Device Used No (0 pt) Altered Elimination No (0 pt) Score/Fall Risk Level 0 - 2 = Low Risk Oriented to surroundings, Maintained a safe environment. 23:30 Abuse screen: Denies threats or abuse. Nutritional screening: No deficits noted. rg5 Tuberculosis screening: No symptoms or risk factors identified. Assessment: 09/03 00:44 Reassessment: Patient appears in no apparent distress at this time. Patient and/or jb4 family updated on plan of care and expected duration. Pain level reassessed. Patient is alert, oriented x 3, equal unlabored respirations, skin warm/dry/pink. 01:59 Reassessment: Patient appears in no apparent distress at this time. Patient and/or jb4 family updated on plan of care and expected duration. Pain level reassessed. Patient is alert, oriented x 3, equal unlabored respirations, skin warm/dry/pink. 03:00 Reassessment: Patient appears in no apparent distress at this time. Patient and/or jb4 family updated on plan of care and expected duration. Pain level reassessed. Patient is alert, oriented x 3, equal unlabored respirations, skin warm/dry/pink. Vital Signs: 09/02 23:30 BP 211 / 109; Pulse 94; Resp 18; Temp 98.3; Pulse Ox 98% on R/A; Weight 42.91 kg; rg5 Height 5 ft. 3 in. ; Pain 9/10; 09/03 00:08 BP 181 / 135; Pulse 91; Resp 18; Pulse Ox 98% ; rg5 00:45 BP 160 / 92; Pulse 86; Resp 18; Pulse Ox 99% on R/A; Pain 6/10; rg5 01:59 BP 171 / 88; Pulse 85; Resp 16; Pulse Ox 100% on R/A; jb4 03:00 BP 150 / 77; Pulse 85; Resp 16; Pulse Ox 95% on R/A; jb4 09/02 23:30 Body Mass Index 16.76 (42.91 kg, 160.02 cm) rg5 09/02 23:30 Pain Scale: Adult rg5 00:45 Pain Scale: Adult rg5 [place] Coma Score: 19:40 Eye Response: spontaneous(4). Motor Response: obeys commands(6). Verbal Response: sp4 oriented(5). Total: 15. ED Course: 09/02 23:29 Patient arrived in ED. gm2 23:30 Arm band placed on. rg5 23:30 Patient has correct armband on for positive identification. Call light in reach. Side rg5 rails up X 1. 23:30 No provider procedures requiring assistance completed. Maintain EMS IV. Dressing rg5 intact. Good blood return noted. Site clean \T\ dry. Gauge \T\ site: 20 g right AC. Flushed with 10 mL NS. 23:31 Jace Trevino MD is Attending Physician. sp4 23:32 Dago Giraldo RN is Primary Nurse. rg5 23:39 Triage completed. rg5 09/03 03:06 Johnny Flores DDS is Referral Physician. sp4 04:15 Provided Education on: post er care done. rg5 04:15 IV discontinued, bleeding controlled. rg5 Administered Medications: 00:00 Drug: Famotidine IVP 20 mg IVP once; dilute with 10 mL 0.9% NaCl; give over 2 minutes rg5 Route: IVP; Site: left antecubital; 00:30 Follow up: Response: No adverse reaction rg5 00:00 Drug: Ondansetron IVP 4 mg IVP once; over 2 minutes Route: IVP; Site: left antecubital; rg5 00:40 Follow up: Response: No adverse reaction rg5 00:02 Drug: TORadol - Ketorolac IVP 15 mg IVP once Route: IVP; Site: left antecubital; rg5 00:30 Follow up: Response: No adverse reaction; Pain is decreased rg5 00:03 Drug: morphine IVP or IV 4 mg IVP once over 4 mins Route: IVP; Infused Over: 4 mins; rg5 Site: left antecubital; 00:30 Follow up: Response: No adverse reaction; Pain is decreased rg5 00:05 Drug: Rocephin - Rocephin (cefTRIAXone) IVPB 1 grams IVPB once over 30 mins; (mix in 50 rg5 mL NS) Route: IVPB; Infused Over: 30 mins; Site: left antecubital; 00:45 Follow up: IV Status: Completed infusion; IV Intake: 100ml rg5 00:05 Drug: Droperidol IVP 1.25 mg IVP once Route: IVP; Site: left antecubital; rg5 00:45 Follow up: Response: No adverse reaction; Pain is decreased rg5 01:30 Drug: Bupivacaine Infiltration (0.5 %) 10 ml 10 ml Infiltration once {Note: jb4 administered by ER physician..} Volume: 10 ml; Route: Infiltration; 01:57 Drug: cloNIDine PO 0.1 mg PO once Route: PO; jb4 03:00 Follow up: Response: No adverse reaction; Blood pressure is lowered rg5 01:57 Drug: HYDROcodone-acetaminophen PO 5 mg-325 mg 2 tabs PO once Route: PO; jb4 03:30 Follow up: Response: No adverse reaction; Pain is decreased rg5 Medication: 09/02 23:30 VIS not applicable for this client. rg5 Intake: 09/03 00:45 IV: 100ml; Total: 100ml. rg5 Outcome: 03:08 Discharge ordered by . sp4 04:15 Discharged to home via wheelchair, rg5 04:15 Condition: stable 04:15 Discharge instructions given to patient, Instructed on discharge instructions, follow up and referral plans. Demonstrated understanding of instructions, follow-up care, medications, Prescriptions given X 3, 04:17 Patient left the ED. rg5 Signatures: Michael Ying RN RN Jace Alvarenga MD MD sp4 Vanna Perez gm2 Dago Giraldo RN RN rg5
[2024-09-03 04:22] VITALS: TEMP 98.3
[2024-09-03 04:29] VITALS: BP 150/77; O2SAT 95
== END 2024-09-03 04:17 | disposition home or self-care (01) ==
LOC: ER 23:01
DX: K04.7 Periapical abscess without sinus (principal); I16.0 Hypertensive urgency
CPT/HCPCS: 96365; 85025; 36415; 80053; 96375; 99284; J2270; J2405; J1790; J0696